=== PATIENT | male | born 1970 | race Caucasian/White ===

== ENCOUNTER 2018-05-05 17:30 | Emergency (ER) | payer SELFPAY ==
[~2018-05-05] VITALS: Ht 193 cm; Wt 90.7 kg
--- OUTSIDE RECORDS SUMMARY | 2018-05-05 17:33 | XMS REPORT ---
Author Author Kai Hills Organization [employer] Address Unknown Phone Unavailable Care Team Providers Care Special Agent Name Role Phone Kai Hills CP Unavailable Allergies No Known Allergies Problems Problem Type Condition Code Onset Dates Condition Status Problem Tinea pedis of both feet B35.3 Active Problem Peripheral vascular disease I73.9 Active Medications No Known Medications Results No Known Results Summary Purpose [employer] Submission
--- OUTSIDE RECORDS SUMMARY | 2018-05-05 17:33 | XMS REPORT ---
Author Author Kai Hills Organization [employer] Address Unknown Phone Unavailable Care Team Providers Care Microfilm Operator Name Role Phone Kai Hills CP Unavailable Allergies No Known Allergies Problems Problem Type Condition Code Onset Dates Condition Status Problem Tinea pedis of both feet B35.3 Active Problem Peripheral vascular disease I73.9 Active Medications No Known Medications Results No Known Results Summary Purpose [employer] Submission
--- OUTSIDE RECORDS SUMMARY | 2018-05-05 17:33 | XMS REPORT | Continuity of Care Document ---
Author Author [facility] Address Unknown Phone Unavailable Problems Problem Status Onset Date Classification Date Reported Comments Source Tinea pedis of both feet Active Problem 04/02/2018 [facility] Peripheral vascular disease Active Problem 04/02/2018 [facility] Medications Medication Details Route Status Patient Instructions Ordering Provider Order Date Source Allergies, Adverse Reactions, Alerts Substance Category Reaction Severity Reaction type Status Date Reported Comments Source Immunizations Immunization Date Given Site Status Last Updated Comments Source Results Order Name Results Value Reference Range Date Interpretation Comments Source Vital Signs Vital Sign Value Date Comments Source Encounters Location Location Details Encounter Type Encounter Number Reason For Visit Attending Provider ADM Date DC Date Status Source Procedures Procedure Code Date Perfomer Comments Source
--- OUTSIDE RECORDS SUMMARY | 2018-05-05 17:33 | XMS REPORT ---
Author Author Kai Hills Organization [employer] Address Unknown Phone Unavailable Care Team Providers Care Supervisor Metal Placing Name Role Phone Kai Hills CP Unavailable Allergies No Known Allergies Problems Problem Type Condition Code Onset Dates Condition Status Problem Tinea pedis of both feet B35.3 Active Problem Peripheral vascular disease I73.9 Active Medications No Known Medications Results No Known Results Summary Purpose [employer] Submission
[2018-05-05 21:28] LABS: BASOPHILS # (AUTO) 0.1 (0.0-0.1); BASOPHILS % 0.6 % (0.0-1.0); EOSINOPHILS # (AUTO) 0.5 (0.0-0.4); EOSINOPHILS % 3.7 % (0.0-6.0); HEMATOCRIT 41.1 % (38.2-49.6); HEMOGLOBIN 14.6 g/dL (14.0-18.0); LYMPHOCYTES # (AUTO) 1.4 (1.0-3.2); LYMPHOCYTES % 11.3 % (18.0-39.1); MEAN CORPUSCULAR HEMOGLOBIN 35.6 pg (28-32); MEAN CORPUSCULAR HGB CONC 35.5 g/dL (31-35); MEAN CORPUSCULAR VOLUME 100.2 fL (81-99); MONOCYTES # (AUTO) 1.1 (0.2-0.8); MONOCYTES % 8.7 % (4.4-11.3); NEUTROPHILS # (AUTO) 9.5 (2.1-6.9); NEUTROPHILS % 74.7 % (38.7-80.0); PLATELET COUNT 393 x10e3/uL (140-360); RED CELL DISTRIBUTION WIDTH 13.5 % (11.7-14.4)
[2018-05-05 21:40] LABS: ALANINE AMINOTRANSFERASE 16 IU/L (0-55); ALBUMIN 1.5 g/dL (3.5-5.0); ALBUMIN/GLOBULIN RATIO 0.4 (0.8-2.0); ALKALINE PHOSPHATASE 115 IU/L (40-150); ANION GAP 11.4 mmol/L (8-16); BLOOD UREA NITROGEN 8 mg/dL (7-26); BUN/CREATININE RATIO 13 (6-25); CALCIUM 8.7 mg/dL (8.4-10.2); CARBON DIOXIDE 25 mmol/L (22-29); CHLORIDE 100 mmol/L (98-107); CREATININE, SERUM 0.63 mg/dL (0.72-1.25); EST GLOMERULAR FILTRATION RATE > 60 ML/MIN (60-); GLUCOSE 94 mg/dL (74-118); POTASSIUM 4.4 mmol/L (3.5-5.1); SODIUM 132 mmol/L (136-145)
[2018-05-05 23:02] LABS: BILIRUBIN,URINE NEGATIVE (NEGATIVE); CLARITY,URINE CLOUDY (CLEAR); COLOR,URINE AMBER (YELLOW); KETONES,URINE NEGATIVE (NEGATIVE); LEUKOCYTE ESTERASE ,URINE NEGATIVE (NEGATIVE); NITRITE,URINE NEGATIVE (NEGATIVE); PROTEIN,URINE DIPSTICK 3+ (NEGATIVE); URINE UROBILINOGEN 0.2 mg/dL (0.2 - 1)
[2018-05-05 23:10] LABS: BACTERIA,URINE MANY /HPF; RBC,URINE >50 /HPF (0-5)
[2018-05-05 23:11] LABS: EPITHELIAL CELLS,URINE FEW /LPF
[2018-05-06] MEDS ORDERED: SODIUM CHLORIDE 0.9% 500ML 500 ML IV ONE
--- NOTE | 2018-05-06 00:41 | Diagnostic Imaging Report ---
EXAMINATION: CHEST 2 VIEWS INDICATION: SMOKER W/ COUGH, WT LOSS, LEFT ARM COLD COMPARISON: None FINDINGS: PA and lateral views TUBES and LINES: None. LUNGS: Lungs are well inflated. Chronic appearing interstitial changes likely relating to underlying emphysema. Biapical pleural parenchymal scarring, left greater than right. There is no evidence of pneumonia or pulmonary edema. PLEURA: No pleural effusion or pneumothorax. HEART AND MEDIASTINUM: The cardiomediastinal silhouette is unremarkable. BONES AND SOFT TISSUES: No acute osseous lesion. Multiple old right-sided rib and right scapular fractures. Soft tissues are unremarkable. UPPER ABDOMEN: No free air under the diaphragm. IMPRESSION: No acute thoracic abnormality. Signed by: DR. Surinder Meraz MD on 05/06/2018 12:38 AM
[2018-05-06] MEDS ORDERED: HEPARIN SOD (PORCINE) 5,000 UNIT/ML VIAL IV ONE (01:00)
--- NOTE | 2018-05-06 01:01 | Diagnostic Imaging Report ---
EXAM: CT Chest WITH contrast (PE Protocol) INDICATION: Leg, arm swelling. Rash on torso, arms, and legs for one week. Shortness of breath with exertion. ^PE PROTOCOL COMPARISON: None TECHNIQUE: Chest was scanned utilizing a multidetector helical scanner from the lung apex through the level of the diaphragm after administration of IV contrast. Thin section reconstructions were obtained with special concentration on the pulmonary arteries. Coronal and sagittal reformations were obtained. Pulmonary embolism protocol was performed. IV CONTRAST: 100 mL of Isovue-370 COMPLICATIONS: None RADIATION DOSE: Total DLP: 619.6 mGy*cm Estimated effective dose: (DLP x 0.014 x size factor) mSv CTDIvol has been reviewed. It is below the limits set by the Radiation Protocol Committee (RPC). FINDINGS: LINES/ TUBES: None. LUNGS AND AIRWAYS: No filling defect is identified within the pulmonary arteries to the segmental level. Centrilobular and paraseptal emphysematous changes predominantly in the upper lobes. Mild biapical pleural-parenchymal scarring. No consolidations. Airways are normal. PLEURA: The pleural spaces are clear. HEART AND MEDIASTINUM: The thyroid gland is normal. No mediastinal, hilar or axillary lymphadenopathy. The heart is normal in size.. There is no pericardial effusion. Three-vessel coronary artery calcifications. Main pulmonary artery measures 2.6 cm in diameter and the ascending aorta measures 3.4 cm. UPPER ABDOMEN: Unremarkable BONES: Old multiple right-sided rib fractures and right scapular fracture. SOFT TISSUES: Gynecomastia. IMPRESSION: No pulmonary emboli or acute thoracic abnormalities. Signed by: DR. Surinder Meraz MD on 05/06/2018 12:58 AM
[2018-05-06 01:46] LABS: INR 0.86; PROTHROMBIN TIME 12.5 seconds (11.9-14.5)
[2018-05-06 01:47] LABS: PARTIAL THROMBOPLASTIN TIME 27.5 seconds (23.8-35.5)
[2018-05-06] MEDS ORDERED: HEPARIN 25,000U/0.45% NS 250ML 250 ML ONE (01:54)
[2018-05-06] MEDS ORDERED: CEFTRIAXONE SOD 1 GM VIAL IV SCH (02:00)
[2018-05-06] MEDS ORDERED: IOPAMIDOL 370 MG/ML 200 ML INFUS..BTL INJ ONE (02:37)
[2018-05-06] MEDS ORDERED: SODIUM CHLORIDE 0.9% 50ML 50 ML ONE ×2 (02:37→02:51)
== END 2018-05-06 03:45 | disposition short-term general hospital (02) ==
LOC: ER 17:30
DX: M79.89 Other specified soft tissue disorders (principal); I74.2 Embolism and thrombosis of arteries of the upper extremities; R60.9 Edema, unspecified; R21 Rash and other nonspecific skin eruption; N30.91 Cystitis, unspecified with hematuria; R53.83 Other fatigue; I10 Essential (primary) hypertension; F17.210 Nicotine dependence, cigarettes, uncomplicated
CPT/HCPCS: 36415; 71046; 71260; 80053; 81001; 83880; 85025; 85610; 85730; 87086; 93005; 93931; 99284; J0696; J1644 ×2; J7040; Q9967

== ENCOUNTER 2018-10-03 17:01 | Emergency (ER) | payer BC ==
[~2018-10-03] VITALS: Ht 193 cm; Wt 92.5 kg
--- OUTSIDE RECORDS SUMMARY | 2018-10-03 17:07 | XMS REPORT | Clinical Summary ---
Author Author [facility] Address Unknown Phone Unavailable Care Team Providers Care Water Tender Name Role Phone Jair Martino Unavailable Allergies Comments Active Allergy Reactions Severity Noted Date Amlodipine 05/06/2018 Medications End Date Status Medication Sig Dispensed Refills Start Date Active losartan (COZAAR) 100 MG Take 100 mg 0 tablet by mouth daily. 05/13/2019 Active losartan (COZAAR) 100 MG Take 1 tablet 90 tablet 3 tablet (100 mg 8 total) by mouth daily. 05/12/2019 Active clobetasol (TEMOVATE) Apply 30 g 0 0.05 % ointment topically 2 8 (two) times daily. 05/12/2019 Active triamcinolone (KENALOG) Apply 30 g 0 0.1 % topical ointment topically 2 8 (two) times daily. 05/16/2019 Active aspirin 81 MG EC tablet Take 1 tablet 90 tablet 3 (81 mg total) 8 by mouth daily. 06/11/2018 sulfamethoxazole-trimetho Take 1 tablet 30 tablet 1 prim (BACTRIM DS) 800-160 (160 mg of 8 mg per tablet trimethoprim total) by mouth daily for 30 days. 05/15/2018 Discontinued apixaban (ELIQUIS) 5 mg Take 2 28 tablet 0 Tab tablet tablets (10 8 mg total) by mouth 2 (two) times daily for 7 days Then take 5mg twice daily.. 05/12/2018 Discontinued apixaban (ELIQUIS) 5 mg Take 1 tablet 60 tablet 3 Tab tablet (5 mg total) 8 by mouth 2 (two) times daily for 30 days. 06/11/2018 pantoprazole (PROTONIX) Take 1 tablet 30 tablet 1 40 MG tablet (40 mg total) 8 by mouth daily for 30 days. 06/11/2018 furosemide (LASIX) 80 MG Take 1 tablet 60 tablet 1 tablet (80 mg total) 8 by mouth 2 (two) times daily for 30 days. 06/12/2018 predniSONE (DELTASONE) 20 Take 3 90 tablet 0 MG tablet tablets (60 8 mg total) by mouth daily for 30 days. 06/11/2018 apixaban (ELIQUIS) 5 mg Take 1 tablet 60 tablet 1 Tab tablet (5 mg total) 8 by mouth 2 (two) times daily for 30 days. 05/20/2018 apixaban (ELIQUIS) 5 mg Take 2 20 tablet 0 Tab tablet tablets (10 8 mg total) by mouth 2 (two) times daily for 5 days Then take 5mg twice daily. 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 Essential hypertension 05/06/2018 Bilateral leg edema 05/06/2018 Encounters Care Team Description Date Type Specialty Anahi Stone RN Follow-up 06/12/2018 Telephone Cardiology Chai Jones MD L HEART CATH ONLY - NO ANGIOS 05/14/2018 Surgery 05/09/2018 Travel 05/08/2018 Travel Clara Pascual MD EMBOLECTOMY 05/07/2018 Surgery Jose Treviño MD 05/07/2018 Anesthesia Event Jose Treviño MD Chung, Jayer, MD [place], Narendra, MD Heinen, Allison P., MD Nephrotic syndrome (Primary Dx); Bilateral leg edema; Brachial artery thrombus (HCC); Essential hypertension; Hypoalbuminemia; Nephrosis; Leukocytosis, unspecified type; Hyponatremia; Aortic valve mass; Papillary fibroelastoma of heart; Preop cardiovascular exam; Alcohol abuse; Tobacco abuse 05/06/2018 [facility] General Internal Medicine - Encounter 05/15/2018 after 10/02/2017 Immunizations Name Dates Previously Given Next Due Influenza Four-QIV Non-PF 05/08/2018 5+ YR Pneumococcal Conjugate 05/08/2018 (Prevnar) 13-Valent Social History Date Tobacco Use Types Packs/Day Years Used Current Every Day Smoker Sex Assigned at Date Recorded Not on file Industry Job Start Date Occupation Not on file Not on file Not on file Travel End Travel History Travel Start No recent travel history available. Last Filed Vital Signs Time Taken Vital Sign Reading 05/15/2018 3:59 AM [employer] SUPER[employer] Blood Pressure 123/72 05/15/2018 3:59 AM [employer]PER[employer] Pulse 76 05/15/2018 3:59 AM [employer]PER[employer] Temperature 36 C (96.8 F) 05/15/2018 3:59 AM [employer] SUPER[employer] Respiratory Rate 18 05/15/2018 3:59 AM [employer]AKERS SUPER[employer]OR Oxygen Saturation 96% 05/07/2018 5:47 PM [employer]AKERS SUPER[employer]OR Inhaled Oxygen 50% Concentration 05/15/2018 6:00 AM [employer]PER[employer] Weight 89.4 kg (197 lb 1.6 oz) 05/06/2018 5:00 AM [employer]AKERS SUPERVISOR Height 187 cm (6' 1.62") 05/15/2018 6:00 AM [employer]AKERS SUPERVISOR Body Mass Index 25.57 Plan of Treatment Not on file Implants Device Identifier Shelf Expiration Date Model / Serial / Lot Implanted Type Area Manufactur er 07/24/2019 [id number] / / [id number] Floseal Vhsd Full Strlprep 5ml Cement/John Left: Arm 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 [id number] - [id number] ler/[employer]hes[employer] SCI Implanted: Qty: 2 on 05/07/2018 by Clara Ortez MD Procedures Comments Procedure Name Priority Date/Time Associated Diagnosis RHYTHM STRIP - SCAN 08/27/2018 11:11 AM CDT REPORT OF PROCEDURE - 08/27/2018 ENDOSCOPY SCAN 9:51 AM CDT VASCULAR DIAGRAM -SCAN 06/02/2018 2:40 PM [employer]AKERS SUPERVISOR RHYTHM STRIP - SCAN 06/02/2018 2:40 PM [employer]AKERS SUPERVISOR CARDIAC CATH REPORT - 06/02/2018 SCAN 2:40 PM [employer]AKERS SUPERVISOR VASCULAR DIAGRAM -SCAN 05/29/2018 5:[address] CHEST WITHOUT IV Routine 05/15/2018 CONTRAST 8:41 AM [employer]AKERS SUPERVISOR CBC W/PLT COUNT & AUTO Routine 05/15/2018 DIFFERENTIAL 4:46 AM [employer]AKERS SUPERVISOR CBC W/PLT COUNT & AUTO Routine 05/15/2018 DIFFERENTIAL 4:46 AM [employer]AKERS SUPER[employer]OR BASIC METABOLIC PANEL (7) Routine 05/15/2018 4:46 AM [employer]AKERS SUPERVISOR MAGNESIUM Routine 05/15/2018 4:46 AM [employer]AKERS SUPERVISOR THROMBOELASTOGRAPH (TEG) Routine 05/15/2018 4:46 AM [employer]AKERS SUPERVISOR ANTITHROMBIN III Routine 05/15/2018 4:46 AM SOAKERS SUPERVISOR POCT-ACT Routine 05/14/2018 4:30 PM [employer]AKERS SUPERVISOR L HEART CATH ONLY - NO 05/14/2018 Chest pain, unspecified ANGIOS 2:50 PM SOAKERS SUPERVISOR type APTT Routine 05/14/2018 1:29 PM [employer]AKERS SUPERVISOR CBC W/PLT COUNT & AUTO Routine 05/14/2018 DIFFERENTIAL 4:21 AM SOAKERS SUPERVISOR APTT Routine 05/14/2018 4:21 AM [employer]AKERS SUPERVISOR BASIC METABOLIC PANEL (7) Routine 05/14/2018 4:21 AM [employer]AKERS SUPERVISOR CBC W/PLT COUNT & AUTO Routine 05/14/2018 DIFFERENTIAL 4:21 AM SOAKERS SUPERVISOR APTT Routine 05/13/2018 7:40 PM [employer]AKERS SUPER[employer]OR BLOOD CULTURE Routine 05/13/2018 5:00 PM [employer]AKERS SUPERVISOR BASIC METABOLIC PANEL (7) Routine 05/13/2018 4:50 PM SOAKERS SUPERVISOR MAGNESIUM Routine 05/13/2018 4:50 PM [employer]AKERS SUPERVISOR BLOOD CULTURE Routine 05/13/2018 4:49 PM SOAKERS SUPERVISOR ECHOCARDIOGRAM REPORT - 05/13/2018 SCAN 2:50 PM SOAKERS SUPERVISOR ECG 12-LEAD Routine 05/13/2018 12:58 PM SOAKERS SUPERVISOR APTT Routine 05/13/2018 12:26 PM [employer]AKERS SUPERVISOR TRANSESOPHAGEAL ECHO Routine 05/13/2018 9:38 AM SOAKERS SUPERVISOR CBC W/PLT COUNT & AUTO Routine 05/13/2018 DIFFERENTIAL 4:38 AM SOAKERS SUPERVISOR APTT Routine 05/13/2018 4:38 AM [employer]AKERS SUPERVISOR BASIC METABOLIC PANEL (7) Routine 05/13/2018 4:38 AM SOAKERS SUPERVISOR CBC W/PLT COUNT & AUTO Routine 05/13/2018 DIFFERENTIAL 4:38 AM SOAKERS SUPERVISOR APTT Routine 05/12/2018 9:23 PM SOAKERS SUPERVISOR BASIC METABOLIC PANEL (7) Routine 05/12/2018 9:23 PM SOAKERS SUPERVISOR MAGNESIUM Routine 05/12/2018 9:23 PM [employer]AKERS SUPERVISOR ECHOCARDIOGRAM REPORT - 05/12/2018 SCAN 6:20 PM SOAKERS SUPERVISOR CONT WAVE PULSED DOPPLER Routine 05/12/2018 5:52 PM [employer]AKERS SUPERVISOR COLOR-FLOW MAPPING Routine 05/12/2018 5:52 PM [employer]AKERS SUPERVISOR ECHO W CONTRAST & DOPPLER Routine 05/12/2018 1:54 PM [employer]AKERS SUPERVISOR CBC W/PLT COUNT & AUTO Routine 05/12/2018 DIFFERENTIAL 5:37 AM SOAKERS SUPERVISOR MAGNESIUM Routine 05/12/2018 5:37 AM SOAKERS SUPERVISOR BASIC METABOLIC PANEL (7) Routine 05/12/2018 5:37 AM SOAKERS SUPERVISOR CBC W/PLT COUNT & AUTO Routine 05/12/2018 DIFFERENTIAL 5:37 AM SOAKERS SUPERVISOR TISSUE EXAM AP Routine 05/11/2018 5:14 PM [employer]AKERS SUPERVISOR BASIC METABOLIC PANEL (7) Routine 05/11/2018 5:14 PM SOAKERS SUPERVISOR MAGNESIUM Routine 05/11/2018 5:14 PM SOAKERS SUPERVISOR HEMOGLOBIN AND HEMATOCRIT Routine 05/11/2018 5:14 PM SOAKERS SUPERVISOR US RENAL BIOPSY Routine 05/11/2018 10:00 AM SOAKERS SUPERVISOR TISSUE EXAM AP Routine 05/11/2018 9:08 AM [employer]AKERS SUPERVISOR CBC W/PLT COUNT & AUTO Routine 05/11/2018 DIFFERENTIAL 6:18 AM [employer]AKERS SUPERVISOR CBC W/PLT COUNT & AUTO Routine 05/11/2018 DIFFERENTIAL 6:18 AM [employer]AKERS SUPERVISOR APTT Routine 05/11/2018 6:04 AM SOAKERS SUPERVISOR PROTHROMBIN TIME/INR Routine 05/11/2018 6:04 AM SOAKERS SUPERVISOR PT/APTT STAT 05/11/2018 6:04 AM [employer]AKERS SUPERVISOR MAGNESIUM Routine 05/11/2018 6:04 AM [employer]AKERS SUPERVISOR BASIC METABOLIC PANEL (7) Routine 05/11/2018 6:04 AM SOAKERS SUPERVISOR APTT Routine 05/10/2018 7:56 PM [employer]AKERS SUPERVISOR BASIC METABOLIC PANEL (7) Routine 05/10/2018 7:56 PM [employer]AKERS SUPERVISOR MAGNESIUM Routine 05/10/2018 7:56 PM SOAKERS SUPERVISOR APTT Routine 05/10/2018 1:03 PM [employer]AKERS SUPERVISOR OCCULT BLOOD, STOOL Routine 05/10/2018 5:44 AM [employer]AKERS SUPERVISOR CBC W/PLT COUNT & AUTO Routine 05/10/2018 DIFFERENTIAL 5:35 AM SOAKERS SUPERVISOR APTT Routine 05/10/2018 5:35 AM SOAKERS SUPERVISOR MAGNESIUM Routine 05/10/2018 5:35 AM SOAKERS SUPERVISOR BASIC METABOLIC PANEL (7) Routine 05/10/2018 5:35 AM SOAKERS SUPERVISOR CBC W/PLT COUNT & AUTO Routine 05/10/2018 DIFFERENTIAL 5:35 AM SOAKERS SUPERVISOR BASIC METABOLIC PANEL (7) Routine 05/09/2018 5:44 PM SOAKERS SUPERVISOR MAGNESIUM Routine 05/09/2018 9:18 AM SOAKERS SUPERVISOR APTT Routine 05/09/2018 9:18 AM SOAKERS SUPERVISOR CBC W/PLT COUNT & AUTO Routine 05/09/2018 DIFFERENTIAL 3:07 AM SOAKERS SUPERVISOR APTT Routine 05/09/2018 3:07 AM [employer]AKERS SUPERVISOR BASIC METABOLIC PANEL (7) Routine 05/09/2018 3:07 AM SOAKERS SUPERVISOR CBC W/PLT COUNT & AUTO Routine 05/09/2018 DIFFERENTIAL 3:07 AM [employer]AKERS SUPERVISOR US RENAL COMPLETE Routine 05/09/2018 2:35 AM SOAKERS SUPERVISOR ECHOCARDIOGRAM REPORT - 05/08/2018 SCAN 7:50 PM SOAKERS SUPERVISOR APTT Routine 05/08/2018 5:45 PM [employer]AKERS SUPERVISOR CREATININE, RANDOM URINE Routine 05/08/2018 12:06 PM [employer]AKERS SUPERVISOR OSMOLALITY, URINE Routine 05/08/2018 12:06 PM [employer]AKERS SUPERVISOR UREA NITROGEN, RANDOM Routine 05/08/2018 URINE 12:06 PM [employer]AKERS SUPERVISOR SODIUM, RANDOM URINE Routine 05/08/2018 12:06 PM [employer]AKERS SUPERVISOR APTT Routine 05/08/2018 12:05 PM [employer]AKERS SUPERVISOR 2D ECHO W/ DOPPLER Routine 05/08/2018 (CW/PW/COLOR) 10:46 AM SOAKERS SUPERVISOR OSMOLALITY, SERUM Routine 05/08/2018 8:18 AM SOAKERS SUPERVISOR CBC W/PLT COUNT & AUTO Routine 05/08/2018 DIFFERENTIAL 2:55 AM SOAKERS SUPERVISOR MAGNESIUM Routine 05/08/2018 2:55 AM SOAKERS SUPERVISOR APTT Routine 05/08/2018 2:55 AM SOAKERS SUPERVISOR PROTHROMBIN TIME/INR Routine 05/08/2018 2:55 AM [employer]AKERS SUPERVISOR BASIC METABOLIC PANEL (7) Routine 05/08/2018 2:55 AM SOAKERS SUPERVISOR CBC W/PLT COUNT & AUTO Routine 05/08/2018 DIFFERENTIAL 2:55 AM SOAKERS SUPERVISOR CBC W/PLT COUNT & AUTO Routine 05/07/2018 DIFFERENTIAL 10:06 PM [employer]AKERS SUPERVISOR LACTIC ACID, VENOUS Routine 05/07/2018 10:06 PM SOAKERS SUPERVISOR APTT Routine 05/07/2018 10:06 PM SOAKERS SUPERVISOR PROTHROMBIN TIME/INR Routine 05/07/2018 10:06 PM [employer]AKERS SUPERVISOR CBC W/PLT COUNT & AUTO Routine 05/07/2018 DIFFERENTIAL 10:06 PM [employer]AKERS SUPERVISOR CALCIUM, IONIZED Routine 05/07/2018 10:06 PM SOAKERS SUPERVISOR PHOSPHORUS Routine 05/07/2018 10:06 PM SOAKERS SUPERVISOR MAGNESIUM Routine 05/07/2018 10:06 PM [employer]AKERS SUPERVISOR BASIC METABOLIC PANEL (7) Routine 05/07/2018 10:06 PM SOAKERS SUPERVISOR APTT Routine 05/07/2018 9:52 PM SOAKERS SUPERVISOR APTT Routine 05/07/2018 7:02 PM SOAKERS SUPERVISOR TRANSFUSION SERVICE 05/07/2018 REPORT - SCAN 6:00 PM [employer]AKERS SUPERVISOR EMBOLECTOMY 05/07/2018 Thrombus 4:05 PM [employer]AKERS SUPERVISOR TISSUE EXAM AP Routine 05/07/2018 4:02 PM [employer]AKERS SUPERVISOR POCT-ACT Routine 05/07/2018 3:53 PM [employer]AKERS SUPERVISOR RHEUMATOID FACTOR AB, Routine 05/07/2018 REFLEX TO TITER 9:15 AM SOAKERS SUPERVISOR APTT Routine 05/07/2018 9:15 AM SOAKERS SUPERVISOR CBC W/PLT COUNT & AUTO Routine 05/07/2018 DIFFERENTIAL 3:02 AM SOAKERS SUPERVISOR LIPID PANEL Routine 05/07/2018 3:02 AM SOAKERS SUPERVISOR BASIC METABOLIC PANEL (7) Routine 05/07/2018 3:02 AM SOAKERS SUPERVISOR CBC W/PLT COUNT & AUTO Routine 05/07/2018 DIFFERENTIAL 3:02 AM SOAKERS SUPERVISOR APTT Routine 05/07/2018 3:02 AM SOAKERS SUPERVISOR URINE PROTEIN AP Routine 05/06/2018 ELECTROPHORESIS, RANDOM 8:32 PM SOAKERS SUPERVISOR PROTEIN, RANDOM URINE Routine 05/06/2018 8:32 PM SOAKERS SUPERVISOR URINALYSIS W/ MICROSCOPIC Routine 05/06/2018 8:32 PM SOAKERS SUPERVISOR UREA NITROGEN, RANDOM Routine 05/06/2018 URINE 8:32 PM SOAKERS SUPERVISOR CREATININE, RANDOM URINE Routine 05/06/2018 8:32 PM SOAKERS SUPERVISOR VITAMIN B12 Routine 05/06/2018 8:15 PM SOAKERS SUPERVISOR FOLATE, SERUM Routine 05/06/2018 8:15 PM SOAKERS SUPERVISOR BETA-2 GLYCOPROTEIN Routine 05/06/2018 ANTIBODIES 8:15 PM [employer]AKERS SUPERVISOR CARDIOLIPIN ANTIBODIES, Routine 05/06/2018 IGG AND IGM 8:15 PM [employer]AKERS SUPERVISOR COMPLEMENT COMPONENT C4 Routine 05/06/2018 8:15 PM [employer]AKERS SUPERVISOR COMPLEMENT COMPONENT C3 Routine 05/06/2018 8:15 PM [employer]AKERS SUPERVISOR DOUBLE-STRANDED DNA Routine 05/06/2018 (DSDNA) ANTIBODY 8:15 PM [employer]AKERS SUPERVISOR ANTI-NUCLEAR ANTIBODY Routine 05/06/2018 (YO) 8:15 PM SOAKERS SUPERVISOR HEPATITIS PANEL, ACUTE Routine 05/06/2018 8:15 PM SOAKERS SUPERVISOR KAPPA / LAMBDA LIGHT Routine 05/06/2018 CHAINS, SERUM 8:14 PM [employer]AKERS SUPERVISOR PROTEIN ELECTROPHORESIS, AP Routine 05/06/2018 SERUM 8:14 PM [employer]AKERS SUPERVISOR CRYOGLOBULIN AP Routine 05/06/2018 8:12 PM [employer]AKERS SUPERVISOR LUPUS ANTICOAGULANT AP Routine 05/06/2018 SCREEN WITH REFLEX TO 6:38 PM [employer]AKERS SUPERVISOR CONFIRMATORY APTT Routine 05/06/2018 6:38 PM [employer]AKERS SUPERVISOR APTT Routine 05/06/2018 10:47 AM [employer]AKERS SUPERVISOR T4, FREE Routine 05/06/2018 10:42 AM SOAKERS SUPERVISOR RPR Routine 05/06/2018 10:42 AM SOAKERS SUPERVISOR TSH/FREE T4 IF INDICATED Routine 05/06/2018 10:42 AM SOAKERS SUPERVISOR SODIUM, RANDOM URINE NIECY 05/06/2018 10:42 AM SOAKERS SUPERVISOR POTASSIUM, RANDOM URINE NIECY 05/06/2018 10:42 AM SOAKERS SUPERVISOR CHLORIDE, RANDOM URINE NIECY 05/06/2018 10:42 AM SOAKERS SUPERVISOR OSMOLALITY, SERUM NIECY 05/06/2018 10:42 AM SOAKERS SUPERVISOR PROTEIN, RANDOM URINE Routine 05/06/2018 10:42 AM SOAKERS SUPERVISOR OSMOLALITY, URINE NIECY 05/06/2018 10:42 AM [employer]AKERS SUPERVISOR HEPATITIS B SURFACE STAT 05/06/2018 ANTIGEN 10:42 AM [employer]AKERS SUPERVISOR HEPATITIS B SURFACE STAT 05/06/2018 ANTIBODY 10:42 AM [employer]AKERS SUPERVISOR HERPES VIRUS ANTIBODY, STAT 05/06/2018 IGM 10:42 AM [employer]AKERS SUPERVISOR HIV-1 ANTIGEN WITH STAT 05/06/2018 HIV-1/2 ANTIBODY 10:42 AM [employer]AKERS SUPERVISOR POCT-GLUCOSE METER Routine 05/06/2018 10:33 AM SOAKERS SUPERVISOR XR CHEST 1 VIEW Routine 05/06/2018 PORTABLE/BEDSIDE 9:30 AM [employer]AKERS SUPERVISOR VENOUS DOPPLER LEGS Routine 05/06/2018 BILATERAL 6:01 AM [employer]AKERS SUPERVISOR HEMOGLOBIN A1C Routine 05/06/2018 5:29 AM [employer]AKERS SUPERVISOR CBC W/PLT COUNT & AUTO Routine 05/06/2018 DIFFERENTIAL 5:11 AM [employer]AKERS SUPERVISOR TYPE AND SCREEN, STAT 05/06/2018 AUTOMATED 5:11 AM [employer]AKERS SUPERVISOR HEPATIC FUNCTION PANEL Routine 05/06/2018 5:11 AM SOAKERS SUPERVISOR LACTATE DEHYDROGENASE Routine 05/06/2018 (LDH) 5:11 AM SOAKERS SUPERVISOR LACTIC ACID, VENOUS Routine 05/06/2018 5:11 AM SOAKERS SUPERVISOR APTT Routine 05/06/2018 5:11 AM SOAKERS SUPERVISOR PHOSPHORUS Routine 05/06/2018 5:11 AM SOAKERS SUPERVISOR BASIC METABOLIC PANEL (7) Routine 05/06/2018 5:11 AM SOAKERS SUPERVISOR PT/APTT Routine 05/06/2018 5:11 AM SOAKERS SUPERVISOR MAGNESIUM Routine 05/06/2018 5:11 AM SOAKERS SUPERVISOR CBC W/PLT COUNT & AUTO Routine 05/06/2018 DIFFERENTIAL 5:11 AM SOAKERS SUPERVISOR after 10/02/2017 Results * RHYTHM STRIP - SCAN (08/27/2018 11:11 AM CDT) Only the most recent of 2 results within the time period is included. Narrative Performed At * EKG-SCANNED (08/27/2018 9:51 AM CDT) Narrative Performed At * VASCULAR DIAGRAM -SCAN (06/02/2018 2:40 PM SOAKERS SUPERVISOR) Only the most recent of 2 results within the time period is included. Narrative Performed At * CARDIAC CATH REPORT - SCAN (06/02/2018 2:40 PM SOAKERS SUPERVISOR) Narrative Performed At * CT chest without IV contrast (05/15/2018 8:41 AM SOAKERS SUPERVISOR) Specimen Narrative Performed At FINAL REPORT [employer] TECHNIQUE: CT scan of the chest WITHOUT intravenous contrast. Dose modulation, iterative reconstruction, and/or weight-based adjustment of the mA/kV was utilized to reduce the radiation dose to as low as reasonably achievable. INDICATION: Aortic valve disease, possible mass. COMPARISON: None. FINDINGS: ABSENCE OF INTRAVENOUS CONTRAST DECREASES SENSITIVITY FOR DETECTION OF FOCAL LESIONS AND VASCULAR PATHOLOGY. LINES/TUBES: None. LUNGS AND AIRWAYS: Moderate apical predominant centrilobular emphysema. Groundglass opacities are scattered throughout the dependent right middle lobe, central lower lobes, and peripheral left lateral lower lobe. The largest component measures up to 6 cm. A more focal groundglass opacity in the medial left lower measures 1.8 cm. Bibasilar subsegmental atelectasis. PLEURA: The pleural spaces are clear. HEART AND MEDIASTINUM: The visualized thyroid gland is normal. No significant mediastinal, hilar, or axillary lymphadenopathy. The heart and pericardium are within normal limits. Calcification of the aortic valve. The aortic valve mass was likely better visualized on the echocardiography. Moderate coronary arterial calcifications. SOFT TISSUES AND BONES: Bilateral gynecomastia. Old, healed right scapular body fracture. Old, healed fractures of right ribs 2, 3, 4, 5, 6 and 7. UPPER ABDOMEN: Unremarkable. IMPRESSION: 1.This noncontrast examination is not tailored to evaluate the aortic valve. The aortic valve mass was likely better visualized on the prior echocardiogram. 2.The groundglass opacities scattered throughout both lungs measuring up to 6 cm and are most concerning for infection. A follow-up CT is recommended in 3-6 months to exclude neoplasia. 3.Moderate apical predominant centrilobular emphysema. Signed: Anthony Gilmore MD Report Verified Date/Time:05/15/2018 16:43:31 Reading Location: [address] Body Reading Room Procedure Note Interface, External Ris In - 05/15/2018 4:45 PM SOAKERS SUPERVISOR FINAL REPORT TECHNIQUE: CT scan of the chest WITHOUT intravenous contrast. Dose modulation, iterative reconstruction, and/or weight-based adjustment of the mA/kV was utilized to reduce the radiation dose to as low as reasonably achievable. INDICATION: Aortic valve disease, possible mass. COMPARISON: None. FINDINGS: ABSENCE OF INTRAVENOUS CONTRAST DECREASES SENSITIVITY FOR DETECTION OF FOCAL LESIONS AND VASCULAR PATHOLOGY. LINES/TUBES: None. LUNGS AND AIRWAYS: Moderate apical predominant centrilobular emphysema. Groundglass opacities are scattered throughout the dependent right middle lobe, central lower lobes, and peripheral left lateral lower lobe. The largest component measures up to 6 cm. A more focal groundglass opacity in the medial left lower measures 1.8 cm. Bibasilar subsegmental atelectasis. PLEURA: The pleural spaces are clear. HEART AND MEDIASTINUM: The visualized thyroid gland is normal. No significant mediastinal, hilar, or axillary lymphadenopathy. The heart and pericardium are within normal limits. Calcification of the aortic valve. The aortic valve mass was likely better visualized on the echocardiography. Moderate coronary arterial calcifications. SOFT TISSUES AND BONES: Bilateral gynecomastia. Old, healed right scapular body fracture. Old, healed fractures of right ribs 2, 3, 4, 5, 6 and 7. UPPER ABDOMEN: Unremarkable. IMPRESSION: 1.This noncontrast examination is not tailored to evaluate the aortic valve. The aortic valve mass was likely better visualized on the prior echocardiogram. 2.The groundglass opacities scattered throughout both lungs measuring up to 6 cm and are most concerning for infection. A follow-up CT is recommended in 3-6 months to exclude neoplasia. 3.Moderate apical predominant centrilobular emphysema. Signed: Anthony Gilmore MD Report Verified Date/Time: 05/15/2018 16:43:31 Reading Location: [facility] [id number] CT Body Reading Room Performing Organization Address City/State/Zipcode Phone Number [facility] * CBC with platelet count + automated diff (05/15/2018 4:46 AM SOAKERS SUPERVISOR) Only the most recent of 11 results within the time period is included. WBC 15.6 (H) 3.5 - 10.5 K/L [facility] RBC 3.61 (L) 4.63 - 6.08 M/L [facility] Hemoglobin 12.5 (L) 13.7 - 17.5 GM/DL [facility] Hematocrit 36.2 (L) 40.1 - 51.0 % [facility] MCV 100.3 (H) 79.0 - 92.2 fL [facility] MCH 34.6 (H) 25.7 - 32.2 pg [facility] MCHC 34.5 32.3 - 36.5 GM/DL [facility] RDW 12.9 11.6 - 14.4 % [facility] Platelets 461 (H) 150 - 450 K/CU MM [facility] MPV 9.7 9.4 - 12.4 fL [facility] nRBC 0 0 - 0 /100 WBC [facility] % Neutros 93 % [facility] % Lymphs 3 % [facility] % Monos 3 % [facility] % Eos 0 % [facility] % Baso 0 % [facility] # Neutros 14.47 (H) 1.78 - 5.38 K/L [facility] # Lymphs 0.50 (L) 1.32 - 3.57 K/L [facility] # Monos 0.43 0.30 - 0.82 K/L [facility] # Eos 0.00 (L) 0.04 - 0.54 K/L [facility] # Baso 0.01 0.01 - 0.08 K/L [facility] Immature 1 0 - 1 % [facility] Granulocytes-Relative [facility] Specimen Blood Performing Organization Address City/State/Zipcode Phone Number [facility] [address] [place] [address] [facility] * Thromboelastograph (TEG) (05/15/2018 4:46 AM SOAKERS SUPERVISOR) TEG Activated Clotting 2.6 (L) 4.0 - 7.0 minutes [facility] TEG Fibrinogen Activity 79.7 (H) 61.0 - 73.0 degrees [facility] TEG Platelet Aggregation 65.3 (H) 55.0 - 65.0 MM [facility] TEG Fibrinolysis 1.9 0.0 - 5.0 % [facility] TEG-H Activated Clotting 2.8 (L) 4.0 - 7.0 minutes [facility] Time [facility] TEG-H Fibrinogen Activity 76.9 (H) 61.0 - 73.0 degrees [facility] TEG-H Platelet 62.8 55.0 - 65.0 MM [facility] Aggregation [facility] TEG-H Fibrinolysis 1.6 0.0 - 5.0 % [facility] Specimen Blood Performing Organization Address City/[facility] Phone Number [place] [phone] * Antithrombin III (05/15/2018 4:46 AM SOAKERS SUPERVISOR) Antithrombin III 110.0 80.0 - 120.0 % [facility] Specimen Blood Performing Organization Address City/[facility] Phone Number [address] * Magnesium (05/15/2018 4:46 AM SOAKERS SUPERVISOR) Only the most recent of 12 results within the time period is included. Magnesium 1.9 1.6 - 2.6 mg/dL [facility] Specimen Blood Performing Organization Address City/[facility] Phone Number [address] [phone] * Basic Metabolic Panel (05/15/2018 4:46 AM SOAKERS SUPERVISOR) Only the most recent of 16 results within the time period is included. Sodium 135 (L) 136 - 145 meq/L [facility] Potassium 3.0 (L) 3.5 - 5.1 meq/L [facility] Chloride 99 98 - 107 meq/L [facility] CO2 28 22 - 29 meq/L [facility] BUN 30 (H) 7 - 21 mg/dL [facility] Creatinine 0.84 0.57 - 1.25 mg/dL [facility] Glucose 121 (H) 70 - 105 mg/dL [facility] Calcium 8.3 (L) 8.4 - 10.2 mg/dL [facility] EGFR 98Comment: ESTIMATED GFR IS mL/min/1.73 sq m [facility] NOT ACCURATE CREATININE [facility] CLEARANCE IN PREDICTING GLOMERULAR FILTRATION RATE. ESTIMATED GFR IS NOT APPLICABLE FOR DIALYSIS PATIENTS. Specimen Blood Performing Organization Address City/[facility]/Zipcode Phone Number [place] [phone] * POC ACTIVATED CLOTTING TIME (05/14/2018 4:30 PM [employer]AK[employer] SUPERVISOR) Only the most recent of 2 results within the time period is included. Activated Clotting Time 120Comment: TESTED AT [facility] sec [address] Specimen Blood Performing Organization Address City/[facility] Phone Number [address] * aPTT (05/14/2018 1:29 PM SOAKERS SUPERVISOR) Only the most recent of 23 results within the time period is included. PTT 67.9 (H) 22.5 - 36.0 seconds [facility] Specimen Blood Performing Organization Address City/[facility]/Zipcode Phone Number [address] [place] [address] * Blood culture (05/13/2018 5:00 PM SOAKERS SUPERVISOR) Only the most recent of 2 results within the time period is included. Result No growth in 5 days [facility] Specimen Blood Performing Organization Address City/[facility]/Zipcode Phone Number [place] [address] [place] [address] [facility] * ECHOCARDIOGRAM REPORT - SCAN (05/13/2018 2:50 PM SOAKERS SUPERVISOR) Narrative Performed At * ECG 12 lead (05/13/2018 12:58 PM SOAKERS SUPERVISOR) Specimen Narrative Performed At Ventricular Rate 96 BPM GE MUSE Atrial Rate 96 BPM P-R Interval 156 ms QRS Duration 110 ms Q-T Interval 352 ms QTC Calculation(Bazett) 444 ms P [place] 82 degrees R [place] 55 degrees T [place] 67 degrees Normal sinus rhythm Normal ECG No previous ECGs available Confirmed by Evita VARGHESE BASANT ([id number]) on 05/13/2018 6:22:57 PM Procedure Note Interface, External Ris In - 05/13/2018 6:23 PM SOAKERS SUPERVISOR Ventricular Rate 96 BPM Atrial Rate 96 BPM P-R Interval 156 ms QRS Duration 110 ms Q-T Interval 352 ms QTC Calculation(Bazett) 444 ms P [place] 82 degrees R [place] 55 degrees T [place] 67 degrees Normal sinus rhythm Normal ECG No previous ECGs available Confirmed by Evita VARGHESE BASANT ([id number]) on 05/13/2018 6:22:57 PM Performing Organization Address City/State/Zipcode Phone Number [facility] * Transesophageal echo (05/13/2018 9:38 AM SOAKERS SUPERVISOR) Ejection Fraction [facility] ECHO HEARTLAB [place] Specimen Narrative Performed At Transesophageal Echocardiography Report (ARNULFO) [facility] ECHO HEARTLAB Demographics [place] Patient NameNANCIE MAHARAJ Date of Study 05/13/2018 Visit [id number] Room Number [id number] Number Date of 1970Referring Physician Luz Stephenson MD Age 47 year(s)Machinist Bench Juancarlos Aceves MD Physician Procedure Type of Study ARNULFO procedure:TRANSESOPHAGEAL ECHO (Routine) Indications:Mass, cardiac. Clinical History HTN,EMBOLECTOMY 05-07-18 Height: 74 inches Weight: 99.34 kg (219 lbs) BSA: 2.26 m^2 BMI: 28.12 kg/m^2 HR: 82 bpm BP: 140/85 mmHg O2 Saturation: 99 % ARNULFO Performed By: the attending and the dry kiln feeder Procedure Informed Consent ARNULFO procedure notes Moderate sedation by performing MD using 5 mg IV versed and 100 mcg IV fentanyl. . Type of Anesthesia: Moderate sedation Procedure Medications - Fentanyl I.V. 100 mcg. - Versed I.V. 5 mg. - Results reported to: Summary Normal left ventricular chamber size. Normal wall thickness. Normal overall left ventricular systolic function. No apparent segmental wall motion abnormalities. Ejection fraction 60%. The right ventricular chamber size and systolic function are within normal limits. No evidence of left atrial or left atrial appendage thrombus. Normal left atrial appendage velocities (84 cm/s). Mild atherosclerosis of the descending aorta. Normal AoV structure. There is a 1.0 cm x 0.3 cm mobile echodensity attached to the non coronary cusp. Differential includes vegetation versus fibroelastoma. There is a trace of aortic regurgitation present. No other significant valvular abnormalities. Previous Study On comparison with prior TTE from 05/12/18 the mobile echodensity on the non coronary cusp is better visualized. Signature Findings Technical Quality: Technically fair exam. Rhythm/BPRegular sinus rhythm during the exam. Left Ventricle Normal left ventricular chamber size. Normal wall thickness. Normal overall left ventricular systolic function. No apparent segmental wall motion abnormalities. Ejection fraction 60%. Left AtriumNo evidence of left atrial or left atrial appendage thrombus. Normal left atrial appendage velocities (84 cm/s). LA size is normal . Right VentricleThe right ventricular chamber size and systolic function are within normal limits. Right Atrium RA size is normal. Atrial SeptumThe interatrial septum is adequately visualized. Normal interatrial septum by available views. No evidence of PFO by color Doppler. Aortic Valve Normal AoV structure. There is a 1.0 cm x 0.3 cm mobile echodensity attached to the non coronary cusp. Differential includes vegetation versus fibroelastoma. There is a trace of aortic regurgitation present. No aortic stenosis present. Mitral Valve Normal MV structure. No evidence of mitral regurgitation. Tricuspid ValveTV structure is normal. No evidence of tricuspid regurgitation. Pulmonic Valve Normal PV structure and function by limited 2D views and color. AortaMild atherosclerosis of the descending aorta. PericardiumNo significant pericardial effusion is visualized. IVC/SVC/PA/PV/PleuralThe inferior vena cava is not well visualized. Pulmonary vein flow is normal . Chambers/Structures Left Ventricle LVOT Diameter: 2.33 cm Aorta Ascending Aorta: 3.61 cm Doppler/Quantitative Measurements Aortic Valve Peak Velocity: 2.11 m/sMean Velocity: 1.28 m/s Peak Gradient: 17.84 mmHgMean Gradient: 8.14 mmHg AV Area (continuity): 2.09 cm^2 AV VTI: 38.85 cm AV DVI: 0.49 LVOT Peak Velocity: 1.12 m/sPeak Gradient: 5 mmHg Mean Velocity: 0.71 m/sMean Gradient: 2.6 mmHg LVOT Diameter: 2.33 cm LVOT VTI: 19.07 cm LVOT Area: 4.26 cm^2 LVOT SV:81.27 ml LVOT CO: 6.66 l/minLVOT CI: 2.95 l/min/m^2 Procedure Note Interface, External Ris In - 05/21/2018 9:49 AM SOAKERS SUPERVISOR Transesophageal Echocardiography Report (ARNULFO) Demographics Patient Name NANCIE MAHARAJ Date of Study 05/13/2018 Gender Male Visit Number [id number] Race Room Number [id number] Number Date of 1970 Referring Physician Luz Stephenson MD Age 47 year(s) Machinist Bench Juancarlos Aceves MD Physician Procedure Type of Study ARNULFO procedure:TRANSESOPHAGEAL ECHO (Routine) Indications:Mass, cardiac. Clinical History HTN,EMBOLECTOMY 05-07-18 Height: 74 inches Weight: 99.34 kg (219 lbs) BSA: 2.26 m^2 BMI: 28.12 kg/m^2 HR: 82 bpm BP: 140/85 mmHg O2 Saturation: 99 % ARNULFO Performed By: the attending and the dry kiln feeder Procedure Informed Consent ARNULFO procedure notes Moderate sedation by performing MD using 5 mg IV versed and 100 mcg IV fentanyl. . Type of Anesthesia: Moderate sedation Procedure Medications - Fentanyl I.V. 100 mcg. - Versed I.V. 5 mg. - Results reported to: Summary Normal left ventricular chamber size. Normal wall thickness. Normal overall left ventricular systolic function. No apparent segmental wall motion abnormalities. Ejection fraction 60%. The right ventricular chamber size and systolic function are within normal limits. No evidence of left atrial or left atrial appendage thrombus. Normal left atrial appendage velocities (84 cm/s). Mild atherosclerosis of the descending aorta. Normal AoV structure. There is a 1.0 cm x 0.3 cm mobile echodensity attached to the non coronary cusp. Differential includes vegetation versus fibroelastoma. There is a trace of aortic regurgitation present. No other significant valvular abnormalities. Previous Study On comparison with prior TTE from 05/12/18 the mobile echodensity on the non coronary cusp is better visualized. Signature Findings Technical Quality: Technically fair exam. Rhythm/BP Regular sinus rhythm during the exam. Left Ventricle Normal left ventricular chamber size. Normal wall thickness. Normal overall left ventricular systolic function. No apparent segmental wall motion abnormalities. Ejection fraction 60%. Left Atrium No evidence of left atrial or left atrial appendage thrombus. Normal left atrial appendage velocities (84 cm/s). LA size is normal . Right Ventricle The right ventricular chamber size and systolic function are within normal limits. Right Atrium RA size is normal. Atrial Septum The interatrial septum is adequately visualized. Normal interatrial septum by available views. No evidence of PFO by color Doppler. Aortic Valve Normal AoV structure. There is a 1.0 cm x 0.3 cm mobile echodensity attached to the non coronary cusp. Differential includes vegetation versus fibroelastoma. There is a trace of aortic regurgitation present. No aortic stenosis present. Mitral Valve Normal MV structure. No evidence of mitral regurgitation. Tricuspid Valve TV structure is normal. No evidence of tricuspid regurgitation. Pulmonic Valve Normal PV structure and function by limited 2D views and color. Aorta Mild atherosclerosis of the descending aorta. Pericardium No significant pericardial effusion is visualized. IVC/SVC/PA/PV/Pleural The inferior vena cava is not well visualized. Pulmonary vein flow is normal . Chambers/Structures Left Ventricle LVOT Diameter: 2.33 cm Aorta Ascending Aorta: 3.61 cm Doppler/Quantitative Measurements Aortic Valve Peak Velocity: 2.11 m/s Mean Velocity: 1.28 m/s Peak Gradient: 17.84 mmHg Mean Gradient: 8.14 mmHg AV Area (continuity): 2.09 cm^2 AV VTI: 38.85 cm AV DVI: 0.49 LVOT Peak Velocity: 1.12 m/s Peak Gradient: 5 mmHg Mean Velocity: 0.71 m/s Mean Gradient: 2.6 mmHg LVOT Diameter: 2.33 cm LVOT VTI: 19.07 cm LVOT Area: 4.26 cm^2 LVOT SV:81.27 ml LVOT CO: 6.66 l/min LVOT CI: 2.95 l/min/m^2 Performing Organization Address City/State/Zipcode Phone Number [facility] * ECHOCARDIOGRAM REPORT - SCAN (05/12/2018 6:20 PM SOAKERS SUPERVISOR) Narrative Performed At * ECHO W CONTRAST & DOPPLER (05/12/2018 1:54 PM SOAKERS SUPERVISOR) Ejection Fraction [facility] Specimen Narrative Performed At Transthoracic Echocardiography Report (TTE) [facility] [employer] Demographics [place] Patient NameGUELKER,Date of Study05/12/2018 NANCIE Male Visit [id number] Room [id number] Number Date of 1970ReferringAllascencion Stephenson MD Physician Age 47 year(s)SonographerMarie Pittman, SHELBI, RDCS,RVT,RDMS Credentialing Assistant Marlon Carrillo Interpreting Amrit Veliz MD Physician Procedure Type of Study TTE procedure:2DECHO W/CONTRAST & DOPPLER (Routine) Indications:Suspected cardiac source of emboli. Clinical History Smoker, HTN, Embolectomy (05/07/18) HGB 12.4 HCT 36.6 % Contrast Medium: Bubble Study. Height: 74 inches Weight: 99.34 kg (219 lbs) BSA: 2.26 m^2 BMI: 28.12 kg/m^2 HR: 94 bpm BP: 114/66 mmHg Summary 1. Normal LV size and function 2. Diastology: Normal 3. Normal RV size and function 4. Echodense mass is seen in the NCC of the aortic valve. Recommend ARNULFO for further assessment 5. Trace TR noted 6. No pericardial effusion is seen CRITICAL VALUE: Cardiac mass Findings reported to Dr. Stephenson at 5:42 PM. Previous Study Compared to the previous study there was no 05/08/2018, mass on aortic valve is now seen. Signature Findings Technical Quality: Good visualization Left Ventricle Normal left ventricular chamber size. Normal wall thickness. Normal overall left ventricular systolic function. No apparent segmental wall motion abnormalities. Estimated LVEF by qualitative assessment is normal (55-60%) . Normal diastolic function. Left AtriumLA size is normal . Right VentricleNormal right ventricle structure and function. Right Atrium Normal right atrium. Atrial SeptumIV saline contrast injection was negative for a PFO (patent foramen ovale) at rest and post Valsalva . Aortic Valve 0.5X0.5 cm mass is seen in the NCC of aortic valve, recommend ARNULFO for further evaluation. Mitral Valve Normal MV structure. Tricuspid ValveA trace of tricuspid regurgitation. Unable to estimate peak systolic PA pressure; inadequate TR velocity signal. AortaAortic root size (SInus of Valsalva diameter) is normal . PericardiumNo evidence of pericardial effusion. IVC/SVC/PA/PV/PleuralThe estimated RA pressure by IVC dynamics 0-5mmHg . Chambers/Structures Left Atrium LA Dimension: 3.67 cmLA Area: 18.97 cm^2 LA Volume: 54.76 ml LA Vol. Index: 24 ml/m^2 Left Ventricle LVIDd: 5.32 cm LV Septum Diastolic: 1.04 cm LV PW Diastolic: 0.84 cm LVEDV Centeno's:142.6 ml LVESV Centeno's:61.97 ml LVEF Centeno's: 56.6 %LVEDVI: 63 ml/m^2 LVESVI: 27 ml/m^2 Aorta Ao Root S of Rose.: 3.44 cm Doppler/Quantitative Measurements Mitral Valve MV Peak E-Wave: 0.86 m/sMV Peak A-Wave: 0.76 m/s E/A Ratio: 1.12 Peak Gradient: 2.94 mmHg Deceleration Time: 192.5 msec MV Nestor. Peak: Tissue Doppler E' Lateral Velocity: 0.17 m/s A' Lateral Velocity: 0.09 m/s E/E': 5.15 Procedure Note Interface, External Ris In - 05/12/2018 5:43 PM SOAKERS SUPERVISOR Transthoracic Echocardiography Report (TTE) Demographics Patient Name NICKO, Date of Study 05/12/2018 NANCIE Gender Male Visit Number [id number] Race Room Number [id number] Number Date of 1970 Referring Luz Stephenson MD Physician Age 47 year(s) Machinist Bench SHELBI Dunn, RDCS,RVT,RDMS Credentialing Assistant Marlon Carrillo Interpreting Amrit Veliz MD Physician Procedure Type of Study TTE procedure:2DECHO W/CONTRAST & DOPPLER (Routine) Indications:Suspected cardiac source of emboli. Clinical History Smoker, HTN, Embolectomy (05/07/18) HGB 12.4 HCT 36.6 % Contrast Medium: Bubble Study. Height: 74 inches Weight: 99.34 kg (219 lbs) BSA: 2.26 m^2 BMI: 28.12 kg/m^2 HR: 94 bpm BP: 114/66 mmHg Summary 1. Normal LV size and function 2. Diastology: Normal 3. Normal RV size and function 4. Echodense mass is seen in the NCC of the aortic valve. Recommend ARNULFO for further assessment 5. Trace TR noted 6. No pericardial effusion is seen CRITICAL VALUE: Cardiac mass Findings reported to Dr. Stephenson at 5:42 PM. Previous Study Compared to the previous study there was no 05/08/2018, mass on aortic valve is now seen. Signature Findings Technical Quality: Good visualization Left Ventricle Normal left ventricular chamber size. Normal wall thickness. Normal overall left ventricular systolic function. No apparent segmental wall motion abnormalities. Estimated LVEF by qualitative assessment is normal (55-60%) . Normal diastolic function. Left Atrium LA size is normal . Right Ventricle Normal right ventricle structure and function. Right Atrium Normal right atrium. Atrial Septum IV saline contrast injection was negative for a PFO (patent foramen ovale) at rest and post Valsalva . Aortic Valve 0.5X0.5 cm mass is seen in the NCC of aortic valve, recommend ARNULFO for further evaluation. Mitral Valve Normal MV structure. Tricuspid Valve A trace of tricuspid regurgitation. Unable to estimate peak systolic PA pressure; inadequate TR velocity signal. Aorta Aortic root size (SInus of Valsalva diameter) is normal . Pericardium No evidence of pericardial effusion. IVC/SVC/PA/PV/Pleural The estimated RA pressure by IVC dynamics 0-5mmHg . Chambers/Structures Left Atrium LA Dimension: 3.67 cm LA Area: 18.97 cm^2 LA Volume: 54.76 ml LA Vol. Index: 24 ml/m^2 Left Ventricle LVIDd: 5.32 cm LV Septum Diastolic: 1.04 cm LV PW Diastolic: 0.84 cm LVEDV Centeno's:142.6 ml LVESV Centeno's:61.97 ml LVEF Centeno's: 56.6 % LVEDVI: 63 ml/m^2 LVESVI: 27 ml/m^2 Aorta Ao Root S of Rose.: 3.44 cm Doppler/Quantitative Measurements Mitral Valve MV Peak E-Wave: 0.86 m/s MV Peak A-Wave: 0.76 m/s E/A Ratio: 1.12 Peak Gradient: 2.94 mmHg Deceleration Time: 192.5 msec MV Nestor. Peak: Tissue Doppler E' Lateral Velocity: 0.17 m/s A' Lateral Velocity: 0.09 m/s E/E': 5.15 Performing Organization Address City/[facility] Phone Number [facility] ECHO [facility]ART[facility] CP[facility] * Hemoglobin and hematocrit (05/11/2018 5:14 PM SOAKERS SUPERVISOR) Hemoglobin 12.9 (L) 13.7 - 17.5 GM/DL [facility] Hematocrit 38.1 (L) 40.1 - 51.0 % [facility] Specimen Blood Performing Organization Address City/[facility]/Zipcode Phone Number [facility] [address] [place] [address] [facility] * Tissue Exam (05/11/2018 5:14 PM SOAKERS SUPERVISOR) Only the most recent of 3 results within the time period is included. 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 Resection margin is inked blue. The specimen is bisected and submitted entirely A1. CG/pl MICROSCOPIC DESCRIPTION Sections show skin with marked [facility] spongiosis and superficial [facility] perivascular infiltrates, including lymphocytes, histiocytes and numerous eosinophils. Specimen Tissue Performing Organization Address City/[facility]/Zipcode Phone Number [facility] [address] [place] [address] [facility] * US renal biopsy (05/11/2018 10:00 AM SOAKERS SUPERVISOR) Specimen Narrative Performed At FINAL REPORT [employer] Ultrasound guidance was provided to the referring salesperson men's furnishings by the carpet technician for a kidney biopsy. 12 images were obtained. Signed: Francisco Javier Joaquin MD Report Verified Date/Time:05/15/2018 14:22:54 Reading Location: [address] Ortho Consult Reading Room Procedure Note Interface, External Ris In - 05/15/2018 2:25 PM SOAKERS SUPERVISOR FINAL REPORT Ultrasound guidance was provided to the referring salesperson men's furnishings by the carpet technician for a kidney biopsy. 12 images were obtained. Signed: Francisco Javier Joaquin MD Report Verified Date/Time: 05/15/2018 14:22:54 Reading Location: [facility] C013X Ortho Consult Reading Room Performing Organization Address City/State/Zipcode Phone Number [employer] * PT/aPTT (05/11/2018 6:04 AM SOAKERS SUPERVISOR) Only the most recent of 2 results within the time period is included. Protime 12.7 11.7 - 14.7 seconds [facility] INR 1.0 <=5.9 [facility] PTT 28.4 22.5 - 36.0 seconds [facility] Specimen Blood Narrative Performed At RECOMMENDED COUMADIN/WARFARIN INR THERAPY RANGES [facility] STANDARD DOSE: 2.0 - 3.0 Includes: PROPHYLAXIS for venous thrombosis, [facility] systemic embolization; TREATMENT for venous thrombosis and/or pulmonary embolus. HIGH RISK: Target INR is 2.5-3.5 for patients with mechanical heart valves. Performing Organization Address [facility] Phone Number [address] [address] [facility] * Prothrombin time/INR (05/11/2018 6:04 AM SOAKERS SUPERVISOR) Only the most recent of 3 results within the time period is included. Protime 12.7 11.7 - 14.7 seconds [facility] INR 1.0 <=5.9 [facility] Specimen Blood Narrative Performed At RECOMMENDED COUMADIN/WARFARIN INR THERAPY RANGES [facility] STANDARD DOSE: 2.0 - 3.0 Includes: PROPHYLAXIS for venous thrombosis, [facility] systemic embolization; TREATMENT for venous thrombosis and/or pulmonary embolus. HIGH RISK: Target INR is 2.5-3.5 for patients with mechanical heart valves. Performing Organization Address City/[facility]/Zipcode Phone Number [facility] [address] [place] [address] [facility] * Occult blood, stool (05/10/2018 5:44 AM SOAKERS SUPERVISOR) Occult blood Negative Negative [facility] Specimen Stool Performing Organization Address [facility]/Zipcode Phone Number [place] [phone] [place] [address] [facility] * US renal complete (05/09/2018 2:35 AM SOAKERS SUPERVISOR) Specimen Narrative Performed At FINAL REPORT [facility] Ultrasound of the Kidneys Clinical History:BEBA on CKD Discussion: Sonographic evaluation of the kidneys was performed. There is no prior study for comparison. Right kidney:12.9 x 5.6 x 6.2 cm, with cortical thickness of 1.5 cm.Normal cortical echogenicity.No mass.No shadowing calculus. No hydronephrosis. Left kidney: 13.4 x 6.9 x 6 cm, with cortical thickness of 1.5 cm. Normal cortical echogenicity.No mass.No shadowing calculus.No hydronephrosis. Limited doppler evaluation of bilateral main renal arteries and veins demonstrate patency. Bladder:Distended and thin-walled with a prevoid volume of 490 cc. Postvoid residual was 51 cc. Impression: Small urinary bladder postvoid residual. Otherwise unremarkable exam. Signed: Loren David MD Report Verified Date/Time:05/09/2018 05:30:16 Reading Location: [facility] C013Y CT Body Reading Room Procedure Note Interface, External Ris In - 05/09/2018 5:32 AM SOAKERS SUPERVISOR FINAL REPORT Ultrasound of the Kidneys Clinical History: BEBA on CKD Discussion: Sonographic evaluation of the kidneys was performed. There is no prior study for comparison. Right kidney: 12.9 x 5.6 x 6.2 cm, with cortical thickness of 1.5 cm. Normal cortical echogenicity. No mass. No shadowing calculus. No hydronephrosis. Left kidney: 13.4 x 6.9 x 6 cm, with cortical thickness of 1.5 cm. Normal cortical echogenicity. No mass. No shadowing calculus. No hydronephrosis. Limited doppler evaluation of bilateral main renal arteries and veins demonstrate patency. Bladder: Distended and thin-walled with a prevoid volume of 490 cc. Postvoid residual was 51 cc. Impression: Small urinary bladder postvoid residual. Otherwise unremarkable exam. Signed: Loren David MD Report Verified Date/Time: 05/09/2018 05:30:16 Reading Location: [facility] B1 C013Y CT Body Reading Room Performing Organization Address City/State/Zipcode Phone Number [facility] * ECHOCARDIOGRAM REPORT - SCAN (05/08/2018 7:50 PM SOAKERS SUPERVISOR) Narrative Performed At * Urea Nitrogen, random urine (05/08/2018 12:06 PM SOAKERS SUPERVISOR) Only the most recent of 2 results within the time period is included. Urea Nitrogen, Ur 132 mg/dL [facility] Specimen Urine Narrative Performed At Reference Range: No Normals [facility] Performing Organization Address [facility] Phone Number [address] * Sodium, random urine (05/08/2018 12:06 PM SOAKERS SUPERVISOR) Only the most recent of 2 results within the time period is included. Sodium Urine 88 meq/L [facility] Specimen Urine Narrative Performed At Reference Range: No Normals [facility] Performing Organization Address [facility] Phone Number [address] * Osmolality, urine (05/08/2018 12:06 PM SOAKERS SUPERVISOR) Only the most recent of 2 results within the time period is included. Osmolality, Ur 296 40-1,400 mOsm/kg [facility] Specimen Urine Performing Organization Address City/[facility] Phone Number [address] * Creatinine, random urine (05/08/2018 12:06 PM SOAKERS SUPERVISOR) Only the most recent of 2 results within the time period is included. Creatinine, Ur 42.2 mg/dL [facility] Specimen Urine Narrative Performed At Reference Range: No Normals [facility] Performing Organization Address City/[facility] Phone Number [address] [address] [facility] * 2D Echo W/Doppler(CW/PW/Color) (05/08/2018 10:46 AM SOAKERS SUPERVISOR) Ejection Fraction [facility] [facility] [place] Specimen Narrative Performed At Transthoracic Echocardiography Report (TTE) [facility] [place] Patient Name Edil MAHARAJ of Study 05/08/2018 [id number] GenderMale Visit Number [id number] RaceWil [id number] Number [id number] Number Date of Birth1970 Referring Physician Jose Treviño Age47 year(s) Machinist Bench Fernando Núñez [facility] AnalystMailyn InterpretingMD Maria Farley Physician Procedure Type of Study TTE procedure:2DECHO W DOPPLER(CW/PW/COLOR) (Routine) Indications:Suspected hypertensive heart disease. Clinical History HGB 12.9 HCT 37.9 % HTN, ETOH ABUSE, SMOKER Height: 74 inches Weight: 99.34 kg (219 lbs) BSA: 2.26 m^2 BMI: 28.12 kg/m^2 HR: 82 bpm BP: 120/58 mmHg Summary 1. Normal LV size and function. LVEF is 55-60% 2. Diastology: Grade 1 diastolic dysfunction 3. Normal RV size and function 4. No significant valvular heart disease 5. Unable to estimate PASP. 6. No pericardial effusion noted Previous Study No prior studies available for comparison. Signature Findings Left Ventricle The LV endocardium is well visualized. LVEF by Centeno's method of disk assessment is normal (55-60%). Normal left ventricular chamber size. Borderline concentric LV hypertrophy. Normal overall left ventricular systolic function. No apparent segmental wall motion abnormalities. Grade 1 diastolic dysfunction (impaired relaxation and low-normal LA pressure). Left AtriumLA is not well visualized, unable to estimate LA size. LA size is normal . Right VentricleThe right ventricular chamber size and systolic function are within normal limits. Right Atrium RA size is normal. Aortic Valve Mild AoV cusp thickening. No evidence of aortic regurgitation. Mitral Valve Mild MV leaflet thickening. Trace mitral regurgitation. Tricuspid ValveTrace tricuspid regurgitation. Estimated peak systolic PA pressure cannot be determined due to inadequate TR velocity signal . Pulmonic Valve Normal PV structure and function. AortaAortic root size (SInus of Valsalva diameter) is normal . PericardiumNo pericardial effusion is visualized. IVC/SVC/PA/PV/PleuralThe estimated RA pressure by IVC dynamics 0-5mmHg . Chambers/Structures Left Atrium LA Volume: 51.42 ml LA Vol. Index: 23 ml/m^2 Left Ventricle LVIDd: 4.34 cm LV Septum Diastolic: 1.02 cm LV PW Diastolic: 1.23 cm LVEDV Centeno's:81.14 ml LVESV Centeno's:30.65 ml LVEF Centeno's: 62.2 %LVEDVI: 36 ml/m^2 LVESVI: 14 ml/m^2 LVOT Diameter: 2.04 cm Right Ventricle RV Diast Dim.: 3.54 cm TAPSE: 2.03 cm Aorta Ao Root S of Rose.: 3.11 cm Doppler/Quantitative Measurements Mitral Valve MV Peak E-Wave: 0.85 m/sMV Peak A-Wave: 0.99 m/s E/A Ratio: 0.86 Peak Gradient: 2.89 mmHg Deceleration Time: 135.3 msec MV Nestor. Peak: Tissue Doppler E' Septal Velocity: 0.11 m/sE/E': 5.89 E' Lateral Velocity: 0.14 m/s Aortic Valve Peak Velocity: 1.93 m/sMean Velocity: 1.28 m/s Peak Gradient: 14.9 mmHg Mean Gradient: 7.68 mmHg AV Area (continuity): 2.08 cm^2 AV VTI: 35.06 cm AV DVI: 0.64 LVOT Peak Velocity: 1.33 m/s Peak Gradient: 7.1 mmHg Mean Velocity: 0.86 m/s Mean Gradient: 3.45 mmHg LVOT Diameter: 2.04 cmLVOT VTI: 22.37 cm LVOT Area: 3.27 cm^2LVOT SV:73.08 ml LVOT CO: 5.99 l/min LVOT CI: 2.65 l/min/m^2 Procedure Note Interface, External Ris In - 05/08/2018 7:16 PM SOAKERS SUPERVISOR Transthoracic Echocardiography Report (TTE) Demographics Patient Name NANCIE MAHARAJ Date of Study 05/08/2018 Gender Male Visit Number [id number] Race Room Number [id number] Number Date of 1970 Referring Physician Jose Treviño Age 47 year(s) Machinist Bench Fernando Núñez CS Credentialing Assistant Ambar Interpreting MD [facility] Procedure Type of Study TTE procedure:2DECHO W DOPPLER(CW/PW/COLOR) (Routine) Indications:Suspected hypertensive heart disease. Clinical History HGB 12.9 HCT 37.9 % HTN, ETOH ABUSE, SMOKER Height: 74 inches Weight: 99.34 kg (219 lbs) BSA: 2.26 m^2 BMI: 28.12 kg/m^2 HR: 82 bpm BP: 120/58 mmHg Summary 1. Normal LV size and function. LVEF is 55-60% 2. Diastology: Grade 1 diastolic dysfunction 3. Normal RV size and function 4. No significant valvular heart disease 5. Unable to estimate PASP. 6. No pericardial effusion noted Previous Study No prior studies available for comparison. Signature Findings Left Ventricle The LV endocardium is well visualized. LVEF by Centeno's method of disk assessment is normal (55-60%). Normal left ventricular chamber size. Borderline concentric LV hypertrophy. Normal overall left ventricular systolic function. No apparent segmental wall motion abnormalities. Grade 1 diastolic dysfunction (impaired relaxation and low-normal LA pressure). Left Atrium LA is not well visualized, unable to estimate LA size. LA size is normal . Right Ventricle The right ventricular chamber size and systolic function are within normal limits. Right Atrium RA size is normal. Aortic Valve Mild AoV cusp thickening. No evidence of aortic regurgitation. Mitral Valve Mild MV leaflet thickening. Trace mitral regurgitation. Tricuspid Valve Trace tricuspid regurgitation. Estimated peak systolic PA pressure cannot be determined due to inadequate TR velocity signal . Pulmonic Valve Normal PV structure and function. Aorta Aortic root size (SInus of Valsalva diameter) is normal . Pericardium No pericardial effusion is visualized. IVC/SVC/PA/PV/Pleural The estimated RA pressure by IVC dynamics 0-5mmHg . Chambers/Structures Left Atrium LA Volume: 51.42 ml LA Vol. Index: 23 ml/m^2 Left Ventricle LVIDd: 4.34 cm LV Septum Diastolic: 1.02 cm LV PW Diastolic: 1.23 cm LVEDV Centeno's:81.14 ml LVESV Centeno's:30.65 ml LVEF Centeno's: 62.2 % LVEDVI: 36 ml/m^2 LVESVI: 14 ml/m^2 LVOT Diameter: 2.04 cm Right Ventricle RV Diast Dim.: 3.54 cm TAPSE: 2.03 cm Aorta Ao Root S of Rose.: 3.11 cm Doppler/Quantitative Measurements Mitral Valve MV Peak E-Wave: 0.85 m/s MV Peak A-Wave: 0.99 m/s E/A Ratio: 0.86 Peak Gradient: 2.89 mmHg Deceleration Time: 135.3 msec MV Nestor. Peak: Tissue Doppler E' Septal Velocity: 0.11 m/s E/E': 5.89 E' Lateral Velocity: 0.14 m/s Aortic Valve Peak Velocity: 1.93 m/s Mean Velocity: 1.28 m/s Peak Gradient: 14.9 mmHg Mean Gradient: 7.68 mmHg AV Area (continuity): 2.08 cm^2 AV VTI: 35.06 cm AV DVI: 0.64 LVOT Peak Velocity: 1.33 m/s Peak Gradient: 7.1 mmHg Mean Velocity: 0.86 m/s Mean Gradient: 3.45 mmHg LVOT Diameter: 2.04 cm LVOT VTI: 22.37 cm LVOT Area: 3.27 cm^2 LVOT SV:73.08 ml LVOT CO: 5.99 l/min LVOT CI: 2.65 l/min/m^2 Performing Organization Address City/[facility] Phone Number [facility]ART[facility] MKCKESSON CPACS * Osmolality, serum (05/08/2018 8:18 AM SOAKERS SUPERVISOR) Only the most recent of 2 results within the time period is included. Osmolality Serum 273 (L) 275 - 295 mOsm/kg [facility] Specimen Blood Performing Organization Address [facility] [place] [address] [phone] [place] [address] * Calcium, Ionized (05/07/2018 10:06 PM SOAKERS SUPERVISOR) Calcium, Ion 1.09 (L) 1.12 - 1.27 mmol/L [facility] pH, Blood 7.43 [facility] Specimen Blood Performing Organization Address [facility] [place] [address] [facility] * Lactic acid, venous, whole blood (05/07/2018 10:06 PM SOAKERS SUPERVISOR) Only the most recent of 2 results within the time period is included. Lactate, Venous 0.8Comment: Specimen slightly 0.5 - 2.2 mmol/L [facility] hemolyzed [facility] Specimen Blood Performing Organization Address [facility] Phone Number [address] [address] [facility] * Phosphorus (05/07/2018 10:06 PM SOAKERS SUPERVISOR) Only the most recent of 2 results within the time period is included. Phosphorus 4.5 2.3 - 4.7 mg/dL [facility] Specimen Blood Performing Organization Address City/[facility] Phone Number [address] [address] [phone] [place] [address] * TRANSFUSION SERVICE REPORT - SCAN (05/07/2018 6:00 PM SOAKERS SUPERVISOR) Narrative Performed At * Rheumatoid factor Ab, reflex to titer (05/07/2018 9:15 AM SOAKERS SUPERVISOR) Rheumatoid Factor Negative [facility] Specimen Blood Performing Organization Address [facility] Phone Number [address] [address] [facility] * Lipid panel (05/07/2018 3:02 AM SOAKERS SUPERVISOR) Triglycerides 97 mg/dL [facility] Cholesterol 261 mg/dL [facility] HDL 60 mg/dL [facility] LDL Calculated 182 mg/dL [facility] Specimen Blood Narrative Performed At Triglyceride Reference Range: [facility] Low Risk <150 [facility] [id number] High Risk 200-499 Very High Risk>=500 Cholesterol Reference Range: Low Risk <200 [id number] High Risk>240 HDL Cholesterol Reference Range: Low Risk >=60 High Risk <40 LDL Cholesterol Reference Range: Optimal<100 Near [id number] [id number] Dino447-373 Very High >=190 Performing Organization Address [facility] Phone Number [address] [address] [facility] * Protein, random urine (05/06/2018 8:32 PM SOAKERS SUPERVISOR) Only the most recent of 2 results within the time period is included. Protein, Urine 1,612 (H) 0 - 14 mg/dL [facility] Specimen Urine Performing Organization Address [facility] Phone Number [place] [phone] [place] [address] [facility] * Urine Protein Electrophoresis, random (05/06/2018 8:32 PM SOAKERS SUPERVISOR) Protein, Urine 1,612 (H) 0 - 14 mg/dL [facility] Albumin %, Urine 63.3 % [facility] Globulin %, Urine 36.7 % [facility] UPEP,ID Urine protein study consistent [facility] with glomerular dysfunction. [facility] No monoclonal bands detected. Pathologist: Lesvia Matson MD (electronic [facility] signature) [facility] Specimen Urine Performing Organization Address City/State/Zipcode Phone Number [facility] [address] [place] [address] [facility] * Urinalysis w/Microscopic (05/06/2018 8:32 PM SOAKERS SUPERVISOR) Color, UA Yellow [facility] Clarity, UA Hazy [facility] Specific [place], UA 1.034 1.001 - 1.035 [facility] pH, UA 6.0 5.0 - 8.0 [facility] Protein, UA 600 mg/dL (A) Negative [facility] Glucose, UA Negative Negative [facility] Ketones, UA Negative Negative [facility] Bilirubin, UA Negative Negative [facility] Blood, UA Large (A) Negative [facility] Nitrite, UA Negative Negative [facility] Leukocytes, UA Negative Negative [facility] Urobilinogen, UA 0.2 0.2 - 1.0 mg/dL [facility] RBC, UA 35 /HPF [facility] WBC, UA 10 /HPF [facility] Mucus Few [facility] Hyaline Casts, UA 29 /LPF [facility] Granular Casts, UA 4 /LPF [facility] Yeast Few [facility] Specimen Source Urine, Voided [facility] Specimen Urine Performing Organization Address City/State/Zipcode Phone Number [address] [address] [facility] * Double-Stranded DNA (dsDNA) Antibody (05/06/2018 8:15 PM SOAKERS SUPERVISOR) ds DNA Ab Negative [facility] Specimen Blood Performing Organization Address City/[facility]/Zipcode Phone Number [place] [phone] [place] [address] * Hepatitis panel, acute (05/06/2018 8:15 PM SOAKERS SUPERVISOR) Hep A IgM HEPATITIS A TEST NEGATIVE Nonreactive [facility] Hep B C IgM NON-REACTIVE Nonreactive [facility] Hepatitis C Ab NON-REACTIVE Nonreactive [facility] hepatitis B Surface Ag NON-REACTIVE Nonreactive [facility] Specimen Blood Performing Organization Address City/[facility] Phone Number [place] [phone] * Beta-2 glycoprotein antibodies (05/06/2018 8:15 PM SOAKERS SUPERVISOR) B2 Glcoprotein Ab Profile Refer to individual [facility] B2-Glycoprotein IgG, IgM and INCORPORATED IgA results. Specimen Blood Narrative Performed At Performing Organization Address City/State/Zipcode Phone Number [facility], [address] [place], [place] [facility] [address] * Cardiolipin Antibodies, IgG and IgM (05/06/2018 8:15 PM SOAKERS SUPERVISOR) Anticardiolipin IgG <1.6 <20.0 GPL [facility] Anticardiolipin IgM 0.2 <20.0 MPL [facility] Specimen Blood Narrative Performed At Anticardiolipin IgG Result Interpretation: [facility] <20.0 GPL Normal [facility] >/=20.0 GPL Positive Anticardiolipin IgM Result Interpretation: <20.0 MPL Normal >/=20.0 MPL Positive Performing Organization Address [facility] Phone Number [address] * Complement Component C3 (05/06/2018 8:15 PM SOAKERS SUPERVISOR) C3 Complement 130 82 - 193 mg/dL [facility] Specimen Blood Performing Organization Address [facility] Phone Number [address] * Complement Component C4 (05/06/2018 8:15 PM SOAKERS SUPERVISOR) C4 Complement 26 15 - 57 mg/dL [facility] Specimen Blood Performing Organization Address [facility] Phone Number [address] * Anti-Nuclear Antibody (YO) (05/06/2018 8:15 PM SOAKERS SUPERVISOR) YO Negative Negative [facility] Specimen Blood Narrative Performed At Test performed by IFA method. [facility] Test performed by IFA method. [facility] Performing Organization Address [facility] Phone Number [address] * Folate, Serum (05/06/2018 8:15 PM SOAKERS SUPERVISOR) Folate 11.4 >=7.0 ng/mL [facility] Specimen Blood Performing Organization Address [facility] Phone Number [address] * Vitamin B12 (05/06/2018 8:15 PM SOAKERS SUPERVISOR) Vitamin B12 272 213 - 816 pg/mL [facility] Specimen Blood Performing Organization Address [facility]/Zipcode Phone Number [facility] [address] [place], [place] [phone] [facility] * Singac / lambda light chains, serum (05/06/2018 8:14 PM SOAKERS SUPERVISOR) Singac Lt Chain,Free 23.8 (H) 3.3 - 19.4 mg/L [facility] Lambda Lt Chain,Free 20.4 5.7 - 26.3 mg/L [facility] Singac/Lambda,Free 1.17 0.26 - 1.65 [facility] Comment: [facility]POR[facility] Free kappa/lambda ratio in serum of normal individuals is 0.26-1.65. Excess production of free kappa or lambda chains can alter this ratio. Monoclonal free light chains are found in serum of patients with multiple myeloma, Waldenstrom's macroglobulinemia, mu-heavy chain disease, primary amyloidosis, light chain deposition disease, monoclonal gammopathy of undetermined significance, and lymphoproliferative disorders. Measurement of free light chain concentration in serum is useful for diagnosis, prognosis, monitoring disease activity and following response to therapy of these disorders. Specimen Blood Narrative Performed At Performing Lab [facility] [address] [address] [place] [address] Raúl Mancuso MD, PhD, RASHID Performing Organization Address City/[facility]/Zipcode Phone Number [facility], [address] [facility] [address] * Protein electrophoresis, serum (05/06/2018 8:14 PM SOAKERS SUPERVISOR) Albumin Fraction 1.4 (L) 3.5 - 5.5 g/dL [facility] Alpha 1 Fraction 0.3 0.2 - 0.4 g/dL [facility] Alpha 2 Fraction 0.8 0.5 - 0.9 g/dL [facility] Beta Fraction 0.4 (L) 0.6 - 1.1 g/dL [facility] Gamma Globulin Fraction 0.8 0.7 - 1.7 g/dL [facility] Interpretation Alpha-1 and alpha-2 increased. [facility] Albumin, beta, and gamma [facility] decreased. This suggests a nephrotic pattern. Pathologist: Lesvia Matson MD (electronic [facility] Protein, Total 3.7 (L) 6.0 - 8.3 gm/dL [facility] Specimen Blood Performing Organization Address City/[facility] Phone Number [address] [address] [phone] [place] [address] * Cryoglobulin (05/06/2018 8:12 PM SOAKERS SUPERVISOR) Cryoglobulin Negative [facility] Specimen Blood Performing Organization Address [facility] Phone Number [address] * Lupus Anticoagulant Screen with Reflex To Confirmatory (05/06/2018 6:38 PM SOAKERS SUPERVISOR) DRVV Screen Ratio 0.75 <1.20 [facility] Interpretations Normal DRVV Results [facility] Protime 12.6 11.7 - 14.7 seconds [facility] INR 0.9 <=5.9 [facility] PTT 29.6 22.5 - 36.0 seconds [facility] PTT-LA 35.5 32.0 - 41.8 [facility] Pathologist: Jovi Aguilar MD (electronic [facility] Specimen Blood Performing Organization Address [facility] Phone Number [address] [address] [phone] [place] [address] * TSH/Free T4 If Indicated (05/06/2018 10:42 AM SOAKERS SUPERVISOR) TSH 0.20 (L) 0.35 - 4.94 uIU/mL [facility] Specimen Blood Performing Organization Address City/[facility] Phone Number [address] [address] [phone] [place] [address] * HIV-1 Antigen with HIV-1/2 Antibody (05/06/2018 10:42 AM SOAKERS SUPERVISOR) HIV-1 Antigen with HIV NON-REACTIVE Nonreactive [facility] 1&2 Antibody [facility] Specimen Blood Performing Organization Address City/[facility] Phone Number [address] * Herpes virus antibody, IgM (05/06/2018 10:42 AM SOAKERS SUPERVISOR) Herpes Virus IGM Negative [facility] Specimen Blood Narrative Performed At Performing Organization Address [facility] Phone Number [address] * Potassium, random urine (05/06/2018 10:42 AM SOAKERS SUPERVISOR) Potassium Urine 38.2 meq/L [facility] Specimen Urine Narrative Performed At Reference Range: No Normals [facility] Performing Organization Address [facility] Phone Number [address] * Chloride, random urine (05/06/2018 10:42 AM SOAKERS SUPERVISOR) ChlorideUr 56 meq/L [facility] Specimen Urine Narrative Performed At Reference Range: No Normals [facility] Performing Organization Address City/[facility] Phone Number [address] * RPR (05/06/2018 10:42 AM SOAKERS SUPERVISOR) RPR Nonreactive Nonreactive [facility] Specimen Blood Performing Organization Address [facility] Phone Number [address] * Hepatitis B surface antibody (05/06/2018 10:42 AM SOAKERS SUPERVISOR) Hep B S Ab <8.0 <8.0 mIU/mL [facility] Specimen Blood Performing Organization Address City/[facility]/Zipcode Phone Number [address] * Hepatitis B surface antigen (05/06/2018 10:42 AM SOAKERS SUPERVISOR) hepatitis B Surface Ag NON-REACTIVE Nonreactive [facility] Specimen Blood Performing Organization Address City/[facility]/Zipcode Phone Number [address] * T4, free (05/06/2018 10:42 AM SOAKERS SUPERVISOR) Free T4 1.49 (H) 0.70 - 1.48 ng/dL [facility] Specimen Blood Performing Organization Address [facility] Phone Number [address] * POC-Glucose meter (05/06/2018 10:33 AM SOAKERS SUPERVISOR) POC-Glucose Meter 88Comment: TESTED AT [facility] 70 - 110 mg/dL [address] Specimen Blood Performing Organization Address City/[facility] Phone Number [address] * XR chest 1 view portable / bedside (05/06/2018 9:30 AM SOAKERS SUPERVISOR) Specimen Narrative Performed At FINAL REPORT GE RIS INDICATION: admission COMPARISON: None. TECHNIQUE: Chest radiograph, single view, portable technique. FINDINGS / IMPRESSION: No consolidation, pulmonary edema, pneumothorax, or pleural effusion is demonstrated. Cardiac and mediastinal contours are unremarkable for portable technique. Old healed right posterolateral rib fractures are noted. Signed: Jorden Loera MD Report Verified Date/Time:05/06/2018 10:14:04 Reading Location: [facility] Radiology Reading Room Procedure Note Interface, External Ris In - 05/06/2018 10:16 AM SOAKERS SUPERVISOR FINAL REPORT INDICATION: admission COMPARISON: None. TECHNIQUE: Chest radiograph, single view, portable technique. FINDINGS / IMPRESSION: No consolidation, pulmonary edema, pneumothorax, or pleural effusion is demonstrated. Cardiac and mediastinal contours are unremarkable for portable technique. Old healed right posterolateral rib fractures are noted. Signed: Jorden Loera MD Report Verified Date/Time: 05/06/2018 10:14:04 Reading Location: [facility] Radiology Reading Room Performing Organization Address City/State/Zipcode Phone Number RIS * Venous doppler legs bilateral (05/06/2018 6:01 AM SOAKERS SUPERVISOR) [facility] ECHO HEARTLAB [facility] CPACS Specimen Impressions Performed At Right Impression [facility] ECHO [facility]ART[facility] 1. There is no deep venous obstruction in the common femoral, profunda [facility] femoral, femoral, popliteal, posterior tibial or peroneal veins. 2. There is no superficial venous obstruction in the great saphenous vein. Left Impression 1. There is no deep venous obstruction in the common femoral, profunda femoral, femoral, popliteal, posterior tibial or peroneal veins. 2. There is no superficial venous obstruction in the great saphenous vein. Conclusions Summary Venous duplex imaging and compression of the bilateral lower extremities were performed. The veins were adequately visualized. The bilateral venous systems were patent and compressible with no evidence of thrombus. The venous Doppler waveforms were phasic with respiration. Signature Velocities are measured in cm/s ; Diameters are measured in cm Narrative Performed At PV LAB - Lower Extremities DVT Study [facility] ECHO HEARTLAB Demographics MK[facility]ON CPACS Patient NameNANCIE MAHARAJ Date of Study05/06/2018 Visit [id number] Male of Birth1970 [id number] Phys[facility] Machinist Bench Jose Mascorro MD SchaeferPhysician Procedure Type of Study: Veins: Lower Extremities DVT Study, VENOUS DOPPLER LEG, BILATERAL. Indications for Study:Cellulitis and Edema. Patient Status:Routine. Study Location:Portable. Technical Quality:Adequate visualization. Risk Factors History of Disease + +----+ + !Diagnosis!Date!Comments ! + +----+ + !History/Risk !!Bilateral LE Edema, Bilateral LE Cellulitis, Lt Arm! !Factors: !!Brachial Clot (per [facility])! + +----+ + Procedure Note Interface, External Ris In - 05/06/2018 11:44 AM [employer]AK[facility] SUPERVIS[facility] - Lower Extremities DVT Study Demographics Patient Name NANCIE MAHARAJ Date of Study 05/06/2018 Age 47 Visit Number [id number] Gender Male Accession Number [id number] Date of 1970 [address] [facility] Room Number 2C24 Physician Machinist Bench MD Dax Benavideser Physician Procedure Type of Study: Veins: Lower Extremities DVT Study, VENOUS DOPPLER LEG, BILATERAL. Indications for Study:Cellulitis and Edema. Patient Status:Routine. Study Location:Portable. Technical Quality:Adequate visualization. Risk Factors History of Disease + +----+ + !Diagnosis !Date!Comments ! + +----+ + !History/Risk ! !Bilateral LE Edema, Bilateral LE Cellulitis, Lt Arm! !Factors: ! !Brachial Clot (per [facility]) ! + +----+ + Impressions Right Impression 1. There is no deep venous obstruction in the common femoral, profunda femoral, femoral, popliteal, posterior tibial or peroneal veins. 2. There is no superficial venous obstruction in the great saphenous vein. Left Impression 1. There is no deep venous obstruction in the common femoral, profunda femoral, femoral, popliteal, posterior tibial or peroneal veins. 2. There is no superficial venous obstruction in the great saphenous vein. Conclusions Summary Venous duplex imaging and compression of the bilateral lower extremities were performed. The veins were adequately visualized. The bilateral venous systems were patent and compressible with no evidence of thrombus. The venous Doppler waveforms were phasic with respiration. Signature Velocities are measured in cm/s ; Diameters are measured in cm Performing Organization Address City/[facility] Phone Number [facility] * Hemoglobin A1c (05/06/2018 5:29 AM SOAKERS SUPERVISOR) Hemoglobin A1C 5.1 4.3 - 6.1 % [facility] Specimen Blood Performing Organization Address City/[facility] Phone Number [address] * Type and screen, automated (05/06/2018 5:11 AM SOAKERS SUPERVISOR) ABO/RH AUTOMATED (BEJOSSUE) B POSITIVE [facility] Ab Scrn NEGATIVE [facility] Specimen Blood Performing Organization Address [facility] Phone Number [address] * Lactate dehydrogenase (LDH) (05/06/2018 5:11 AM SOAKERS SUPERVISOR) LDH 219 125 - 220 U/L [facility] Specimen Blood Performing Organization Address [facility] Phone Number [address] * Hepatic function panel (05/06/2018 5:11 AM SOAKERS SUPERVISOR) Protein, Total 4.9 (L) 6.0 - 8.3 gm/dL [facility] Albumin 2.0 (L) 3.5 - 5.0 g/dL [facility] Total Bilirubin 0.2 0.2 - 1.2 mg/dL [facility] Bilirubin, Direct 0.1 0.1 - 0.5 mg/dL [facility] Alkaline Phosphatase 100 40 - 150 U/L [facility] AST 18 5 - 34 U/L [facility] ALT 11 6 - 55 U/L [facility] Specimen Blood Performing Organization Address City/State/Zipcode Phone Number [facility] [address] [place] [address] [facility] after 10/02/2017 Insurance Payer Benefit Subscriber ID Type Phone Address Plan / Group [employer]UE [employer] BCBS PPO xxxxxxxxxxxx PPO [phone] [address] [place] [address] CHOICE Advance Directives For more information, please contact: [place] [address] [place] [address] Date Inactivated Comments Code Status Date Activated Full Code 05/07/2018 9:58 PM This code status was determined by: Patient
--- OUTSIDE RECORDS SUMMARY | 2018-10-03 17:08 | XMS REPORT ---
Author Author [facility] Address Unknown Phone Unavailable Care Team Providers Care Denture Finisher Name Role Phone SUDHAKAR DAN Unavailable Unavailable Jeison MCGRATH Unavailable Unavailable Payers Payer Name Policy Type Policy Number Effective Date Expiration Date Problems This patient has no known problems. Allergies, Adverse Reactions, Alerts Allergy Name Allergy Type Status Severity Reaction(s) Onset Date Inactive Date Treating Clinician Comments clindamycin DA Active U 2018-09-08 00:00:00 amlodipine DA Active MO 2018-09-07 00:00:00 No Known Allergies DA Active U 2018-08-26 00:00:00 BESYLATE DA Active U 2018-08-26 00:00:00 Medications This patient has no known medications. Results Test Description Test Time Test Comments Text Results Atomic Results Result Comments CBC W/AUTO DIFF 2018-09-15 08:45:00 WHITE BLOOD CELL (test code=WBC) 15.63 x10 3/uL 4.5-11.0 RED BLOOD CELL (test code=RBC) 3.72 x10 6/uL 4.00-5.60 HEMOGLOBIN (test code=HGB) 12.3 g/dL 12.5-16.9 HEMATOCRIT (test code=HCT) 37.4 % 37.5-50.7 MEAN CELL VOLUME (test code=MCV) 100.5 fL 81.0-99.0 MEAN CELL HGB (test code=MCH) 33.1 pg 27.0-33.0 MEAN CELL HGB CONCETRATION (test code=MCHC) 32.9 g/dL 33.0-37.0 RED CELL DISTRIBUTION WIDTH CV (test code=RDW) 12.9 % 11.5-14.5 RED CELL DISTRIBUTION WIDTH SD (test code=RDW-SD) 48.1 fL 37.0-54.0 PLATELET COUNT (test code=PLT) 421 x10 3/uL 150-400 MEAN PLATELET VOLUME (test code=MPV) 9.7 fL 7.0-9.0 NEUTROPHIL % (test code=NT%) 74.0 % 56.0-77.0 IMMATURE GRANULOCYTE % (test code=IG%) 0.6 % 0.0-2.0 LYMPHOCYTE % (test code=LY%) 7.6 % 14.0-32.0 MONOCYTE % (test code=MO%) 8.8 % 4.8-9.0 EOSINOPHIL % (test code=EO%) 8.6 % 0.3-3.7 BASOPHIL % (test code=BA%) 0.4 % 0.0-2.0 NUCLEATED RBC % (test code=NRBC%) 0.0 % 0-0 NEUTROPHIL # (test code=NT#) 11.55 x10 3/uL 2.0-7.6 IMMATURE GRANULOCYTE # (test code=IG#) 0.09 x10 3/uL 0.00-0.03 LYMPHOCYTE # (test code=LY#) 1.19 x10 3/uL 1.0-3.8 MONOCYTE # (test code=MO#) 1.38 x10 3/uL 0.1-0.8 EOSINOPHIL # (test code=EO#) 1.35 x10 3/uL 0.0-0.2 BASOPHIL # (test code=BA#) 0.07 x10 3/uL 0.0-0.2 NUCLEATED RBC # (test code=NRBC#) 0.00 x10 3/uL 0.0-0.1 MANUAL DIFF REQUIRED (test code=MDIFF) NO BASIC METABOLIC [id number] 08:35:00* Test Item Value Reference Range Comments SODIUM (test code=NA) 135 mEq/L 134-147 POTASSIUM (test code=K) 5.1 mEq/L 3.4-5.0 CHLORIDE (test code=CL) 101 mEq/L 100-108 CARBON DIOXIDE (test code=CO2) 22 mEq/L 21-33 ANION GAP (test code=GAP) 17 0-20 GLUCOSE (test code=GLU) 78 mg/dL 70-110 BLOOD UREA NITROGEN (test code=BUN) 55 mg/dL 7-18 GLOMERULAR FILTRATION RATE (test code=GFR) 7.1 95-105 Units of measure=ml/min/1.73 m2 CREATININE (test code=CREAT) 8.2 mg/dL 0.6-1.3 CALCIUM (test code=CA) 8.4 mg/dL 8.0-10.5 COMMENTS: Daily while in [id number] 08:35:00* Test Item Value Reference Range Comments PHOSPHOROUS (test code=PHOS) 7.7 mg/dL 2.5-4.9 COMMENTS: Daily while in ICUCBC W/AUTO [id number] 08:42:00* Test Item Value Reference Range Comments WHITE BLOOD CELL (test code=WBC) 15.78 x10 3/uL 4.5-11.0 RED BLOOD CELL (test code=RBC) 3.18 x10 6/uL 4.00-5.60 HEMOGLOBIN (test code=HGB) 10.6 g/dL 12.5-16.9 HEMATOCRIT (test code=HCT) 30.6 % 37.5-50.7 MEAN CELL VOLUME (test code=MCV) 96.2 fL 81.0-99.0 MEAN CELL HGB (test code=MCH) 33.3 pg 27.0-33.0 MEAN CELL HGB CONCETRATION (test code=MCHC) 34.6 g/dL 33.0-37.0 RED CELL DISTRIBUTION WIDTH CV (test code=RDW) 12.9 % 11.5-14.5 RED CELL DISTRIBUTION WIDTH SD (test code=RDW-SD) 46.0 fL 37.0-54.0 PLATELET COUNT (test code=PLT) 381 x10 3/uL 150-400 MEAN PLATELET VOLUME (test code=MPV) 9.7 fL 7.0-9.0 NEUTROPHIL % (test code=NT%) 72.3 % 56.0-77.0 IMMATURE GRANULOCYTE % (test code=IG%) 0.6 % 0.0-2.0 LYMPHOCYTE % (test code=LY%) 8.3 % 14.0-32.0 MONOCYTE % (test code=MO%) 9.5 % 4.8-9.0 EOSINOPHIL % (test code=EO%) 8.8 % 0.3-3.7 BASOPHIL % (test code=BA%) 0.5 % 0.0-2.0 NUCLEATED RBC % (test code=NRBC%) 0.0 % 0-0 NEUTROPHIL # (test code=NT#) 11.40 x10 3/uL 2.0-7.6 IMMATURE GRANULOCYTE # (test code=IG#) 0.10 x10 3/uL 0.00-0.03 LYMPHOCYTE # (test code=LY#) 1.31 x10 3/uL 1.0-3.8 MONOCYTE # (test code=MO#) 1.50 x10 3/uL 0.1-0.8 EOSINOPHIL # (test code=EO#) 1.39 x10 3/uL 0.0-0.2 BASOPHIL # (test code=BA#) 0.08 x10 3/uL 0.0-0.2 NUCLEATED RBC # (test code=NRBC#) 0.00 x10 3/uL 0.0-0.1 MANUAL DIFF REQUIRED (test code=MDIFF) NO COMMENTS: Daily while on HeparinBASIC METABOLIC [id number] 08:14:00* Test Item Value Reference Range Comments SODIUM (test code=NA) 136 mEq/L 134-147 POTASSIUM (test code=K) 5.2 mEq/L 3.4-5.0 CHLORIDE (test code=CL) 102 mEq/L 100-108 CARBON DIOXIDE (test code=CO2) 24 mEq/L 21-33 ANION GAP (test code=GAP) 15 0-20 GLUCOSE (test code=GLU) 75 mg/dL 70-110 BLOOD UREA NITROGEN (test code=BUN) 49 mg/dL 7-18 GLOMERULAR FILTRATION RATE (test code=GFR) 8.3 95-105 Units of measure=ml/min/1.73 m2 CREATININE (test code=CREAT) 7.1 mg/dL 0.6-1.3 CALCIUM (test code=CA) 7.7 mg/dL 8.0-10.5 COMMENTS: Daily while in ICUBASIC METABOLIC [id number] 06:48:00* Test Item Value Reference Range Comments SODIUM (test code=NA) 137 mEq/L 134-147 POTASSIUM (test code=K) 4.8 mEq/L 3.4-5.0 CHLORIDE (test code=CL) 102 mEq/L 100-108 CARBON DIOXIDE (test code=CO2) 27 mEq/L 21-33 ANION GAP (test code=GAP) 13 0-20 GLUCOSE (test code=GLU) 79 mg/dL 70-110 BLOOD UREA NITROGEN (test code=BUN) 41 mg/dL 7-18 GLOMERULAR FILTRATION RATE (test code=GFR) 10.1 95-105 Units of measure=ml/min/1.73 m2 CREATININE (test code=CREAT) 6.0 mg/dL 0.6-1.3 CALCIUM (test code=CA) 7.5 mg/dL 8.0-10.5 COMMENTS: Daily while in ICUCBC W/AUTO [id number] 06:18:00* Test Item Value Reference Range Comments WHITE BLOOD CELL (test code=WBC) 15.17 x10 3/uL 4.5-11.0 RED BLOOD CELL (test code=RBC) 3.07 x10 6/uL 4.00-5.60 HEMOGLOBIN (test code=HGB) 10.3 g/dL 12.5-16.9 HEMATOCRIT (test code=HCT) 30.8 % 37.5-50.7 MEAN CELL VOLUME (test code=MCV) 100.3 fL 81.0-99.0 MEAN CELL HGB (test code=MCH) 33.6 pg 27.0-33.0 MEAN CELL HGB CONCETRATION (test code=MCHC) 33.4 g/dL 33.0-37.0 RED CELL DISTRIBUTION WIDTH CV (test code=RDW) 13.2 % 11.5-14.5 RED CELL DISTRIBUTION WIDTH SD (test code=RDW-SD) 48.8 fL 37.0-54.0 PLATELET COUNT (test code=PLT) 378 x10 3/uL 150-400 MEAN PLATELET VOLUME (test code=MPV) 9.8 fL 7.0-9.0 NEUTROPHIL % (test code=NT%) 72.4 % 56.0-77.0 IMMATURE GRANULOCYTE % (test code=IG%) 0.6 % 0.0-2.0 LYMPHOCYTE % (test code=LY%) 9.8 % 14.0-32.0 MONOCYTE % (test code=MO%) 8.8 % 4.8-9.0 EOSINOPHIL % (test code=EO%) 7.8 % 0.3-3.7 BASOPHIL % (test code=BA%) 0.6 % 0.0-2.0 NUCLEATED RBC % (test code=NRBC%) 0.0 % 0-0 NEUTROPHIL # (test code=NT#) 10.98 x10 3/uL 2.0-7.6 IMMATURE GRANULOCYTE # (test code=IG#) 0.09 x10 3/uL 0.00-0.03 LYMPHOCYTE # (test code=LY#) 1.49 x10 3/uL 1.0-3.8 MONOCYTE # (test code=MO#) 1.34 x10 3/uL 0.1-0.8 EOSINOPHIL # (test code=EO#) 1.18 x10 3/uL 0.0-0.2 BASOPHIL # (test code=BA#) 0.09 x10 3/uL 0.0-0.2 NUCLEATED RBC # (test code=NRBC#) 0.00 x10 3/uL 0.0-0.1 MANUAL DIFF REQUIRED (test code=MDIFF) NO COMMENTS: Daily while on HeparinBASIC METABOLIC [id number] 06:50:00* Test Item Value Reference Range Comments SODIUM (test code=NA) 134 mEq/L 134-147 POTASSIUM (test code=K) 5.2 mEq/L 3.4-5.0 CHLORIDE (test code=CL) 98 mEq/L 100-108 CARBON DIOXIDE (test code=CO2) 24 mEq/L 21-33 ANION GAP (test code=GAP) 17 0-20 GLUCOSE (test code=GLU) 80 mg/dL 70-110 BLOOD UREA NITROGEN (test code=BUN) 64 mg/dL 7-18 GLOMERULAR FILTRATION RATE (test code=GFR) 8.2 95-105 Units of measure=ml/min/1.73 m2 CREATININE (test code=CREAT) 7.2 mg/dL 0.6-1.3 CALCIUM (test code=CA) 8.2 mg/dL 8.0-10.5 COMMENTS: Daily while in [id number] 06:50:00* Test Item Value Reference Range Comments PHOSPHOROUS (test code=PHOS) 9.1 mg/dL 2.5-4.9 COMMENTS: Daily while in [id number] 06:50:00* Test Item Value Reference Range Comments MAGNESIUM (test code=MAG) 2.10 mg/dL 1.8-2.4 COMMENTS: Daily while in ICUCBC W/AUTO [id number] 05:38:00* Test Item Value Reference Range Comments WHITE BLOOD CELL (test code=WBC) 13.78 x10 3/uL 4.5-11.0 RED BLOOD CELL (test code=RBC) 3.38 x10 6/uL 4.00-5.60 HEMOGLOBIN (test code=HGB) 11.3 g/dL 12.5-16.9 HEMATOCRIT (test code=HCT) 33.7 % 37.5-50.7 MEAN CELL VOLUME (test code=MCV) 99.7 fL 81.0-99.0 MEAN CELL HGB (test code=MCH) 33.4 pg 27.0-33.0 MEAN CELL HGB CONCETRATION (test code=MCHC) 33.5 g/dL 33.0-37.0 RED CELL DISTRIBUTION WIDTH CV (test code=RDW) 13.3 % 11.5-14.5 RED CELL DISTRIBUTION WIDTH SD (test code=RDW-SD) 49.2 fL 37.0-54.0 PLATELET COUNT (test code=PLT) 436 x10 3/uL 150-400 MEAN PLATELET VOLUME (test code=MPV) 9.3 fL 7.0-9.0 NEUTROPHIL % (test code=NT%) 72.5 % 56.0-77.0 IMMATURE GRANULOCYTE % (test code=IG%) 0.6 % 0.0-2.0 LYMPHOCYTE % (test code=LY%) 10.1 % 14.0-32.0 MONOCYTE % (test code=MO%) 9.8 % 4.8-9.0 EOSINOPHIL % (test code=EO%) 6.3 % 0.3-3.7 BASOPHIL % (test code=BA%) 0.7 % 0.0-2.0 NUCLEATED RBC % (test code=NRBC%) 0.0 % 0-0 NEUTROPHIL # (test code=NT#) 10.00 x10 3/uL 2.0-7.6 IMMATURE GRANULOCYTE # (test code=IG#) 0.08 x10 3/uL 0.00-0.03 LYMPHOCYTE # (test code=LY#) 1.39 x10 3/uL 1.0-3.8 MONOCYTE # (test code=MO#) 1.35 x10 3/uL 0.1-0.8 EOSINOPHIL # (test code=EO#) 0.87 x10 3/uL 0.0-0.2 BASOPHIL # (test code=BA#) 0.09 x10 3/uL 0.0-0.2 NUCLEATED RBC # (test code=NRBC#) 0.00 x10 3/uL 0.0-0.1 MANUAL DIFF REQUIRED (test code=MDIFF) NO COMMENTS: Daily while on HeparinURINALYSIS [id number] 01:20:00* Test Item Value Reference Range Comments UA COLOR (test code=COLU) TERRANCE YEL/STRAW UA APPEARANCE (test code=APPU) CLOUDY CLEAR UA GLUCOSE DIPSTICK (test code=DGLUU) NEGATIVE NEGATIVE UA BILIRUBIN DIPSTICK (test code=BILU) NEGATIVE NEGATIVE UA KETONE DIPSTICK (test code=KETU) NEGATIVE NEGATIVE UA SPECIFIC GRAVITY (test code=SGU) 1.017 1.005-1.030 UA BLOOD DIPSTICK (test code=YANA) 3+ NEGATIVE UA PH DIPSTICK (test code=TATYANA) 6.0 5.0-7.0 UA PROTEIN DIPSTICK (test code=PROU) 3+ NEGATIVE UA UROBILINIOGEN DIPSTICK (test code=URO) 0.2 mg/dL 0.2-1.0 UA NITRITE DIPSTICK (test code=ERIN) NEGATIVE NEGATIVE UA LEUKOCYTE ESTERASE DIPSTICK (test code=LEUU) NEGATIVE NEGATIVE UA WBC (test code=WBCU) 21-50 WBC/HPF 0-3 UA RBC (test code=RBCU) >50 RBC/HPF 0-3 UA BACTERIA (test code=BACU) 2+ /HPF NONE SEEN UA SQUAMOUS CELLS (test code=SQU) 0-5 /HPF NONE SEEN UA HYALINE CAST (test code=HYALU) 6-10 /LPF NONE SEEN UA MUCUS (test code=MUCU) TRACE /LPF NONE SEEN UA CULT [id number] 01:20:00* Test Item Value Reference Range Comments UA CULTURE NEEDED? (test code=UACULT) YES,WBC>10 & EPI<=25 Criteria Culture Chk Criteria met, Urine Culture in-process. UR CREATININE CLEARANCE [id number] 23:39:00* Test Item Value Reference Range Comments CREATININE CLEARANCE RESULT (test code=CREATCLR) 6 MLS/MIN 70-130 CREATININE (test code=CREAT) 7.5 mg/dL 0.6-1.3 UR CREATININE RANDOM (test code=CREATU) 221.0 mg/dL The Reference Range and Method Performance specificationshave not been established for this fluid. The test resultshould be correlated into the clinical context forinterpretation. UR CREATININE 24HR (test code=[id number]) 0.7 GM/24HR 1.0-1.6 UR VOLUME (test code=VOL) 300 mL UR COLLECTION TIME (test code=COLTM) 1440 MIN UR CREATININE CLEARANCE [id number] 23:37:00* Test Item Value Reference Range Comments CREATININE CLEARANCE RESULT (test code=CREATCLR) MLS/MIN 70-130 CREATININE (test code=CREAT) mg/dL 0.6-1.3 UR CREATININE RANDOM (test code=CREATU) 221.0 mg/dL The Reference Range and Method Performance specificationshave not been established for this fluid. The test resultshould be correlated into the clinical context forinterpretation. UR CREATININE 24HR (test code=KPPE65V) GM/24HR 1.0-1.6 UR VOLUME (test code=VOL) mL UR COLLECTION TIME (test code=COLTM) MIN ANTINUCLEAR ANTIBODIES [id number] 14:10:00* Test Item Value Reference Range Comments YO SCREEN (test code=ANASCR) Negative () Negative <1:80 Borderline 1:80 Positive >1:80Performed At: [facility] [address] [id number] Kyle L MD Ph:[phone] ABS ANTI-NEUT CYTO P [id number] 14:10:00* Test Item Value Reference Range Comments AB ANTI-NEUTROPHIL CYTOPLASMIC (test code=NEUTCAB) <1:20 titer Neg:<1:20 PERINUCLEAR (test code=NEUPERI) <1:20 titer Neg:<1:20 The presence of positive fluorescence exhibiting P-ANCA orC-ANCA patterns alone is not specific for the diagnosis ofWegener's Granulomatosis (WG) or microscopic polyangiitis.Decisions about treatment should not be based solely onANCA IFA results. The International ANCA Group Consensusrecommends follow up testing of positive sera with both KY-3 and MPO-ANCA enzyme immunoassays. As many as 5% serumsamples are positive only by EIA. Ref. AM J Clin [id number];111:507-513. MYELOPEROXIDASE ABS (test code=MPOAB) <9.0 U/mL 0.0-9.0 PROTEINASE 3 ABS (KY-3) (test code=KY-3) <3.5 U/mL 0.0-3.5 ATYPICAL ANCA (test code=ANCACOM) <1:20 titer Neg:<1:20 The atypical pANCA pattern has been observed in asignificant percentage of patients with ulcerative colitis,primary sclerosing cholangitis and autoimmune hepatitis.Performed At: [address] [id number] Sanjai MD Ph:[phone] AB DNA DOUBLE [id number] 14:10:00* Test Item Value Reference Range Comments AB DNA DOUBLE STRAND (test code=DNADSAB) <1 IU/mL 0-9 Negative <5 Equivocal 5 - 9 Positive >9Performed At: [address] [id number] Rizvi MD Ph:[phone] COMPLEMENT [id number] 14:10:00* Test Item Value Reference Range Comments COMPLEMENT C3 (test code=COMC3) 143 mg/dL 82-167 Performed At: [facility] [id number] Rizvi MD Ph:[phone] COMPLEMENT [id number] 14:10:00* Test Item Value Reference Range Comments COMPLEMENT C4 (test code=COMC4) 32 mg/dL 14-44 PROCALCITONIN (PCT)2018-09-11 13:40:00* Test Item Value Reference Range Comments PROCALCITONIN (PCT) (test code=PROCAL) 0.36 ng/mL 0.00-0.05 PROCALCITONIN (PCT) NORMAL RANGE (ADULT): <0.05 NG/ML. * a concentration <0.5 ng/mL represents a low risk of severe sepsis and/or septic shock.* a concentration >2 ng/mL represents a high risk of severe sepsis and/or septic shock.Nevertheless, concentrations <0.5 ng/mL do not exclude aninfection, on account of localized infections (withoutsystemic signs) which can be associated with such lowconcentrations, or a systemic infection in its initialstages (< 6 hours). Furthermore, increased procalcitonincan occur without infection. PCT concentrations between 0.5and 2.0 ng/mL should be interpreted taking into account thepatient's history. It is recommended to retest PCT within6-24 hours if any concentrations <2 ng/mL are obtained. COMMENTS: REDRAW FROM Ro LECHUGA IRON BINDING [id number] 11:06:00* Test Item Value Reference Range Comments SERUM IRON (test code=IRON) 72 mcg/dL 35-150 TOTAL IRON BINDING CAPACITY (test code=TIBC) 220 mcg/dL 260-445 UIBC (test code=UIBC) 148 mcg/dL IRON SATURATION (test code=FESAT) 32.7 % 14-34 [id number] 11:06:00* Test Item Value Reference Range Comments FERRITIN (test code=MARCUS) 657.6 ng/mL 23.9-336.2 VITAMIN D [id number] 11:06:00* Test Item Value Reference Range Comments VITAMIN D 25-HYDROXY (test code=VITD25) 13.7 ng/mL 30-100 PROCALCITONIN (PCT)2018-09-11 09:13:00* Test Item Value Reference Range Comments PROCALCITONIN (PCT) (test code=PROCAL) 0.31 ng/mL 0.00-0.05 PROCALCITONIN (PCT) NORMAL RANGE (ADULT): <0.05 NG/ML. * a concentration <0.5 ng/mL represents a low risk of severe sepsis and/or septic shock.* a concentration >2 ng/mL represents a high risk of severe sepsis and/or septic shock.Nevertheless, concentrations <0.5 ng/mL do not exclude aninfection, on account of localized infections (withoutsystemic signs) which can be associated with such lowconcentrations, or a systemic infection in its initialstages (< 6 hours). Furthermore, increased procalcitonincan occur without infection. PCT concentrations between 0.5and 2.0 ng/mL should be interpreted taking into account thepatient's history. It is recommended to retest PCT within6-24 hours if any concentrations <2 ng/mL are obtained. COMPREHENSIVE METABOLIC [id number] 08:55:00* Test Item Value Reference Range Comments SODIUM (test code=NA) 134 mEq/L 134-147 POTASSIUM (test code=K) 4.6 mEq/L 3.4-5.0 CHLORIDE (test code=CL) 98 mEq/L 100-108 CARBON DIOXIDE (test code=CO2) 25 mEq/L 21-33 ANION GAP (test code=GAP) 16 0-20 GLUCOSE (test code=GLU) 76 mg/dL 70-110 BLOOD UREA NITROGEN (test code=BUN) 47 mg/dL 7-18 GLOMERULAR FILTRATION RATE (test code=GFR) 9.2 95-105 Units of measure=ml/min/1.73 m2 CREATININE (test code=CREAT) 6.5 mg/dL 0.6-1.3 TOTAL PROTEIN (test code=PROT) 6.9 g/dL 6.4-8.2 ALBUMIN (test code=ALB) 2.40 g/dL 3.4-5.0 CALCIUM (test code=CA) 8.0 mg/dL 8.0-10.5 BILIRUBIN TOTAL (test code=BILT) 0.30 mg/dL 0.0-1.0 SGOT/AST (test code=AST) 15 IUnit/L 15-37 SGPT/ALT (test code=ALT) 9 IUnit/L 15-65 ALKALINE PHOSPHATASE TOTAL (test code=ALKP) 88 IUnit/L 20-125 COMMENTS: REDRAW FROM R [id number] 08:55:00* Test Item Value Reference Range Comments MAGNESIUM (test code=MAG) 2.00 mg/dL 1.8-2.4 COMMENTS: REDRAW FROM R ARMTHROMBOPLASTIN TIME [id number] 08:22:00* Test Item Value Reference Range Comments THROMBOPLASTIN TIME PARTIAL (test code=PTT) 69.5 Seconds 25.0-39.5 Therapeutic Range: 50.4 - 88.3 Seconds Effective 09/08/2018 [id number] 06:59:00* Test Item Value Reference Range Comments GLUBED (test code=GLUBED) 89 MG/DL 70-110 Performed by certified chain hoist operator at [facility] COMPREHENSIVE METABOLIC [id number] 06:48:00* Test Item Value Reference Range Comments SODIUM (test code=NA) 127 mEq/L 134-147 POTASSIUM (test code=K) 4.1 mEq/L 3.4-5.0 CHLORIDE (test code=CL) 87 mEq/L 100-108 CARBON DIOXIDE (test code=CO2) 22 mEq/L 21-33 ANION GAP (test code=GAP) 22 0-20 GLUCOSE (test code=GLU) 478 mg/dL 70-110 BLOOD UREA NITROGEN (test code=BUN) 43 mg/dL 7-18 GLOMERULAR FILTRATION RATE (test code=GFR) 10.1 95-105 Units of measure=ml/min/1.73 m2 CREATININE (test code=CREAT) 6.0 mg/dL 0.6-1.3 TOTAL PROTEIN (test code=PROT) 5.7 g/dL 6.4-8.2 ALBUMIN (test code=ALB) 1.90 g/dL 3.4-5.0 CALCIUM (test code=CA) 6.9 mg/dL 8.0-10.5 BILIRUBIN TOTAL (test code=BILT) 0.20 mg/dL 0.0-1.0 SGOT/AST (test code=AST) 12 IUnit/L 15-37 SGPT/ALT (test code=ALT) 7 IUnit/L 15-65 ALKALINE PHOSPHATASE TOTAL (test code=ALKP) 72 IUnit/L 20-125 RENAL FUNCTION [id number] 06:48:00* Test Item Value Reference Range Comments PHOSPHOROUS (test code=PHOS) 12.5 mg/dL 2.5-4.9 [id number] 06:48:00* Test Item Value Reference Range Comments MAGNESIUM (test code=MAG) 1.60 mg/dL 1.8-2.4 COMPREHENSIVE METABOLIC [id number] 06:24:00* Test Item Value Reference Range Comments SODIUM (test code=NA) 127 mEq/L 134-147 POTASSIUM (test code=K) 4.1 mEq/L 3.4-5.0 CHLORIDE (test code=CL) 87 mEq/L 100-108 CARBON DIOXIDE (test code=CO2) 22 mEq/L 21-33 ANION GAP (test code=GAP) 22 0-20 GLUCOSE (test code=GLU) 478 mg/dL 70-110 BLOOD UREA NITROGEN (test code=BUN) 43 mg/dL 7-18 GLOMERULAR FILTRATION RATE (test code=GFR) 10.1 95-105 Units of measure=ml/min/1.73 m2 CREATININE (test code=CREAT) 6.0 mg/dL 0.6-1.3 TOTAL PROTEIN (test code=PROT) 5.7 g/dL 6.4-8.2 ALBUMIN (test code=ALB) 1.90 g/dL 3.4-5.0 CALCIUM (test code=CA) 6.9 mg/dL 8.0-10.5 BILIRUBIN TOTAL (test code=BILT) 0.20 mg/dL 0.0-1.0 SGOT/AST (test code=AST) 12 IUnit/L 15-37 SGPT/ALT (test code=ALT) 7 IUnit/L 15-65 ALKALINE PHOSPHATASE TOTAL (test code=ALKP) 72 IUnit/L 20-125 RENAL FUNCTION [id number] 06:24:00* Test Item Value Reference Range Comments PHOSPHOROUS (test code=PHOS) mg/dL 2.5-4.9 [id number] 06:24:00* Test Item Value Reference Range Comments MAGNESIUM (test code=MAG) 1.60 mg/dL 1.8-2.4 CBC W/AUTO [id number] 06:06:00* Test Item Value Reference Range Comments WHITE BLOOD CELL (test code=WBC) 13.22 x10 3/uL 4.5-11.0 RED BLOOD CELL (test code=RBC) 2.96 x10 6/uL 4.00-5.60 HEMOGLOBIN (test code=HGB) 9.6 g/dL 12.5-16.9 HEMATOCRIT (test code=HCT) 28.8 % 37.5-50.7 MEAN CELL VOLUME (test code=MCV) 97.3 fL 81.0-99.0 MEAN CELL HGB (test code=MCH) 32.4 pg 27.0-33.0 MEAN CELL HGB CONCETRATION (test code=MCHC) 33.3 g/dL 33.0-37.0 RED CELL DISTRIBUTION WIDTH CV (test code=RDW) 13.3 % 11.5-14.5 RED CELL DISTRIBUTION WIDTH SD (test code=RDW-SD) 47.8 fL 37.0-54.0 PLATELET COUNT (test code=PLT) 431 x10 3/uL 150-400 MEAN PLATELET VOLUME (test code=MPV) 9.7 fL 7.0-9.0 NEUTROPHIL % (test code=NT%) 68.1 % 56.0-77.0 IMMATURE GRANULOCYTE % (test code=IG%) 0.6 % 0.0-2.0 LYMPHOCYTE % (test code=LY%) 17.9 % 14.0-32.0 MONOCYTE % (test code=MO%) 10.1 % 4.8-9.0 EOSINOPHIL % (test code=EO%) 2.6 % 0.3-3.7 BASOPHIL % (test code=BA%) 0.7 % 0.0-2.0 NUCLEATED RBC % (test code=NRBC%) 0.0 % 0-0 NEUTROPHIL # (test code=NT#) 9.01 x10 3/uL 2.0-7.6 IMMATURE GRANULOCYTE # (test code=IG#) 0.08 x10 3/uL 0.00-0.03 LYMPHOCYTE # (test code=LY#) 2.36 x10 3/uL 1.0-3.8 MONOCYTE # (test code=MO#) 1.34 x10 3/uL 0.1-0.8 EOSINOPHIL # (test code=EO#) 0.34 x10 3/uL 0.0-0.2 BASOPHIL # (test code=BA#) 0.09 x10 3/uL 0.0-0.2 NUCLEATED RBC # (test code=NRBC#) 0.00 x10 3/uL 0.0-0.1 MANUAL DIFF REQUIRED (test code=MDIFF) NO COMMENTS: Daily while on HeparinTOTAL IRON BINDING [id number] 22:29:00* Test Item Value Reference Range Comments SERUM IRON (test code=IRON) 72 mcg/dL 35-150 TOTAL IRON BINDING CAPACITY (test code=TIBC) 220 mcg/dL 260-445 UIBC (test code=UIBC) 148 mcg/dL IRON SATURATION (test code=FESAT) 32.7 % 14-34 [id number] 22:29:00* Test Item Value Reference Range Comments FERRITIN (test code=MARCUS) 657.6 ng/mL 23.9-336.2 VITAMIN D [id number] 22:29:00* Test Item Value Reference Range Comments VITAMIN D 25-HYDROXY (test code=VITD25) ng/mL 30-100 THROMBOPLASTIN TIME [id number] 21:59:00* Test Item Value Reference Range Comments THROMBOPLASTIN TIME PARTIAL (test code=PTT) 43.4 Seconds 25.0-39.5 Therapeutic Range: 50.4 - 88.3 Seconds Effective 09/08/2018 UR PROTEIN/CREATININE [id number] 13:46:00* Test Item Value Reference Range Comments UR PROTEIN RANDOM (test code=PROTU) 1629 mg/dL Note: Change in UNITS of MEASUREMENT. The Reference Range and Method Performance specificationshave not been established for this fluid. The test resultshould be correlated into the clinical context forinterpretation. UR CREATININE RANDOM (test code=CREATU) 167.0 mg/dL The Reference Range and Method Performance specificationshave not been established for this fluid. The test resultshould be correlated into the clinical context forinterpretation. PROTEIN/CREATININE RATIO (test code=P/CRATIO) 9.75 THROMBOPLASTIN TIME [id number] 13:36:00* Test Item Value Reference Range Comments THROMBOPLASTIN TIME PARTIAL (test code=PTT) 158.1 Seconds 25.0-39.5 Therapeutic Range: 50.4 - 88.3 Seconds Effective 09/08/2018 THROMBOPLASTIN TIME [id number] 06:20:00* Test Item Value Reference Range Comments THROMBOPLASTIN TIME PARTIAL (test code=PTT) 39.5 Seconds 25.0-39.5 Therapeutic Range: 50.4 - 88.3 Seconds Effective 09/08/2018 RENAL FUNCTION [id number] 05:49:00* Test Item Value Reference Range Comments SODIUM (test code=NA) 133 mEq/L 134-147 POTASSIUM (test code=K) 4.3 mEq/L 3.4-5.0 CHLORIDE (test code=CL) 98 mEq/L 100-108 CARBON DIOXIDE (test code=CO2) 22 mEq/L 21-33 ANION GAP (test code=GAP) 17 0-20 GLUCOSE (test code=GLU) 104 mg/dL 70-110 BLOOD UREA NITROGEN (test code=BUN) 76 mg/dL 7-18 GLOMERULAR FILTRATION RATE (test code=GFR) 7.8 95-105 Units of measure=ml/min/1.73 m2 CREATININE (test code=CREAT) 7.5 mg/dL 0.6-1.3 ALBUMIN (test code=ALB) 2.00 g/dL 3.4-5.0 CALCIUM (test code=CA) 7.6 mg/dL 8.0-10.5 PHOSPHOROUS (test code=PHOS) 9.7 mg/dL 2.5-4.9 CBC W/AUTO [id number] 05:37:00* Test Item Value Reference Range Comments WHITE BLOOD CELL (test code=WBC) 15.36 x10 3/uL 4.5-11.0 RED BLOOD CELL (test code=RBC) 2.96 x10 6/uL 4.00-5.60 HEMOGLOBIN (test code=HGB) 9.9 g/dL 12.5-16.9 HEMATOCRIT (test code=HCT) 28.5 % 37.5-50.7 MEAN CELL VOLUME (test code=MCV) 96.3 fL 81.0-99.0 MEAN CELL HGB (test code=MCH) 33.4 pg 27.0-33.0 MEAN CELL HGB CONCETRATION (test code=MCHC) 34.7 g/dL 33.0-37.0 RED CELL DISTRIBUTION WIDTH CV (test code=RDW) 13.3 % 11.5-14.5 RED CELL DISTRIBUTION WIDTH SD (test code=RDW-SD) 47.4 fL 37.0-54.0 PLATELET COUNT (test code=PLT) 433 x10 3/uL 150-400 MEAN PLATELET VOLUME (test code=MPV) 9.9 fL 7.0-9.0 NEUTROPHIL % (test code=NT%) 79.7 % 56.0-77.0 IMMATURE GRANULOCYTE % (test code=IG%) 0.6 % 0.0-2.0 LYMPHOCYTE % (test code=LY%) 10.5 % 14.0-32.0 MONOCYTE % (test code=MO%) 8.3 % 4.8-9.0 EOSINOPHIL % (test code=EO%) 0.7 % 0.3-3.7 BASOPHIL % (test code=BA%) 0.2 % 0.0-2.0 NUCLEATED RBC % (test code=NRBC%) 0.0 % 0-0 NEUTROPHIL # (test code=NT#) 12.25 x10 3/uL 2.0-7.6 IMMATURE GRANULOCYTE # (test code=IG#) 0.09 x10 3/uL 0.00-0.03 LYMPHOCYTE # (test code=LY#) 1.62 x10 3/uL 1.0-3.8 MONOCYTE # (test code=MO#) 1.27 x10 3/uL 0.1-0.8 EOSINOPHIL # (test code=EO#) 0.10 x10 3/uL 0.0-0.2 BASOPHIL # (test code=BA#) 0.03 x10 3/uL 0.0-0.2 NUCLEATED RBC # (test code=NRBC#) 0.00 x10 3/uL 0.0-0.1 MANUAL DIFF REQUIRED (test code=MDIFF) NO COMMENTS: Daily while on Heparin- US RETRO [id number] 23:22:00 Name: NANCIE MAHARAJ [facility] : 1970 Age/S: 48 / M [address] [place] [address] Unit #: [id number] Loc: [place] [address] Phys: Pascual Simeon MD Acct: [id number] Di s Date: Status: ADM IN PHONE #: Exam Date: 09/09/2018 9214 FAX #: [phone] Reason: ckd EXAMS: CPT CODE: [id number] US RETRO LTD 10158 STUDY: - US RETRO LTD 4:10 PM Ordering Physician: Denise Simeon MD Patient Name: NANCIE MAHARAJ MR: [id number] : 1970; Age: 48 years y/o Male Clinical Indication: Chronic kidney disease. Comparison: None TECHNIQUE: Multiple longitudinal and transverse real time sonographic images of the kidneys and urinary bladder are obtained. FINDINGS: KIDNEYS: The kidneys are normal in size and shape with mildly increased echotexture eit her representing artifact or medical renal disease. No evidence of nephrol ithiasis, hydronephrosis, mass lesion, or perinephric fluid collection. Right kidney: 14.1 cm. Left kidney: 13.5 cm. B LADDER: Under distended thick-walled urinary bladder. Both ureteral jets are identified. ABDOMINAL AORTA: The visualized portions are normal. IVC: The visualized portions are normal. PRO XIMAL COMMON ILIAC ARTERIES: Nonvisualized secondary to artifact from body habitus and overlying bowel gas. Other: None. IMPRESSION: Normal size kidneys with mildly increased ech otexture suggesting artifact or medical renal disease. PAG E 1 Signed Report (CONTINUED) Name: NANCIE MAHARAJ [facility] : 1970 Age/S: 48 / M [address] [place] [address] Blvd Unit #: [id number] Loc: [place] [address] Phys: Denise Simeon MD Acct: [id number] Dis Date: Status: ADM IN PHONE #: Exam Date: 09/09/2018 1625 FAX #: [phone] Reason: ckd EXAMS: CPT CODE: [id number] [facility] [address] <Continued> SL: TPAINTER-H at 2322 Reported and signed by: Дмитрий Olmos M.D. CC: Denise Simeon MD; Pierce Marshall MD Technologist: Rima Miranda RDMS (AB) (OB) Trnscb Date/Time: 09/09/2018 (2321) [email or web address] Orig Print D/T: S: 09/09/2018 (2324) Probe: PAGE 2 Signed Report THROMBOPLASTIN TIME [id number] 21:25:00* Test Item Value Reference Range Comments THROMBOPLASTIN TIME PARTIAL (test code=PTT) 83.5 Seconds 25.0-39.5 Therapeutic Range: 50.4 - 88.3 Seconds Effective 09/08/2018 - DUP VEIN [id number] 18:13:00 Name: NANCIE MAHARAJ : 1970 Age/S: 48 / M [address] [place] [address] Unit #: [id number] Loc: [place] [address] Phys: Denise Simeon MD Acct: [id number] Dis Date: Status: ADM IN PHONE #: [phone] Exam Date: 09/09/2018 1659 FAX #: [phone] Reason: LUE DVT EXAMS: CPT CODE: [id number] DUP VEIN AMAIRANI [address] Patient Name: NANCIE MAHARAJ : 1970; Age: 48 years y/o Male MR: [id number] Study: - DUP VEIN AMAIRANI 09/09/2018 4:10 PM Ordering Physician: Denise Simeon MD Clinical Indication: ; Left wrist edema. Comparison: None FINDINGS: Compression duplex ultrasound of the both upper extremities was performed from the subclavicular region through the antecubital fossa. The visualized bilateral upper extremity deep veins are normal without echogenic thrombus. A portion of the right subclavian vein is never well visualized secondary to overlying bandage. Partial incompletely compressible echogenic thrombus is in the right cephalic vein consistent with superficial venous arthrosis. IMPRESSION: No evidence of DVT in either upper extremity. A portion of the right subclavian vein is never visualized secondary to an overlying bandage. Partial incompletely compressible superficial venous thrombosis in the right cephalic vein. Critical findings were communicated to Denise Simeon MD on 09/09/2018 5:58 PM. SL: TPAINTER-H at 1813 Reported and signed by: Дмитрий Olmos M.D. PAGE 1 Signed Report (CONTINUED) Name: NANCIE MAHARAJ : 1970 Age/S: 48 / M [address] [place] [address] Unit #: [id number] Loc: [place] [address] Phys: Denise Simeon MD Acct: [id number] Dis Date: Status: ADM IN PHONE #: [phone] Exam Date: 09/09/2018 1659 FAX #: [phone] Reason: LUE DVT EXAMS: CPT CODE: [id number] DUP VEIN [place]IR[place] [address] <Continued> CC: Denise Simeon MD; Pierce Marshall MD Technologist: Rima Miranda RDMS (AB) (OB) Trnscb Date/Time: 09/09/2018 (1812) [email or web address] Orig Print D/T: S: 09/09/2018 (1816) Probe: PAGE 2 Signed Report ANTINUCLEAR ANTIBODIES [id number] 12:11:00* Test Item Value Reference Range Comments YO SCREEN (test code=ANASCR) Negative () Negative <1:80 Borderline 1:80 Positive >1:80Performed At: [address] [id number] Rizvi MD Ph:[phone] ABS ANTI-NEUT CYTO P [id number] 12:11:00* Test Item Value Reference Range Comments AB ANTI-NEUTROPHIL CYTOPLASMIC (test code=NEUTCAB) PERINUCLEAR (test code=NEUPERI) MYELOPEROXIDASE ABS (test code=MPOAB) PROTEINASE 3 ABS (KY-3) (test code=KY-3) ATYPICAL ANCA (test code=ANCACOM) AB DNA DOUBLE [id number] 12:11:00* Test Item Value Reference Range Comments AB DNA DOUBLE STRAND (test code=DNADSAB) <1 IU/mL 0-9 Negative <5 Equivocal 5 - 9 Positive >9Performed At: [facility] [id number] Rizvi MD Ph:[phone] COMPLEMENT [id number] 12:11:00* Test Item Value Reference Range Comments COMPLEMENT C3 (test code=COMC3) 143 mg/dL 82-167 Performed At: [facility] [id number] Rizvi MD Ph:[phone] COMPLEMENT [id number] 12:11:00* Test Item Value Reference Range Comments COMPLEMENT C4 (test code=COMC4) 32 mg/dL 14-44 THROMBOPLASTIN TIME [id number] 11:58:00* Test Item Value Reference Range Comments THROMBOPLASTIN TIME PARTIAL (test code=PTT) 101.2 Seconds 25.0-39.5 Therapeutic Range: 50.4 - 88.3 Seconds Effective 09/08/2018 - XR FLUOROSCOPY 0-60 [id number] 10:31:00 FAX: Denise Simeon [phone] [place]: St: ADM FAX: Pierce Daniel MD [phone] FAX: Mk Wade MD [phone] Name: VICKEYPATRICIANANCIE [facility] : 1970 Age/S: 48/M [address] [place] [address] Unit #: [id number] Loc: [address] [address] Phys: Mk Smith MD Acct: [id number] Dis Date: Status: ADM IN ONE #: [phone] Exam Date: 09/08/2018 0807 FAX #: [phone] Reason: ACUTE RENAL INJURY EXAMS: CPT CODE: [id number] XR FLUOROSCOPY 0-60 MIN 96714 Intraprocedural fluoroscopy was provided by the Department of Radiology. Any images obta ined were interpreted by the surgeon intraoperatively. SL: [id number] at 1031 Reported and signed by: Tai Silva M.D. CC: Denise Simeon MD; Pierce Marshall MD; Mk Smith MD Technologist: ERNESTINE Francis) Trnscrd Date/Time/By: (1031) : By: [email or web address] Orig Print D/T: S: 09/09/2018 (1034) PAGE 1 Signed Report ANTINUCLEAR ANTIBODIES [id number] 09:14:00* Test Item Value Reference Range Comments YO SCREEN (test code=ANASCR) ABS ANTI-NEUT CYTO P [id number] 09:14:00* Test Item Value Reference Range Comments AB ANTI-NEUTROPHIL CYTOPLASMIC (test code=NEUTCAB) PERINUCLEAR (test code=NEUPERI) MYELOPEROXIDASE ABS (test code=MPOAB) PROTEINASE 3 ABS (KY-3) (test code=KY-3) ATYPICAL ANCA (test code=ANCACOM) AB DNA DOUBLE [id number] 09:14:00* Test Item Value Reference Range Comments AB DNA DOUBLE STRAND (test code=DNADSAB) <1 IU/mL 0-9 Negative <5 Equivocal 5 - 9 Positive >9Performed At: [facility] [address] [id number] Rizvi MD Ph:[phone] COMPLEMENT [id number] 09:14:00* Test Item Value Reference Range Comments COMPLEMENT C3 (test code=COMC3) 143 mg/dL 82-167 Performed At: [facility] [address] [id number] Rizvi MD Ph:[phone] COMPLEMENT [id number] 09:14:00* Test Item Value Reference Range Comments COMPLEMENT C4 (test code=COMC4) 32 mg/dL 14-44 ANTINUCLEAR ANTIBODIES [id number] 08:16:00* Test Item Value Reference Range Comments YO SCREEN (test code=ANASCR) ABS ANTI-NEUT CYTO P [id number] 08:16:00* Test Item Value Reference Range Comments AB ANTI-NEUTROPHIL CYTOPLASMIC (test code=NEUTCAB) PERINUCLEAR (test code=NEUPERI) MYELOPEROXIDASE ABS (test code=MPOAB) PROTEINASE 3 ABS (KY-3) (test code=KY-3) ATYPICAL ANCA (test code=ANCACOM) AB DNA DOUBLE [id number] 08:16:00* Test Item Value Reference Range Comments AB DNA DOUBLE STRAND (test code=DNADSAB) COMPLEMENT [id number] 08:16:00* Test Item Value Reference Range Comments COMPLEMENT C3 (test code=COMC3) COMPLEMENT [id number] 08:16:00* Test Item Value Reference Range Comments COMPLEMENT C4 (test code=COMC4) 32 mg/dL 14-44 ANTINUCLEAR ANTIBODIES [id number] 08:16:00* Test Item Value Reference Range Comments YO SCREEN (test code=ANASCR) ABS ANTI-NEUT CYTO P [id number] 08:16:00* Test Item Value Reference Range Comments AB ANTI-NEUTROPHIL CYTOPLASMIC (test code=NEUTCAB) PERINUCLEAR (test code=NEUPERI) MYELOPEROXIDASE ABS (test code=MPOAB) PROTEINASE 3 ABS (KY-3) (test code=KY-3) ATYPICAL ANCA (test code=ANCACOM) AB DNA DOUBLE [id number] 08:16:00* Test Item Value Reference Range Comments AB DNA DOUBLE STRAND (test code=DNADSAB) COMPLEMENT [id number] 08:16:00* Test Item Value Reference Range Comments COMPLEMENT C3 (test code=COMC3) 143 mg/dL 82-167 Performed At: [facility] [address] [id number] Kyle L MD Ph:[phone] COMPLEMENT [id number] 08:16:00* Test Item Value Reference Range Comments COMPLEMENT C4 (test code=COMC4) 32 mg/dL 14-44 RENAL FUNCTION [id number] 05:23:00* Test Item Value Reference Range Comments SODIUM (test code=NA) 132 mEq/L 134-147 POTASSIUM (test code=K) 5.1 mEq/L 3.4-5.0 CHLORIDE (test code=CL) 99 mEq/L 100-108 CARBON DIOXIDE (test code=CO2) 16 mEq/L 21-33 ANION GAP (test code=GAP) 22 0-20 GLUCOSE (test code=GLU) 167 mg/dL 70-110 BLOOD UREA NITROGEN (test code=BUN) 102 mg/dL 7-18 GLOMERULAR FILTRATION RATE (test code=GFR) 6.0 95-105 Units of measure=ml/min/1.73 m2 CREATININE (test code=CREAT) 9.4 mg/dL 0.6-1.3 ALBUMIN (test code=ALB) 2.20 g/dL 3.4-5.0 CALCIUM (test code=CA) 7.8 mg/dL 8.0-10.5 PHOSPHOROUS (test code=PHOS) 10.3 mg/dL 2.5-4.9 THROMBOPLASTIN TIME [id number] 05:04:00* Test Item Value Reference Range Comments THROMBOPLASTIN TIME PARTIAL (test code=PTT) 58.2 Seconds 25.0-39.5 Therapeutic Range: 50.4 - 88.3 Seconds Effective 09/08/2018 CBC W/AUTO [id number] 05:01:00* Test Item Value Reference Range Comments WHITE BLOOD CELL (test code=WBC) 13.38 x10 3/uL 4.5-11.0 RED BLOOD CELL (test code=RBC) 3.38 x10 6/uL 4.00-5.60 HEMOGLOBIN (test code=HGB) 11.2 g/dL 12.5-16.9 HEMATOCRIT (test code=HCT) 32.8 % 37.5-50.7 MEAN CELL VOLUME (test code=MCV) 97.0 fL 81.0-99.0 MEAN CELL HGB (test code=MCH) 33.1 pg 27.0-33.0 MEAN CELL HGB CONCETRATION (test code=MCHC) 34.1 g/dL 33.0-37.0 RED CELL DISTRIBUTION WIDTH CV (test code=RDW) 13.2 % 11.5-14.5 RED CELL DISTRIBUTION WIDTH SD (test code=RDW-SD) 47.8 fL 37.0-54.0 PLATELET COUNT (test code=PLT) 500 x10 3/uL 150-400 MEAN PLATELET VOLUME (test code=MPV) 9.4 fL 7.0-9.0 NEUTROPHIL % (test code=NT%) 87.3 % 56.0-77.0 IMMATURE GRANULOCYTE % (test code=IG%) 0.7 % 0.0-2.0 LYMPHOCYTE % (test code=LY%) 6.7 % 14.0-32.0 MONOCYTE % (test code=MO%) 5.2 % 4.8-9.0 EOSINOPHIL % (test code=EO%) 0.0 % 0.3-3.7 BASOPHIL % (test code=BA%) 0.1 % 0.0-2.0 NUCLEATED RBC % (test code=NRBC%) 0.0 % 0-0 NEUTROPHIL # (test code=NT#) 11.67 x10 3/uL 2.0-7.6 IMMATURE GRANULOCYTE # (test code=IG#) 0.10 x10 3/uL 0.00-0.03 LYMPHOCYTE # (test code=LY#) 0.90 x10 3/uL 1.0-3.8 MONOCYTE # (test code=MO#) 0.70 x10 3/uL 0.1-0.8 EOSINOPHIL # (test code=EO#) 0.00 x10 3/uL 0.0-0.2 BASOPHIL # (test code=BA#) 0.01 x10 3/uL 0.0-0.2 NUCLEATED RBC # (test code=NRBC#) 0.00 x10 3/uL 0.0-0.1 MANUAL DIFF REQUIRED (test code=MDIFF) NO COMMENTS: Daily while on HeparinTHROMBOPLASTIN TIME [id number] 22:08:00* Test Item Value Reference Range Comments THROMBOPLASTIN TIME PARTIAL (test code=PTT) 80.2 Seconds 25.0-39.5 Therapeutic Range: 50.4 - 88.3 Seconds Effective 09/08/2018 PTH INTACT [id number] 20:01:00* Test Item Value Reference Range Comments PARATHYROID HORMONE INTACT (test code=PARAI) 169.6 pg/mL 14.0-72.0 ACUTE HEPATITIS [id number] 16:23:00* Test Item Value Reference Range Comments AB HEPATITIS A IGM (test code=HAVMAB) NON REACTIVE INDEX NON REACT. AG HEPATITIS B SURFACE (test code=HBSAG) NON REACTIVE INDEX NonReactive AB HEPATITIS B CORE IGM (test code=HBCMAB) NON REACTIVE INDEX NON REACT. AB HEPATITIS C (test code=HCVAB) NON REACTIVE INDEX NON REACT. ACUTE HEPATITIS [id number] 15:52:00* Test Item Value Reference Range Comments AB HEPATITIS A IGM (test code=HAVMAB) INDEX NON REACT. AG HEPATITIS B SURFACE (test code=HBSAG) NON REACTIVE INDEX NonReactive AB HEPATITIS B CORE IGM (test code=HBCMAB) INDEX NON REACT. AB HEPATITIS C (test code=HCVAB) INDEX NON REACT. THROMBOPLASTIN TIME [id number] 12:53:00* Test Item Value Reference Range Comments THROMBOPLASTIN TIME PARTIAL (test code=PTT) 46.5 Seconds 25.0-39.5 Therapeutic Range: 50.4 - 88.3 Seconds Effective 09/08/2018 - XR CHEST 1 [id number] 08:46:00 FAX: Denise Simeon [phone] [place]: St: ADM FAX: Pierce Daniel MD [phone] FAX: Mk Wade MD [phone] Name: NANCIE MAHARAJ [facility] : 1970 Age/S: 48/M [address] [place] [address] Unit #: [id number] Loc: [place] [address] Phys: Mk Smith MD Acct: [id number] Dis Date: Status: ADM IN PH ONE #: [phone] Exam Date: 09/08/2018 0842 FAX #: [phone] Reason: TUNNELED HD CATHETER PLACEMENT EXAMS: CPT CODE: [id number] XR CHEST 1 V 70684 EXAM: XR CHEST 1 VIEW DATE: 09/08/2018 8:11 AM : 1970; Age: 48 years y/o Male INDICATION: TUNNELED HD CATHETER PLACEMENT [facility] September 07, 2018 TECHNIQUE: AP chest. FINDINGS / IMPRESSION: Lines, tubes and hardware: Right IJ [place] e is partially seen with tip overlying the mid to lower SVC. Heart, mediastinum and lungs: The heart size is normal for technique. The mediastinal contours are normal. Pulmonary vascular congestion is again seen with worsening mild interstitial edema. Interval improvement in left basilar atelectasis. SL: [id number] at 0846 Reported and signed by: Bishop Guthrie D.O. CC: Denise Simeon MD; Pierce Marshall MD; Mk Smith MD Technologist: Kristen Foster RT(R) Trnscrd Date/Time/By: 09/08/2018 (0846) : By: [email or web address] Orig Print D/T: S: 09/08/2018 (0850) PAGE 1 Signed Report RENAL FUNCTION PANEL 2018-09-08 05:48:00* Test Item Value Reference Range Comments SODIUM (test code=NA) 141 mEq/L 134-147 POTASSIUM (test code=K) 5.0 mEq/L 3.4-5.0 CHLORIDE (test code=CL) 103 mEq/L 100-108 CARBON DIOXIDE (test code=CO2) 16 mEq/L 21-33 ANION GAP (test code=GAP) 27 0-20 GLUCOSE (test code=GLU) 87 mg/dL 70-110 BLOOD UREA NITROGEN (test code=BUN) 100 mg/dL 7-18 GLOMERULAR FILTRATION RATE (test code=GFR) 6.3 95-105 Units of measure=ml/min/1.73 m2 CREATININE (test code=CREAT) 9.1 mg/dL 0.6-1.3 ALBUMIN (test code=ALB) 2.00 g/dL 3.4-5.0 CALCIUM (test code=CA) 7.7 mg/dL 8.0-10.5 PHOSPHOROUS (test code=PHOS) 11.8 mg/dL 2.5-4.9 CBC W/AUTO [id number] 05:22:00* Test Item Value Reference Range Comments WHITE BLOOD CELL (test code=WBC) 11.68 x10 3/uL 4.5-11.0 RED BLOOD CELL (test code=RBC) 3.55 x10 6/uL 4.00-5.60 HEMOGLOBIN (test code=HGB) 11.8 g/dL 12.5-16.9 HEMATOCRIT (test code=HCT) 32.9 % 37.5-50.7 MEAN CELL VOLUME (test code=MCV) 92.7 fL 81.0-99.0 MEAN CELL HGB (test code=MCH) 33.2 pg 27.0-33.0 MEAN CELL HGB CONCETRATION (test code=MCHC) 35.9 g/dL 33.0-37.0 RED CELL DISTRIBUTION WIDTH CV (test code=RDW) 13.1 % 11.5-14.5 RED CELL DISTRIBUTION WIDTH SD (test code=RDW-SD) 44.8 fL 37.0-54.0 PLATELET COUNT (test code=PLT) 521 x10 3/uL 150-400 MEAN PLATELET VOLUME (test code=MPV) 9.2 fL 7.0-9.0 NEUTROPHIL % (test code=NT%) 74.0 % 56.0-77.0 IMMATURE GRANULOCYTE % (test code=IG%) 0.9 % 0.0-2.0 LYMPHOCYTE % (test code=LY%) 11.9 % 14.0-32.0 MONOCYTE % (test code=MO%) 8.1 % 4.8-9.0 EOSINOPHIL % (test code=EO%) 4.2 % 0.3-3.7 BASOPHIL % (test code=BA%) 0.9 % 0.0-2.0 NUCLEATED RBC % (test code=NRBC%) 0.0 % 0-0 NEUTROPHIL # (test code=NT#) 8.65 x10 3/uL 2.0-7.6 IMMATURE GRANULOCYTE # (test code=IG#) 0.10 x10 3/uL 0.00-0.03 LYMPHOCYTE # (test code=LY#) 1.39 x10 3/uL 1.0-3.8 MONOCYTE # (test code=MO#) 0.95 x10 3/uL 0.1-0.8 EOSINOPHIL # (test code=EO#) 0.49 x10 3/uL 0.0-0.2 BASOPHIL # (test code=BA#) 0.10 x10 3/uL 0.0-0.2 NUCLEATED RBC # (test code=NRBC#) 0.00 x10 3/uL 0.0-0.1 MANUAL DIFF REQUIRED (test code=MDIFF) NO COMMENTS: Daily while on HeparinTHROMBOPLASTIN TIME [id number] 05:18:00* Test Item Value Reference Range Comments THROMBOPLASTIN TIME PARTIAL (test code=PTT) 33.2 Seconds 25.0-39.5 Therapeutic Range: 61.8-83.8 Sec Effective 06/23/2013 [id number] 23:30:00* Test Item Value Reference Range Comments TROPONIN-I (test code=TROPI) 0.068 ng/mL 0.000-0.045 Negative: <=0.045 Positive: >=0.046 Correlation with serial results, other cardiac markers andclinical findings is necessary to determine the clinicalsignificance of this result. Results using different methodologies should not be comparedto one another as quantitative results may vary by method. COMMENTS: 3 troponins total (including troponin done in ED)[id number] 17:53:00* Test Item Value Reference Range Comments TROPONIN-I (test code=TROPI) 0.097 ng/mL 0.000-0.045 Negative: <=0.045 Positive: >=0.046 Correlation with serial results, other cardiac markers andclinical findings is necessary to determine the clinicalsignificance of this result. Results using different methodologies should not be comparedto one another as quantitative results may vary by method. COMMENTS: 3 troponins total (including troponin done in ED)PROTHROMBIN TIME 2018-09-07 17:42:00* Test Item Value Reference Range Comments PROTHROMBIN TIME PATIENT (test code=PTP) 13.5 SECONDS 9.3-12.9 INTERNATIONAL NORMAL RATIO (test code=INR) 1.2 0.8-1.2 TARGET INR BY INDICATION Indication INR1. Prophylaxis of venous thrombosis 2.0 - 3.0 (orthopedic surgery), Prophylaxis of venous thrombosis (other than high-risk surgery), Treatment of Deep Vein Thrombosis/Pulmonary Embolism, Prevention of systemic embolism - Tissue heart valves, Acute Myocardial Infarction (to prevent systemic embolism), Valvular heart disease, Atrial Fibrillation, Bileaflet mechanical valve in aortic position.2. Mechanical prosthetic valves (high risk), 2.5 - 3.5 Presence of Lupus Anticoagulant or Antiphospholipid Antibodies, Prevention of systemic embolism - Acute Myocardial Infarction (to prevent recurrent infarct). COMMENTS: IF NOT ALREADY DONE WITHIN THE LAST 24 HOURSTHROMBOPLASTIN TIME [id number] 17:42:00* Test Item Value Reference Range Comments THROMBOPLASTIN TIME PARTIAL (test code=PTT) 32.1 Seconds 25.0-39.5 Therapeutic Range: 61.8-83.8 Sec Effective 06/23/2013 COMMENTS: IF NOT ALREADY DONE WITHIN THE LAST 24 HOURSCBC W/AUTO [id number] 17:22:00* Test Item Value Reference Range Comments WHITE BLOOD CELL (test code=WBC) 11.89 x10 3/uL 4.5-11.0 RED BLOOD CELL (test code=RBC) 3.84 x10 6/uL 4.00-5.60 HEMOGLOBIN (test code=HGB) 12.7 g/dL 12.5-16.9 HEMATOCRIT (test code=HCT) 35.4 % 37.5-50.7 MEAN CELL VOLUME (test code=MCV) 92.2 fL 81.0-99.0 MEAN CELL HGB (test code=MCH) 33.1 pg 27.0-33.0 MEAN CELL HGB CONCETRATION (test code=MCHC) 35.9 g/dL 33.0-37.0 RED CELL DISTRIBUTION WIDTH CV (test code=RDW) 13.1 % 11.5-14.5 RED CELL DISTRIBUTION WIDTH SD (test code=RDW-SD) 43.9 fL 37.0-54.0 PLATELET COUNT (test code=PLT) 545 x10 3/uL 150-400 MEAN PLATELET VOLUME (test code=MPV) 8.9 fL 7.0-9.0 NEUTROPHIL % (test code=NT%) 75.2 % 56.0-77.0 IMMATURE GRANULOCYTE % (test code=IG%) 0.8 % 0.0-2.0 LYMPHOCYTE % (test code=LY%) 9.7 % 14.0-32.0 MONOCYTE % (test code=MO%) 10.0 % 4.8-9.0 EOSINOPHIL % (test code=EO%) 3.5 % 0.3-3.7 BASOPHIL % (test code=BA%) 0.8 % 0.0-2.0 NUCLEATED RBC % (test code=NRBC%) 0.0 % 0-0 NEUTROPHIL # (test code=NT#) 8.94 x10 3/uL 2.0-7.6 IMMATURE GRANULOCYTE # (test code=IG#) 0.10 x10 3/uL 0.00-0.03 LYMPHOCYTE # (test code=LY#) 1.15 x10 3/uL 1.0-3.8 MONOCYTE # (test code=MO#) 1.19 x10 3/uL 0.1-0.8 EOSINOPHIL # (test code=EO#) 0.42 x10 3/uL 0.0-0.2 BASOPHIL # (test code=BA#) 0.09 x10 3/uL 0.0-0.2 NUCLEATED RBC # (test code=NRBC#) 0.00 x10 3/uL 0.0-0.1 MANUAL DIFF REQUIRED (test code=MDIFF) NO COMMENTS: IF NOT ALREADY DONE WITHIN THE LAST 24 HOURSLIPOPROTEIN [id number] 13:13:00* Test Item Value Reference Range Comments LIPOPROTEIN LDL (test code=LDL) 179 mg/dL 0-100 <100 [id number] NEAR OPTIMAL/ABOVE [id number] HIGH>JV=191 VERY HIGH*Guidelines provided by the National Cholesterol EducationProgram Adult Treatment Panel III B-TYPE NATRIURETIC [id number] 12:58:00* Test Item Value Reference Range Comments B-TYPE NATRIURETIC PEPTIDE (test code=BNP) 2758.8 PG/ML 0-100 BASIC METABOLIC [id number] 12:50:00* Test Item Value Reference Range Comments SODIUM (test code=NA) 133 mEq/L 134-147 POTASSIUM (test code=K) 5.2 mEq/L 3.4-5.0 CHLORIDE (test code=CL) 103 mEq/L 100-108 CARBON DIOXIDE (test code=CO2) 15 mEq/L 21-33 ANION GAP (test code=GAP) 20 0-20 GLUCOSE (test code=GLU) 93 mg/dL 70-110 BLOOD UREA NITROGEN (test code=BUN) 99 mg/dL 7-18 GLOMERULAR FILTRATION RATE (test code=GFR) 6.5 95-105 Units of measure=ml/min/1.73 m2 CREATININE (test code=CREAT) 8.8 mg/dL 0.6-1.3 CALCIUM (test code=CA) 8.0 mg/dL 8.0-10.5 HEPATIC FUNCTION [id number] 12:50:00* Test Item Value Reference Range Comments TOTAL PROTEIN (test code=PROT) 7.1 g/dL 6.4-8.2 ALBUMIN (test code=ALB) 2.40 g/dL 3.4-5.0 BILIRUBIN TOTAL (test code=BILT) 0.30 mg/dL 0.0-1.0 BILIRUBIN DIRECT (test code=BILD) 0.10 MG/DL 0.0-0.30 BILIRUBIN INDIRECT (test code=BILIND) 0.20 MG/DL SGOT/AST (test code=AST) 16 IUnit/L 15-37 SGPT/ALT (test code=ALT) 9 IUnit/L 15-65 ALKALINE PHOSPHATASE TOTAL (test code=ALKP) 112 IUnit/L 20-125 [id number] 12:50:00* Test Item Value Reference Range Comments TROPONIN-I (test code=TROPI) 0.131 ng/mL 0.000-0.045 Negative: <=0.045 Positive: >=0.046 Correlation with serial results, other cardiac markers andclinical findings is necessary to determine the clinicalsignificance of this result. Results using different methodologies should not be comparedto one another as quantitative results may vary by method. PROTHROMBIN [id number] 12:46:00* Test Item Value Reference Range Comments PROTHROMBIN TIME PATIENT (test code=PTP) 14.0 SECONDS 9.3-12.9 INTERNATIONAL NORMAL RATIO (test code=INR) 1.2 0.8-1.2 TARGET INR BY INDICATION Indication INR1. Prophylaxis of venous thrombosis 2.0 - 3.0 (orthopedic surgery), Prophylaxis of venous thrombosis (other than high-risk surgery), Treatment of Deep Vein Thrombosis/Pulmonary Embolism, Prevention of systemic embolism - Tissue heart valves, Acute Myocardial Infarction (to prevent systemic embolism), Valvular heart disease, Atrial Fibrillation, Bileaflet mechanical valve in aortic position.2. Mechanical prosthetic valves (high risk), 2.5 - 3.5 Presence of Lupus Anticoagulant or Antiphospholipid Antibodies, Prevention of systemic embolism - Acute Myocardial Infarction (to prevent recurrent infarct). CBC W/AUTO [id number] 12:29:00* Test Item Value Reference Range Comments WHITE BLOOD CELL (test code=WBC) 13.28 x10 3/uL 4.5-11.0 RED BLOOD CELL (test code=RBC) 4.06 x10 6/uL 4.00-5.60 HEMOGLOBIN (test code=HGB) 13.6 g/dL 12.5-16.9 HEMATOCRIT (test code=HCT) 37.4 % 37.5-50.7 MEAN CELL VOLUME (test code=MCV) 92.1 fL 81.0-99.0 MEAN CELL HGB (test code=MCH) 33.5 pg 27.0-33.0 MEAN CELL HGB CONCETRATION (test code=MCHC) 36.4 g/dL 33.0-37.0 RED CELL DISTRIBUTION WIDTH CV (test code=RDW) 13.1 % 11.5-14.5 RED CELL DISTRIBUTION WIDTH SD (test code=RDW-SD) 44.8 fL 37.0-54.0 PLATELET COUNT (test code=PLT) 594 x10 3/uL 150-400 MEAN PLATELET VOLUME (test code=MPV) 9.2 fL 7.0-9.0 NEUTROPHIL % (test code=NT%) 78.7 % 56.0-77.0 IMMATURE GRANULOCYTE % (test code=IG%) 1.0 % 0.0-2.0 LYMPHOCYTE % (test code=LY%) 8.4 % 14.0-32.0 MONOCYTE % (test code=MO%) 8.8 % 4.8-9.0 EOSINOPHIL % (test code=EO%) 2.5 % 0.3-3.7 BASOPHIL % (test code=BA%) 0.6 % 0.0-2.0 NUCLEATED RBC % (test code=NRBC%) 0.0 % 0-0 NEUTROPHIL # (test code=NT#) 10.46 x10 3/uL 2.0-7.6 IMMATURE GRANULOCYTE # (test code=IG#) 0.13 x10 3/uL 0.00-0.03 LYMPHOCYTE # (test code=LY#) 1.11 x10 3/uL 1.0-3.8 MONOCYTE # (test code=MO#) 1.17 x10 3/uL 0.1-0.8 EOSINOPHIL # (test code=EO#) 0.33 x10 3/uL 0.0-0.2 BASOPHIL # (test code=BA#) 0.08 x10 3/uL 0.0-0.2 NUCLEATED RBC # (test code=NRBC#) 0.00 x10 3/uL 0.0-0.1 MANUAL DIFF REQUIRED (test code=MDIFF) NO - XR CHEST 1 [id number] 12:05:00 FAX: Kimberly Dooley DO [phone] [place]: St: REG FAX: Pierce Daniel MD [phone] Name: [facility] Mobile : 1970 Age/S: 48/M [address] [place] [address] Unit #: [id number] Loc: [place] [address] Phys: Kimberly Avina Acct: [id number] Dis Date: Status: REG ER PHONE #: [phone] Exam Date: 09/07/2018 120 FAX #: [phone] Reason: SOB EXAMS: CPT CODE: [id number] XR CHEST 1 V 96286 Single portable AP chest. INDICATION: Shortness of breath. Diffuse swelling since yesterday. FINDINGS: No prior for comparison. The cardiomediastinal silhouette is within normal limits for size. Pulmonary vascular congestion is seen with possible interstitial edema. The costophrenic angles are mildly obscured. Multiple old right rib fracture deformities are noted. IMPRESSION: 1. Pulmonary vascular congestion with suspected mild interstitial edema. 2. Mildly obscured costophrenic angles possibly minimal pleural effusions. SL: [id number] at 1205 Reported and signed by: London Malagon M.D. CC: Kimberly Avina DO; Pierce Marshall MD Technologist: RT Radha(R) Trnscrd Date/Time/By: 09/07/2018 (2676) : By: [email or web address] Orig Print D/T: S: 09/07/2018 (9762) PAGE 1 Signed Report PROTHROMBIN [id number] 15:02:00* Test Item Value Reference Range Comments PROTHROMBIN TIME PATIENT (test code=PTP) 12.2 SECONDS 9.3-12.9 INTERNATIONAL NORMAL RATIO (test code=INR) 1.1 0.8-1.2 TARGET INR BY INDICATION Indication INR1. Prophylaxis of venous thrombosis 2.0 - 3.0 (orthopedic surgery), Prophylaxis of venous thrombosis (other than high-risk surgery), Treatment of Deep Vein Thrombosis/Pulmonary Embolism, Prevention of systemic embolism - Tissue heart valves, Acute Myocardial Infarction (to prevent systemic embolism), Valvular heart disease, Atrial Fibrillation, Bileaflet mechanical valve in aortic position.2. Mechanical prosthetic valves (high risk), 2.5 - 3.5 Presence of Lupus Anticoagulant or Antiphospholipid Antibodies, Prevention of systemic embolism - Acute Myocardial Infarction (to prevent recurrent infarct). PTTPT PTTBASIC METABOLIC [id number] 15:01:00* Test Item Value Reference Range Comments SODIUM (test code=NA) 133 mEq/L 134-147 POTASSIUM (test code=K) 5.8 mEq/L 3.4-5.0 CHLORIDE (test code=CL) 103 mEq/L 100-108 CARBON DIOXIDE (test code=CO2) 24 mEq/L 21-33 ANION GAP (test code=GAP) 12 0-20 GLUCOSE (test code=GLU) 84 mg/dL 70-110 BLOOD UREA NITROGEN (test code=BUN) 52 mg/dL 7-18 GLOMERULAR FILTRATION RATE (test code=GFR) 17.2 95-105 Units of measure=ml/min/1.73 m2 CREATININE (test code=CREAT) 3.8 mg/dL 0.6-1.3 CALCIUM (test code=CA) 9.3 mg/dL 8.0-10.5 CBC W/AUTO [id number] 14:43:00* Test Item Value Reference Range Comments WHITE BLOOD CELL (test code=WBC) 10.88 x10 3/uL 4.5-11.0 RED BLOOD CELL (test code=RBC) 4.14 x10 6/uL 4.00-5.60 HEMOGLOBIN (test code=HGB) 14.1 g/dL 12.5-16.9 HEMATOCRIT (test code=HCT) 39.8 % 37.5-50.7 MEAN CELL VOLUME (test code=MCV) 96.1 fL 81.0-99.0 MEAN CELL HGB (test code=MCH) 34.1 pg 27.0-33.0 MEAN CELL HGB CONCETRATION (test code=MCHC) 35.4 g/dL 33.0-37.0 RED CELL DISTRIBUTION WIDTH CV (test code=RDW) 12.9 % 11.5-14.5 RED CELL DISTRIBUTION WIDTH SD (test code=RDW-SD) 45.8 fL 37.0-54.0 PLATELET COUNT (test code=PLT) 573 x10 3/uL 150-400 MEAN PLATELET VOLUME (test code=MPV) 8.7 fL 7.0-9.0 NEUTROPHIL % (test code=NT%) 68.8 % 56.0-77.0 IMMATURE GRANULOCYTE % (test code=IG%) 1.0 % 0.0-2.0 LYMPHOCYTE % (test code=LY%) 12.1 % 14.0-32.0 MONOCYTE % (test code=MO%) 10.9 % 4.8-9.0 EOSINOPHIL % (test code=EO%) 6.6 % 0.3-3.7 BASOPHIL % (test code=BA%) 0.6 % 0.0-2.0 NUCLEATED RBC % (test code=NRBC%) 0.0 % 0-0 NEUTROPHIL # (test code=NT#) 7.47 x10 3/uL 2.0-7.6 IMMATURE GRANULOCYTE # (test code=IG#) 0.11 x10 3/uL 0.00-0.03 LYMPHOCYTE # (test code=LY#) 1.32 x10 3/uL 1.0-3.8 MONOCYTE # (test code=MO#) 1.19 x10 3/uL 0.1-0.8 EOSINOPHIL # (test code=EO#) 0.72 x10 3/uL 0.0-0.2 BASOPHIL # (test code=BA#) 0.07 x10 3/uL 0.0-0.2 NUCLEATED RBC # (test code=NRBC#) 0.00 x10 3/uL 0.0-0.1 MANUAL DIFF REQUIRED (test code=MDIFF) NO BLOOD [id number] 23:01:00* Test Item Value Reference Range Comments CULTURE (BEAKER) (test hvtn=7441) No growth in 5 days BLOOD [id number] 23:01:00* Test Item Value Reference Range Comments CULTURE (BEAKER) (test utuk=1626) No growth in [address], CHEST, WITHOUT [id number] 16:43:00FINAL REPORT TECHNIQUE: CT scan of the chest [...] visualized thyroid gland is normal. No significant mediast inal, hilar, or axillary lymphadenopathy. The heart and pericardium are within n ormal limits. Calcification of the aortic valve. The aortic valve mass was likel y better visualized on the echocardiography. Moderate coronary arterial calcific ations. SOFT TISSUES AND BONES: Bilateral gynecomastia. Old, healed right scapul ar body fracture. Old, healed fractures of right ribs 2, 3, 4, 5, 6 and 7. UPPER ABDOMEN: Unremarkable. IMPRESSION: 1.This noncontrast examination is not tailo red to evaluate the aortic valve. The aortic valve mass was likely better visual ized on the prior echocardiogram. 2.The groundglass opacities scattered througho ut both lungs measuring up to 6 cm and are most concerning for infection. A foll ow-up CT is recommended in 3-6 months to exclude neoplasia. 3.Moderate apical pr edominant centrilobular emphysema. Signed: Anthony Gilmore Verified Date/Trevor e: 05/15/2018 16:43:31 Reading Location: [facility] B1 C013Y CT Body Reading Room UE EXAM 2018-05-15 15:38:00Surgical Pathology Report Case: [id number] Authorizing Provider: Dwight Ferrari MD Collected: 05/11/2018 0908 Ordering Location: [address] Received: 05/11/2018 1002 Service Pathologist: Nilam Tolentino MD Specimen: Renal, Right KIDNEY, RIGHT, NEEDLE BIOPSIES- FOCAL PROLIFERATIVE GLOMERULONEPHRITIS WITH CELLULAR CRESCENTS, AND IgA IMMUNE DEPOSITION- MILD INTERSTITIAL FIBROSIS AND TUBULAR ATROPHY- MILD ARTERIOLAR HYALINOSIS Signing Pathologist Direct Phone Line: [phone] signed by Nilam Tolentino MD on 05/15/2018 at 3:38 PMPreliminary result electronically signed by Nilam Tolentino MD on 05/12/2018 at 12:17 PMPreliminary result electronically signed by Nilam Tolentino MD on 05/12/2018 at 12:03 PMThe features seen in the renal biopsy could represent IgA nephropathy or HSP nephritis. Clinical correlation is recommended. 38011, 29171 x3, 55374, 49524 x7, [id number] year old male with newly diagnosed nephrotic syndrome, hematuria, skin rash and brachial thrombosis.Samish right kidneyThe specimen is received in three parts all labeled with the patient's information labeled "right [place] renal biopsy". Received in formalin are two phan-red core biopsies ranging in length from 1 to 2 cm. The longer core is bisected. Tissue is entirely submitted A1. Received fresh is a 1.5 cm phan-red core submitted for frozen for immunofluorescence staining and received in glutaraldehyde is a 0.4 cm phan-red core submitted for electron microscopy. CG/pl LIGHT MICROSCOPY: Sections show three core of cortical tissue. Glomeruli: Approximately 54 glomeruli are examined of which one glomerulus is globally sclerotic/obs olescent. The remaining non-obsolescent glomeruli are mildly enlarged and have m ild mesangial proliferation with focal endocapillary proliferation. About 4-5 gl omeruli shows cellular crescents. Focal foamy macrophages are seen in the Ron 's space. Focal segmental scarring with capsular adhesion is present. No thrombi are seen. No double contours are seen on العلي silver stain.Tubules and interst itium: There is mild interstitial fibrosis with focal tubular atrophy and mild c hronic interstitial inflammatory cell infiltration by lymphocytes involving abou t 10% of renal cortex. The non-atrophic proximal tubules focally show loss of br ush borders. Few tubular profiles show red blood cell casts.Vessels: Branches o f interlobular arteries are unremarkable. There is hyaline arteriolosclerosis. S pecial stains: Tiana trichrome, PAS and العلي silver stains were necessary for evaluation of this biopsy and showed expected staining patterns of internal con trol tissue matrix structures.Direct Immunofluorescence:Histology: H&E-stained sections show single core of renal cortex with 16 non-obsolescent glomeruli. Immunofluorescence findings: Albumin: diffuse, glomerular and tubular basement membrane, weak. IgA: Glomeruli with diffuse and global granular mesangial staining 3+, tubular casts are positive IgG: No significant glomerular staining IgM: Glomeruli with diffuse and global granular mesangial staining 2+ C3: Gl omeruli with diffuse and global granular mesangial staining 3+ focal arteriolar 3+ C1q: No significant glomerular staining Fibrinogen: diffuse, glomerular sta ining weak to 1+, with focal staining in glomerular crescents [place]: Glomeruli with diffuse and global granular mesangial staining 1+, tubular casts are posit malika Lambda: Glomeruli with diffuse and global granular mesangial staining 2+, tu bular casts are positiveAll polyclonal antibodies used for immunofluorescence st aining have been previously tested and shown to have appropriate reactivities wi th positive control specimens. Diagnostic Electron Microscopy: Thick section his tology: Toluidine blue-stained sections reveal two non-obsolescent glomeruli, solo th of which are examined ultrastructurally. Ultrastructure: Examination of the glomerular ultrastructure reveals that the glomerular basement membrane shows se gmental double contours due to mesangial interpositioning and laying down of new basement membranes. The mesangial matrix is expanded with presence of mesangia l/paramesangial electron dense immune complex type deposits. Podocyte foot proce sses are segmentally effaced with microvillous change.The interpretation of this case included the use of immunohistochemistry or special stains. Immunohistoche shakir technical testing was performed at [facility] where it was developed and its performance characteristics were determined. It has not been cleared or approved by the U.S. Food and Drug Admin istration. The FDA has determined that such clearance or approval is not necessa ry. The test is used for clinical purposes. It should not be regarded as investi gational or for research. This laboratory is certified under the Clinical Labora tory Improvement Amendments of 1988 (CLIA-88) as qualified to perform high compl exity clinical laboratory testing.U/S, BIOPSY, RENAL (KIDNEY)2018-05-15 14:22:00 Reason for exam:->To be performed by manager report. Please schedule for Friday 05/11 at 8:00am.FINAL REPORT Ultrasound guidance was provided to the referring manager report by the auto glass technician for a kidney biopsy. 12 images were obtained. Signed: Francisco Javier [place] Verified Date/Time: 05/15/2018 14:22:54 Reading Location: [facility] C013X Ortho Consult Reading Room THROMBIN [id number] 10:53:00* Test Item Value Reference Range Comments ANTITHROMBIN III ACTIVITY (BEAKER) (test eqzs=061) 110.0 % 80.0-120.0 THROMBOELASTOGRAPH (TEG)2018-05-15 07:13:00* Test Item Value Reference Range Comments TEG ACTIVATED CLOTTING TIME (BEAKER) (test ndoj=3643) 2.6 minutes 4.0-7.0 TEG FIBRINOGEN ACTIVITY (BEAKER) (test ujoj=7451) 79.7 degrees 61.0-73.0 TEG PLT. AGGREGATION (BEAKER) (test hdcf=6764) 65.3 MM 55.0-65.0 TEG FIBRINOLYSIS (BEAKER) (test gkuy=3247) 1.9 % 0.0-5.0 TGH ACTIVATED CLOTTING TIME (BEAKER) (test wmrt=1764) 2.8 minutes 4.0-7.0 TGH FIBRINOGEN ACTIVITY (BEAKER) (test spnh=0259) 76.9 degrees 61.0-73.0 TGH PLT. AGGREGATION (BEAKER) (test ouea=8449) 62.8 MM 55.0-65.0 TGH FIBRINOLYSIS (BEAKER) (test ipwc=8121) 1.6 % 0.0-5.0 [id number] 06:13:00* Test Item Value Reference Range Comments MAGNESIUM (BEAKER) (test fnku=389) 1.9 mg/dL 1.6-2.6 BASIC METABOLIC [id number] 06:13:00* Test Item Value Reference Range Comments SODIUM (BEAKER) (test ppez=268) 135 meq/L 136-145 POTASSIUM (BEAKER) (test vzcj=248) 3.0 meq/L 3.5-5.1 CHLORIDE (BEAKER) (test jsfk=155) 99 meq/L 98-107 CO2 (BEAKER) (test fzif=101) 28 meq/L 22-29 BLOOD UREA NITROGEN (BEAKER) (test exxt=460) 30 mg/dL 7-21 CREATININE (BEAKER) (test qujg=168) 0.84 mg/dL 0.57-1.25 GLUCOSE RANDOM (BEAKER) (test abpc=695) 121 mg/dL 70-105 CALCIUM (BEAKER) (test kzyo=563) 8.3 mg/dL 8.4-10.2 EGFR (BEAKER) (test gnig=2903) 98 mL/min/1.73 sq m ESTIMATED GFR IS NOT ACCURATE CREATININE CLEARANCE IN PREDICTING GLOMERULAR FILTRATION RATE. ESTIMATED GFR IS NOT APPLICABLE FOR DIALYSIS PATIENTS. CBC W/PLT COUNT & AUTO [id number] 05:46:00* Test Item Value Reference Range Comments WHITE BLOOD CELL COUNT (BEAKER) (test xkjy=063) 15.6 K/ L 3.5-10.5 RED BLOOD CELL COUNT (BEAKER) (test gvqm=945) 3.61 M/ L 4.63-6.08 HEMOGLOBIN (BEAKER) (test eers=179) 12.5 GM/DL 13.7-17.5 HEMATOCRIT (BEAKER) (test xilj=159) 36.2 % 40.1-51.0 MEAN CORPUSCULAR VOLUME (BEAKER) (test sldp=745) 100.3 fL 79.0-92.2 MEAN CORPUSCULAR HEMOGLOBIN (BEAKER) (test vmwb=232) 34.6 pg 25.7-32.2 MEAN CORPUSCULAR HEMOGLOBIN CONC (BEAKER) (test qmyv=240) 34.5 GM/DL 32.3-36.5 RED CELL DISTRIBUTION WIDTH (BEAKER) (test giuj=693) 12.9 % 11.6-14.4 PLATELET COUNT (BEAKER) (test mqwh=076) 461 K/CU MM 150-450 MEAN PLATELET VOLUME (BEAKER) (test qlfw=185) 9.7 fL 9.4-12.4 NUCLEATED RED BLOOD CELLS (BEAKER) (test dvji=355) 0 /100 WBC 0-0 NEUTROPHILS RELATIVE PERCENT (BEAKER) (test anek=702) 93 % LYMPHOCYTES RELATIVE PERCENT (BEAKER) (test rmtq=782) 3 % MONOCYTES RELATIVE PERCENT (BEAKER) (test zqin=938) 3 % EOSINOPHILS RELATIVE PERCENT (BEAKER) (test pwfc=465) 0 % BASOPHILS RELATIVE PERCENT (BEAKER) (test ofyv=707) 0 % NEUTROPHILS ABSOLUTE COUNT (BEAKER) (test hyvu=501) 14.47 K/ L 1.78-5.38 LYMPHOCYTES ABSOLUTE COUNT (BEAKER) (test yxjc=752) 0.50 K/ L 1.32-3.57 MONOCYTES ABSOLUTE COUNT (BEAKER) (test twrj=087) 0.43 K/ L 0.30-0.82 EOSINOPHILS ABSOLUTE COUNT (BEAKER) (test dhwj=910) 0.00 K/ L 0.04-0.54 BASOPHILS ABSOLUTE COUNT (BEAKER) (test adqx=173) 0.01 K/ L 0.01-0.08 IMMATURE GRANULOCYTES-RELATIVE PERCENT (BEAKER) (test klwg=2640) 1 % 0-1 [id number] 16:38:00* Test Item Value Reference Range Comments ACTIVATED CLOTTING TIME (BEAKER) (test sheu=020) 120 sec TESTED AT [facility] [address] [facility] [address] [id number] 13:56:00* Test Item Value Reference Range Comments PARTIAL THROMBOPLASTIN TIME (BEAKER) (test iioy=830) 67.9 seconds 22.5-36.0 BASIC METABOLIC [id number] 05:00:00* Test Item Value Reference Range Comments SODIUM (BEAKER) (test vtmd=956) 134 meq/L 136-145 POTASSIUM (BEAKER) (test lcki=914) 3.9 meq/L 3.5-5.1 CHLORIDE (BEAKER) (test vaqb=965) 98 meq/L 98-107 CO2 (BEAKER) (test nwlh=033) 27 meq/L 22-29 BLOOD UREA NITROGEN (BEAKER) (test wyse=193) 28 mg/dL 7-21 CREATININE (BEAKER) (test ujho=041) 0.93 mg/dL 0.57-1.25 GLUCOSE RANDOM (BEAKER) (test fkco=256) 134 mg/dL 70-105 CALCIUM (BEAKER) (test qkmw=741) 8.8 mg/dL 8.4-10.2 EGFR (BEAKER) (test elxk=4603) 87 mL/min/1.73 sq m ESTIMATED GFR IS NOT ACCURATE CREATININE CLEARANCE IN PREDICTING GLOMERULAR FILTRATION RATE. ESTIMATED GFR IS NOT APPLICABLE FOR DIALYSIS PATIENTS. [id number] 04:55:00* Test Item Value Reference Range Comments PARTIAL THROMBOPLASTIN TIME (BEAKER) (test iivp=678) 34.5 seconds 22.5-36.0 CBC W/PLT COUNT & AUTO [id number] 04:53:00* Test Item Value Reference Range Comments WHITE BLOOD CELL COUNT (BEAKER) (test apvo=030) 14.7 K/ L 3.5-10.5 RED BLOOD CELL COUNT (BEAKER) (test sgaq=813) 4.01 M/ L 4.63-6.08 HEMOGLOBIN (BEAKER) (test fija=634) 13.7 GM/DL 13.7-17.5 HEMATOCRIT (BEAKER) (test xgdf=457) 40.8 % 40.1-51.0 MEAN CORPUSCULAR VOLUME (BEAKER) (test kjry=292) 101.7 fL 79.0-92.2 MEAN CORPUSCULAR HEMOGLOBIN (BEAKER) (test gyxz=002) 34.2 pg 25.7-32.2 MEAN CORPUSCULAR HEMOGLOBIN CONC (BEAKER) (test gvyc=918) 33.6 GM/DL 32.3-36.5 RED CELL DISTRIBUTION WIDTH (BEAKER) (test aagw=394) 12.8 % 11.6-14.4 PLATELET COUNT (BEAKER) (test hwwo=236) 515 K/CU MM 150-450 MEAN PLATELET VOLUME (BEAKER) (test ilgr=964) 9.7 fL 9.4-12.4 NUCLEATED RED BLOOD CELLS (BEAKER) (test ajao=161) 0 /100 WBC 0-0 NEUTROPHILS RELATIVE PERCENT (BEAKER) (test lcwi=109) 92 % LYMPHOCYTES RELATIVE PERCENT (BEAKER) (test jixy=665) 5 % MONOCYTES RELATIVE PERCENT (BEAKER) (test uvxa=062) 2 % EOSINOPHILS RELATIVE PERCENT (BEAKER) (test tlvw=564) 0 % BASOPHILS RELATIVE PERCENT (BEAKER) (test yieq=861) 0 % NEUTROPHILS ABSOLUTE COUNT (BEAKER) (test poou=394) 13.50 K/ L 1.78-5.38 LYMPHOCYTES ABSOLUTE COUNT (BEAKER) (test yada=255) 0.77 K/ L 1.32-3.57 MONOCYTES ABSOLUTE COUNT (BEAKER) (test umnr=474) 0.33 K/ L 0.30-0.82 EOSINOPHILS ABSOLUTE COUNT (BEAKER) (test kcpv=753) 0.00 K/ L 0.04-0.54 BASOPHILS ABSOLUTE COUNT (BEAKER) (test linz=094) 0.02 K/ L 0.01-0.08 IMMATURE GRANULOCYTES-RELATIVE PERCENT (BEAKER) (test zeev=1580) 1 % 0-1 [id number] 20:20:00* Test Item Value Reference Range Comments PARTIAL THROMBOPLASTIN TIME (BEAKER) (test kzjz=788) 28.2 seconds 22.5-36.0 [id number] 17:42:00* Test Item Value Reference Range Comments MAGNESIUM (BEAKER) (test zpht=557) 1.6 mg/dL 1.6-2.6 BASIC METABOLIC [id number] 17:42:00* Test Item Value Reference Range Comments SODIUM (BEAKER) (test rrjm=723) 130 meq/L 136-145 POTASSIUM (BEAKER) (test wzky=129) 4.1 meq/L 3.5-5.1 CHLORIDE (BEAKER) (test tqfh=359) 93 meq/L 98-107 CO2 (BEAKER) (test vjbg=172) 28 meq/L 22-29 BLOOD UREA NITROGEN (BEAKER) (test zwny=023) 24 mg/dL 7-21 CREATININE (BEAKER) (test jddn=739) 0.88 mg/dL 0.57-1.25 GLUCOSE RANDOM (BEAKER) (test gxdo=880) 171 mg/dL 70-105 CALCIUM (BEAKER) (test eldy=449) 8.4 mg/dL 8.4-10.2 EGFR (BEAKER) (test dsba=5106) 93 mL/min/1.73 sq m ESTIMATED GFR IS NOT ACCURATE CREATININE CLEARANCE IN PREDICTING GLOMERULAR FILTRATION RATE. ESTIMATED GFR IS NOT APPLICABLE FOR DIALYSIS PATIENTS. [id number] 13:00:00* Test Item Value Reference Range Comments PARTIAL THROMBOPLASTIN TIME (BEAKER) (test jufq=240) 29.2 seconds 22.5-36.0 TISSUE [id number] 12:56:00Surgical Pathology Report Case: [id number] Authorizing Provider: Luz Stephenson MD Collected: 05/11/2018 1714 Ordering Location: [address] Received: 05/11/2018 1714 Service Pathologist: Liat Alegria MD Specimen: Skin SKIN, RIGHT UPPER ARM, PUNCH BIOPSY: - SPONGIOTIC DERMATITIS WITH EOSINOPHILS, COMPATIBLE WITH ECZEMA Signing Pathologist Direct Phone Line: [phone] signed by Lita Alegria MD on 05/13/2018 at 12:56 [id number] dermatitis versus pityriasis rubra pilaris Punch biopsy right upper armThe specimen is received in a formalin-filled container and labeled with the patient's information and labeled "punch biopsy right upper arm" and consists of a 0.4 cm nonpigmented skin punch biopsy with a depth of 0.3 cm. Resection margin is inked blue. The specimen is bisected and submitted entirely A1. CG/pl Sections show skin with marked spongiosis and superficial perivascular infiltrates, including lymphocytes, histiocytes and numerous eosinophils.BASIC METABOLIC [id number] 05:57:00* Test Item Value Reference Range Comments SODIUM (BEAKER) (test xyyo=767) 132 meq/L 136-145 POTASSIUM (BEAKER) (test eaol=672) 4.4 meq/L 3.5-5.1 Specimen slightly hemolyzed CHLORIDE (BEAKER) (test ueis=833) 97 meq/L 98-107 CO2 (BEAKER) (test krev=304) 29 meq/L 22-29 BLOOD UREA NITROGEN (BEAKER) (test tsga=959) 17 mg/dL 7-21 CREATININE (BEAKER) (test weua=597) 0.77 mg/dL 0.57-1.25 Specimen slightly hemolyzed GLUCOSE RANDOM (BEAKER) (test bjdh=601) 148 mg/dL 70-105 CALCIUM (BEAKER) (test sqeu=288) 8.9 mg/dL 8.4-10.2 EGFR (BEAKER) (test ttlo=7672) 109 mL/min/1.73 sq m ESTIMATED GFR IS NOT ACCURATE CREATININE CLEARANCE IN PREDICTING GLOMERULAR FILTRATION RATE. ESTIMATED GFR IS NOT APPLICABLE FOR DIALYSIS PATIENTS. CBC W/PLT COUNT & AUTO [id number] 05:47:00* Test Item Value Reference Range Comments WHITE BLOOD CELL COUNT (BEAKER) (test vazt=122) 4.4 K/ L 3.5-10.5 RED BLOOD CELL COUNT (BEAKER) (test bamv=611) 3.86 M/ L 4.63-6.08 HEMOGLOBIN (BEAKER) (test edvk=658) 13.4 GM/DL 13.7-17.5 HEMATOCRIT (BEAKER) (test qbqt=098) 39.1 % 40.1-51.0 MEAN CORPUSCULAR VOLUME (BEAKER) (test ywal=537) 101.3 fL 79.0-92.2 MEAN CORPUSCULAR HEMOGLOBIN (BEAKER) (test ubjc=186) 34.7 pg 25.7-32.2 MEAN CORPUSCULAR HEMOGLOBIN CONC (BEAKER) (test yzua=023) 34.3 GM/DL 32.3-36.5 RED CELL DISTRIBUTION WIDTH (BEAKER) (test arqo=487) 12.9 % 11.6-14.4 PLATELET COUNT (BEAKER) (test bfiz=103) 425 K/CU MM 150-450 MEAN PLATELET VOLUME (BEAKER) (test tdhz=176) 9.9 fL 9.4-12.4 NUCLEATED RED BLOOD CELLS (BEAKER) (test txuu=582) 0 /100 WBC 0-0 NEUTROPHILS RELATIVE PERCENT (BEAKER) (test uwpg=548) 83 % LYMPHOCYTES RELATIVE PERCENT (BEAKER) (test yspd=171) 14 % MONOCYTES RELATIVE PERCENT (BEAKER) (test xcjq=366) 2 % EOSINOPHILS RELATIVE PERCENT (BEAKER) (test pxcj=816) 0 % BASOPHILS RELATIVE PERCENT (BEAKER) (test dltr=124) 0 % NEUTROPHILS ABSOLUTE COUNT (BEAKER) (test csmm=964) 3.61 K/ L 1.78-5.38 LYMPHOCYTES ABSOLUTE COUNT (BEAKER) (test oyxo=920) 0.60 K/ L 1.32-3.57 MONOCYTES ABSOLUTE COUNT (BEAKER) (test skby=383) 0.07 K/ L 0.30-0.82 EOSINOPHILS ABSOLUTE COUNT (BEAKER) (test plwo=354) 0.00 K/ L 0.04-0.54 BASOPHILS ABSOLUTE COUNT (BEAKER) (test tofa=982) 0.01 K/ L 0.01-0.08 IMMATURE GRANULOCYTES-RELATIVE PERCENT (BEAKER) (test nbvc=6343) 2 % 0-1 [id number] 05:42:00* Test Item Value Reference Range Comments PARTIAL THROMBOPLASTIN TIME (BEAKER) (test tipn=851) 28.5 seconds 22.5-36.0 [id number] 21:51:00* Test Item Value Reference Range Comments MAGNESIUM (BEAKER) (test dlec=713) 1.6 mg/dL 1.6-2.6 BASIC METABOLIC [id number] 21:51:00* Test Item Value Reference Range Comments SODIUM (BEAKER) (test avmq=925) 132 meq/L 136-145 POTASSIUM (BEAKER) (test cbdf=904) 3.9 meq/L 3.5-5.1 CHLORIDE (BEAKER) (test cdnw=970) 96 meq/L 98-107 CO2 (BEAKER) (test dcek=838) 28 meq/L 22-29 BLOOD UREA NITROGEN (BEAKER) (test mxab=791) 15 mg/dL 7-21 CREATININE (BEAKER) (test btnk=800) 0.77 mg/dL 0.57-1.25 GLUCOSE RANDOM (BEAKER) (test tgji=090) 179 mg/dL 70-105 CALCIUM (BEAKER) (test msad=160) 8.7 mg/dL 8.4-10.2 EGFR (BEAKER) (test esva=9716) 109 mL/min/1.73 sq m ESTIMATED GFR IS NOT ACCURATE CREATININE CLEARANCE IN PREDICTING GLOMERULAR FILTRATION RATE. ESTIMATED GFR IS NOT APPLICABLE FOR DIALYSIS PATIENTS. [id number] 21:49:00* Test Item Value Reference Range Comments PARTIAL THROMBOPLASTIN TIME (BEAKER) (test piqy=699) 28.1 seconds 22.5-36.0 Prior to initiating heparinLUPUS ANTICOAGULANT SCREEN WITH REFLEX TO [id number] 14:08:00* Test Item Value Reference Range Comments DRVV SCREEN RATIO (BEAKER) (test faoz=1000) 0.75 <1.20 DRVV INTERPRETATION (BEAKER) (test tanr=1576) Normal DRVV Results PROTIME (BEAKER) (test cabx=395) 12.6 seconds 11.7-14.7 INR (BEAKER) (test avgg=932) 0.9 <=5.9 PARTIAL THROMBOPLASTIN TIME (BEAKER) (test dzdz=920) 29.6 seconds 22.5-36.0 PTT-LA (BEAKER) (test ihbg=[id number]) 35.5 32.0-41.8 AGYG-IHEYEPBAXBY-730 (BEAKER) (test pghq=4220) Jovi Aguilar MD (electronic signature) [id number] 07:16:00* Test Item Value Reference Range Comments MAGNESIUM (BEAKER) (test qvfv=267) 1.8 mg/dL 1.6-2.6 BASIC METABOLIC [id number] 07:16:00* Test Item Value Reference Range Comments SODIUM (BEAKER) (test zyah=462) 134 meq/L 136-145 POTASSIUM (BEAKER) (test kmni=064) 4.0 meq/L 3.5-5.1 CHLORIDE (BEAKER) (test kein=544) 98 meq/L 98-107 CO2 (BEAKER) (test wgjt=163) 30 meq/L 22-29 BLOOD UREA NITROGEN (BEAKER) (test mqby=652) 11 mg/dL 7-21 CREATININE (BEAKER) (test tkgf=822) 0.60 mg/dL 0.57-1.25 GLUCOSE RANDOM (BEAKER) (test wfvl=367) 80 mg/dL 70-105 CALCIUM (BEAKER) (test phku=365) 8.7 mg/dL 8.4-10.2 EGFR (BEAKER) (test umob=3279) 145 mL/min/1.73 sq m ESTIMATED GFR IS NOT ACCURATE CREATININE CLEARANCE IN PREDICTING GLOMERULAR FILTRATION RATE. ESTIMATED GFR IS NOT APPLICABLE FOR DIALYSIS PATIENTS. CBC W/PLT COUNT & AUTO [id number] 06:59:00* Test Item Value Reference Range Comments WHITE BLOOD CELL COUNT (BEAKER) (test dajg=812) 7.7 K/ L 3.5-10.5 RED BLOOD CELL COUNT (BEAKER) (test ckxu=110) 3.57 M/ L 4.63-6.08 HEMOGLOBIN (BEAKER) (test cwzy=761) 12.4 GM/DL 13.7-17.5 HEMATOCRIT (BEAKER) (test gfpj=501) 36.6 % 40.1-51.0 MEAN CORPUSCULAR VOLUME (BEAKER) (test dekm=226) 102.5 fL 79.0-92.2 MEAN CORPUSCULAR HEMOGLOBIN (BEAKER) (test fmdy=551) 34.7 pg 25.7-32.2 MEAN CORPUSCULAR HEMOGLOBIN CONC (BEAKER) (test urwf=737) 33.9 GM/DL 32.3-36.5 RED CELL DISTRIBUTION WIDTH (BEAKER) (test fpgo=500) 13.2 % 11.6-14.4 PLATELET COUNT (BEAKER) (test mynf=581) 431 K/CU MM 150-450 MEAN PLATELET VOLUME (BEAKER) (test mlou=274) 9.6 fL 9.4-12.4 NUCLEATED RED BLOOD CELLS (BEAKER) (test tscj=391) 0 /100 WBC 0-0 NEUTROPHILS RELATIVE PERCENT (BEAKER) (test tkbp=409) 61 % LYMPHOCYTES RELATIVE PERCENT (BEAKER) (test qtrk=865) 20 % MONOCYTES RELATIVE PERCENT (BEAKER) (test kchl=369) 9 % EOSINOPHILS RELATIVE PERCENT (BEAKER) (test zpko=687) 8 % BASOPHILS RELATIVE PERCENT (BEAKER) (test aymi=656) 1 % NEUTROPHILS ABSOLUTE COUNT (BEAKER) (test kbms=072) 4.73 K/ L 1.78-5.38 LYMPHOCYTES ABSOLUTE COUNT (BEAKER) (test yorh=558) 1.51 K/ L 1.32-3.57 MONOCYTES ABSOLUTE COUNT (BEAKER) (test lzgo=545) 0.68 K/ L 0.30-0.82 EOSINOPHILS ABSOLUTE COUNT (BEAKER) (test vaaf=497) 0.63 K/ L 0.04-0.54 BASOPHILS ABSOLUTE COUNT (BEAKER) (test kzge=372) 0.06 K/ L 0.01-0.08 IMMATURE GRANULOCYTES-RELATIVE PERCENT (BEAKER) (test xcgu=5224) 1 % 0-1 TISSUE [id number] 18:39:00Surgical Pathology Report Case: [id number] Authorizing Provider: Clara Pascual MD Collected: 05/07/2018 1602 Ordering Location: [facility] Received: 05/08/2018 0833 PERIOPERATIVE SERVICES Pathologist: Travis Leggett MD Specimen: Thrombus/Embolus, left brachial thrombus THROMBUS, LEFT BRACHIAL, THROMBECTOMY- FRAGMENTS OF THROMBUS Signing Pathologist Direct Phone Line: [phone] signed by Travis Leggett MD on 05/11/2018 at 6:39 [id number] brachial thrombusThe specimen is received in a formalin-filled container and labeled with the patient's information labeled "left brachial thrombus" and consists of tubular shaped thrombus measuring 2 cm in length x 0.4 cm in diameter. The specimen is sectioned, submitted entirely A1. CG/pl [id number] 17:41:00* Test Item Value Reference Range Comments MAGNESIUM (BEAKER) (test achp=661) 1.6 mg/dL 1.6-2.6 BASIC METABOLIC [id number] 17:41:00* Test Item Value Reference Range Comments SODIUM (BEAKER) (test gmwy=225) 135 meq/L 136-145 POTASSIUM (BEAKER) (test ttej=876) 4.2 meq/L 3.5-5.1 CHLORIDE (BEAKER) (test hoiw=254) 98 meq/L 98-107 CO2 (BEAKER) (test ytbi=076) 31 meq/L 22-29 BLOOD UREA NITROGEN (BEAKER) (test mveg=715) 13 mg/dL 7-21 CREATININE (BEAKER) (test foop=008) 0.63 mg/dL 0.57-1.25 GLUCOSE RANDOM (BEAKER) (test byxt=782) 95 mg/dL 70-105 CALCIUM (BEAKER) (test yjwk=884) 8.8 mg/dL 8.4-10.2 EGFR (BEAKER) (test mctd=6241) 137 mL/min/1.73 sq m ESTIMATED GFR IS NOT ACCURATE CREATININE CLEARANCE IN PREDICTING GLOMERULAR FILTRATION RATE. ESTIMATED GFR IS NOT APPLICABLE FOR DIALYSIS PATIENTS. HEMOGLOBIN AND [id number] 17:22:00* Test Item Value Reference Range Comments HEMOGLOBIN (BEAKER) (test yqkm=695) 12.9 GM/DL 13.7-17.5 HEMATOCRIT (BEAKER) (test ezsc=737) 38.1 % 40.1-51.0 HERPES VIRUS ANTIBODY, [id number] 09:15:00* Test Item Value Reference Range Comments HERPES VIRUS IGM (BEAKER) (test pafu=3635) Negative CARDIOLIPIN ANTIBODIES, IGG AND [id number] 09:11:00* Test Item Value Reference Range Comments ANTICARDIOLIPIN IGG ANTIBODY (BEAKER) (test exgr=229) < GPL <20.0 ANTICARDIOLIPIN IGM ANTIBODY (BEAKER) (test qjsj=792) 0.2 MPL <20.0 Anticardiolipin IgG Result Interpretation: <20.0 GPL Normal>/=20.0 GPL PositiveAnticardiolipin IgM Result Interpretation: <20.0 MPL Normal>/=20.0 MPL PositiveBETA-2 GLYCOPROTEIN [id number] 07:37:00* Test Item Value Reference Range Comments B2 GLYCOPROTEIN AUTOVERIFICATION COMPONENT (test mzyh=0045) Refer to individual B2-Glycoprotein IgG, IgM and IgA results. [id number] 07:03:00* Test Item Value Reference Range Comments MAGNESIUM (BEAKER) (test bebb=643) 2.1 mg/dL 1.6-2.6 Specimen slightly hemolyzed BASIC METABOLIC [id number] 07:03:00* Test Item Value Reference Range Comments SODIUM (BEAKER) (test xoln=352) 136 meq/L 136-145 POTASSIUM (BEAKER) (test phyn=696) 4.1 meq/L 3.5-5.1 Specimen slightly hemolyzed CHLORIDE (BEAKER) (test wixr=723) 103 meq/L 98-107 CO2 (BEAKER) (test tvdp=080) 27 meq/L 22-29 BLOOD UREA NITROGEN (BEAKER) (test vike=023) 14 mg/dL 7-21 CREATININE (BEAKER) (test avlx=531) 0.60 mg/dL 0.57-1.25 Specimen slightly hemolyzed GLUCOSE RANDOM (BEAKER) (test ezfy=565) 82 mg/dL 70-105 CALCIUM (BEAKER) (test wrss=192) 8.6 mg/dL 8.4-10.2 EGFR (BEAKER) (test lbhg=8389) 145 mL/min/1.73 sq m ESTIMATED GFR IS NOT ACCURATE CREATININE CLEARANCE IN PREDICTING GLOMERULAR FILTRATION RATE. ESTIMATED GFR IS NOT APPLICABLE FOR DIALYSIS PATIENTS. PROTHROMBIN TIME/[id number] 06:58:00* Test Item Value Reference Range Comments PROTIME (BEAKER) (test zosl=036) 12.7 seconds 11.7-14.7 INR (BEAKER) (test gpol=492) 1.0 <=5.9 RECOMMENDED COUMADIN/WARFARIN INR THERAPY RANGESSTANDARD DOSE: 2.0 - 3.0 Inclu mary ann: PROPHYLAXIS for venous thrombosis, systemic embolization; TREATMENT for martin ous thrombosis and/or pulmonary embolus.HIGH RISK: Target INR is 2.5-3.5 for pat ients with mechanical heart valves.PT/[id number] 06:58:00* Test Item Value Reference Range Comments PROTIME (BEAKER) (test uyzu=913) 12.7 seconds 11.7-14.7 INR (BEAKER) (test eeye=933) 1.0 <=5.9 PARTIAL THROMBOPLASTIN TIME (BEAKER) (test tdgw=610) 28.4 seconds 22.5-36.0 RECOMMENDED COUMADIN/WARFARIN INR THERAPY RANGESSTANDARD DOSE: 2.0 - 3.0 Inclu mary ann: PROPHYLAXIS for venous thrombosis, systemic embolization; TREATMENT for martin ous thrombosis and/or pulmonary embolus.HIGH RISK: Target INR is 2.5-3.5 for pat ients with mechanical heart valves.[id number] 06:58:00* Test Item Value Reference Range Comments PARTIAL THROMBOPLASTIN TIME (BEAKER) (test kqat=899) 28.4 seconds 22.5-36.0 CBC W/PLT COUNT & AUTO [id number] 06:49:00* Test Item Value Reference Range Comments WHITE BLOOD CELL COUNT (BEAKER) (test ilcc=436) 9.9 K/ L 3.5-10.5 RED BLOOD CELL COUNT (BEAKER) (test giyo=860) 3.82 M/ L 4.63-6.08 HEMOGLOBIN (BEAKER) (test rwwk=815) 13.3 GM/DL 13.7-17.5 HEMATOCRIT (BEAKER) (test frip=200) 39.3 % 40.1-51.0 MEAN CORPUSCULAR VOLUME (BEAKER) (test zjwn=044) 102.9 fL 79.0-92.2 MEAN CORPUSCULAR HEMOGLOBIN (BEAKER) (test tibt=671) 34.8 pg 25.7-32.2 MEAN CORPUSCULAR HEMOGLOBIN CONC (BEAKER) (test vzck=892) 33.8 GM/DL 32.3-36.5 RED CELL DISTRIBUTION WIDTH (BEAKER) (test upfv=060) 13.3 % 11.6-14.4 PLATELET COUNT (BEAKER) (test pqnp=248) 402 K/CU MM 150-450 MEAN PLATELET VOLUME (BEAKER) (test gbqq=380) 9.4 fL 9.4-12.4 NUCLEATED RED BLOOD CELLS (BEAKER) (test qmsz=522) 0 /100 WBC 0-0 NEUTROPHILS RELATIVE PERCENT (BEAKER) (test ijqt=735) 68 % LYMPHOCYTES RELATIVE PERCENT (BEAKER) (test drnc=766) 14 % MONOCYTES RELATIVE PERCENT (BEAKER) (test kpbs=473) 9 % EOSINOPHILS RELATIVE PERCENT (BEAKER) (test otxh=735) 8 % BASOPHILS RELATIVE PERCENT (BEAKER) (test obfh=709) 1 % NEUTROPHILS ABSOLUTE COUNT (BEAKER) (test chib=385) 6.70 K/ L 1.78-5.38 LYMPHOCYTES ABSOLUTE COUNT (BEAKER) (test qkdp=166) 1.41 K/ L 1.32-3.57 MONOCYTES ABSOLUTE COUNT (BEAKER) (test nepx=079) 0.84 K/ L 0.30-0.82 EOSINOPHILS ABSOLUTE COUNT (BEAKER) (test rkvc=604) 0.75 K/ L 0.04-0.54 BASOPHILS ABSOLUTE COUNT (BEAKER) (test pwnt=813) 0.07 K/ L 0.01-0.08 IMMATURE GRANULOCYTES-RELATIVE PERCENT (BEAKER) (test mowv=0256) 1 % 0-1 [id number] 20:25:00* Test Item Value Reference Range Comments PARTIAL THROMBOPLASTIN TIME (BEAKER) (test elcb=429) 98.5 seconds 22.5-36.0 [id number] 20:22:00* Test Item Value Reference Range Comments MAGNESIUM (BEAKER) (test vlxr=446) 2.3 mg/dL 1.6-2.6 Specimen slightly hemolyzed BASIC METABOLIC [id number] 20:22:00* Test Item Value Reference Range Comments SODIUM (BEAKER) (test wzek=759) 134 meq/L 136-145 POTASSIUM (BEAKER) (test qilu=362) 4.4 meq/L 3.5-5.1 Specimen slightly hemolyzed CHLORIDE (BEAKER) (test kuco=796) 103 meq/L 98-107 CO2 (BEAKER) (test ipgq=004) 23 meq/L 22-29 BLOOD UREA NITROGEN (BEAKER) (test tvko=777) 17 mg/dL 7-21 CREATININE (BEAKER) (test vwpd=430) 0.66 mg/dL 0.57-1.25 Specimen slightly hemolyzed GLUCOSE RANDOM (BEAKER) (test mjmw=284) 90 mg/dL 70-105 CALCIUM (BEAKER) (test vwue=836) 8.7 mg/dL 8.4-10.2 EGFR (BEAKER) (test vdsm=5061) 130 mL/min/1.73 sq m ESTIMATED GFR IS NOT ACCURATE CREATININE CLEARANCE IN PREDICTING GLOMERULAR FILTRATION RATE. ESTIMATED GFR IS NOT APPLICABLE FOR DIALYSIS PATIENTS. [id number] 14:33:00* Test Item Value Reference Range Comments CRYOGLOBULIN (BEAKER) (test lcmw=751) Negative [id number] 13:31:00* Test Item Value Reference Range Comments PARTIAL THROMBOPLASTIN TIME (BEAKER) (test xcxt=607) 74.3 seconds 22.5-36.0 OCCULT BLOOD, [id number] 11:59:00* Test Item Value Reference Range Comments FECAL OCCULT BLOOD (BEAKER) (test zgbl=323) Negative Negative [id number] 07:07:00* Test Item Value Reference Range Comments MAGNESIUM (BEAKER) (test jbkd=587) 1.8 mg/dL 1.6-2.6 BASIC METABOLIC [id number] 07:07:00* Test Item Value Reference Range Comments SODIUM (BEAKER) (test qzwc=924) 134 meq/L 136-145 POTASSIUM (BEAKER) (test iesa=159) 4.1 meq/L 3.5-5.1 CHLORIDE (BEAKER) (test ybwz=719) 102 meq/L 98-107 CO2 (BEAKER) (test dvqs=548) 26 meq/L 22-29 BLOOD UREA NITROGEN (BEAKER) (test kwkv=944) 16 mg/dL 7-21 CREATININE (BEAKER) (test kgew=196) 0.63 mg/dL 0.57-1.25 GLUCOSE RANDOM (BEAKER) (test nvho=555) 88 mg/dL 70-105 CALCIUM (BEAKER) (test cxue=790) 8.3 mg/dL 8.4-10.2 EGFR (BEAKER) (test evxz=4824) 137 mL/min/1.73 sq m ESTIMATED GFR IS NOT ACCURATE CREATININE CLEARANCE IN PREDICTING GLOMERULAR FILTRATION RATE. ESTIMATED GFR IS NOT APPLICABLE FOR DIALYSIS PATIENTS. [id number] 06:34:00* Test Item Value Reference Range Comments PARTIAL THROMBOPLASTIN TIME (BEAKER) (test msef=782) 45.8 seconds 22.5-36.0 CBC W/PLT COUNT & AUTO [id number] 06:12:00* Test Item Value Reference Range Comments WHITE BLOOD CELL COUNT (BEAKER) (test pxxx=334) 10.0 K/ L 3.5-10.5 RED BLOOD CELL COUNT (BEAKER) (test ghcg=332) 3.58 M/ L 4.63-6.08 HEMOGLOBIN (BEAKER) (test fnuo=864) 12.7 GM/DL 13.7-17.5 HEMATOCRIT (BEAKER) (test oova=274) 36.6 % 40.1-51.0 MEAN CORPUSCULAR VOLUME (BEAKER) (test hhgo=817) 102.2 fL 79.0-92.2 MEAN CORPUSCULAR HEMOGLOBIN (BEAKER) (test jhum=745) 35.5 pg 25.7-32.2 MEAN CORPUSCULAR HEMOGLOBIN CONC (BEAKER) (test hafs=495) 34.7 GM/DL 32.3-36.5 RED CELL DISTRIBUTION WIDTH (BEAKER) (test bknw=654) 13.3 % 11.6-14.4 PLATELET COUNT (BEAKER) (test uzip=455) 380 K/CU MM 150-450 MEAN PLATELET VOLUME (BEAKER) (test zqcz=980) 9.7 fL 9.4-12.4 NUCLEATED RED BLOOD CELLS (BEAKER) (test cljj=119) 0 /100 WBC 0-0 NEUTROPHILS RELATIVE PERCENT (BEAKER) (test rjpc=184) 60 % LYMPHOCYTES RELATIVE PERCENT (BEAKER) (test qzgd=906) 22 % MONOCYTES RELATIVE PERCENT (BEAKER) (test sfrl=194) 10 % EOSINOPHILS RELATIVE PERCENT (BEAKER) (test cqcq=985) 8 % BASOPHILS RELATIVE PERCENT (BEAKER) (test boba=224) 1 % NEUTROPHILS ABSOLUTE COUNT (BEAKER) (test bcya=266) 5.93 K/ L 1.78-5.38 LYMPHOCYTES ABSOLUTE COUNT (BEAKER) (test uwaa=812) 2.14 K/ L 1.32-3.57 MONOCYTES ABSOLUTE COUNT (BEAKER) (test mvwr=460) 0.95 K/ L 0.30-0.82 EOSINOPHILS ABSOLUTE COUNT (BEAKER) (test idvo=518) 0.78 K/ L 0.04-0.54 BASOPHILS ABSOLUTE COUNT (BEAKER) (test mwsf=776) 0.08 K/ L 0.01-0.08 IMMATURE GRANULOCYTES-RELATIVE PERCENT (BEAKER) (test kcoe=4481) 1 % 0-1 BASIC METABOLIC [id number] 18:05:00* Test Item Value Reference Range Comments SODIUM (BEAKER) (test rfed=489) 137 meq/L 136-145 POTASSIUM (BEAKER) (test hqyf=890) 3.9 meq/L 3.5-5.1 CHLORIDE (BEAKER) (test nwrk=901) 102 meq/L 98-107 CO2 (BEAKER) (test rxyi=335) 29 meq/L 22-29 BLOOD UREA NITROGEN (BEAKER) (test ozko=369) 19 mg/dL 7-21 CREATININE (BEAKER) (test moti=823) 0.69 mg/dL 0.57-1.25 GLUCOSE RANDOM (BEAKER) (test udiy=041) 88 mg/dL 70-105 CALCIUM (BEAKER) (test cskh=078) 8.5 mg/dL 8.4-10.2 EGFR (BEAKER) (test exzo=7285) 123 mL/min/1.73 sq m ESTIMATED GFR IS NOT ACCURATE CREATININE CLEARANCE IN PREDICTING GLOMERULAR FILTRATION RATE. ESTIMATED GFR IS NOT APPLICABLE FOR DIALYSIS PATIENTS. [id number] 09:55:00* Test Item Value Reference Range Comments MAGNESIUM (BEAKER) (test hfkk=050) 1.5 mg/dL 1.6-2.6 [id number] 09:45:00* Test Item Value Reference Range Comments PARTIAL THROMBOPLASTIN TIME (BEAKER) (test fehf=451) 85.8 seconds 22.5-36.0 U/S, RENAL, [id number] 05:30:00Reason for exam:->BEBA on CKDFINAL REPORT Ultrasound of the Kidneys Clinical History: BEBA on CKD Discussion: Sonographic evaluation of the kidneys was performed. There is no prior study for comparison. Right kidney: 12.9 x 5.6 x 6.2 cm, with cortical thickness of 1.5 cm. Normal cortical echogenicity. No mass. No shadowing calculus. No hydronephrosis. Left kidney: 13.4 x 6.9 x 6 cm, with cortical th ickness of 1.5 cm. Normal cortical echogenicity. No mass. No shadowing calcul us. No hydronephrosis. Limited doppler evaluation of bilateral main renal arter ies and veins demonstrate patency. Bladder: Distended and thin-walled with a p revoid volume of 490 cc. Postvoid residual was 51 cc. Impression: Small urinary bladder postvoid residual. Otherwise unremarkable exam. Signed: Loren David MD Report Verified Date/Time: 05/09/2018 05:30:16 Reading Location: [facility] Body Reading Room Electronically signed by: LOREN DAVID MD on 05:30 AM BASIC METABOLIC [id number] 04:11:00* Test Item Value Reference Range Comments SODIUM (BEAKER) (test usjs=761) 136 meq/L 136-145 POTASSIUM (BEAKER) (test yiou=574) 3.7 meq/L 3.5-5.1 CHLORIDE (BEAKER) (test hten=521) 104 meq/L 98-107 CO2 (BEAKER) (test fmgg=488) 26 meq/L 22-29 BLOOD UREA NITROGEN (BEAKER) (test xjza=757) 18 mg/dL 7-21 CREATININE (BEAKER) (test jlxp=576) 0.80 mg/dL 0.57-1.25 GLUCOSE RANDOM (BEAKER) (test kmpg=082) 97 mg/dL 70-105 CALCIUM (BEAKER) (test hvqm=233) 8.4 mg/dL 8.4-10.2 EGFR (BEAKER) (test iawj=4797) 104 mL/min/1.73 sq m ESTIMATED GFR IS NOT ACCURATE CREATININE CLEARANCE IN PREDICTING GLOMERULAR FILTRATION RATE. ESTIMATED GFR IS NOT APPLICABLE FOR DIALYSIS PATIENTS. [id number] 03:44:00* Test Item Value Reference Range Comments PARTIAL THROMBOPLASTIN TIME (BEAKER) (test nflz=199) 74.0 seconds 22.5-36.0 CBC W/PLT COUNT & AUTO [id number] 03:20:00* Test Item Value Reference Range Comments WHITE BLOOD CELL COUNT (BEAKER) (test cbbr=292) 10.4 K/ L 3.5-10.5 RED BLOOD CELL COUNT (BEAKER) (test fbvh=033) 3.65 M/ L 4.63-6.08 HEMOGLOBIN (BEAKER) (test guen=319) 12.6 GM/DL 13.7-17.5 HEMATOCRIT (BEAKER) (test ntrh=257) 37.0 % 40.1-51.0 MEAN CORPUSCULAR VOLUME (BEAKER) (test rqdv=761) 101.4 fL 79.0-92.2 MEAN CORPUSCULAR HEMOGLOBIN (BEAKER) (test wixu=687) 34.5 pg 25.7-32.2 MEAN CORPUSCULAR HEMOGLOBIN CONC (BEAKER) (test gblv=724) 34.1 GM/DL 32.3-36.5 RED CELL DISTRIBUTION WIDTH (BEAKER) (test zhfn=852) 13.3 % 11.6-14.4 PLATELET COUNT (BEAKER) (test agps=908) 332 K/CU MM 150-450 MEAN PLATELET VOLUME (BEAKER) (test gbfd=226) 9.3 fL 9.4-12.4 NUCLEATED RED BLOOD CELLS (BEAKER) (test chgi=937) 0 /100 WBC 0-0 NEUTROPHILS RELATIVE PERCENT (BEAKER) (test qufl=981) 67 % LYMPHOCYTES RELATIVE PERCENT (BEAKER) (test sumk=249) 19 % MONOCYTES RELATIVE PERCENT (BEAKER) (test sufd=582) 9 % EOSINOPHILS RELATIVE PERCENT (BEAKER) (test qfpm=046) 3 % BASOPHILS RELATIVE PERCENT (BEAKER) (test bawm=265) 1 % NEUTROPHILS ABSOLUTE COUNT (BEAKER) (test xiwb=591) 6.98 K/ L 1.78-5.38 LYMPHOCYTES ABSOLUTE COUNT (BEAKER) (test ioia=067) 1.99 K/ L 1.32-3.57 MONOCYTES ABSOLUTE COUNT (BEAKER) (test adsk=777) 0.97 K/ L 0.30-0.82 EOSINOPHILS ABSOLUTE COUNT (BEAKER) (test mnjn=557) 0.28 K/ L 0.04-0.54 BASOPHILS ABSOLUTE COUNT (BEAKER) (test bkpu=842) 0.07 K/ L 0.01-0.08 IMMATURE GRANULOCYTES-RELATIVE PERCENT (BEAKER) (test qudf=6269) 1 % 0-1 [id number] 18:22:00* Test Item Value Reference Range Comments PARTIAL THROMBOPLASTIN TIME (BEAKER) (test smlh=530) 48.5 seconds 22.5-36.0 URINE PROTEIN ELECTROPHORESIS, [id number] 16:34:00* Test Item Value Reference Range Comments PROTEIN, URINE (BEAKER) (test nwfl=4996) 1612 mg/dL 0-14 ALBUMIN URINE ELP (BEAKER) (test qzyd=5723) 63.3 % GAMMA GLOBULIN URINE (BEAKER) (test lbof=9582) 36.7 % UPEP, ID-438 (BEAKER) (test geve=2170) Urine protein study consistent with glomerular dysfunction. No monoclonal bands detected. [id number] (BEAKER) (test srgj=4026) Lesvia Matson MD (electronic signature) PROTEIN ELECTROPHORESIS, [id number] 16:29:00* Test Item Value Reference Range Comments ALBUMIN FRACTION (BEAKER) (test mbwu=855) 1.4 g/dL 3.5-5.5 ALPHA 1 FRACTION (BEAKER) (test myrp=870) 0.3 g/dL 0.2-0.4 ALPHA 2 FRACTION (BEAKER) (test pvpl=825) 0.8 g/dL 0.5-0.9 BETA FRACTION (BEAKER) (test sdnt=420) 0.4 g/dL 0.6-1.1 GAMMA GLOBULIN FRACTION (BEAKER) (test frdc=288) 0.8 g/dL 0.7-1.7 INTERPRETATION-119 (BEAKER) (test lkel=6228) Alpha-1 and alpha-2 increased. Albumin, beta, and gamma decreased. This suggests a nephrotic pattern. [id number] (BEAKER) (test esta=3683) Lesvia Matson MD (electronic signature) PROTEIN TOTAL SERUM, SPEP (BEAKER) (test mtvz=0770) 3.7 gm/dL 6.0-8.3 RHEUMATOID FACTOR AB, REFLEX TO [id number] 15:22:00* Test Item Value Reference Range Comments RHEUMATOID FACTOR (BEAKER) (test cpzv=593) Negative CREATININE, RANDOM [id number] 13:13:00* Test Item Value Reference Range Comments CREATININE URINE (BEAKER) (test vbie=314) 42.2 mg/dL Reference Range: No NormalsSODIUM, RANDOM [id number] 13:13:00* Test Item Value Reference Range Comments SODIUM URINE (BEAKER) (test odrk=776) 88 meq/L Reference Range: No NormalsUREA NITROGEN, RANDOM [id number] 13:13:00* Test Item Value Reference Range Comments UREA NITROGEN URINE (BEAKER) (test weck=584) 132 mg/dL Reference Range: No NormalsOSMOLALITY, [id number] 13:09:00* Test Item Value Reference Range Comments OSMOLALITY URINE (BEAKER) (test kbrr=298) 296 mOsm/kg 40-1,400 [id number] 12:33:00* Test Item Value Reference Range Comments PARTIAL THROMBOPLASTIN TIME (BEAKER) (test npfm=067) 45.9 seconds 22.5-36.0 OSMOLALITY, [id number] 09:43:00* Test Item Value Reference Range Comments OSMOLALITY, SERUM (BEAKER) (test dzbz=739) 273 mOsm/kg 275-295 [id number] 04:02:00* Test Item Value Reference Range Comments MAGNESIUM (BEAKER) (test ptrd=761) 1.7 mg/dL 1.6-2.6 BASIC METABOLIC [id number] 04:02:00* Test Item Value Reference Range Comments SODIUM (BEAKER) (test xhyj=083) 129 meq/L 136-145 POTASSIUM (BEAKER) (test qhxt=456) 4.2 meq/L 3.5-5.1 CHLORIDE (BEAKER) (test yslo=230) 99 meq/L 98-107 CO2 (BEAKER) (test qqns=596) 23 meq/L 22-29 BLOOD UREA NITROGEN (BEAKER) (test sibo=667) 9 mg/dL 7-21 CREATININE (BEAKER) (test oxzm=961) 0.62 mg/dL 0.57-1.25 GLUCOSE RANDOM (BEAKER) (test vrle=733) 134 mg/dL 70-105 CALCIUM (BEAKER) (test nnwk=807) 8.4 mg/dL 8.4-10.2 EGFR (BEAKER) (test vubm=4846) 140 mL/min/1.73 sq m ESTIMATED GFR IS NOT ACCURATE CREATININE CLEARANCE IN PREDICTING GLOMERULAR FILTRATION RATE. ESTIMATED GFR IS NOT APPLICABLE FOR DIALYSIS PATIENTS. [id number] 03:46:00* Test Item Value Reference Range Comments PARTIAL THROMBOPLASTIN TIME (BEAKER) (test urnr=840) 46.7 seconds 22.5-36.0 PROTHROMBIN [id number] 03:45:00* Test Item Value Reference Range Comments PROTIME (BEAKER) (test vzku=915) 12.8 seconds 11.7-14.7 INR (BEAKER) (test tnlf=262) 1.0 <=5.9 RECOMMENDED COUMADIN/WARFARIN INR THERAPY RANGESSTANDARD DOSE: 2.0 - 3.0 Inclu mary ann: PROPHYLAXIS for venous thrombosis, systemic embolization; TREATMENT for martin ous thrombosis and/or pulmonary embolus.HIGH RISK: Target INR is 2.5-3.5 for pat ients with mechanical heart valves.CBC W/PLT COUNT & AUTO [id number] 03:40:00* Test Item Value Reference Range Comments WHITE BLOOD CELL COUNT (BEAKER) (test zrrn=916) 15.0 K/ L 3.5-10.5 RED BLOOD CELL COUNT (BEAKER) (test ojow=309) 3.78 M/ L 4.63-6.08 HEMOGLOBIN (BEAKER) (test xdpk=138) 12.9 GM/DL 13.7-17.5 HEMATOCRIT (BEAKER) (test smpm=356) 37.9 % 40.1-51.0 MEAN CORPUSCULAR VOLUME (BEAKER) (test qpjm=753) 100.3 fL 79.0-92.2 MEAN CORPUSCULAR HEMOGLOBIN (BEAKER) (test lwdk=500) 34.1 pg 25.7-32.2 MEAN CORPUSCULAR HEMOGLOBIN CONC (BEAKER) (test lvyi=982) 34.0 GM/DL 32.3-36.5 RED CELL DISTRIBUTION WIDTH (BEAKER) (test wilv=127) 13.1 % 11.6-14.4 PLATELET COUNT (BEAKER) (test vxxl=467) 390 K/CU MM 150-450 MEAN PLATELET VOLUME (BEAKER) (test pycq=562) 9.3 fL 9.4-12.4 NUCLEATED RED BLOOD CELLS (BEAKER) (test kiwq=689) 0 /100 WBC 0-0 NEUTROPHILS RELATIVE PERCENT (BEAKER) (test qybv=540) 90 % LYMPHOCYTES RELATIVE PERCENT (BEAKER) (test zzkg=907) 6 % MONOCYTES RELATIVE PERCENT (BEAKER) (test fktb=341) 3 % EOSINOPHILS RELATIVE PERCENT (BEAKER) (test kunj=169) 0 % BASOPHILS RELATIVE PERCENT (BEAKER) (test lsnh=361) 0 % NEUTROPHILS ABSOLUTE COUNT (BEAKER) (test kfcw=805) 13.50 K/ L 1.78-5.38 LYMPHOCYTES ABSOLUTE COUNT (BEAKER) (test uiqd=012) 0.83 K/ L 1.32-3.57 MONOCYTES ABSOLUTE COUNT (BEAKER) (test pfkq=049) 0.49 K/ L 0.30-0.82 EOSINOPHILS ABSOLUTE COUNT (BEAKER) (test ydhu=764) 0.00 K/ L 0.04-0.54 BASOPHILS ABSOLUTE COUNT (BEAKER) (test pmed=046) 0.03 K/ L 0.01-0.08 IMMATURE GRANULOCYTES-RELATIVE PERCENT (BEAKER) (test psyk=1729) 1 % 0-1 DOUBLE-STRANDED DNA (DSDNA) [id number] 23:42:00* Test Item Value Reference Range Comments ANTI-DNA DS (BEAKER) (test gvvw=9704) Negative [id number] 22:37:00* Test Item Value Reference Range Comments PHOSPHORUS (BEAKER) (test ldeo=305) 4.5 mg/dL 2.3-4.7 [id number] 22:37:00* Test Item Value Reference Range Comments MAGNESIUM (BEAKER) (test jvni=456) 1.5 mg/dL 1.6-2.6 BASIC METABOLIC [id number] 22:37:00* Test Item Value Reference Range Comments SODIUM (BEAKER) (test kmtp=104) 131 meq/L 136-145 POTASSIUM (BEAKER) (test ujpj=845) 4.3 meq/L 3.5-5.1 CHLORIDE (BEAKER) (test svgk=184) 101 meq/L 98-107 CO2 (BEAKER) (test hzph=585) 22 meq/L 22-29 BLOOD UREA NITROGEN (BEAKER) (test aebc=925) 8 mg/dL 7-21 CREATININE (BEAKER) (test bbdj=493) 0.60 mg/dL 0.57-1.25 GLUCOSE RANDOM (BEAKER) (test hvyx=968) 134 mg/dL 70-105 CALCIUM (BEAKER) (test ntmg=378) 8.4 mg/dL 8.4-10.2 EGFR (BEAKER) (test zzaj=3302) 145 mL/min/1.73 sq m ESTIMATED GFR IS NOT ACCURATE CREATININE CLEARANCE IN PREDICTING GLOMERULAR FILTRATION RATE. ESTIMATED GFR IS NOT APPLICABLE FOR DIALYSIS PATIENTS. LACTIC ACID, VENOUS, WHOLE [id number] 22:33:00* Test Item Value Reference Range Comments LACTATE BLOOD VENOUS (2) (BEAKER) (test tchy=8539) 0.8 mmol/L 0.5-2.2 Specimen slightly hemolyzed [id number] 22:31:00* Test Item Value Reference Range Comments PARTIAL THROMBOPLASTIN TIME (BEAKER) (test jqgv=015) 47.8 seconds 22.5-36.0 PROTHROMBIN [id number] 22:30:00* Test Item Value Reference Range Comments PROTIME (BEAKER) (test nonn=141) 12.9 seconds 11.7-14.7 INR (BEAKER) (test qdbd=368) 1.0 <=5.9 RECOMMENDED COUMADIN/WARFARIN INR THERAPY RANGESSTANDARD DOSE: 2.0 - 3.0 Inclu mary ann: PROPHYLAXIS for venous thrombosis, systemic embolization; TREATMENT for martin ous thrombosis and/or pulmonary embolus.HIGH RISK: Target INR is 2.5-3.5 for pat ients with mechanical heart valves.CBC W/PLT COUNT & AUTO [id number] 22:22:00* Test Item Value Reference Range Comments WHITE BLOOD CELL COUNT (BEAKER) (test hxfq=100) 15.7 K/ L 3.5-10.5 RED BLOOD CELL COUNT (BEAKER) (test ohme=252) 3.76 M/ L 4.63-6.08 HEMOGLOBIN (BEAKER) (test kxfz=037) 13.3 GM/DL 13.7-17.5 HEMATOCRIT (BEAKER) (test medi=248) 38.0 % 40.1-51.0 MEAN CORPUSCULAR VOLUME (BEAKER) (test dliz=268) 101.1 fL 79.0-92.2 MEAN CORPUSCULAR HEMOGLOBIN (BEAKER) (test zznf=794) 35.4 pg 25.7-32.2 MEAN CORPUSCULAR HEMOGLOBIN CONC (BEAKER) (test bejp=708) 35.0 GM/DL 32.3-36.5 RED CELL DISTRIBUTION WIDTH (BEAKER) (test icrj=502) 13.3 % 11.6-14.4 PLATELET COUNT (BEAKER) (test dygu=921) 358 K/CU MM 150-450 MEAN PLATELET VOLUME (BEAKER) (test rbbt=832) 8.8 fL 9.4-12.4 NUCLEATED RED BLOOD CELLS (BEAKER) (test kyyx=426) 0 /100 WBC 0-0 NEUTROPHILS RELATIVE PERCENT (BEAKER) (test rbls=393) 93 % LYMPHOCYTES RELATIVE PERCENT (BEAKER) (test giur=444) 4 % MONOCYTES RELATIVE PERCENT (BEAKER) (test bfkd=489) 2 % EOSINOPHILS RELATIVE PERCENT (BEAKER) (test zpwm=627) 0 % BASOPHILS RELATIVE PERCENT (BEAKER) (test zwrn=489) 0 % NEUTROPHILS ABSOLUTE COUNT (BEAKER) (test ijpk=820) 14.49 K/ L 1.78-5.38 LYMPHOCYTES ABSOLUTE COUNT (BEAKER) (test mxiy=874) 0.68 K/ L 1.32-3.57 MONOCYTES ABSOLUTE COUNT (BEAKER) (test dfrn=086) 0.34 K/ L 0.30-0.82 EOSINOPHILS ABSOLUTE COUNT (BEAKER) (test agpj=196) 0.01 K/ L 0.04-0.54 BASOPHILS ABSOLUTE COUNT (BEAKER) (test rdlj=562) 0.02 K/ L 0.01-0.08 IMMATURE GRANULOCYTES-RELATIVE PERCENT (BEAKER) (test wqpz=0201) 1 % 0-1 [id number] 22:20:00* Test Item Value Reference Range Comments PARTIAL THROMBOPLASTIN TIME (BEAKER) (test krsw=063) 48.5 seconds 22.5-36.0 CALCIUM, [id number] 22:14:00* Test Item Value Reference Range Comments CALCIUM IONIZED (BEAKER) (test dnzu=038) 1.09 mmol/L 1.12-1.27 PH, BLOOD (BEAKER) (test vjyy=9137) 7.43 [id number] 20:20:00* Test Item Value Reference Range Comments PARTIAL THROMBOPLASTIN TIME (BEAKER) (test onft=752) > seconds 22.5-36.0 [id number] 16:22:00* Test Item Value Reference Range Comments ACTIVATED CLOTTING TIME (BEAKER) (test mati=558) 279 sec TESTED AT [facility] [address] [facility] [address] ANTI-NUCLEAR ANTIBODY (YO)2018-05-07 12:58:00* Test Item Value Reference Range Comments ANTI-NUCLEAR ANTIBODY (YO) (BEAKER) (test lmqu=496) Negative Negative Test performed by IFA method.Test performed by IFA method.[id number] 10:20:00* Test Item Value Reference Range Comments PARTIAL THROMBOPLASTIN TIME (BEAKER) (test nthj=020) 33.2 seconds 22.5-36.0 LIPID [id number] 03:29:00* Test Item Value Reference Range Comments TRIGLYCERIDES (BEAKER) (test pxxu=810) 97 mg/dL CHOLESTEROL (BEAKER) (test nbxy=037) 261 mg/dL HDL CHOLESTEROL (BEAKER) (test jzcq=196) 60 mg/dL LDL CHOLESTEROL CALCULATED (BEAKER) (test zvhn=765) 182 mg/dL Triglyceride Reference Range: Low Risk <150 Borderline 150-199 High Risk 200-499 Very High Risk >=500Cholesterol Reference Range: Low Risk <200 Borderline 200-239 High Risk >240HDL Cholesterol Reference Range: Low Risk >=60 High Risk <40LDL Cholesterol Reference Range: Optimal <100 Near Optimal 100-129 Borderline 130-159 High 160-189 Very High >=190 BASIC METABOLIC [id number] 03:29:00* Test Item Value Reference Range Comments SODIUM (BEAKER) (test okom=744) 133 meq/L 136-145 POTASSIUM (BEAKER) (test rmvx=697) 4.0 meq/L 3.5-5.1 CHLORIDE (BEAKER) (test iytc=906) 100 meq/L 98-107 CO2 (BEAKER) (test xfuj=945) 28 meq/L 22-29 BLOOD UREA NITROGEN (BEAKER) (test bloq=183) 8 mg/dL 7-21 CREATININE (BEAKER) (test pjws=318) 0.64 mg/dL 0.57-1.25 GLUCOSE RANDOM (BEAKER) (test wspl=524) 71 mg/dL 70-105 CALCIUM (BEAKER) (test hayk=254) 8.2 mg/dL 8.4-10.2 EGFR (BEAKER) (test rbvf=9680) 135 mL/min/1.73 sq m ESTIMATED GFR IS NOT ACCURATE CREATININE CLEARANCE IN PREDICTING GLOMERULAR FILTRATION RATE. ESTIMATED GFR IS NOT APPLICABLE FOR DIALYSIS PATIENTS. [id number] 03:25:00* Test Item Value Reference Range Comments PARTIAL THROMBOPLASTIN TIME (BEAKER) (test mnbh=377) 35.8 seconds 22.5-36.0 CBC W/PLT COUNT & AUTO [id number] 03:12:00* Test Item Value Reference Range Comments WHITE BLOOD CELL COUNT (BEAKER) (test pebj=113) 11.7 K/ L 3.5-10.5 RED BLOOD CELL COUNT (BEAKER) (test ftjx=233) 3.78 M/ L 4.63-6.08 HEMOGLOBIN (BEAKER) (test myxz=096) 13.2 GM/DL 13.7-17.5 HEMATOCRIT (BEAKER) (test gayu=303) 39.3 % 40.1-51.0 MEAN CORPUSCULAR VOLUME (BEAKER) (test aqri=957) 104.0 fL 79.0-92.2 MEAN CORPUSCULAR HEMOGLOBIN (BEAKER) (test zwzt=655) 34.9 pg 25.7-32.2 MEAN CORPUSCULAR HEMOGLOBIN CONC (BEAKER) (test umrj=375) 33.6 GM/DL 32.3-36.5 RED CELL DISTRIBUTION WIDTH (BEAKER) (test umir=427) 13.5 % 11.6-14.4 PLATELET COUNT (BEAKER) (test ohhy=752) 349 K/CU MM 150-450 MEAN PLATELET VOLUME (BEAKER) (test vfva=939) 8.9 fL 9.4-12.4 NUCLEATED RED BLOOD CELLS (BEAKER) (test niaa=449) 0 /100 WBC 0-0 NEUTROPHILS RELATIVE PERCENT (BEAKER) (test fbav=398) 64 % LYMPHOCYTES RELATIVE PERCENT (BEAKER) (test ljap=482) 19 % MONOCYTES RELATIVE PERCENT (BEAKER) (test tbln=661) 9 % EOSINOPHILS RELATIVE PERCENT (BEAKER) (test hcmw=725) 7 % BASOPHILS RELATIVE PERCENT (BEAKER) (test kltr=140) 1 % NEUTROPHILS ABSOLUTE COUNT (BEAKER) (test xous=039) 7.49 K/ L 1.78-5.38 LYMPHOCYTES ABSOLUTE COUNT (BEAKER) (test tcvd=593) 2.17 K/ L 1.32-3.57 MONOCYTES ABSOLUTE COUNT (BEAKER) (test bgnz=779) 1.00 K/ L 0.30-0.82 EOSINOPHILS ABSOLUTE COUNT (BEAKER) (test rshs=665) 0.78 K/ L 0.04-0.54 BASOPHILS ABSOLUTE COUNT (BEAKER) (test wmzk=082) 0.09 K/ L 0.01-0.08 IMMATURE GRANULOCYTES-RELATIVE PERCENT (BEAKER) (test esoj=0162) 1 % 0-1 PROTEIN, RANDOM [id number] 21:55:00* Test Item Value Reference Range Comments PROTEIN, URINE (BEAKER) (test ksom=8635) 1612 mg/dL 0-14 CREATININE, RANDOM [id number] 21:38:00* Test Item Value Reference Range Comments CREATININE URINE (BEAKER) (test tnmr=750) 193.6 mg/dL Reference Range: No NormalsUREA NITROGEN, RANDOM [id number] 21:38:00* Test Item Value Reference Range Comments UREA NITROGEN URINE (BEAKER) (test bfqt=749) 565 mg/dL Reference Range: No NormalsVITAMIN [id number] 21:33:00* Test Item Value Reference Range Comments VITAMIN B12 (BEAKER) (test odku=475) 272 pg/mL 213-816 FOLATE, [id number] 21:33:00* Test Item Value Reference Range Comments FOLATE (BEAKER) (test ykwl=616) 11.4 ng/mL >=7.0 URINALYSIS W/ [id number] 21:28:00* Test Item Value Reference Range Comments COLOR (BEAKER) (test vcku=155) Yellow CLARITY (BEAKER) (test eoku=932) Hazy SPECIFIC GRAVITY UA (BEAKER) (test dutn=773) 1.034 1.001-1.035 PH UA (BEAKER) (test jsuz=613) 6.0 5.0-8.0 PROTEIN UA (BEAKER) (test aawl=001) 600 mg/dL Negative GLUCOSE UA (BEAKER) (test osnw=513) Negative Negative KETONES UA (BEAKER) (test uahn=131) Negative Negative BILIRUBIN UA (BEAKER) (test lnew=985) Negative Negative BLOOD UA (BEAKER) (test shzj=347) Large Negative NITRITE UA (BEAKER) (test yilk=886) Negative Negative LEUKOCYTE ESTERASE UA (BEAKER) (test phmk=635) Negative Negative UROBILINOGEN UA (BEAKER) (test zyiw=483) 0.2 mg/dL 0.2-1.0 RBC UA (BEAKER) (test mktm=654) 35 /HPF WBC UA (BEAKER) (test rlkm=090) 10 /HPF MUCUS (BEAKER) (test thsv=4944) Few HYALINE CASTS (BEAKER) (test ovcx=062) 29 /LPF GRANULAR CASTS (BEAKER) (test siyz=441) 4 /LPF YEAST (BEAKER) (test yjsn=4482) Few SOURCE(BEAKER) (test ygtw=8602) Urine, Voided HEPATITIS PANEL, [id number] 21:16:00* Test Item Value Reference Range Comments HEPATITIS A IGM ANTIBODY (BEAKER) (test lqun=930) Nonreactive Nonreactive HEPATITIS B CORE IGM ANTIBODY (BEAKER) (test fykm=163) Nonreactive Nonreactive HEPATITIS C ANTIBODY (BEAKER) (test sald=931) Nonreactive Nonreactive HEPATITIS B SURFACE ANTIGEN (2) (BEAKER) (test pnfa=1399) Nonreactive Nonreactive COMPLEMENT COMPONENT [id number] 20:53:00* Test Item Value Reference Range Comments C4 COMPLEMENT (BEAKER) (test ztsq=679) 26 mg/dL 15-57 COMPLEMENT COMPONENT [id number] 20:53:00* Test Item Value Reference Range Comments C3 COMPLEMENT (BEAKER) (test korh=212) 130 mg/dL 82-193 [id number] 19:29:00* Test Item Value Reference Range Comments PARTIAL THROMBOPLASTIN TIME (BEAKER) (test uohi=627) 28.8 seconds 22.5-36.0 [id number] 15:46:00* Test Item Value Reference Range Comments RPR SCREEN (BEAKER) (test skyd=936) Nonreactive Nonreactive OSMOLALITY, [id number] 13:28:00* Test Item Value Reference Range Comments OSMOLALITY URINE (BEAKER) (test mytj=277) 357 mOsm/kg 40-1,400 PROTEIN, RANDOM [id number] 12:43:00* Test Item Value Reference Range Comments PROTEIN, URINE (BEAKER) (test uydh=1290) 787 mg/dL 0-14 T4, [id number] 12:40:00* Test Item Value Reference Range Comments FREE T4 (BEAKER) (test yafb=763) 1.49 ng/dL 0.70-1.48 CHLORIDE, RANDOM [id number] 12:14:00* Test Item Value Reference Range Comments CHLORIDE URINE (BEAKER) (test bedp=460) 56 meq/L Reference Range: No NormalsPOTASSIUM, RANDOM [id number] 12:14:00* Test Item Value Reference Range Comments POTASSIUM URINE (BEAKER) (test rpac=208) 38.2 meq/L Reference Range: No NormalsSODIUM, RANDOM [id number] 12:14:00* Test Item Value Reference Range Comments SODIUM URINE (BEAKER) (test bnuv=611) 54 meq/L Reference Range: No NormalsHEPATITIS B SURFACE [id number] 12:08:00* Test Item Value Reference Range Comments HEPATITIS B SURFACE ANTIBODY (BEAKER) (test udfy=127) < mIU/mL <8.0 TSH/FREE T4 IF [id number] 12:08:00* Test Item Value Reference Range Comments THYROID STIMULATING HORMONE (BEAKER) (test eqkh=494) 0.20 uIU/mL 0.35-4.94 HEPATITIS B SURFACE [id number] 11:56:00* Test Item Value Reference Range Comments HEPATITIS B SURFACE ANTIGEN (2) (BEAKER) (test pdte=8048) Nonreactive Nonreactive HIV-1 ANTIGEN WITH HIV-1/2 [id number] 11:56:00* Test Item Value Reference Range Comments HIV-1 ANTIGEN WITH HIV 1\\T\\2 ANTIBODY (2) (BEAKER) (test donr=6984) Nonreactive Nonreactive OSMOLALITY, [id number] 11:46:00* Test Item Value Reference Range Comments OSMOLALITY, SERUM (BEAKER) (test npdf=367) 282 mOsm/kg 275-295 [id number] 11:27:00* Test Item Value Reference Range Comments PARTIAL THROMBOPLASTIN TIME (BEAKER) (test flil=561) 28.5 seconds 22.5-36.0 POCT-GLUCOSE [id number] 10:41:00* Test Item Value Reference Range Comments POC-GLUCOSE METER (BEAKER) (test otsk=9231) 88 mg/dL 70-110 TESTED AT [facility] [address] [facility] [address] RAD, CHEST, 1 VIEW, NON [id number] 10:14:00Reason for exam:->admissionFINAL REPORT INDICATION: admission COMPARISON:None. TECHNIQUE: Chest radiograph, single view, portable technique. FINDINGS / IMPRESSION: No consolidation, pulmonary edema, pneumothorax, or pleural effusion is demonstr ated. Cardiac and mediastinal contours are unremarkable for portable technique. Old healed right posterolateral rib fractures are noted. Signed: Hao Loera Verified Date/Time: 05/06/2018 10:14:04 Reading Location: [facility] Radiology Reading Room GLOBIN [id number] 09:01:00* Test Item Value Reference Range Comments HEMOGLOBIN A1C (BEAKER) (test rccw=460) 5.1 % 4.3-6.1 [id number] 05:52:00* Test Item Value Reference Range Comments PHOSPHORUS (BEAKER) (test hjwc=381) 3.5 mg/dL 2.3-4.7 [id number] 05:52:00* Test Item Value Reference Range Comments MAGNESIUM (BEAKER) (test hmcc=119) 1.6 mg/dL 1.6-2.6 BASIC METABOLIC [id number] 05:52:00* Test Item Value Reference Range Comments SODIUM (BEAKER) (test rzmv=177) 133 meq/L 136-145 POTASSIUM (BEAKER) (test claf=187) 4.1 meq/L 3.5-5.1 CHLORIDE (BEAKER) (test rhxs=722) 101 meq/L 98-107 CO2 (BEAKER) (test ttfe=609) 27 meq/L 22-29 BLOOD UREA NITROGEN (BEAKER) (test dudh=387) 7 mg/dL 7-21 CREATININE (BEAKER) (test gqor=130) 0.55 mg/dL 0.57-1.25 GLUCOSE RANDOM (BEAKER) (test vldj=860) 87 mg/dL 70-105 CALCIUM (BEAKER) (test wjtx=186) 8.2 mg/dL 8.4-10.2 EGFR (BEAKER) (test fwwx=3007) 160 mL/min/1.73 sq m ESTIMATED GFR IS NOT ACCURATE CREATININE CLEARANCE IN PREDICTING GLOMERULAR FILTRATION RATE. ESTIMATED GFR IS NOT APPLICABLE FOR DIALYSIS PATIENTS. HEPATIC FUNCTION [id number] 05:52:00* Test Item Value Reference Range Comments TOTAL PROTEIN (BEAKER) (test pjug=666) 4.9 gm/dL 6.0-8.3 ALBUMIN (BEAKER) (test wuiq=2896) 2.0 g/dL 3.5-5.0 BILIRUBIN TOTAL (BEAKER) (test qyew=855) 0.2 mg/dL 0.2-1.2 BILIRUBIN DIRECT (BEAKER) (test dnqv=334) 0.1 mg/dL 0.1-0.5 ALKALINE PHOSPHATASE (BEAKER) (test abek=068) 100 U/L 40-150 AST (SGOT) (BEAKER) (test jeey=647) 18 U/L 5-34 ALT (SGPT) (BEAKER) (test lsdm=996) 11 U/L 6-55 LACTATE DEHYDROGENASE (LDH)2018-05-06 05:52:00* Test Item Value Reference Range Comments LACTATE DEHYDROGENASE (BEAKER) (test nwbx=355) 219 U/L 125-220 PT/[id number] 05:44:00* Test Item Value Reference Range Comments PROTIME (BEAKER) (test bxkv=005) 13.1 seconds 11.7-14.7 INR (BEAKER) (test gtgw=424) 1.0 <=5.9 PARTIAL THROMBOPLASTIN TIME (BEAKER) (test tvzk=772) 39.8 seconds 22.5-36.0 RECOMMENDED COUMADIN/WARFARIN INR THERAPY RANGESSTANDARD DOSE: 2.0 - 3.0 Inclu mary ann: PROPHYLAXIS for venous thrombosis, systemic embolization; TREATMENT for martin ous thrombosis and/or pulmonary embolus.HIGH RISK: Target INR is 2.5-3.5 for pat ients with mechanical heart valves.Prior to initiating heparinPrior to initiatin g [id number] 05:44:00* Test Item Value Reference Range Comments PARTIAL THROMBOPLASTIN TIME (BEAKER) (test zwfb=696) 39.8 seconds 22.5-36.0 LACTIC ACID, VENOUS, WHOLE [id number] 05:40:00* Test Item Value Reference Range Comments LACTATE BLOOD VENOUS (2) (BEAKER) (test tecn=8378) 0.7 mmol/L 0.5-2.2 CBC W/PLT COUNT & AUTO [id number] 05:26:00* Test Item Value Reference Range Comments WHITE BLOOD CELL COUNT (BEAKER) (test kxlw=729) 9.7 K/ L 3.5-10.5 RED BLOOD CELL COUNT (BEAKER) (test amqq=601) 3.82 M/ L 4.63-6.08 HEMOGLOBIN (BEAKER) (test xydb=458) 13.2 GM/DL 13.7-17.5 HEMATOCRIT (BEAKER) (test xmtr=926) 38.7 % 40.1-51.0 MEAN CORPUSCULAR VOLUME (BEAKER) (test kmxw=088) 101.3 fL 79.0-92.2 MEAN CORPUSCULAR HEMOGLOBIN (BEAKER) (test iyke=507) 34.6 pg 25.7-32.2 MEAN CORPUSCULAR HEMOGLOBIN CONC (BEAKER) (test hzre=682) 34.1 GM/DL 32.3-36.5 RED CELL DISTRIBUTION WIDTH (BEAKER) (test jjyr=693) 13.4 % 11.6-14.4 PLATELET COUNT (BEAKER) (test mgtz=902) 338 K/CU MM 150-450 MEAN PLATELET VOLUME (BEAKER) (test tpri=640) 9.1 fL 9.4-12.4 NUCLEATED RED BLOOD CELLS (BEAKER) (test pstt=200) 0 /100 WBC 0-0 NEUTROPHILS RELATIVE PERCENT (BEAKER) (test xjyn=972) 66 % LYMPHOCYTES RELATIVE PERCENT (BEAKER) (test zeph=546) 16 % MONOCYTES RELATIVE PERCENT (BEAKER) (test smej=204) 10 % EOSINOPHILS RELATIVE PERCENT (BEAKER) (test lghm=414) 6 % BASOPHILS RELATIVE PERCENT (BEAKER) (test ghfp=586) 1 % NEUTROPHILS ABSOLUTE COUNT (BEAKER) (test nups=644) 6.43 K/ L 1.78-5.38 LYMPHOCYTES ABSOLUTE COUNT (BEAKER) (test qnso=126) 1.57 K/ L 1.32-3.57 MONOCYTES ABSOLUTE COUNT (BEAKER) (test wlhj=435) 0.99 K/ L 0.30-0.82 EOSINOPHILS ABSOLUTE COUNT (BEAKER) (test uvcf=000) 0.54 K/ L 0.04-0.54 BASOPHILS ABSOLUTE COUNT (BEAKER) (test pixm=444) 0.08 K/ L 0.01-0.08 IMMATURE GRANULOCYTES-RELATIVE PERCENT (BEAKER) (test ikhw=1730) 1 % 0-1 CT CHEST [id number] 00:44:00 [place] [address] Patient Name: NANCIE MAHARAJ MR #: [id number] : 1970 Age/Sex: 47/M Req #: [id number] Adm Physician: Ordered by: MEET MCGRATH MD Report #: [id number] Location: ER Room/Bed: Procedure: 1211-[address]/CT CHEST W Exam Date: Exam Time: REPORT STATUS: Signed EXAM: CT Chest WITH contrast (PE Protocol) INDICATION: Leg, arm swelling. Rash on torso, arms, and legs for one week. Shortness of breath with exertion. PE PROTOCOL CO MPARISON: None TECHNIQUE: Chest was scanned utilizing a multidetector [facility] scanner from the lung apex through the level of the diaphragm after admin istration of IV contrast. Thin section reconstructions were obtained with spec ial concentration on the pulmonary arteries. Coronal and sagittal reformations were obtained. Pulmonary embolism protocol was performed. IV CONTRAST: 100 mL of Isovue-370 COMPLICATIONS: None RADIATION DOSE: Total DLP: 619.6 mGy*cm Estimated effective dose: (DLP x 0.014 x size factor) mSv CTDIvol has been reviewed. It is below the limits set by the Radiati on Protocol Committee (RPC). FINDINGS: LINES/ TUBES: None. LUNG S AND AIRWAYS: No filling defect is identified within the pulmonary arteries t o the segmental level. Centrilobular and paraseptal emphysematous changes pred ominantly in the upper lobes. Mild biapical pleural-parenchymal scarring. No c onsolidations. Airways are normal. PLEURA: The pleural spaces are clear. HEART AND MEDIASTINUM: The thyroid gland is normal. No mediastinal, hilar or axillary lymphadenopathy. The heart is normal in size.. There is no perica rdial effusion. Three-vessel coronary artery calcifications. Main pulmonary artery measures 2.6 cm in diameter and the ascending aorta measures 3.4 cm. UPPER ABDOMEN: Unremarkable BONES: Old multiple right-sided rib fractures and right scapular fracture. SOFT TISSUES: Gynecomastia. IMPRESSION: No pulmonary emboli or acute thoracic abnormalities. Signed by: DR. Marcelino Vora MD on 05/06/2018 12:58 AM Dictated By: SURINDER VORA MD Elec tronically Signed By: SURINDER VORA MD on 05/06/1857 Transcribed By: WALI on 05/06/1857 COPY TO: MEET MCGRATH MD CHEST 2 VIEWS 2018-05-06 00:34:00 [place] [address] Patient Name: NANCIE MAHARAJ MR #: [id number] : 1970 Age/Sex: 47/M Req #: [id number] Adm Physician: Ordered by: MEET MCGRATH MD Report #: [id number] Location: ER Room/Bed: Procedure: 1211-0 081 DX/CHEST 2 VIEWS Exam Date: Exam Time: REPORT STATUS: Signed EXAMINATION: [facility] ST 2 VIEWS INDICATION: SMOKER W/ COUGH, WT LOSS, LEFT ARM COLD COM PARISON: None FINDINGS: PA and lateral views TUBES and LINES: None. LUNGS: Lungs are well inflated. Chronic appearing interstitial marrero ges likely relating to underlying emphysema. Biapical pleural parenchymal scar ring, left greater than right. There is no evidence of pneumonia or pulmonary edema. PLEURA: No pleural effusion or pneumothorax. HEART AND MEDIAST INUM: The cardiomediastinal silhouette is unremarkable. BONES AND SOFT TISSUES: No acute osseous lesion. Multiple old right-sided rib and right sca pular fractures. Soft tissues are unremarkable. UPPER ABDOMEN: No free air under the diaphragm. IMPRESSION: No acute thoracic abnormality. Signed by: DR. Surinder Vora MD on 05/06/2018 12:38 AM Dictated By: SURINDER VORA MD Transcribed By: WALI on 05/06/1837 COPY TO: MEET MCGRATH MD
[2018-10-03] MEDS ORDERED: ALBUTEROL/IPRATROPIUM 3 ML NEB NEB ONE (17:30)
[2018-10-03] MEDS ORDERED: COREG12.5 MG (17:39)
[2018-10-03] MEDS ORDERED: CLONIDINE HCL0.1 MG PO (17:39)
[2018-10-03] MEDS ORDERED: HYDROXYZINE HCL10 MG (17:40)
[2018-10-03] MEDS ORDERED: RENVELA0.8 GM (17:41)
--- NOTE | 2018-10-03 17:49 | Diagnostic Imaging Report ---
EXAMINATION: CXR 2 VIEW - HOPD INDICATION: cough COMPARISON: None FINDINGS: TUBES and LINES: Right IJ line at mid SVC. LUNGS: Lungs are well inflated. Chronic lung changes. Bilateral peribronchial cuffing. There is no evidence of pneumonia or pulmonary edema. PLEURA: No pleural effusion or pneumothorax. HEART AND MEDIASTINUM: The cardiomediastinal silhouette is unremarkable. BONES AND SOFT TISSUES: No acute osseous lesion. Soft tissues are unremarkable. UPPER ABDOMEN: No free air under the diaphragm. IMPRESSION: Bilateral peribronchial cuffing, which could represent viral etiology or reactive airway disease. Chronic lung changes related to emphysema. Signed by: Dr. Mamadou Egan M.D. on 10/03/2018 5:46 PM
[2018-10-03] MEDS ORDERED: DEXAMETHASONE SOD PHOS 10 MG/1 ML VIAL IM ONE (18:00)
[2018-10-03 18:21] VITALS: BP 182/79
== END 2018-10-03 18:24 | disposition home or self-care (01) ==
LOC: FSED 17:01
DX: R05 Cough (principal); J20.9 Acute bronchitis, unspecified; N19 Unspecified kidney failure; I10 Essential (primary) hypertension; Z99.2 Dependence on renal dialysis; F17.210 Nicotine dependence, cigarettes, uncomplicated
CPT/HCPCS: 71046; 99283; J1100

== ENCOUNTER 2018-11-02 04:46 | Inpatient (IN) | payer BC ==
[~2018-11-02] VITALS: Ht 193 cm; Wt 77.2 kg
[~2018-11-02 04:46] MED LIST: CLONIDINE HCL0.1 MG PO; COREG12.5 MG PO; HYDROXYZINE HCL10 MG; RENVELA0.8 GM
--- OUTSIDE RECORDS SUMMARY | 2018-11-02 04:48 | XMS REPORT | Clinical Summary ---
Author Author JEB [facility] Address Unknown Phone Unavailable Care Team Providers Care Rock Cutter Name Role Phone Jair Martino Unavailable Allergies [...] Surgery Jose Treviño MD 05/07/2018 Anesthesia Event Joes Treviño MD Chung, Jayer, MD Civunigunta, Narendra, MD Heinen, Allison P., MD Nephrotic syndrome (Primary Dx); Bilateral leg edema; Brachial artery thrombus (HCC); Essential hypertension; Hypoalbuminemia; Nephrosis; Leukocytosis, unspecified type; Hyponatremia; Aortic valve mass; Papillary fibroelastoma of heart; Preop cardiovascular exam; Alcohol abuse; Tobacco abuse 05/06/2018 [facility] General Internal Medicine - Encounter 05/15/2018 after 11/01/2017 Immunizations Name Dates Previously Given Next Due [...] Taken Vital Sign Reading 05/15/2018 3:59 AM BELLY ROLLER Blood Pressure 123/72 05/15/2018 3:59 AM BELLY ROLLER Pulse 76 05/15/2018 3:59 AM BELLY ROLLER Temperature 36 C (96.8 F) 05/15/2018 3:59 AM BELLY ROLLER Respiratory Rate 18 05/15/2018 3:59 AM BELLY ROLLER Oxygen Saturation 96% 05/07/2018 5:47 PM BELLY ROLLER Inhaled Oxygen 50% Concentration 05/15/2018 6:00 AM BELLY ROLLER Weight 89.4 kg (197 lb 1.6 oz) 05/06/2018 5:00 AM BELLY ROLLER Height 187 cm (6' 1.62") 05/15/2018 6:00 AM BELLY ROLLER Body Mass Index 25.57 Plan of Treatment Not on file Implants Device Identifier Shelf Expiration Date Model / Serial / Lot Implanted Type Area Manufactur er 07/24/2019 [id number] / / [id number] Floseal Vhsd Full Strlprep 5ml Cement/John Left: Arm 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 [id number] - [id number] ler/Adhesi SCI Implanted: Qty: 2 on 05/07/2018 by Clara Ortez MD Procedures Comments Procedure Name Priority Date/Time Associated Diagnosis RHYTHM STRIP - SCAN 08/27/2018 11:11 AM CDT REPORT OF PROCEDURE - 08/27/2018 ENDOSCOPY SCAN 9:51 AM CDT VASCULAR DIAGRAM -SCAN 06/02/2018 2:40 PM BELLY ROLLER RHYTHM STRIP - SCAN 06/02/2018 2:40 PM [facility]ER CARDIAC CATH REPORT - 06/02/2018 SCAN 2:40 PM BE[facility]ER VASCULAR DIAGRAM -SCAN 05/29/2018 5:[address] CHEST WITHOUT IV Routine 05/15/2018 CONTRAST 8:41 AM BELLY [facility]LLER CBC W/PLT COUNT & AUTO Routine 05/15/2018 DIFFERENTIAL 4:46 AM BELLY ROLLER CBC W/PLT COUNT & AUTO Routine 05/15/2018 DIFFERENTIAL 4:46 AM BELLY ROLLER BASIC METABOLIC PANEL (7) Routine 05/15/2018 4:46 AM BE[facility]ER MAGNESIUM Routine 05/15/2018 4:46 AM BE[facility]LLER THROMBOELASTOGRAPH (TEG) Routine 05/15/2018 4:46 AM BE[facility]LLER ANTITHROMBIN III Routine 05/15/2018 4:46 AM BELLY ROLLER POCT-ACT Routine 05/14/2018 4:30 PM BELLY ROLLER L HEART CATH ONLY - NO 05/14/2018 Chest pain, unspecified ANGIOS 2:50 PM BELLY ROLLER type APTT Routine 05/14/2018 1:29 PM BE[facility]ER CBC W/PLT COUNT & AUTO Routine 05/14/2018 DIFFERENTIAL 4:21 AM BELLY ROLLER APTT Routine 05/14/2018 4:21 AM BELLY ROLLER BASIC METABOLIC PANEL (7) Routine 05/14/2018 4:21 AM BE[facility]LLER CBC W/PLT COUNT & AUTO Routine 05/14/2018 DIFFERENTIAL 4:21 AM BELLY ROLLER APTT Routine 05/13/2018 7:40 PM BE[facility] RO[facility]ER BLOOD CULTURE Routine 05/13/2018 5:00 PM BE[facility]LLER BASIC METABOLIC PANEL (7) Routine 05/13/2018 4:50 PM BE[facility]ER MAGNESIUM Routine 05/13/2018 4:50 PM BE[facility]ER BLOOD CULTURE Routine 05/13/2018 4:49 PM BE[facility]ER ECHOCARDIOGRAM REPORT - 05/13/2018 SCAN 2:50 PM BE[facility]ER ECG 12-LEAD Routine 05/13/2018 12:58 PM BELLY [facility]LLER APTT Routine 05/13/2018 12:26 PM BE[facility] RO[facility]ER TRANSESOPHAGEAL ECHO Routine 05/13/2018 9:38 AM BELLY ROLLER CBC W/PLT COUNT & AUTO Routine 05/13/2018 DIFFERENTIAL 4:38 AM BELLY ROLLER APTT Routine 05/13/2018 4:38 AM BELLY ROLLER BASIC METABOLIC PANEL (7) Routine 05/13/2018 4:38 AM BE[facility]LLER CBC W/PLT COUNT & AUTO Routine 05/13/2018 DIFFERENTIAL 4:38 AM BELLY ROLLER APTT Routine 05/12/2018 9:23 PM BELLY ROLLER BASIC METABOLIC PANEL (7) Routine 05/12/2018 9:23 PM BELLY ROLLER MAGNESIUM Routine 05/12/2018 9:23 PM BELLY ROLLER ECHOCARDIOGRAM REPORT - 05/12/2018 SCAN 6:20 PM BE[facility]LLER CONT WAVE PULSED DOPPLER Routine 05/12/2018 5:52 PM BE[facility]ER COLOR-FLOW MAPPING Routine 05/12/2018 5:52 PM BE[facility]ER ECHO W CONTRAST & DOPPLER Routine 05/12/2018 1:54 PM BE[facility]ER CBC W/PLT COUNT & AUTO Routine 05/12/2018 DIFFERENTIAL 5:37 AM BE[facility]LLER MAGNESIUM Routine 05/12/2018 5:37 AM BE[facility]LLER BASIC METABOLIC PANEL (7) Routine 05/12/2018 5:37 AM BE[facility]ER CBC W/PLT COUNT & AUTO Routine 05/12/2018 DIFFERENTIAL 5:37 AM BELLY ROLLER TISSUE EXAM AP Routine 05/11/2018 5:14 PM BELLY [facility]LLER BASIC METABOLIC PANEL (7) Routine 05/11/2018 5:14 PM BE[facility]ER MAGNESIUM Routine 05/11/2018 5:14 PM BE[facility]ER HEMOGLOBIN AND HEMATOCRIT Routine 05/11/2018 5:14 PM BELLY [facility]LLER US RENAL BIOPSY Routine 05/11/2018 10:00 AM BELLY [facility]LLER TISSUE EXAM AP Routine 05/11/2018 9:08 AM BELLY ROLLER CBC W/PLT COUNT & AUTO Routine 05/11/2018 DIFFERENTIAL 6:18 AM BE[facility]LLER CBC W/PLT COUNT & AUTO Routine 05/11/2018 DIFFERENTIAL 6:18 AM BELLY [facility]LLER APTT Routine 05/11/2018 6:04 AM BE[facility] ROLLER PROTHROMBIN TIME/INR Routine 05/11/2018 6:04 AM BELLY ROLLER PT/APTT STAT 05/11/2018 6:04 AM BE[facility]LLER MAGNESIUM Routine 05/11/2018 6:04 AM BELLY ROLLER BASIC METABOLIC PANEL (7) Routine 05/11/2018 6:04 AM BELLY [facility]LLER APTT Routine 05/10/2018 7:56 PM BELLY [facility]LLER BASIC METABOLIC PANEL (7) Routine 05/10/2018 7:56 PM BE[facility]ER MAGNESIUM Routine 05/10/2018 7:56 PM BELLY [facility]LLER APTT Routine 05/10/2018 1:03 PM [facility]ER OCCULT BLOOD, STOOL Routine 05/10/2018 5:44 AM BELLY [facility]LLER CBC W/PLT COUNT & AUTO Routine 05/10/2018 DIFFERENTIAL 5:35 AM BELLY ROLLER APTT Routine 05/10/2018 5:35 AM BE[facility]LLER MAGNESIUM Routine 05/10/2018 5:35 AM BELLY [facility]LLER BASIC METABOLIC PANEL (7) Routine 05/10/2018 5:35 AM BE[facility]LLER CBC W/PLT COUNT & AUTO Routine 05/10/2018 DIFFERENTIAL 5:35 AM BELLY ROLLER BASIC METABOLIC PANEL (7) Routine 05/09/2018 5:44 PM BE[facility]ER MAGNESIUM Routine 05/09/2018 9:18 AM BE[facility]LLER APTT Routine 05/09/2018 9:18 AM BE[facility]LLER CBC W/PLT COUNT & AUTO Routine 05/09/2018 DIFFERENTIAL 3:07 AM BELLY ROLLER APTT Routine 05/09/2018 3:07 AM BELLY ROLLER BASIC METABOLIC PANEL (7) Routine 05/09/2018 3:07 AM BE[facility]LLER CBC W/PLT COUNT & AUTO Routine 05/09/2018 DIFFERENTIAL 3:07 AM BE[facility]ER US RENAL COMPLETE Routine 05/09/2018 2:35 AM BELLY ROLLER ECHOCARDIOGRAM REPORT - 05/08/2018 SCAN 7:50 PM BELLY ROLLER APTT Routine 05/08/2018 5:45 PM BELLY ROLLER CREATININE, RANDOM URINE Routine 05/08/2018 12:06 PM BELLY RO[facility]ER OSMOLALITY, URINE Routine 05/08/2018 12:06 PM BELLY ROLLER UREA NITROGEN, RANDOM Routine 05/08/2018 URINE 12:06 PM BE[facility]ER SODIUM, RANDOM URINE Routine 05/08/2018 12:06 PM BELLY ROLLER APTT Routine 05/08/2018 12:05 PM BELLY ROLLER 2D ECHO W/ DOPPLER Routine 05/08/2018 (CW/PW/COLOR) 10:46 AM BELLY ROLLER OSMOLALITY, SERUM Routine 05/08/2018 8:18 AM BELLY ROLLER CBC W/PLT COUNT & AUTO Routine 05/08/2018 DIFFERENTIAL 2:55 AM BELLY ROLLER MAGNESIUM Routine 05/08/2018 2:55 AM BE[facility]LLER APTT Routine 05/08/2018 2:55 AM BELLY ROLLER PROTHROMBIN TIME/INR Routine 05/08/2018 2:55 AM BE[facility] ROLLER BASIC METABOLIC PANEL (7) Routine 05/08/2018 2:55 AM BE[facility] ROLLER CBC W/PLT COUNT & AUTO Routine 05/08/2018 DIFFERENTIAL 2:55 AM BE[facility] ROLLER CBC W/PLT COUNT & AUTO Routine 05/07/2018 DIFFERENTIAL 10:06 PM BE[facility]ER LACTIC ACID, VENOUS Routine 05/07/2018 10:06 PM BELLY ROLLER APTT Routine 05/07/2018 10:06 PM BE[facility] ROLLER PROTHROMBIN TIME/INR Routine 05/07/2018 10:06 PM BE[facility] ROLLER CBC W/PLT COUNT & AUTO Routine 05/07/2018 DIFFERENTIAL 10:06 PM BE[facility]ER CALCIUM, IONIZED Routine 05/07/2018 10:06 PM BE[facility]ER PHOSPHORUS Routine 05/07/2018 10:06 PM BE[facility] ROLLER MAGNESIUM Routine 05/07/2018 10:06 PM BE[facility] ROLLER BASIC METABOLIC PANEL (7) Routine 05/07/2018 10:06 PM BELLY ROLLER APTT Routine 05/07/2018 9:52 PM BE[facility] ROLLER APTT Routine 05/07/2018 7:02 PM BE[facility] RO[facility]ER TRANSFUSION SERVICE 05/07/2018 REPORT - SCAN 6:00 PM BE[facility]ER EMBOLECTOMY 05/07/2018 Thrombus 4:05 PM [facility]ER TISSUE EXAM AP Routine 05/07/2018 4:02 PM BE[facility]ER POCT-ACT Routine 05/07/2018 3:53 PM BE[facility] RO[facility]ER RHEUMATOID FACTOR AB, Routine 05/07/2018 REFLEX TO TITER 9:15 AM BELLY ROLLER APTT Routine 05/07/2018 9:15 AM BELLY ROLLER CBC W/PLT COUNT & AUTO Routine 05/07/2018 DIFFERENTIAL 3:02 AM BELLY RO[facility]ER LIPID PANEL Routine 05/07/2018 3:02 AM BELLY ROLLER BASIC METABOLIC PANEL (7) Routine 05/07/2018 3:02 AM BE[facility] ROLLER CBC W/PLT COUNT & AUTO Routine 05/07/2018 DIFFERENTIAL 3:02 AM BELLY ROLLER APTT Routine 05/07/2018 3:02 AM BELLY ROLLER URINE PROTEIN AP Routine 05/06/2018 ELECTROPHORESIS, RANDOM 8:32 PM BELLY ROLLER PROTEIN, RANDOM URINE Routine 05/06/2018 8:32 PM BE[facility] RO[facility]ER URINALYSIS W/ MICROSCOPIC Routine 05/06/2018 8:32 PM BE[facility] RO[facility]ER UREA NITROGEN, RANDOM Routine 05/06/2018 URINE 8:32 PM BELLY ROLLER CREATININE, RANDOM URINE Routine 05/06/2018 8:32 PM BE[facility] RO[facility]ER VITAMIN B12 Routine 05/06/2018 8:15 PM BELLY RO[facility]ER FOLATE, SERUM Routine 05/06/2018 8:15 PM BE[facility] ROLLER BETA-2 GLYCOPROTEIN Routine 05/06/2018 ANTIBODIES 8:15 PM BE[facility]ER CARDIOLIPIN ANTIBODIES, Routine 05/06/2018 IGG AND IGM 8:15 PM BE[facility]ER COMPLEMENT COMPONENT C4 Routine 05/06/2018 8:15 PM BE[facility]ER COMPLEMENT COMPONENT C3 Routine 05/06/2018 8:15 PM BE[facility] RO[facility]ER DOUBLE-STRANDED DNA Routine 05/06/2018 (DSDNA) ANTIBODY 8:15 PM BE[facility]ER ANTI-NUCLEAR ANTIBODY Routine 05/06/2018 (YO) 8:15 PM BELLY ROLLER HEPATITIS PANEL, ACUTE Routine 05/06/2018 8:15 PM BELLY ROLLER KAPPA / LAMBDA LIGHT Routine 05/06/2018 CHAINS, SERUM 8:14 PM BELLY ROLLER PROTEIN ELECTROPHORESIS, AP Routine 05/06/2018 SERUM 8:14 PM BE[facility] ROLLER CRYOGLOBULIN AP Routine 05/06/2018 8:12 PM BE[facility]ER LUPUS ANTICOAGULANT AP Routine 05/06/2018 SCREEN WITH REFLEX TO 6:38 PM BE[facility]ER CONFIRMATORY APTT Routine 05/06/2018 6:38 PM BELLY ROLLER APTT Routine 05/06/2018 10:47 AM BELLY ROLLER T4, FREE Routine 05/06/2018 10:42 AM BE[facility] RO[facility]ER RPR Routine 05/06/2018 10:42 AM BELLY ROLLER TSH/FREE T4 IF INDICATED Routine 05/06/2018 10:42 AM BELLY ROLLER SODIUM, RANDOM URINE NIECY 05/06/2018 10:42 AM BE[facility] ROLLER POTASSIUM, RANDOM URINE NIECY 05/06/2018 10:42 AM BE[facility] ROLLER CHLORIDE, RANDOM URINE NIECY 05/06/2018 10:42 AM BELLY ROLLER OSMOLALITY, SERUM NIECY 05/06/2018 10:42 AM BE[facility] ROLLER PROTEIN, RANDOM URINE Routine 05/06/2018 10:42 AM BE[facility]ER OSMOLALITY, URINE NIECY 05/06/2018 10:42 AM BE[facility]LLER HEPATITIS B SURFACE STAT 05/06/2018 ANTIGEN 10:42 AM BE[facility]LLER HEPATITIS B SURFACE STAT 05/06/2018 ANTIBODY 10:42 AM BE[facility]ER HERPES VIRUS ANTIBODY, STAT 05/06/2018 IGM 10:42 AM BE[facility]ER HIV-1 ANTIGEN WITH STAT 05/06/2018 HIV-1/2 ANTIBODY 10:42 AM BE[facility]ER POCT-GLUCOSE METER Routine 05/06/2018 10:33 AM BE[facility]ER XR CHEST 1 VIEW Routine 05/06/2018 PORTABLE/BEDSIDE 9:30 AM BE[facility]ER VENOUS DOPPLER LEGS Routine 05/06/2018 BILATERAL 6:01 AM BE[facility]ER HEMOGLOBIN A1C Routine 05/06/2018 5:29 AM BE[facility]ER CBC W/PLT COUNT & AUTO Routine 05/06/2018 DIFFERENTIAL 5:11 AM BELLY ROLLER TYPE AND SCREEN, STAT 05/06/2018 AUTOMATED 5:11 AM BE[facility]LLER HEPATIC FUNCTION PANEL Routine 05/06/2018 5:11 AM BE[facility]ER LACTATE DEHYDROGENASE Routine 05/06/2018 (LDH) 5:11 AM BELLY [facility]ER LACTIC ACID, VENOUS Routine 05/06/2018 5:11 AM BELLY ROLLER APTT Routine 05/06/2018 5:11 AM BELLY [facility]ER PHOSPHORUS Routine 05/06/2018 5:11 AM BE[facility]LLER BASIC METABOLIC PANEL (7) Routine 05/06/2018 5:11 AM BELLY ROLLER PT/APTT Routine 05/06/2018 5:11 AM BE[facility]LLER MAGNESIUM Routine 05/06/2018 5:11 AM BE[facility]LLER CBC W/PLT COUNT & AUTO Routine 05/06/2018 DIFFERENTIAL 5:11 AM BELLY ROLLER after 11/01/2017 Results * RHYTHM STRIP - SCAN (08/27/2018 11:11 AM CDT) Only the most recent of 2 results within the time period is included. Narrative Performed At * EKG-SCANNED (08/27/2018 9:51 AM CDT) Narrative Performed At * VASCULAR DIAGRAM -SCAN (06/02/2018 2:40 PM BELLY ROLLER) Only the most recent of 2 results within the time period is included. Narrative Performed At * CARDIAC CATH REPORT - SCAN (06/02/2018 2:40 PM BELLY ROLLER) Narrative Performed At * CT chest without IV contrast (05/15/2018 8:41 AM BELLY ROLLER) Specimen Narrative Performed At FINAL REPORT [employer] TECHNIQUE: CT scan of the chest WITHOUT [...] MD Report Verified Date/Time:05/15/2018 16:43:31 Reading Location: [address] Body Reading Room Procedure Note Interface, External Ris In - 05/15/2018 4:45 PM BELLY ROLLER FINAL REPORT TECHNIQUE: CT scan of the [...] Report Verified Date/Time: 05/15/2018 16:43:31 Reading Location: [facility] [id number] CT Body Reading Room Performing Organization Address City/State/Zipcode Phone Number GE [facility]IS * CBC with platelet count + automated diff (05/15/2018 4:46 AM BELLY ROLLER) Only the most recent of 11 results within the time period is included. WBC 15.6 (H) 3.5 - 10.5 K/L [facility] RBC 3.61 (L) 4.63 - 6.08 M/L [facility] Hemoglobin 12.5 (L) 13.7 - 17.5 GM/DL [facility] Hematocrit 36.2 (L) 40.1 - 51.0 % [facility] MCV 100.3 (H) 79.0 - 92.2 fL [facility] MCH 34.6 (H) 25.7 - 32.2 pg [facility] MCHC 34.5 32.3 - 36.5 GM/DL [facility] RDW 12.9 11.6 - 14.4 % [facility] Platelets 461 (H) 150 - 450 K/CU MM [facility] MPV 9.7 9.4 - 12.4 fL [facility] nRBC 0 0 - 0 /100 WBC [facility] % Neutros 93 % [facility] % Lymphs 3 % [facility] % Monos 3 % [facility] % Eos 0 % [facility] % Baso 0 % [facility] # Neutros 14.47 (H) 1.78 - 5.38 K/L [facility] # Lymphs 0.50 (L) 1.32 - 3.57 K/L [facility] # Monos 0.43 0.30 - 0.82 K/L [facility] # Eos 0.00 (L) 0.04 - 0.54 K/L [facility] # Baso 0.01 0.01 - 0.08 K/L [facility] Immature 1 0 - 1 % [facility] Granulocytes-Relative [facility] Specimen Blood Performing Organization Address City/State/Zipcode Phone Number [facility] [address] [place] [address] [facility] * Thromboelastograph (TEG) (05/15/2018 4:46 AM BELLY ROLLER) TEG Activated Clotting 2.6 (L) 4.0 - 7.0 minutes [facility] TEG Fibrinogen Activity 79.7 (H) 61.0 - 73.0 degrees [facility] TEG Platelet Aggregation 65.3 (H) 55.0 - 65.0 MM [facility] TEG Fibrinolysis 1.9 0.0 - 5.0 % [facility] TEG-H Activated Clotting 2.8 (L) 4.0 - 7.0 minutes [facility] Time [facility] TEG-H Fibrinogen Activity 76.9 (H) 61.0 - 73.0 degrees [facility] TEG-H Platelet 62.8 55.0 - 65.0 MM [facility] Aggregation [facility] TEG-H Fibrinolysis 1.6 0.0 - 5.0 % [facility] Specimen Blood Performing Organization Address City/[facility] Phone Number [place] [phone] * Antithrombin III (05/15/2018 4:46 AM BELLY ROLLER) Antithrombin III 110.0 80.0 - 120.0 % [facility] Specimen Blood Performing Organization Address City/[facility] Phone Number [address] * Magnesium (05/15/2018 4:46 AM BELLY ROLLER) Only the most recent of 12 results within the time period is included. Magnesium 1.9 1.6 - 2.6 mg/dL [facility] Specimen Blood Performing Organization Address City/[facility] Cent[facility] Phone Number [address] [address] [phone] * Basic Metabolic Panel (05/15/2018 4:46 AM BELLY ROLLER) Only the most recent of 16 results within the time period is included. Sodium 135 (L) 136 - 145 meq/L [facility] Potassium 3.0 (L) 3.5 - 5.1 meq/L [facility] Chloride 99 98 - 107 meq/L [facility] CO2 28 22 - 29 meq/L [facility] BUN 30 (H) 7 - 21 mg/dL [facility] Creatinine 0.84 0.57 - 1.25 mg/dL [facility] Glucose 121 (H) 70 - 105 mg/dL [facility] Calcium 8.3 (L) 8.4 - 10.2 mg/dL [facility] EGFR 98Comment: ESTIMATED GFR IS mL/min/1.73 sq m [facility] NOT ACCURATE CREATININE [facility] CLEARANCE IN PREDICTING GLOMERULAR FILTRATION RATE. ESTIMATED GFR IS NOT APPLICABLE FOR DIALYSIS PATIENTS. Specimen Blood Performing Organization Address City/[facility]/Zipcode Phone Number [place] [phone] * POC ACTIVATED CLOTTING TIME (05/14/2018 4:30 PM BELLY ROLLER) Only the most recent of 2 results within the time period is included. Activated Clotting Time 120Comment: TESTED AT [facility] sec [address] Specimen Blood Performing Organization Address City/[facility] Cent[facility]ode Phone Number [address] * aPTT (05/14/2018 1:29 PM BELLY ROLLER) Only the most recent of 23 results within the time period is included. PTT 67.9 (H) 22.5 - 36.0 seconds [facility] Specimen Blood Performing Organization Address City/[facility]/Zipcode Phone Number [phone] [place] [address] * Blood culture (05/13/2018 5:00 PM BELLY ROLLER) Only the most recent of 2 results within the time period is included. Result No growth in 5 days [facility] Specimen Blood Performing Organization Address City/[facility]/Zipcode Phone Number [place] [address] [place] [address] [facility] * ECHOCARDIOGRAM REPORT - SCAN (05/13/2018 2:50 PM BELLY ROLLER) Narrative Performed At * ECG 12 lead (05/13/2018 12:58 PM BELLY ROLLER) Specimen Narrative Performed At Ventricular Rate 96 BPM GE MUSE Atrial Rate 96 BPM P-R Interval 156 ms QRS Duration 110 ms Q-T Interval 352 ms QTC Calculation(Bazett) 444 ms P Irving 82 degrees R Irving 55 degrees T Irving 67 degrees Normal sinus rhythm Normal ECG No previous ECGs available Confirmed by Evita VARGHESE BASANT ([id number]) on 05/13/2018 6:22:57 PM Procedure Note Interface, External Ris In - 05/13/2018 6:23 PM BELLY ROLLER Ventricular Rate 96 BPM Atrial Rate 96 BPM P-R Interval 156 ms QRS Duration 110 ms Q-T Interval 352 ms QTC Calculation(Bazett) 444 ms P Irving 82 degrees R Irving 55 degrees T Irving 67 degrees Normal sinus rhythm Normal ECG No previous ECGs available Confirmed by Evita VARGHESE BASANT ([id number]) on 05/13/2018 6:22:57 PM Performing Organization Address City/State/Zipcode Phone Number [facility] * Transesophageal echo (05/13/2018 9:38 AM BELLY ROLLER) Ejection Fraction [facility] ECHO HEART[facility] Specimen Narrative Performed At Transesophageal Echocardiography Report (ARNULFO) [facility] ECHO [facility]ART[facility] Demographics [facility] Patient NameNANCIE MAHARAJ Date of Study 05/13/2018 Visit [id number] Room Number 2156 Number Date of 1970Referring Physician Luz Stephenson MD Age 47 year(s)Golf Range Attendant Juancarlos Aceves MD Physician Procedure Type of Study ARNULFO procedure:TRANSESOPHAGEAL ECHO (Routine) Indications:Mass, cardiac. Clinical History HTN,EMBOLECTOMY 05-07-18 Height: 74 inches Weight: 99.34 kg (219 lbs) BSA: 2.26 m^2 BMI: 28.12 kg/m^2 HR: 82 bpm BP: 140/85 mmHg O2 Saturation: 99 % ARNULFO Performed By: the attending and the nurse extern Procedure Informed Consent ARNULFO procedure notes Moderate [...] External Ris In - 05/21/2018 9:49 AM BELLY ROLLER Transesophageal Echocardiography Report (ARNULFO) Demographics Patient Name NANCIE MAHARAJ Date of Study 05/13/2018 Gender Male Visit Number [id number] Race Room Number 2156 Number Date of 1970 Referring Physician Luz Stephenson MD Age 47 year(s) [employer] Range Attendant Juancarlos Aceves MD Physician Procedure Type of Study ARNULFO procedure:TRANSESOPHAGEAL ECHO (Routine) Indications:Mass, cardiac. Clinical History HTN,EMBOLECTOMY 05-07-18 Height: 74 inches Weight: 99.34 kg (219 lbs) BSA: 2.26 m^2 BMI: 28.12 kg/m^2 HR: 82 bpm BP: 140/85 mmHg O2 Saturation: 99 % ARNULFO Performed By: the attending and the nurse extern Procedure Informed Consent ARNULFO procedure notes Moderate [...] l/min/m^2 Performing Organization Address City/State/Zipcode Phone Number [facility] * ECHOCARDIOGRAM REPORT - SCAN (05/12/2018 6:20 PM BELLY ROLLER) Narrative Performed At * ECHO W CONTRAST & DOPPLER (05/12/2018 1:54 PM BELLY ROLLER) Ejection Fraction [facility] ipnexus [facility] Specimen Narrative Performed At Transthoracic Echocardiography Report (TTE) [facility] ipnexus [facility] Demographics [facility] Patient NameGUELKER,Date of Study05/12/2018 NANCIE Male Visit [id number] Room [id number] Number Date of 1970ReferringAllascencion Stephenson MD Physician Age 47 year(s)SonographerMarie Pittman, SHELBI, RDCS,RVT,RDMS Customer Consultant Marlon Carrillo Interpreting Amrit Veliz MD Physician [...] External Ris In - 05/12/2018 5:43 PM BELLY ROLLER Transthoracic Echocardiography Report (TTE) Demographics Patient Name NICKO, Date of Study 05/12/2018 NANCIE Gender Male Visit Number [id number] Race Room Number 2156 Number Date of 1970 Referring Luz Stephenson MD Physician Age 47 year(s) Golf Range Attendant SHELBI Dunn, RDCS,RVT,RDMS Customer Consultant Marlon Carrillo Interpreting Amrit Veliz MD Physician [...] 0.09 m/s E/E': 5.15 Performing Organization Address City/[facility]ode Phone Number [facility]ART[facility] * Hemoglobin and hematocrit (05/11/2018 5:14 PM BELLY ROLLER) Hemoglobin 12.9 (L) 13.7 - 17.5 GM/DL [facility] Hematocrit 38.1 (L) 40.1 - 51.0 % [facility] Specimen Blood Performing Organization Address City/[facility]/Zipcode Phone Number [facility] [address] [place] [address] [facility] * Tissue Exam (05/11/2018 5:14 PM BELLY ROLLER) Only the most recent of 3 results within the time period is included. 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 Resection margin is inked blue. The specimen is bisected and submitted entirely A1. CG/pl MICROSCOPIC DESCRIPTION Sections show skin with marked [facility] spongiosis and superficial [facility] perivascular infiltrates, including lymphocytes, histiocytes and numerous eosinophils. Specimen Tissue Performing Organization Address City/[facility]/Zipcode Phone Number [facility] [address] [place] [address] [facility] * US renal biopsy (05/11/2018 10:00 AM BELLY ROLLER) Specimen Narrative Performed At FINAL REPORT [employer] Ultrasound guidance was provided to the referring textile machine operator by the ict support technicians for a kidney biopsy. 12 images were obtained. Signed: Francisco Javier Joaquin MD Report Verified Date/Time:05/15/2018 14:22:54 Reading Location: [address] Ortho Consult Reading Room Procedure Note Interface, External Ris In - 05/15/2018 2:25 PM BELLY ROLLER FINAL REPORT Ultrasound guidance was provided to the referring textile machine operator by the ict support technicians for a kidney biopsy. 12 images were obtained. Signed: Francisco Javier Joaquin MD Report Verified Date/Time: 05/15/2018 14:22:54 Reading Location: [facility] C013X Ortho Consult Reading Room Performing Organization Address City/State/Zipcode Phone Number [employer] * PT/aPTT (05/11/2018 6:04 AM BELLY ROLLER) Only the most recent of 2 results within the time period is included. Protime 12.7 11.7 - 14.7 seconds [facility] INR 1.0 <=5.9 [facility] PTT 28.4 22.5 - 36.0 seconds [facility] Specimen Blood Narrative Performed At RECOMMENDED COUMADIN/WARFARIN INR THERAPY RANGES [facility] STANDARD DOSE: 2.0 - 3.0 Includes: PROPHYLAXIS for venous thrombosis, [facility] systemic embolization; TREATMENT for venous thrombosis and/or pulmonary embolus. HIGH RISK: Target INR is 2.5-3.5 for patients with mechanical heart valves. Performing Organization Address [facility] Phone Number [address] [address] [facility] * Prothrombin time/INR (05/11/2018 6:04 AM BELLY ROLLER) Only the most recent of 3 results within the time period is included. Protime 12.7 11.7 - 14.7 seconds [facility] INR 1.0 <=5.9 [facility] Specimen Blood Narrative Performed At RECOMMENDED COUMADIN/WARFARIN INR THERAPY RANGES [facility] STANDARD DOSE: 2.0 - 3.0 Includes: PROPHYLAXIS for venous thrombosis, [facility] systemic embolization; TREATMENT for venous thrombosis and/or pulmonary embolus. HIGH RISK: Target INR is 2.5-3.5 for patients with mechanical heart valves. Performing Organization Address City/[facility]/Zipcode Phone Number [facility] [address] [place] [address] [facility] * Occult blood, stool (05/10/2018 5:44 AM BELLY ROLLER) Occult blood Negative Negative [facility] Specimen Stool Performing Organization Address [facility]/Zipcode Phone Number [place] [phone] [place] [address] [facility] * US renal complete (05/09/2018 2:35 AM BELLY ROLLER) Specimen Narrative Performed At FINAL REPORT [facility] Ultrasound of the Kidneys Clinical History:BEBA on [...] MD Report Verified Date/Time:05/09/2018 05:30:16 Reading Location: [facility] C013Y CT Body Reading Room Procedure Note Interface, External Ris In - 05/09/2018 5:32 AM BELLY ROLLER FINAL REPORT Ultrasound of the Kidneys Clinical [...] Report Verified Date/Time: 05/09/2018 05:30:16 Reading Location: [facility] B1 C013Y CT Body Reading Room Performing Organization Address City/State/Zipcode Phone Number GE RIS * ECHOCARDIOGRAM REPORT - SCAN (05/08/2018 7:50 PM BELLY ROLLER) Narrative Performed At * Urea Nitrogen, random urine (05/08/2018 12:06 PM BELLY ROLLER) Only the most recent of 2 results within the time period is included. Urea Nitrogen, Ur 132 mg/dL [facility] Specimen Urine Narrative Performed At Reference Range: No Normals [facility] Performing Organization Address [facility] Phone Number [address] * Sodium, random urine (05/08/2018 12:06 PM BELLY ROLLER) Only the most recent of 2 results within the time period is included. Sodium Urine 88 meq/L [facility] Specimen Urine Narrative Performed At Reference Range: No Normals [facility] Performing Organization Address [facility] Phone Number [address] * Osmolality, urine (05/08/2018 12:06 PM BELLY ROLLER) Only the most recent of 2 results within the time period is included. Osmolality, Ur 296 40-1,400 mOsm/kg [facility] Specimen Urine Performing Organization Address City/[facility] Phone Number [address] * Creatinine, random urine (05/08/2018 12:06 PM BELLY ROLLER) Only the most recent of 2 results within the time period is included. Creatinine, Ur 42.2 mg/dL [facility] Specimen Urine Narrative Performed At Reference Range: No Normals [facility] Performing Organization Address City/[facility] Phone Number [address] [address] [facility] * 2D Echo W/Doppler(CW/PW/Color) (05/08/2018 10:46 AM BELLY ROLLER) Ejection Fraction [facility] ECHO HEARTLAB [facility] Specimen Narrative Performed At Transthoracic Echocardiography Report (TTE) [facility]ART[facility] Demographics [facility] Patient Name Edil MAHARAJ of Study 05/08/2018 [id number] GenderMale Visit Number [id number] RaceWil [id number] Number 2156 Number Date of Birth1970 Referring Physician Jose Treviño Age47 year(s) Golf Range Attendant Fernando Núñez [facility] AnalystMailyn InterpretingMD Maria Farley Physician Procedure [...] External Ris In - 05/08/2018 7:16 PM BELLY ROLLER Transthoracic Echocardiography Report (TTE) Demographics Patient Name NANCIE MAHARAJ Date of Study 05/08/2018 Gender Male Visit Number [id number] Race Room Number 2156 Number Date of 1970 Referring Physician Jose Treviño Age 47 year(s) Golf Range Attendant Fernando Núñez CS Customer Consultant Ambar Interpreting MD Rashard [facility] Physician Procedure Type of Study TTE procedure:2DECHO [...] LVOT CI: 2.65 l/min/m^2 Performing Organization Address City/[facility] Phone Number [facility] ECHO HEARTLAB [facility] * Osmolality, serum (05/08/2018 8:18 AM BELLY ROLLER) Only the most recent of 2 results within the time period is included. Osmolality Serum 273 (L) 275 - 295 mOsm/kg [facility] Specimen Blood Performing Organization Address [facility] [place] [address] [phone] [place] [address] * Calcium, Ionized (05/07/2018 10:06 PM BELLY ROLLER) Calcium, Ion 1.09 (L) 1.12 - 1.27 mmol/L [facility] pH, Blood 7.43 [facility] Specimen Blood Performing Organization Address [facility] [address] [facility] * Lactic acid, venous, whole blood (05/07/2018 10:06 PM BELLY ROLLER) Only the most recent of 2 results within the time period is included. Lactate, Venous 0.8Comment: Specimen slightly 0.5 - 2.2 mmol/L [facility] hemolyzed [facility] Specimen Blood Performing Organization Address [facility] Phone Number [address] [address] [facility] * Phosphorus (05/07/2018 10:06 PM BELLY ROLLER) Only the most recent of 2 results within the time period is included. Phosphorus 4.5 2.3 - 4.7 mg/dL [facility] Specimen Blood Performing Organization Address City/[facility] Cent[facility] Phone Number [address] [address] [phone] [place] [address] * TRANSFUSION SERVICE REPORT - SCAN (05/07/2018 6:00 PM BELLY ROLLER) Narrative Performed At * Rheumatoid factor Ab, reflex to titer (05/07/2018 9:15 AM BELLY ROLLER) Rheumatoid Factor Negative [facility] Specimen Blood Performing Organization Address [facility] Phone Number [address] [address] [facility] * Lipid panel (05/07/2018 3:02 AM BELLY ROLLER) Triglycerides 97 mg/dL [facility] Cholesterol 261 mg/dL [facility] HDL 60 mg/dL [facility] LDL Calculated 182 mg/dL [facility] Specimen Blood Narrative Performed At Triglyceride Reference Range: [facility] Low Risk <150 [facility] [id number] High Risk 200-499 Very High Risk>=500 Cholesterol Reference Range: Low Risk <200 [id number] High Risk>240 HDL Cholesterol Reference Range: Low Risk >=60 High Risk <40 LDL Cholesterol Reference Range: Optimal<100 Near Iavscge111-268 [id number] Bhid336-716 Very High >=190 Performing Organization Address [facility] Cent[facility] Phone Number [address] [address] [facility] * Protein, random urine (05/06/2018 8:32 PM BELLY ROLLER) Only the most recent of 2 results within the time period is included. Protein, Urine 1,612 (H) 0 - 14 mg/dL [facility] Specimen Urine Performing Organization Address [facility] Phone Number [place] [phone] [place] [address] [facility] * Urine Protein Electrophoresis, random (05/06/2018 8:32 PM BELLY ROLLER) Protein, Urine 1,612 (H) 0 - 14 mg/dL [facility] Albumin %, Urine 63.3 % [facility] Globulin %, Urine 36.7 % [facility] UPEP,ID Urine protein study consistent [facility] with glomerular dysfunction. [facility] No monoclonal bands detected. Pathologist: Lesvia Matson MD (electronic [facility] signature) [facility] Specimen Urine Performing Organization Address City/State/Zipcode Phone Number [facility] [address] [place] [address] [facility] * Urinalysis w/Microscopic (05/06/2018 8:32 PM BELLY ROLLER) Color, UA Yellow [facility] Clarity, UA Hazy [facility] Specific [place], UA 1.034 1.001 - 1.035 [facility] pH, UA 6.0 5.0 - 8.0 [facility] Protein, UA 600 mg/dL (A) Negative [facility] Glucose, UA Negative Negative [facility] Ketones, UA Negative Negative [facility] Bilirubin, UA Negative Negative [facility] Blood, UA Large (A) Negative [facility] Nitrite, UA Negative Negative [facility] Leukocytes, UA Negative Negative [facility] Urobilinogen, UA 0.2 0.2 - 1.0 mg/dL [facility] RBC, UA 35 /HPF [facility] WBC, UA 10 /HPF [facility] Mucus Few [facility] Hyaline Casts, UA 29 /LPF [facility] Granular Casts, UA 4 /LPF [facility] Yeast Few [facility] Specimen Source Urine, Voided [facility] Specimen Urine Performing Organization Address City/State/Zipcode Phone Number [address] [address] [facility] * Double-Stranded DNA (dsDNA) Antibody (05/06/2018 8:15 PM BELLY ROLLER) ds DNA Ab Negative [facility] Specimen Blood Performing Organization Address City/[facility]/Zipcode Phone Number [place] [phone] [place] [address] * Hepatitis panel, acute (05/06/2018 8:15 PM BELLY ROLLER) Hep A IgM HEPATITIS A TEST NEGATIVE Nonreactive [facility] Hep B C IgM NON-REACTIVE Nonreactive [facility] Hepatitis C Ab NON-REACTIVE Nonreactive [facility] hepatitis B Surface Ag NON-REACTIVE Nonreactive [facility] Specimen Blood Performing Organization Address City/[facility] Phone Number [place] [phone] * Beta-2 glycoprotein antibodies (05/06/2018 8:15 PM BELLY ROLLER) B2 Glcoprotein Ab Profile Refer to individual [facility] B2-Glycoprotein IgG, IgM and INCORPORATED IgA results. Specimen Blood Narrative Performed At Performing Organization Address City/State/Zipcode Phone Number [facility] [place], [address] [place], [place] [facility] [address] [address] * Cardiolipin Antibodies, IgG and IgM (05/06/2018 8:15 PM BELLY ROLLER) Anticardiolipin IgG <1.6 <20.0 GPL [facility] Anticardiolipin IgM 0.2 <20.0 MPL [facility] Specimen Blood Narrative Performed At Anticardiolipin IgG Result Interpretation: [facility] <20.0 GPL Normal [facility] >/=20.0 GPL Positive Anticardiolipin IgM Result Interpretation: <20.0 MPL Normal >/=20.0 MPL Positive Performing Organization Address [facility] Phone Number [address] * Complement Component C3 (05/06/2018 8:15 PM BELLY ROLLER) C3 Complement 130 82 - 193 mg/dL [facility] Specimen Blood Performing Organization Address [facility] Phone Number [address] * Complement Component C4 (05/06/2018 8:15 PM BELLY ROLLER) C4 Complement 26 15 - 57 mg/dL [facility] Specimen Blood Performing Organization Address [facility] Phone Number [address] * Anti-Nuclear Antibody (YO) (05/06/2018 8:15 PM BELLY ROLLER) YO Negative Negative [facility] Specimen Blood Narrative Performed At Test performed by IFA method. [facility] Test performed by IFA method. [facility] Performing Organization Address [facility] Phone Number [address] * Folate, Serum (05/06/2018 8:15 PM BELLY ROLLER) Folate 11.4 >=7.0 ng/mL [facility] Specimen Blood Performing Organization Address [facility] Phone Number [address] * Vitamin B12 (05/06/2018 8:15 PM BELLY ROLLER) Vitamin B12 272 213 - 816 pg/mL [facility] Specimen Blood Performing Organization Address [facility]/Zipcode Phone Number [facility] [address] [place], [place] [phone] [facility] * Centerview / lambda light chains, serum (05/06/2018 8:14 PM BELLY ROLLER) Centerview Lt Chain,Free 23.8 (H) 3.3 - 19.4 mg/L [facility] Lambda Lt Chain,Free 20.4 5.7 - 26.3 mg/L [facility] Centerview/Lambda,Free 1.17 0.26 - 1.65 [facility] Comment: [...] Lab [facility] [employer] [place] [address] [place] [address] Raúl Mancuso MD, PhD, RASHID Performing Organization Address City/[facility]/Zipcode Phone Number [facility] [place], [address] [facility] [address] * Protein electrophoresis, serum (05/06/2018 8:14 PM BELLY ROLLER) Albumin Fraction 1.4 (L) 3.5 - 5.5 g/dL [facility] Alpha 1 Fraction 0.3 0.2 - 0.4 g/dL [facility] Alpha 2 Fraction 0.8 0.5 - 0.9 g/dL [facility] Beta Fraction 0.4 (L) 0.6 - 1.1 g/dL [facility] Gamma Globulin Fraction 0.8 0.7 - 1.7 g/dL [facility] Interpretation Alpha-1 and alpha-2 increased. [facility] Albumin, beta, and gamma [facility] decreased. This suggests a nephrotic pattern. Pathologist: Lesvia Matson MD (electronic [facility] Protein, Total 3.7 (L) 6.0 - 8.3 gm/dL [facility] Specimen Blood Performing Organization Address City/[facility] Phone Number [address] [address] [phone] [place] [address] * Cryoglobulin (05/06/2018 8:12 PM BELLY ROLLER) Cryoglobulin Negative [facility] Specimen Blood Performing Organization Address [facility] Phone Number [address] * Lupus Anticoagulant Screen with Reflex To Confirmatory (05/06/2018 6:38 PM BELLY ROLLER) DRVV Screen Ratio 0.75 <1.20 [facility] Interpretations Normal DRVV Results [facility] Protime 12.6 11.7 - 14.7 seconds [facility] INR 0.9 <=5.9 [facility] PTT 29.6 22.5 - 36.0 seconds [facility] PTT-LA 35.5 32.0 - 41.8 [facility] Pathologist: Jovi Aguilar MD (electronic [facility] Specimen Blood Performing Organization Address [facility] Cent[facility]ode Phone Number [address] [address] [phone] [place] [address] * TSH/Free T4 If Indicated (05/06/2018 10:42 AM BELLY ROLLER) TSH 0.20 (L) 0.35 - 4.94 uIU/mL [facility] Specimen Blood Performing Organization Address City/[facility] Phone Number [address] [address] [phone] [place] [address] * HIV-1 Antigen with HIV-1/2 Antibody (05/06/2018 10:42 AM BELLY ROLLER) HIV-1 Antigen with HIV NON-REACTIVE Nonreactive [facility] 1&2 Antibody [facility] Specimen Blood Performing Organization Address City/[facility] Phone Number [address] * Herpes virus antibody, IgM (05/06/2018 10:42 AM BELLY ROLLER) Herpes Virus IGM Negative [facility] Specimen Blood Narrative Performed At Performing Organization Address [facility] Phone Number [address] * Potassium, random urine (05/06/2018 10:42 AM BELLY ROLLER) Potassium Urine 38.2 meq/L [facility] Specimen Urine Narrative Performed At Reference Range: No Normals [facility] Performing Organization Address [facility] Phone Number [address] * Chloride, random urine (05/06/2018 10:42 AM BELLY ROLLER) ChlorideUr 56 meq/L [facility] Specimen Urine Narrative Performed At Reference Range: No Normals [facility] Performing Organization Address City/[facility] Phone Number [address] * RPR (05/06/2018 10:42 AM BELLY ROLLER) RPR Nonreactive Nonreactive [facility] Specimen Blood Performing Organization Address [facility] Phone Number [address] * Hepatitis B surface antibody (05/06/2018 10:42 AM BELLY ROLLER) Hep B S Ab <8.0 <8.0 mIU/mL [facility] Specimen Blood Performing Organization Address City/[facility]/Zipcode Phone Number [address] * Hepatitis B surface antigen (05/06/2018 10:42 AM BELLY ROLLER) hepatitis B Surface Ag NON-REACTIVE Nonreactive [facility] Specimen Blood Performing Organization Address City/[facility]/Zipcode Phone Number [address] * T4, free (05/06/2018 10:42 AM BELLY ROLLER) Free T4 1.49 (H) 0.70 - 1.48 ng/dL [facility] Specimen Blood Performing Organization Address [facility] Phone Number [address] * POC-Glucose meter (05/06/2018 10:33 AM BELLY ROLLER) POC-Glucose Meter 88Comment: TESTED AT [facility] 70 - 110 mg/dL [address] Specimen Blood Performing Organization Address City/[facility] Phone Number [address] * XR chest 1 view portable / bedside (05/06/2018 9:30 AM BELLY ROLLER) Specimen Narrative Performed At FINAL REPORT GE RIS INDICATION: admission COMPARISON: None. TECHNIQUE: Chest radiograph, single view, portable technique. FINDINGS / IMPRESSION: No consolidation, pulmonary edema, pneumothorax, or pleural effusion is demonstrated. Cardiac and mediastinal contours are unremarkable for portable technique. Old healed right posterolateral rib fractures are noted. Signed: Jorden Loera MD Report Verified Date/Time:05/06/2018 10:14:04 Reading Location: [facility] Radiology Reading Room Procedure Note Interface, External Ris In - 05/06/2018 10:16 AM BELLY ROLLER FINAL REPORT INDICATION: admission COMPARISON: None. TECHNIQUE: Chest radiograph, single view, portable technique. FINDINGS / IMPRESSION: No consolidation, pulmonary edema, pneumothorax, or pleural effusion is demonstrated. Cardiac and mediastinal contours are unremarkable for portable technique. Old healed right posterolateral rib fractures are noted. Signed: Jorden Loera MD Report Verified Date/Time: 05/06/2018 10:14:04 Reading Location: [facility] Radiology Reading Room Performing Organization Address City/State/Zipcode Phone Number RIS * Venous doppler legs bilateral (05/06/2018 6:01 AM BELLY ROLLER) [facility] ECHO HEARTLAB [facility] CPACS Specimen Impressions Performed At Right Impression [facility]ART[facility] 1. There is no deep venous obstruction in the common femoral, profunda MKCKESSON [facility] femoral, femoral, popliteal, posterior tibial or peroneal [...] PV LAB - Lower Extremities DVT Study [facility]ART[facility] Demographics [facility] CP[facility] Patient NameNANCIE MAHARAJ Date of Study05/06/2018 Visit [id number] Male of Birth1970 [id number] Phys[facility] Golf Range Attendant Jose Mascorro MD SchaeferPhysician Procedure Type of [...] External Ris In - 05/06/2018 11:44 AM BELLY ROLLER PV LAB - Lower Extremities DVT Study Demographics Patient Name NANCIE MAHARAJ Date of Study 05/06/2018 Age 47 Visit Number [id number] Gender Male Accession Number [id number] Date of 1970 Referring [facility] Room Number 2C24 Physician Golf Range Attendant MD Dax Benavideser Physician Procedure Type of Study: Veins: Lower Extremities DVT Study, VENOUS DOPPLER LEG, BILATERAL. Indications for Study:Cellulitis and Edema. Patient Status:Routine. Study Location:Portable. Technical Quality:Adequate visualization. Risk Factors History of Disease + +----+ + !Diagnosis !Date!Comments ! + +----+ + !History/Risk ! !Bilateral LE Edema, Bilateral LE Cellulitis, Lt Arm! !Factors: ! !Brachial Clot (per [facility]) ! + +----+ + Impressions Right [...] are measured in cm Performing Organization Address City/[facility] Phone Number [facility] ECHO HEART[facility] * Hemoglobin A1c (05/06/2018 5:29 AM BELLY ROLLER) Hemoglobin A1C 5.1 4.3 - 6.1 % [facility] Specimen Blood Performing Organization Address City/[facility] Phone Number [address] * Type and screen, automated (05/06/2018 5:11 AM BELLY ROLLER) ABO/RH AUTOMATED (BEJOSSUE) B POSITIVE [facility] Ab Scrn NEGATIVE [facility] Specimen Blood Performing Organization Address [facility] Phone Number [address] * Lactate dehydrogenase (LDH) (05/06/2018 5:11 AM BELLY ROLLER) LDH 219 125 - 220 U/L [facility] Specimen Blood Performing Organization Address [facility] [place] Phone Number [address] * Hepatic function panel (05/06/2018 5:11 AM BELLY ROLLER) Protein, Total 4.9 (L) 6.0 - 8.3 gm/dL [facility] Albumin 2.0 (L) 3.5 - 5.0 g/dL [facility] Total Bilirubin 0.2 0.2 - 1.2 mg/dL [facility] Bilirubin, Direct 0.1 0.1 - 0.5 mg/dL [facility] Alkaline Phosphatase 100 40 - 150 U/L [facility] AST 18 5 - 34 U/L [facility] ALT 11 6 - 55 U/L [facility] Specimen Blood Performing Organization Address City/State/Zipcode Phone Number [facility] [address] [place] [address] [facility] after 11/01/2017 Insurance Payer Benefit Subscriber ID Type Phone Address Plan / Group [employer] BCBS PPO xxxxxxxxxxxx PPO [phone] [address] [place] [address] CHOICE Advance Directives For more information, please contact: [place] [address] [place] [address] Date Inactivated Comments Code Status Date Activated Full Code 05/07/2018 9:58 PM This code status was determined by: Patient
--- NOTE | 2018-11-02 06:50 | Diagnostic Imaging Report ---
EXAMINATION: CXR 2 VIEW - HOPD INDICATION: ^[id number] ^[id number] COMPARISON: None FINDINGS: PA and lateral views TUBES and LINES: Stable right internal jugular dialysis catheter. LUNGS: Right lower lung field opacification. PLEURA: No visible pneumothorax. HEART AND MEDIASTINUM: The cardiomediastinal silhouette is unremarkable. BONES AND SOFT TISSUES: No acute osseous lesion. Soft tissues are unremarkable. UPPER ABDOMEN: No free air under the diaphragm. IMPRESSION: New right lower lung field opacification, representing combination of effusion and atelectasis. Underlying pneumonia or contusion cannot be excluded in the appropriate clinical context. Signed by: Dr. Jamar Sands MD on 11/02/2018 6:47 AM
[2018-11-02] MEDS ORDERED: ONDANSETRON HCL INJ 2MG/ML 2ML 2 MG/ML VIAL IV PRN (07:00)
[2018-11-02] MEDS ORDERED: HYDROCODONE/APAP 7.5MG-325MG 1 EA TAB PO PRN (07:00)
[2018-11-02] MEDS ORDERED: DIPHENHYDRAMINE HCL INJ 50 MG/ML VIAL IV PRN (07:00)
[2018-11-02] MEDS ORDERED: ACETAMINOPHEN 325 MG TAB PO PRN (07:00)
--- OUTSIDE RECORDS SUMMARY | 2018-11-02 07:08 | XMS REPORT | Clinical Summary ---
Author Author [facility] Address Unknown Phone Unavailable Care Team Providers Care Interpretive Program Coordinator Name Role Phone Jair Martino Unavailable Allergies [...] cardiovascular exam; Alcohol abuse; Tobacco abuse 05/06/2018 [facility] General Internal Medicine - Encounter 05/15/2018 after [...] Taken Vital Sign Reading 05/15/2018 3:59 AM REPORT PROGRAMMER Blood Pressure 123/72 05/15/2018 3:59 AM REPORT PROGRAMMER Pulse 76 05/15/2018 3:59 AM REPORT PROGRAMMER Temperature 36 C (96.8 F) 05/15/2018 3:59 AM REPORT PROGRAMMER Respiratory Rate 18 05/15/2018 3:59 AM REPORT PROGRAMMER Oxygen Saturation 96% 05/07/2018 5:47 PM REPORT PROGRAMMER Inhaled Oxygen 50% Concentration 05/15/2018 6:00 AM REPORT PROGRAMMER Weight 89.4 kg (197 lb 1.6 oz) 05/06/2018 5:00 AM REPORT PROGRAMMER Height 187 cm (6' 1.62") 05/15/2018 6:00 AM REPORT PROGRAMMER Body Mass Index 25.57 Plan of Treatment Not on file Implants Device Identifier Shelf Expiration Date Model / Serial / Lot Implanted Type Area Manufactur er 07/24/2019 [id number] / / [id number] Floseal Vhsd Full Strlprep 5ml Cement/John Left: Arm 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 [id number] - [id number] ler/Adhesi SCI Implanted: Qty: 2 on 05/07/2018 by Clara Ortez MD Procedures Comments Procedure Name Priority Date/Time Associated Diagnosis RHYTHM STRIP - SCAN 08/27/2018 11:11 AM CDT REPORT OF PROCEDURE - 08/27/2018 ENDOSCOPY SCAN 9:51 AM CDT VASCULAR DIAGRAM -SCAN 06/02/2018 2:40 PM REPORT PROGRAMMER RHYTHM STRIP - SCAN 06/02/2018 2:40 PM REPORT PROGRAMMER CARDIAC CATH REPORT - 06/02/2018 SCAN 2:40 PM REPORT PROGRAMMER VASCULAR DIAGRAM -SCAN 05/29/2018 5:[address] CHEST WITHOUT IV Routine 05/15/2018 CONTRAST 8:41 AM REPORT PROGRAMMER CBC W/PLT COUNT & AUTO Routine 05/15/2018 DIFFERENTIAL 4:46 AM REPORT PROGRAMMER CBC W/PLT COUNT & AUTO Routine 05/15/2018 DIFFERENTIAL 4:46 AM REPORT PROGRAMMER BASIC METABOLIC PANEL (7) Routine 05/15/2018 4:46 AM REPORT PROGRAMMER MAGNESIUM Routine 05/15/2018 4:46 AM REPORT PROGRAMMER THROMBOELASTOGRAPH (TEG) Routine 05/15/2018 4:46 AM REPORT PROGRAMMER ANTITHROMBIN III Routine 05/15/2018 4:46 AM REPORT PROGRAMMER POCT-ACT Routine 05/14/2018 4:30 PM REPORT PROGRAMMER L HEART CATH ONLY - NO 05/14/2018 Chest pain, unspecified ANGIOS 2:50 PM REPORT PROGRAMMER type APTT Routine 05/14/2018 1:29 PM REPORT PROGRAMMER CBC W/PLT COUNT & AUTO Routine 05/14/2018 DIFFERENTIAL 4:21 AM REPORT PROGRAMMER APTT Routine 05/14/2018 4:21 AM REPORT PROGRAMMER BASIC METABOLIC PANEL (7) Routine 05/14/2018 4:21 AM REPORT PROGRAMMER CBC W/PLT COUNT & AUTO Routine 05/14/2018 DIFFERENTIAL 4:21 AM REPORT PROGRAMMER APTT Routine 05/13/2018 7:40 PM REPORT PROGRAMMER BLOOD CULTURE Routine 05/13/2018 5:00 PM REPORT PROGRAMMER BASIC METABOLIC PANEL (7) Routine 05/13/2018 4:50 PM REPORT PROGRAMMER MAGNESIUM Routine 05/13/2018 4:50 PM REPORT PROGRAMMER BLOOD CULTURE Routine 05/13/2018 4:49 PM REPORT PROGRAMMER ECHOCARDIOGRAM REPORT - 05/13/2018 SCAN 2:50 PM REPORT PROGRAMMER ECG 12-LEAD Routine 05/13/2018 12:58 PM REPORT PROGRAMMER APTT Routine 05/13/2018 12:26 PM REPORT PROGRAMMER TRANSESOPHAGEAL ECHO Routine 05/13/2018 9:38 AM REPORT PROGRAMMER CBC W/PLT COUNT & AUTO Routine 05/13/2018 DIFFERENTIAL 4:38 AM REPORT PROGRAMMER APTT Routine 05/13/2018 4:38 AM REPORT PROGRAMMER BASIC METABOLIC PANEL (7) Routine 05/13/2018 4:38 AM REPORT PROGRAMMER CBC W/PLT COUNT & AUTO Routine 05/13/2018 DIFFERENTIAL 4:38 AM REPORT PROGRAMMER APTT Routine 05/12/2018 9:23 PM REPORT PROGRAMMER BASIC METABOLIC PANEL (7) Routine 05/12/2018 9:23 PM REPORT PROGRAMMER MAGNESIUM Routine 05/12/2018 9:23 PM REPORT PROGRAMMER ECHOCARDIOGRAM REPORT - 05/12/2018 SCAN 6:20 PM REPORT PROGRAMMER CONT WAVE PULSED DOPPLER Routine 05/12/2018 5:52 PM REPORT PROGRAMMER COLOR-FLOW MAPPING Routine 05/12/2018 5:52 PM REPORT PROGRAMMER ECHO W CONTRAST & DOPPLER Routine 05/12/2018 1:54 PM REPORT PROGRAMMER CBC W/PLT COUNT & AUTO Routine 05/12/2018 DIFFERENTIAL 5:37 AM REPORT PROGRAMMER MAGNESIUM Routine 05/12/2018 5:37 AM REPORT PROGRAMMER BASIC METABOLIC PANEL (7) Routine 05/12/2018 5:37 AM REPORT PROGRAMMER CBC W/PLT COUNT & AUTO Routine 05/12/2018 DIFFERENTIAL 5:37 AM REPORT PROGRAMMER TISSUE EXAM AP Routine 05/11/2018 5:14 PM REPORT PROGRAMMER BASIC METABOLIC PANEL (7) Routine 05/11/2018 5:14 PM REPORT PROGRAMMER MAGNESIUM Routine 05/11/2018 5:14 PM REPORT PROGRAMMER HEMOGLOBIN AND HEMATOCRIT Routine 05/11/2018 5:14 PM REPORT PROGRAMMER US RENAL BIOPSY Routine 05/11/2018 10:00 AM REPORT PROGRAMMER TISSUE EXAM AP Routine 05/11/2018 9:08 AM REPORT PROGRAMMER CBC W/PLT COUNT & AUTO Routine 05/11/2018 DIFFERENTIAL 6:18 AM REPORT PROGRAMMER CBC W/PLT COUNT & AUTO Routine 05/11/2018 DIFFERENTIAL 6:18 AM REPORT PROGRAMMER APTT Routine 05/11/2018 6:04 AM REPORT PROGRAMMER PROTHROMBIN TIME/INR Routine 05/11/2018 6:04 AM REPORT PROGRAMMER PT/APTT STAT 05/11/2018 6:04 AM REPORT PROGRAMMER MAGNESIUM Routine 05/11/2018 6:04 AM REPORT PROGRAMMER BASIC METABOLIC PANEL (7) Routine 05/11/2018 6:04 AM REPORT PROGRAMMER APTT Routine 05/10/2018 7:56 PM REPORT PROGRAMMER BASIC METABOLIC PANEL (7) Routine 05/10/2018 7:56 PM REPORT PROGRAMMER MAGNESIUM Routine 05/10/2018 7:56 PM REPORT PROGRAMMER APTT Routine 05/10/2018 1:03 PM REPORT PROGRAMMER OCCULT BLOOD, STOOL Routine 05/10/2018 5:44 AM REPORT PROGRAMMER CBC W/PLT COUNT & AUTO Routine 05/10/2018 DIFFERENTIAL 5:35 AM REPORT PROGRAMMER APTT Routine 05/10/2018 5:35 AM REPORT PROGRAMMER MAGNESIUM Routine 05/10/2018 5:35 AM REPORT PROGRAMMER BASIC METABOLIC PANEL (7) Routine 05/10/2018 5:35 AM REPORT PROGRAMMER CBC W/PLT COUNT & AUTO Routine 05/10/2018 DIFFERENTIAL 5:35 AM REPORT PROGRAMMER BASIC METABOLIC PANEL (7) Routine 05/09/2018 5:44 PM REPORT PROGRAMMER MAGNESIUM Routine 05/09/2018 9:18 AM REPORT PROGRAMMER APTT Routine 05/09/2018 9:18 AM REPORT PROGRAMMER CBC W/PLT COUNT & AUTO Routine 05/09/2018 DIFFERENTIAL 3:07 AM REPORT PROGRAMMER APTT Routine 05/09/2018 3:07 AM REPORT PROGRAMMER BASIC METABOLIC PANEL (7) Routine 05/09/2018 3:07 AM REPORT PROGRAMMER CBC W/PLT COUNT & AUTO Routine 05/09/2018 DIFFERENTIAL 3:07 AM REPORT PROGRAMMER US RENAL COMPLETE Routine 05/09/2018 2:35 AM REPORT PROGRAMMER ECHOCARDIOGRAM REPORT - 05/08/2018 SCAN 7:50 PM REPORT PROGRAMMER APTT Routine 05/08/2018 5:45 PM REPORT PROGRAMMER CREATININE, RANDOM URINE Routine 05/08/2018 12:06 PM REPORT PROGRAMMER OSMOLALITY, URINE Routine 05/08/2018 12:06 PM REPORT PROGRAMMER UREA NITROGEN, RANDOM Routine 05/08/2018 URINE 12:06 PM REPORT PROGRAMMER SODIUM, RANDOM URINE Routine 05/08/2018 12:06 PM REPORT PROGRAMMER APTT Routine 05/08/2018 12:05 PM REPORT PROGRAMMER 2D ECHO W/ DOPPLER Routine 05/08/2018 (CW/PW/COLOR) 10:46 AM REPORT PROGRAMMER OSMOLALITY, SERUM Routine 05/08/2018 8:18 AM REPORT PROGRAMMER CBC W/PLT COUNT & AUTO Routine 05/08/2018 DIFFERENTIAL 2:55 AM REPORT PROGRAMMER MAGNESIUM Routine 05/08/2018 2:55 AM REPORT PROGRAMMER APTT Routine 05/08/2018 2:55 AM REPORT PROGRAMMER PROTHROMBIN TIME/INR Routine 05/08/2018 2:55 AM REPORT PROGRAMMER BASIC METABOLIC PANEL (7) Routine 05/08/2018 2:55 AM REPORT PROGRAMMER CBC W/PLT COUNT & AUTO Routine 05/08/2018 DIFFERENTIAL 2:55 AM REPORT PROGRAMMER CBC W/PLT COUNT & AUTO Routine 05/07/2018 DIFFERENTIAL 10:06 PM REPORT PROGRAMMER LACTIC ACID, VENOUS Routine 05/07/2018 10:06 PM REPORT PROGRAMMER APTT Routine 05/07/2018 10:06 PM REPORT PROGRAMMER PROTHROMBIN TIME/INR Routine 05/07/2018 10:06 PM REPORT PROGRAMMER CBC W/PLT COUNT & AUTO Routine 05/07/2018 DIFFERENTIAL 10:06 PM REPORT PROGRAMMER CALCIUM, IONIZED Routine 05/07/2018 10:06 PM REPORT PROGRAMMER PHOSPHORUS Routine 05/07/2018 10:06 PM REPORT PROGRAMMER MAGNESIUM Routine 05/07/2018 10:06 PM REPORT PROGRAMMER BASIC METABOLIC PANEL (7) Routine 05/07/2018 10:06 PM REPORT PROGRAMMER APTT Routine 05/07/2018 9:52 PM REPORT PROGRAMMER APTT Routine 05/07/2018 7:02 PM REPORT PROGRAMMER TRANSFUSION SERVICE 05/07/2018 REPORT - SCAN 6:00 PM REPORT PROGRAMMER EMBOLECTOMY 05/07/2018 Thrombus 4:05 PM REPORT PROGRAMMER TISSUE EXAM AP Routine 05/07/2018 4:02 PM REPORT PROGRAMMER POCT-ACT Routine 05/07/2018 3:53 PM REPORT PROGRAMMER RHEUMATOID FACTOR AB, Routine 05/07/2018 REFLEX TO TITER 9:15 AM REPORT PROGRAMMER APTT Routine 05/07/2018 9:15 AM REPORT PROGRAMMER CBC W/PLT COUNT & AUTO Routine 05/07/2018 DIFFERENTIAL 3:02 AM REPORT PROGRAMMER LIPID PANEL Routine 05/07/2018 3:02 AM REPORT PROGRAMMER BASIC METABOLIC PANEL (7) Routine 05/07/2018 3:02 AM REPORT PROGRAMMER CBC W/PLT COUNT & AUTO Routine 05/07/2018 DIFFERENTIAL 3:02 AM REPORT PROGRAMMER APTT Routine 05/07/2018 3:02 AM REPORT PROGRAMMER URINE PROTEIN AP Routine 05/06/2018 ELECTROPHORESIS, RANDOM 8:32 PM REPORT PROGRAMMER PROTEIN, RANDOM URINE Routine 05/06/2018 8:32 PM REPORT PROGRAMMER URINALYSIS W/ MICROSCOPIC Routine 05/06/2018 8:32 PM REPORT PROGRAMMER UREA NITROGEN, RANDOM Routine 05/06/2018 URINE 8:32 PM REPORT PROGRAMMER CREATININE, RANDOM URINE Routine 05/06/2018 8:32 PM REPORT PROGRAMMER VITAMIN B12 Routine 05/06/2018 8:15 PM REPORT PROGRAMMER FOLATE, SERUM Routine 05/06/2018 8:15 PM REPORT PROGRAMMER BETA-2 GLYCOPROTEIN Routine 05/06/2018 ANTIBODIES 8:15 PM REPORT PROGRAMMER CARDIOLIPIN ANTIBODIES, Routine 05/06/2018 IGG AND IGM 8:15 PM REPORT PROGRAMMER COMPLEMENT COMPONENT C4 Routine 05/06/2018 8:15 PM REPORT PROGRAMMER COMPLEMENT COMPONENT C3 Routine 05/06/2018 8:15 PM REPORT PROGRAMMER DOUBLE-STRANDED DNA Routine 05/06/2018 (DSDNA) ANTIBODY 8:15 PM REPORT PROGRAMMER ANTI-NUCLEAR ANTIBODY Routine 05/06/2018 (YO) 8:15 PM REPORT PROGRAMMER HEPATITIS PANEL, ACUTE Routine 05/06/2018 8:15 PM REPORT PROGRAMMER KAPPA / LAMBDA LIGHT Routine 05/06/2018 CHAINS, SERUM 8:14 PM REPORT PROGRAMMER PROTEIN ELECTROPHORESIS, AP Routine 05/06/2018 SERUM 8:14 PM REPORT PROGRAMMER CRYOGLOBULIN AP Routine 05/06/2018 8:12 PM REPORT PROGRAMMER LUPUS ANTICOAGULANT AP Routine 05/06/2018 SCREEN WITH REFLEX TO 6:38 PM REPORT PROGRAMMER CONFIRMATORY APTT Routine 05/06/2018 6:38 PM REPORT PROGRAMMER APTT Routine 05/06/2018 10:47 AM REPORT PROGRAMMER T4, FREE Routine 05/06/2018 10:42 AM REPORT PROGRAMMER RPR Routine 05/06/2018 10:42 AM REPORT PROGRAMMER TSH/FREE T4 IF INDICATED Routine 05/06/2018 10:42 AM REPORT PROGRAMMER SODIUM, RANDOM URINE NIECY 05/06/2018 10:42 AM REPORT PROGRAMMER POTASSIUM, RANDOM URINE NIECY 05/06/2018 10:42 AM REPORT PROGRAMMER CHLORIDE, RANDOM URINE NIECY 05/06/2018 10:42 AM REPORT PROGRAMMER OSMOLALITY, SERUM NIECY 05/06/2018 10:42 AM REPORT PROGRAMMER PROTEIN, RANDOM URINE Routine 05/06/2018 10:42 AM REPORT PROGRAMMER OSMOLALITY, URINE NIECY 05/06/2018 10:42 AM REPORT PROGRAMMER HEPATITIS B SURFACE STAT 05/06/2018 ANTIGEN 10:42 AM REPORT PROGRAMMER HEPATITIS B SURFACE STAT 05/06/2018 ANTIBODY 10:42 AM REPORT PROGRAMMER HERPES VIRUS ANTIBODY, STAT 05/06/2018 IGM 10:42 AM REPORT PROGRAMMER HIV-1 ANTIGEN WITH STAT 05/06/2018 HIV-1/2 ANTIBODY 10:42 AM REPORT PROGRAMMER POCT-GLUCOSE METER Routine 05/06/2018 10:33 AM REPORT PROGRAMMER XR CHEST 1 VIEW Routine 05/06/2018 PORTABLE/BEDSIDE 9:30 AM REPORT PROGRAMMER VENOUS DOPPLER LEGS Routine 05/06/2018 BILATERAL 6:01 AM REPORT PROGRAMMER HEMOGLOBIN A1C Routine 05/06/2018 5:29 AM REPORT PROGRAMMER CBC W/PLT COUNT & AUTO Routine 05/06/2018 DIFFERENTIAL 5:11 AM REPORT PROGRAMMER TYPE AND SCREEN, STAT 05/06/2018 AUTOMATED 5:11 AM REPORT PROGRAMMER HEPATIC FUNCTION PANEL Routine 05/06/2018 5:11 AM REPORT PROGRAMMER LACTATE DEHYDROGENASE Routine 05/06/2018 (LDH) 5:11 AM REPORT PROGRAMMER LACTIC ACID, VENOUS Routine 05/06/2018 5:11 AM REPORT PROGRAMMER APTT Routine 05/06/2018 5:11 AM REPORT PROGRAMMER PHOSPHORUS Routine 05/06/2018 5:11 AM REPORT PROGRAMMER BASIC METABOLIC PANEL (7) Routine 05/06/2018 5:11 AM REPORT PROGRAMMER PT/APTT Routine 05/06/2018 5:11 AM REPORT PROGRAMMER MAGNESIUM Routine 05/06/2018 5:11 AM REPORT PROGRAMMER CBC W/PLT COUNT & AUTO Routine 05/06/2018 DIFFERENTIAL 5:11 AM REPORT PROGRAMMER after 11/01/2017 Results * RHYTHM STRIP - SCAN (08/27/2018 11:11 AM CDT) Only the most recent of 2 results within the time period is included. Narrative Performed At * EKG-SCANNED (08/27/2018 9:51 AM CDT) Narrative Performed At * VASCULAR DIAGRAM -SCAN (06/02/2018 2:40 PM REPORT PROGRAMMER) Only the most recent of 2 results within the time period is included. Narrative Performed At * CARDIAC CATH REPORT - SCAN (06/02/2018 2:40 PM REPORT PROGRAMMER) Narrative Performed At * CT chest without IV contrast (05/15/2018 8:41 AM REPORT PROGRAMMER) Specimen Narrative Performed At FINAL REPORT [employer] TECHNIQUE: CT scan of the chest WITHOUT [...] MD Report Verified Date/Time:05/15/2018 16:43:31 Reading Location: [address] Body Reading Room Procedure Note Interface, External Ris In - 05/15/2018 4:45 PM REPORT PROGRAMMER FINAL REPORT TECHNIQUE: CT scan of the [...] Report Verified Date/Time: 05/15/2018 16:43:31 Reading Location: [facility] [id number] CT Body Reading Room Performing Organization Address City/State/Zipcode Phone Number GE RIS * CBC with platelet count + automated diff (05/15/2018 4:46 AM REPORT PROGRAMMER) Only the most recent of 11 results within the time period is included. WBC 15.6 (H) 3.5 - 10.5 K/L [facility] RBC 3.61 (L) 4.63 - 6.08 M/L [facility] Hemoglobin 12.5 (L) 13.7 - 17.5 GM/DL [facility] Hematocrit 36.2 (L) 40.1 - 51.0 % [facility] MCV 100.3 (H) 79.0 - 92.2 fL [facility] MCH 34.6 (H) 25.7 - 32.2 pg [facility] MCHC 34.5 32.3 - 36.5 GM/DL [facility] RDW 12.9 11.6 - 14.4 % [facility] Platelets 461 (H) 150 - 450 K/CU MM [facility] MPV 9.7 9.4 - 12.4 fL [facility] nRBC 0 0 - 0 /100 WBC [facility] % Neutros 93 % [facility] % Lymphs 3 % [facility] % Monos 3 % [facility] % Eos 0 % [facility] % Baso 0 % [facility] # Neutros 14.47 (H) 1.78 - 5.38 K/L [facility] # Lymphs 0.50 (L) 1.32 - 3.57 K/L [facility] # Monos 0.43 0.30 - 0.82 K/L [facility] # Eos 0.00 (L) 0.04 - 0.54 K/L [facility] # Baso 0.01 0.01 - 0.08 K/L [facility] Immature 1 0 - 1 % [facility] Granulocytes-Relative [facility] Specimen Blood Performing Organization Address City/State/Zipcode Phone Number [facility] [address] [place] [address] MEDICAL CENTER * Thromboelastograph (TEG) (05/15/2018 4:46 AM REPORT PROGRAMMER) TEG Activated Clotting 2.6 (L) 4.0 - 7.0 minutes [facility] TEG Fibrinogen Activity 79.7 (H) 61.0 - 73.0 degrees [facility] TEG Platelet Aggregation 65.3 (H) 55.0 - 65.0 MM [facility] TEG Fibrinolysis 1.9 0.0 - 5.0 % [facility] TEG-H Activated Clotting 2.8 (L) 4.0 - 7.0 minutes [facility] Time [facility] TEG-H Fibrinogen Activity 76.9 (H) 61.0 - 73.0 degrees [facility] TEG-H Platelet 62.8 55.0 - 65.0 MM [facility] Aggregation [facility] TEG-H Fibrinolysis 1.6 0.0 - 5.0 % [facility] Specimen Blood Performing Organization Address City/[facility] Phone Number [place] [phone] * Antithrombin III (05/15/2018 4:46 AM REPORT PROGRAMMER) Antithrombin III 110.0 80.0 - 120.0 % [facility] Specimen Blood Performing Organization Address City/[facility] Phone Number [address] * Magnesium (05/15/2018 4:46 AM REPORT PROGRAMMER) Only the most recent of 12 results within the time period is included. Magnesium 1.9 1.6 - 2.6 mg/dL [facility] Specimen Blood Performing Organization Address City/[facility] Phone Number [address] [address] [phone] * Basic Metabolic Panel (05/15/2018 4:46 AM REPORT PROGRAMMER) Only the most recent of 16 results within the time period is included. Sodium 135 (L) 136 - 145 meq/L [facility] Potassium 3.0 (L) 3.5 - 5.1 meq/L [facility] Chloride 99 98 - 107 meq/L [facility] CO2 28 22 - 29 meq/L [facility] BUN 30 (H) 7 - 21 mg/dL [facility] Creatinine 0.84 0.57 - 1.25 mg/dL [facility] Glucose 121 (H) 70 - 105 mg/dL [facility] Calcium 8.3 (L) 8.4 - 10.2 mg/dL [facility] EGFR 98Comment: ESTIMATED GFR IS mL/min/1.73 sq m [facility] NOT ACCURATE CREATININE [facility] CLEARANCE IN PREDICTING GLOMERULAR FILTRATION RATE. ESTIMATED GFR IS NOT APPLICABLE FOR DIALYSIS PATIENTS. Specimen Blood Performing Organization Address City/[facility]/Zipcode Phone Number [place] [phone] * POC ACTIVATED CLOTTING TIME (05/14/2018 4:30 PM REPORT PROGRAMMER) Only the most recent of 2 results within the time period is included. Activated Clotting Time 120Comment: TESTED AT [facility] sec [address] Specimen Blood Performing Organization Address City/[facility] Phone Number [address] * aPTT (05/14/2018 1:29 PM REPORT PROGRAMMER) Only the most recent of 23 results within the time period is included. PTT 67.9 (H) 22.5 - 36.0 seconds [facility] Specimen Blood Performing Organization Address City/[facility]/Zipcode Phone Number [phone] [place] [address] * Blood culture (05/13/2018 5:00 PM REPORT PROGRAMMER) Only the most recent of 2 results within the time period is included. Result No growth in 5 days [facility] Specimen Blood Performing Organization Address City/[facility]/Zipcode Phone Number [place] [address] [place] [address] [facility] * ECHOCARDIOGRAM REPORT - SCAN (05/13/2018 2:50 PM REPORT PROGRAMMER) Narrative Performed At * ECG 12 lead (05/13/2018 12:58 PM REPORT PROGRAMMER) Specimen Narrative Performed At Ventricular Rate 96 BPM GE MUSE Atrial Rate 96 BPM P-R Interval 156 ms QRS Duration 110 ms Q-T Interval 352 ms QTC Calculation(Bazett) 444 ms P Cotter 82 degrees R Cotter 55 degrees T Cotter 67 degrees Normal sinus rhythm Normal ECG No previous ECGs available Confirmed by Evita VARGHESE BASANT ([id number]) on 05/13/2018 6:22:57 PM Procedure Note Interface, External Ris In - 05/13/2018 6:23 PM REPORT PROGRAMMER Ventricular Rate 96 BPM Atrial Rate 96 BPM P-R Interval 156 ms QRS Duration 110 ms Q-T Interval 352 ms QTC Calculation(Bazett) 444 ms P Cotter 82 degrees R Cotter 55 degrees T Cotter 67 degrees Normal sinus rhythm Normal ECG No previous ECGs available Confirmed by Evita VARGHESE BASANT ([id number]) on 05/13/2018 6:22:57 PM Performing Organization Address City/State/Zipcode Phone Number [place] * Transesophageal echo (05/13/2018 9:38 AM REPORT PROGRAMMER) Ejection Fraction [facility] ECHO HEARTLAB [facility] Specimen Narrative Performed At Transesophageal Echocardiography Report (ARNULFO) [facility] ECHO HEARTLAB Demographics [facility] Patient NameNANCIE MAHARAJ Date of Study 05/13/2018 Visit [id number] Room Number 2156 Number Date of 1970Referring Physician Luz Stephenson MD Age 47 year(s)Road Inspector Juancarlos Aceves MD Physician Procedure Type of Study ARNULFO procedure:TRANSESOPHAGEAL ECHO (Routine) Indications:Mass, cardiac. Clinical History HTN,EMBOLECTOMY 05-07-18 Height: 74 inches Weight: 99.34 kg (219 lbs) BSA: 2.26 m^2 BMI: 28.12 kg/m^2 HR: 82 bpm BP: 140/85 mmHg O2 Saturation: 99 % ARNULFO Performed By: the attending and the game design instructor Procedure Informed Consent ARNULFO procedure notes Moderate [...] External Ris In - 05/21/2018 9:49 AM REPORT PROGRAMMER Transesophageal Echocardiography Report (ARNULFO) Demographics Patient Name NANCIE MAHARAJ Date of Study 05/13/2018 Gender Male Visit Number [id number] Race Room Number 2156 Number Date of 1970 Referring Physician Luz Stephenson MD Age 47 year(s) [address] Inspector Juancarlos Aceves MD Physician Procedure Type of Study ARNULFO procedure:TRANSESOPHAGEAL ECHO (Routine) Indications:Mass, cardiac. Clinical History HTN,EMBOLECTOMY 05-07-18 Height: 74 inches Weight: 99.34 kg (219 lbs) BSA: 2.26 m^2 BMI: 28.12 kg/m^2 HR: 82 bpm BP: 140/85 mmHg O2 Saturation: 99 % ARNULFO Performed By: the attending and the game design instructor Procedure Informed Consent ARNULFO procedure notes Moderate [...] l/min/m^2 Performing Organization Address City/State/Zipcode Phone Number [facility] * ECHOCARDIOGRAM REPORT - SCAN (05/12/2018 6:20 PM REPORT PROGRAMMER) Narrative Performed At * ECHO W CONTRAST & DOPPLER (05/12/2018 1:54 PM REPORT PROGRAMMER) Ejection Fraction [facility] [employer] [facility] Specimen Narrative Performed At Transthoracic Echocardiography Report (TTE) [facility] [employer] [facility] Demographics [facility] Patient NameGUELKER,Date of Study05/12/2018 NANCIE Male Visit [id number] Room [id number] Number Date of 1970ReferringAllascencion Stephenson MD Physician Age 47 year(s)SonographerMarei Pittman, SHELBI, RDCS,RVT,RDMS Rail Car Loader Marlon Carrillo Interpreting Amrit Veliz MD Physician [...] External Ris In - 05/12/2018 5:43 PM REPORT PROGRAMMER Transthoracic Echocardiography Report (TTE) Demographics Patient Name NICKO, Date of Study 05/12/2018 NANCIE Gender Male Visit Number [id number] Race Room Number 2156 Number Date of 1970 Referring Luz Stephenson MD Physician Age 47 year(s) Road Inspector SHELBI Dunn, RDCS,RVT,RDMS Rail Car Loader Marlon Carrillo Interpreting Amrit Veliz MD Physician [...] 0.09 m/s E/E': 5.15 Performing Organization Address City/[facility] Phone Number [facility] E[facility] HEART[facility] * Hemoglobin and hematocrit (05/11/2018 5:14 PM REPORT PROGRAMMER) Hemoglobin 12.9 (L) 13.7 - 17.5 GM/DL [facility] Hematocrit 38.1 (L) 40.1 - 51.0 % [facility] Specimen Blood Performing Organization Address City/[facility]/Zipcode Phone Number [facility] [address] [place] [address] [facility] * Tissue Exam (05/11/2018 5:14 PM REPORT PROGRAMMER) Only the most recent of 3 results within the time period is included. 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 Resection margin is inked blue. The specimen is bisected and submitted entirely A1. CG/pl MICROSCOPIC DESCRIPTION Sections show skin with marked [facility] spongiosis and superficial [facility] perivascular infiltrates, including lymphocytes, histiocytes and numerous eosinophils. Specimen Tissue Performing Organization Address City/[facility]/Zipcode Phone Number [facility] [address] [place] [address] [facility] * US renal biopsy (05/11/2018 10:00 AM REPORT PROGRAMMER) Specimen Narrative Performed At FINAL REPORT [employer] Ultrasound guidance was provided to the referring terminal supervisor by the photo technician for a kidney biopsy. 12 images were obtained. Signed: Francisco Javier Joaquin MD Report Verified Date/Time:05/15/2018 14:22:54 Reading Location: [address] Ortho Consult Reading Room Procedure Note Interface, External Ris In - 05/15/2018 2:25 PM REPORT PROGRAMMER FINAL REPORT Ultrasound guidance was provided to the referring terminal supervisor by the photo technician for a kidney biopsy. 12 images were obtained. Signed: Francisco Javier Joaquin MD Report Verified Date/Time: 05/15/2018 14:22:54 Reading Location: [facility] C013X Ortho Consult Reading Room Performing Organization Address City/State/Zipcode Phone Number [employer] * PT/aPTT (05/11/2018 6:04 AM REPORT PROGRAMMER) Only the most recent of 2 results within the time period is included. Protime 12.7 11.7 - 14.7 seconds [facility] INR 1.0 <=5.9 [facility] PTT 28.4 22.5 - 36.0 seconds [facility] Specimen Blood Narrative Performed At RECOMMENDED COUMADIN/WARFARIN INR THERAPY RANGES [facility] STANDARD DOSE: 2.0 - 3.0 Includes: PROPHYLAXIS for venous thrombosis, [facility] systemic embolization; TREATMENT for venous thrombosis and/or pulmonary embolus. HIGH RISK: Target INR is 2.5-3.5 for patients with mechanical heart valves. Performing Organization Address [facility] Phone Number [address] [address] [facility] * Prothrombin time/INR (05/11/2018 6:04 AM REPORT PROGRAMMER) Only the most recent of 3 results within the time period is included. Protime 12.7 11.7 - 14.7 seconds [facility] INR 1.0 <=5.9 [facility] Specimen Blood Narrative Performed At RECOMMENDED COUMADIN/WARFARIN INR THERAPY RANGES [facility] STANDARD DOSE: 2.0 - 3.0 Includes: PROPHYLAXIS for venous thrombosis, [facility] systemic embolization; TREATMENT for venous thrombosis and/or pulmonary embolus. HIGH RISK: Target INR is 2.5-3.5 for patients with mechanical heart valves. Performing Organization Address City/[facility]/Zipcode Phone Number [facility] [address] [place] [address] [facility] * Occult blood, stool (05/10/2018 5:44 AM REPORT PROGRAMMER) Occult blood Negative Negative [facility] Specimen Stool Performing Organization Address [facility]/Zipcode Phone Number [place] [phone] [place] [address] [facility] * US renal complete (05/09/2018 2:35 AM REPORT PROGRAMMER) Specimen Narrative Performed At FINAL REPORT [facility] Ultrasound of the Kidneys Clinical History:BEBA on [...] MD Report Verified Date/Time:05/09/2018 05:30:16 Reading Location: [facility] C013Y CT Body Reading Room Procedure Note Interface, External Ris In - 05/09/2018 5:32 AM REPORT PROGRAMMER FINAL REPORT Ultrasound of the Kidneys Clinical [...] Report Verified Date/Time: 05/09/2018 05:30:16 Reading Location: [facility] B1 C013Y CT Body Reading Room Performing Organization Address City/State/Zipcode Phone Number [facility] * ECHOCARDIOGRAM REPORT - SCAN (05/08/2018 7:50 PM REPORT PROGRAMMER) Narrative Performed At * Urea Nitrogen, random urine (05/08/2018 12:06 PM REPORT PROGRAMMER) Only the most recent of 2 results within the time period is included. Urea Nitrogen, Ur 132 mg/dL [facility] Specimen Urine Narrative Performed At Reference Range: No Normals [facility] Performing Organization Address [facility] Phone Number [address] * Sodium, random urine (05/08/2018 12:06 PM REPORT PROGRAMMER) Only the most recent of 2 results within the time period is included. Sodium Urine 88 meq/L [facility] Specimen Urine Narrative Performed At Reference Range: No Normals [facility] Performing Organization Address [facility] Phone Number [address] * Osmolality, urine (05/08/2018 12:06 PM REPORT PROGRAMMER) Only the most recent of 2 results within the time period is included. Osmolality, Ur 296 40-1,400 mOsm/kg [facility] Specimen Urine Performing Organization Address City/[facility] Phone Number [address] * Creatinine, random urine (05/08/2018 12:06 PM REPORT PROGRAMMER) Only the most recent of 2 results within the time period is included. Creatinine, Ur 42.2 mg/dL [facility] Specimen Urine Narrative Performed At Reference Range: No Normals [facility] Performing Organization Address City/[facility] Phone Number [address] [address] [facility] * 2D Echo W/Doppler(CW/PW/Color) (05/08/2018 10:46 AM REPORT PROGRAMMER) Ejection Fraction [facility] ECHO HEARTLAB [facility] Specimen Narrative Performed At Transthoracic Echocardiography Report (TTE) [facility] ECHO HEARTLAB Demographics [facility] Patient Name Edil MAHARAJ of Study 05/08/2018 [id number] GenderMale Visit Number [id number] RaceWil [id number] Number [id number] Number Date of Birth1970 Referring Physician Jose Treviño Age47 year(s) Road Inspector Fernando Núñez [facility] AnalystMailyn InterpretingMD Maria Farley Physician [...] External Ris In - 05/08/2018 7:16 PM REPORT PROGRAMMER Transthoracic Echocardiography Report (TTE) Demographics Patient Name NANCIE MAHARAJ Date of Study 05/08/2018 Gender Male Visit Number [id number] Race Room Number 2156 Number Date of 1970 Referring Physician Jose Treviño Age 47 year(s) Road Inspector Fernando Núñez [employer] Ambar Interpreting MD Rashard [facility] Physician Procedure Type of Study TTE procedure:2DECHO [...] LVOT CI: 2.65 l/min/m^2 Performing Organization Address City/[facility] Phone Number [facility] ECHO HEARTLAB [facility] * Osmolality, serum (05/08/2018 8:18 AM REPORT PROGRAMMER) Only the most recent of 2 results within the time period is included. Osmolality Serum 273 (L) 275 - 295 mOsm/kg [facility] Specimen Blood Performing Organization Address [facility] [place] [address] [phone] [place] [address] * Calcium, Ionized (05/07/2018 10:06 PM REPORT PROGRAMMER) Calcium, Ion 1.09 (L) 1.12 - 1.27 mmol/L [facility] pH, Blood 7.43 [facility] Specimen Blood Performing Organization Address [facility] [place] [address] [facility] * Lactic acid, venous, whole blood (05/07/2018 10:06 PM REPORT PROGRAMMER) Only the most recent of 2 results within the time period is included. Lactate, Venous 0.8Comment: Specimen slightly 0.5 - 2.2 mmol/L [facility] hemolyzed [facility] Specimen Blood Performing Organization Address [facility] Phone Number [address] [address] [facility] * Phosphorus (05/07/2018 10:06 PM REPORT PROGRAMMER) Only the most recent of 2 results within the time period is included. Phosphorus 4.5 2.3 - 4.7 mg/dL [facility] Specimen Blood Performing Organization Address City/[facility] Phone Number [address] [address] [phone] [place] [address] * TRANSFUSION SERVICE REPORT - SCAN (05/07/2018 6:00 PM REPORT PROGRAMMER) Narrative Performed At * Rheumatoid factor Ab, reflex to titer (05/07/2018 9:15 AM REPORT PROGRAMMER) Rheumatoid Factor Negative [facility] Specimen Blood Performing Organization Address [facility] Phone Number [address] [address] [facility] * Lipid panel (05/07/2018 3:02 AM REPORT PROGRAMMER) Triglycerides 97 mg/dL [facility] Cholesterol 261 mg/dL [facility] HDL 60 mg/dL [facility] LDL Calculated 182 mg/dL [facility] Specimen Blood Narrative Performed At Triglyceride Reference Range: [facility] Low Risk <150 [facility] [id number] High Risk 200-499 Very High Risk>=500 Cholesterol Reference Range: Low Risk <200 [id number] High Risk>240 HDL Cholesterol Reference Range: Low Risk >=60 High Risk <40 LDL Cholesterol Reference Range: Optimal<100 Near [id number] [id number] Oqqv503-989 Very High >=190 Performing Organization Address [facility] Phone Number [address] [address] [facility] * Protein, random urine (05/06/2018 8:32 PM REPORT PROGRAMMER) Only the most recent of 2 results within the time period is included. Protein, Urine 1,612 (H) 0 - 14 mg/dL [facility] Specimen Urine Performing Organization Address [facility] Phone Number [place] [phone] [place] [address] [facility] * Urine Protein Electrophoresis, random (05/06/2018 8:32 PM REPORT PROGRAMMER) Protein, Urine 1,612 (H) 0 - 14 mg/dL [facility] Albumin %, Urine 63.3 % [facility] Globulin %, Urine 36.7 % [facility] UPEP,ID Urine protein study consistent [facility] with glomerular dysfunction. [facility] No monoclonal bands detected. Pathologist: Lesvia Matson MD (electronic [facility] signature) [facility] Specimen Urine Performing Organization Address City/State/Zipcode Phone Number [facility] [address] [place] [address] [facility] * Urinalysis w/Microscopic (05/06/2018 8:32 PM REPORT PROGRAMMER) Color, UA Yellow [facility] Clarity, UA Hazy [facility] Specific [place], UA 1.034 1.001 - 1.035 [facility] pH, UA 6.0 5.0 - 8.0 [facility] Protein, UA 600 mg/dL (A) Negative [facility] Glucose, UA Negative Negative [facility] Ketones, UA Negative Negative [facility] Bilirubin, UA Negative Negative [facility] Blood, UA Large (A) Negative [facility] Nitrite, UA Negative Negative [facility] Leukocytes, UA Negative Negative [facility] Urobilinogen, UA 0.2 0.2 - 1.0 mg/dL [facility] RBC, UA 35 /HPF [facility] WBC, UA 10 /HPF [facility] Mucus Few [facility] Hyaline Casts, UA 29 /LPF [facility] Granular Casts, UA 4 /LPF [facility] Yeast Few [facility] Specimen Source Urine, Voided [facility] Specimen Urine Performing Organization Address City/State/Zipcode Phone Number [address] [address] [facility] * Double-Stranded DNA (dsDNA) Antibody (05/06/2018 8:15 PM REPORT PROGRAMMER) ds DNA Ab Negative [facility] Specimen Blood Performing Organization Address City/[facility]/Zipcode Phone Number [place] [phone] [place] [address] * Hepatitis panel, acute (05/06/2018 8:15 PM REPORT PROGRAMMER) Hep A IgM HEPATITIS A TEST NEGATIVE Nonreactive [facility] Hep B C IgM NON-REACTIVE Nonreactive [facility] Hepatitis C Ab NON-REACTIVE Nonreactive [facility] hepatitis B Surface Ag NON-REACTIVE Nonreactive [facility] Specimen Blood Performing Organization Address City/[facility] Phone Number [place] [phone] * Beta-2 glycoprotein antibodies (05/06/2018 8:15 PM REPORT PROGRAMMER) B2 Glcoprotein Ab Profile Refer to individual [facility] B2-Glycoprotein IgG, IgM and INCORPORATED IgA results. Specimen Blood Narrative Performed At Performing Organization Address City/State/Zipcode Phone Number [facility], [address] [place], [place] [facility] [address] * Cardiolipin Antibodies, IgG and IgM (05/06/2018 8:15 PM REPORT PROGRAMMER) Anticardiolipin IgG <1.6 <20.0 GPL [facility] Anticardiolipin IgM 0.2 <20.0 MPL [facility] Specimen Blood Narrative Performed At Anticardiolipin IgG Result Interpretation: [facility] <20.0 GPL Normal [facility] >/=20.0 GPL Positive Anticardiolipin IgM Result Interpretation: <20.0 MPL Normal >/=20.0 MPL Positive Performing Organization Address [facility] Phone Number [address] * Complement Component C3 (05/06/2018 8:15 PM REPORT PROGRAMMER) C3 Complement 130 82 - 193 mg/dL [facility] Specimen Blood Performing Organization Address [facility] Phone Number [address] * Complement Component C4 (05/06/2018 8:15 PM REPORT PROGRAMMER) C4 Complement 26 15 - 57 mg/dL [facility] Specimen Blood Performing Organization Address [facility] Phone Number [address] * Anti-Nuclear Antibody (YO) (05/06/2018 8:15 PM REPORT PROGRAMMER) YO Negative Negative [facility] Specimen Blood Narrative Performed At Test performed by IFA method. [facility] Test performed by IFA method. [facility] Performing Organization Address [facility] Phone Number [address] * Folate, Serum (05/06/2018 8:15 PM REPORT PROGRAMMER) Folate 11.4 >=7.0 ng/mL [facility] Specimen Blood Performing Organization Address [facility] Phone Number [address] * Vitamin B12 (05/06/2018 8:15 PM REPORT PROGRAMMER) Vitamin B12 272 213 - 816 pg/mL [facility] Specimen Blood Performing Organization Address [facility]/Zipcode Phone Number [facility] [address] [place], [place] [phone] [facility] * Harrington / lambda light chains, serum (05/06/2018 8:14 PM REPORT PROGRAMMER) Harrington Lt Chain,Free 23.8 (H) 3.3 - 19.4 mg/L [facility] Lambda Lt Chain,Free 20.4 5.7 - 26.3 mg/L [facility] Harrington/Lambda,Free 1.17 0.26 - 1.65 [facility] Comment: [...] Lab [facility] [address] [place] [address] Raúl Mancuso MD, PhD, RASHID Performing Organization Address City/[facility]/Zipcode Phone Number [facility], [address] [facility] [address] * Protein electrophoresis, serum (05/06/2018 8:14 PM REPORT PROGRAMMER) Albumin Fraction 1.4 (L) 3.5 - 5.5 g/dL [facility] Alpha 1 Fraction 0.3 0.2 - 0.4 g/dL [facility] Alpha 2 Fraction 0.8 0.5 - 0.9 g/dL [facility] Beta Fraction 0.4 (L) 0.6 - 1.1 g/dL [facility] Gamma Globulin Fraction 0.8 0.7 - 1.7 g/dL [facility] Interpretation Alpha-1 and alpha-2 increased. [facility] Albumin, beta, and gamma [facility] decreased. This suggests a nephrotic pattern. Pathologist: Lesvia Matson MD (electronic [facility] signature[facility] Protein, Total 3.7 (L) 6.0 - 8.3 gm/dL [facility] Specimen Blood Performing Organization Address City/[facility] Phone Number [address] [address] [phone] [place] [address] * Cryoglobulin (05/06/2018 8:12 PM REPORT PROGRAMMER) Cryoglobulin Negative [facility] Specimen Blood Performing Organization Address [facility] Phone Number [address] * Lupus Anticoagulant Screen with Reflex To Confirmatory (05/06/2018 6:38 PM REPORT PROGRAMMER) DRVV Screen Ratio 0.75 <1.20 [facility] Interpretations Normal DRVV Results [facility] Protime 12.6 11.7 - 14.7 seconds [facility] INR 0.9 <=5.9 [facility] PTT 29.6 22.5 - 36.0 seconds [facility] PTT-LA 35.5 32.0 - 41.8 [facility] Pathologist: Jovi Aguilar MD (electronic [facility] signatureMAR[facility] Specimen Blood Performing Organization Address [facility] Phone Number [address] [address] [phone] [place] [address] * TSH/Free T4 If Indicated (05/06/2018 10:42 AM REPORT PROGRAMMER) TSH 0.20 (L) 0.35 - 4.94 uIU/mL [facility] Specimen Blood Performing Organization Address City/[facility] Phone Number [address] [address] [phone] [place] [address] * HIV-1 Antigen with HIV-1/2 Antibody (05/06/2018 10:42 AM REPORT PROGRAMMER) HIV-1 Antigen with HIV NON-REACTIVE Nonreactive [facility] 1&2 Antibody [facility] Specimen Blood Performing Organization Address City/[facility] Phone Number [address] * Herpes virus antibody, IgM (05/06/2018 10:42 AM REPORT PROGRAMMER) Herpes Virus IGM Negative [facility] Specimen Blood Narrative Performed At Performing Organization Address [facility] Phone Number [address] * Potassium, random urine (05/06/2018 10:42 AM REPORT PROGRAMMER) Potassium Urine 38.2 meq/L [facility] Specimen Urine Narrative Performed At Reference Range: No Normals [facility] Performing Organization Address [facility] Phone Number [address] * Chloride, random urine (05/06/2018 10:42 AM REPORT PROGRAMMER) ChlorideUr 56 meq/L [facility] Specimen Urine Narrative Performed At Reference Range: No Normals [facility] Performing Organization Address City/[facility] Phone Number [address] * RPR (05/06/2018 10:42 AM REPORT PROGRAMMER) RPR Nonreactive Nonreactive [facility] Specimen Blood Performing Organization Address [facility] Phone Number [address] * Hepatitis B surface antibody (05/06/2018 10:42 AM REPORT PROGRAMMER) Hep B S Ab <8.0 <8.0 mIU/mL [facility] Specimen Blood Performing Organization Address City/[facility]/Zipcode Phone Number [address] * Hepatitis B surface antigen (05/06/2018 10:42 AM REPORT PROGRAMMER) hepatitis B Surface Ag NON-REACTIVE Nonreactive [facility] Specimen Blood Performing Organization Address City/[facility]/Zipcode Phone Number [address] * T4, free (05/06/2018 10:42 AM REPORT PROGRAMMER) Free T4 1.49 (H) 0.70 - 1.48 ng/dL [facility] Specimen Blood Performing Organization Address [facility] Phone Number [address] * POC-Glucose meter (05/06/2018 10:33 AM REPORT PROGRAMMER) POC-Glucose Meter 88Comment: TESTED AT [facility] 70 - 110 mg/dL [address] Specimen Blood Performing Organization Address City/[facility] Phone Number [address] * XR chest 1 view portable / bedside (05/06/2018 9:30 AM REPORT PROGRAMMER) Specimen Narrative Performed At FINAL REPORT [facility] INDICATION: admission COMPARISON: None. TECHNIQUE: Chest radiograph, single view, portable technique. FINDINGS / IMPRESSION: No consolidation, pulmonary edema, pneumothorax, or pleural effusion is demonstrated. Cardiac and mediastinal contours are unremarkable for portable technique. Old healed right posterolateral rib fractures are noted. Signed: Jorden Loera MD Report Verified Date/Time:05/06/2018 10:14:04 Reading Location: [facility] Radiology Reading Room Procedure Note Interface, External Ris In - 05/06/2018 10:16 AM REPORT PROGRAMMER FINAL REPORT INDICATION: admission COMPARISON: None. TECHNIQUE: Chest radiograph, single view, portable technique. FINDINGS / IMPRESSION: No consolidation, pulmonary edema, pneumothorax, or pleural effusion is demonstrated. Cardiac and mediastinal contours are unremarkable for portable technique. Old healed right posterolateral rib fractures are noted. Signed: Jorden Loera MD Report Verified Date/Time: 05/06/2018 10:14:04 Reading Location: [facility] Radiology Reading Room Performing Organization Address City/State/Zipcode Phone Number RIS * Venous doppler legs bilateral (05/06/2018 6:01 AM REPORT PROGRAMMER) [facility] ECHO HEARTLAB [facility] Specimen Impressions Performed At Right Impression [facility] ECHO HEART[facility] 1. There is no deep venous obstruction in the common femoral, profunda [facility] femoral, femoral, popliteal, posterior tibial or [...] PV LAB - Lower Extremities DVT Study [facility] ECHO HEARTLAB Demographics MKCKESSON CPACS Patient NameNANCIE MAHARAJ Date of Study05/06/2018 Visit [id number] Male of Birth1970 [facility] [id number] Physician [address] Inspector Jose Mascorro MD SchaeferPhysician Procedure Type of [...] External Ris In - 05/06/2018 11:44 AM REPORT PROGRAMMER PV LAB - Lower Extremities DVT Study Demographics Patient Name NANCIE MAHARAJ Date of Study 05/06/2018 Age 47 Visit Number [id number] Gender Male Accession Number [id number] Date of 1970 Referring [facility] Room Number 2C24 Phys[address] Inspector MD Dax Benavideser Physician Procedure Type of Study: Veins: Lower Extremities DVT Study, VENOUS DOPPLER LEG, BILATERAL. Indications for Study:Cellulitis and Edema. Patient Status:Routine. Study Location:Portable. Technical Quality:Adequate visualization. Risk Factors History of Disease + +----+ + !Diagnosis !Date!Comments ! + +----+ + !History/Risk ! !Bilateral LE Edema, Bilateral LE Cellulitis, Lt Arm! !Factors: ! !Brachial Clot (per [facility]) ! + +----+ + Impressions Right [...] are measured in cm Performing Organization Address City/[facility] Phone Number [facility] MKCKESSON CPACS * Hemoglobin A1c (05/06/2018 5:29 AM REPORT PROGRAMMER) Hemoglobin A1C 5.1 4.3 - 6.1 % [facility] Specimen Blood Performing Organization Address City/[facility] Cent[facility]ode Phone Number [address] * Type and screen, automated (05/06/2018 5:11 AM REPORT PROGRAMMER) ABO/RH AUTOMATED (BEJOSSUE) B POSITIVE [facility] Ab Scrn NEGATIVE [facility] Specimen Blood Performing Organization Address [facility] Phone Number [address] * Lactate dehydrogenase (LDH) (05/06/2018 5:11 AM REPORT PROGRAMMER) LDH 219 125 - 220 U/L [facility] Specimen Blood Performing Organization Address [facility] Phone Number [address] * Hepatic function panel (05/06/2018 5:11 AM REPORT PROGRAMMER) Protein, Total 4.9 (L) 6.0 - 8.3 gm/dL [facility] Albumin 2.0 (L) 3.5 - 5.0 g/dL [facility] Total Bilirubin 0.2 0.2 - 1.2 mg/dL [facility] Bilirubin, Direct 0.1 0.1 - 0.5 mg/dL [facility] Alkaline Phosphatase 100 40 - 150 U/L [facility] AST 18 5 - 34 U/L [facility] ALT 11 6 - 55 U/L [facility] Specimen Blood Performing Organization Address City/State/Zipcode Phone Number [facility] [address] [place] [address] [facility] after 11/01/2017 Insurance Payer Benefit Subscriber ID Type Phone Address Plan / Group BLUE CROSS/BLUE SHIELD BCBS PPO xxxxxxxxxxxx PPO [phone] [address] [place] [address] CHOICE Advance Directives For more information, please contact: [place] [address] [place] [address] Date Inactivated Comments Code Status Date Activated Full Code 05/07/2018 9:58 PM This code status was determined by: Patient
--- NOTE | 2018-11-02 08:10 | NUR ---
RECEIVED PT AAOX3. FAMILY AT BEDSIDE. BED IS AT LOWEST POSITION AND LOCKED. CALL LIGHT WITH IN REACH. TELE IS ON. PT DENIES NEEDS AT THIS TIME.
[2018-11-02 08:30] VITALS: BP 136/57
[2018-11-02] MEDS ORDERED: FAMOTIDINE 20 MG/2 ML VIAL IV SCH (09:00)
[2018-11-02 09:03] VITALS: BP 149/68
[2018-11-02] MEDS ORDERED: ALBUTEROL SULF 0.083% NEB SOLN 3 ML NEB NEB PRN (09:30)
[2018-11-02] MEDS ORDERED: HYDROXYZINE HCL 25 MG TAB PO PRN (09:30)
[2018-11-02 09:53] LABS: BASOPHILS % 0.4 % (0.0-1.0); EOSINOPHILS # (AUTO) 0.4 (0.0-0.4); EOSINOPHILS % 4.6 % (0.0-6.0); HEMATOCRIT 25.2 % (38.2-49.6); HEMOGLOBIN 7.9 g/dL (14.0-18.0); LYMPHOCYTES # (AUTO) 1.3 (1.0-3.2); LYMPHOCYTES % 14.6 % (18.0-39.1); MEAN CORPUSCULAR HEMOGLOBIN 29.6 pg (28-32); MEAN CORPUSCULAR HGB CONC 31.3 g/dL (31-35); MEAN CORPUSCULAR VOLUME 94.4 fL (81-99); MONOCYTES # (AUTO) 0.8 (0.2-0.8); MONOCYTES % 8.9 % (4.4-11.3); NEUTROPHILS # (AUTO) 6.4 (2.1-6.9); NEUTROPHILS % 70.6 % (38.7-80.0); PLATELET COUNT 353 x10e3/uL (140-360); RED BLOOD COUNT 2.67 x10e6/uL (4.3-5.7)
[2018-11-02 10:00] VITALS: BP 130/57
[2018-11-02 10:10] LABS: ANION GAP 14.1 mmol/L (8-16); CALCIUM 8.9 mg/dL (8.4-10.2); CREATININE, SERUM 5.8 mg/dL (0.72-1.25); MAGNESIUM 1.6 MG/DL (1.3-2.1); POTASSIUM 3.1 mmol/L (3.5-5.1)
[2018-11-02] MEDS ORDERED: SERTRALINE HCL50 MG PO (10:15)
[2018-11-02] MEDS ORDERED: ZOLOFT50 MG PO (10:15)
[2018-11-02] MEDS ORDERED: METOPROLOL TARTRATE INJ 1 MG/ML VIAL IV PRN (10:15)
[2018-11-02] MEDS ORDERED: ALBUTEROL0.63 MG/3 INH (10:17)
[2018-11-02 10:53] LABS: FREE T4 (FREE THYROXINE) 1.1 ng/dL (0.9-1.8); THYROID STIMULATING HORMONE 1.303 uIU/mL (0.350-4.940)
[2018-11-02] MEDS: SEVELAMER CARBONATE 800 MG TAB PO SCH ×2 (11:05→16:56)
[2018-11-02] MEDS: APIXAB 2.5 MG TABLET PO SCH ×2 (11:06→21:41)
[2018-11-02] MEDS: CARVEDILOL 12.5 MG TAB PO SCH ×2 (11:06→21:41)
[2018-11-02] MEDS: METOCLOPRAMIDE HCL 10 MG/2ML VIAL IV SCH ×3 (11:06→21:40)
[2018-11-02 11:21] VITALS: BP 130/57
[2018-11-02] MEDS: CEFAZOLIN SOD 1 GM/NS 50ML 50 ML IV SCH (13:27)
[2018-11-02 15:16] LABS: CREATINE KINASE MB 0.9 ng/mL (0-5.0)
[2018-11-02 16:11] VITALS: BP 106/46
[2018-11-02] MEDS: FAMOTIDINE 20 MG TAB PO SCH (16:56)
--- NOTE | 2018-11-02 18:23 | NUR ---
CALLED [facility] PER DR. JESUS RODRIGUEZ. CONFIRMED DIALYSIS APPOINTMENT WITH [facility] FOR TOMORROW MORNING NOVEMBER 03 2018
--- NOTE | 2018-11-02 19:00 | NUR ---
BEDSIDE SHIFT REPORT GIVEN TO THE INSIGHTS STRATEGIST RN. PT DENIED FURTHER NEEDS.
--- NOTE | 2018-11-02 19:01 | Consultation ---
DATE OF CONSULTATION: 11/02/2018 CHIEF COMPLAINT: Arrhythmia, sepsis. HISTORY OF PRESENT ILLNESS: This patient who is well known to me from previous admission. The patient was in [facility] with very prolonged hospitalization. He was septic with MSSA with endocarditis and septic emboli. The patient does have history of alcoholism. He was treated IV antibiotic. He went into acute renal failure and then he ended up with dialysis. The patient has been on cefazolin 1 g IV piggyback daily as an outpatient. Apparently, he started to have some arrhythmia, first his heart was beating fast, so he came to the hospital. The patient is being admitted and I am asked to see him. The patient who is currently lying in bed comfortably. No fever, no chills, did discuss with his . The patient is being admitted. He has no new complaints except arrhythmia as mentioned above. There is no fever, no chills. There is no new pain. His at the bedside to provide the information. PHYSICAL EXAMINATION: GENERAL: He is currently alert, oriented, does not seem to be in acute distress. VITAL SIGNS: Stable, currently afebrile. HEENT: He is not icteric. NECK: Supple. CHEST: Clear bilateral. COR: S1, S2. No S3, S4, or murmur. ABDOMEN: Soft. Bowel sounds present. EXTREMITIES: No edema. SKIN: No rash. IMPRESSION: 1. Arrhythmia. Consult Cardiology, echocardiogram. 2. History of endocarditis, continue cefazolin 1 g q.24 hours. 3. End-stage disease, on hemodialysis. 4. History of alcoholism. 5. Debility. 6. Anemia of chronic disease. We will follow with you. Further recommendations depending on the clinical progress. Discussed with the . TIME SPENT: 1 hour. MD VERÓNICA Latif/RY /[id number]
[2018-11-02 20:00] VITALS: BP 104/50
[2018-11-02] MEDS ORDERED: ZOLPIDEM TARTRATE 5 MG TAB PO PRN (21:00)
[2018-11-02] MEDS: CLONIDINE HCL 0.1 MG TAB PO SCH (21:00)
[2018-11-02] MEDS: SERTRALINE HCL 50 MG TAB PO SCH (21:41)
--- NOTE | 2018-11-02 22:27 | Consultation ---
DATE OF CONSULTATION: 11/02/2018 Cardiology Consultation We are familiar with this pleasant gentleman through his admission to [facility] I believe he was discharged from [facility] maybe a week or 10 days ago. The patient at this time admitted to the emergency room at [facility] for palpitations, some atypical chest pain, and shortness of breath. DIAGNOSES: 1. Endocarditis of aortic valve. 2. History of clots in the left upper veins and he had surgery done at [facility] maybe for 3 to 4 months ago. 3. IgA nephropathy, biopsy-proven. 4. Chronic renal failure, on hemodialysis. 5. Possible paroxysmal atrial fibrillation. At this time, the patient has no symptoms. The patient is lying down flat without any problems, and the patient's troponin is borderline high and BNP is 2000s and hemoglobin is anemia, is about 7.8 g percent. WBC count is normal. Platelet counts are normal. Chest x-ray normal. Positive pleural effusion on the left side. EKG is sinus rhythm, normal, clinically no evidence of congestive heart failure. His BNP is increased because of renal failure. At this time, we will continue all his present medications ordered by the primary physician and the patient to continue Eliquis my point of view, antibiotics, and Dr. Peterson, Infectious Disease following the patient very closely. He has a history of DVT and pulmonary emboli while he was in [facility] At this time, I will follow the patient and order an echocardiogram to assess left ventricular function, look at the valve also, and the patient appears to be more stable than he was in [place]. The patient at that time had mild sepsis and also positive metabolic encephalopathy or renal encephalopathy, however, they have improved very much. I discussed with the and the patient at bedside. I will continue to follow the patient from cardiac point of view and clinically no evidence of acute congestive heart failure at this time. MD GERRY Joe/ARIESL /[id number]
[2018-11-03] VITALS (8 sets, daily range): BP systolic 99–130; BP diastolic 43–63
--- NOTE | 2018-11-03 00:48 | Consultation ---
DATE OF CONSULTATION: 11/02/2018 HISTORY OF PRESENT ILLNESS: A 48-year-old gentleman known to our Nephrology Service. Dialysis, the patient dialyzes on Tuesdays, , and Saturdays, history of alcoholism, hypertension, end-stage renal disease, presented with tachyarrhythmia, Dr. Caldera is on the case. Currently resting, comfortable, no apparent distress. Denies any palpitation, chest pain, or shortness of breath. Workup revealed evidence of anemia, hemoglobin 7.9. Chemistry shows potassium 3.1, creatinine 5.8, troponin I 0.43. BNP 2949. Chest x-ray, please see official report, shows new right lower lobe lung field opacification representing combination of effusion and atelectasis. Underlying pneumonia should be ruled out. The patient denies any fever and chills. He is normally feels very cold at home and the has to keep the temperature up in the room. He is lying supine. ALLERGIES: HE IS ALLERGIC TO AMLODIPINE. CURRENT MEDICATIONS: Please see MAR. He is on Zoloft 25 mg at bedtime, Renagel 2400 mg p.o. t.i.d. with meals, metoclopramide p.r.n. dose, hydrocodone p.r.n., famotidine 20 mg p.o. b.i.d., Eliquis 2.5 mg daily, carvedilol 12.5 p.o. b.i.d. He is on cefazolin 1 g IV q.24, albuterol nebulizers. Metoprolol p.r.n., hydroxyzine, Atarax 25 mg p.o. q.6 hours p.r.n. He is also on clonidine 0.1 mg p.o. q.12. SOCIAL HISTORY: Does not smoke or drink. FAMILY HISTORY: Significant for hypertension. PHYSICAL EXAMINATION: GENERAL: Awake, alert, lying supine, in no apparent distress with a blood pressure 106/56, pulse rate 77, afebrile, and respiratory rate 14. HEAD AND NECK: Cornea clear. Mucosa moist. Neck veins flat. LUNGS: Occasional rales, right lower zone more than left. HEART: S1, S2 audible. ABDOMEN: Otherwise soft, nontender. EXTREMITIES: Lower extremity, no edema. IMPRESSION: Tachyarrhythmia. Elevated troponin. Thyroid function test noted. Evidence of congestive heart failure, albeit compensated. Possible pneumonia. Underlying anemia, multifactorial. PLAN: Arranging for dialysis, fluid restriction, replace potassium, renal diet. We will type and crossmatch 1 unit packed RBC and transfuse on dialysis tomorrow. Discussed with . Discussed with bedside RN. Infectious Disease on the case. Cardiology on the case. MD SHAWANDA Jones/RY /[id number]
[2018-11-03 03:48] LABS: BASOPHILS % 0.4 % (0.0-1.0); EOSINOPHILS # (AUTO) 0.5 (0.0-0.4); EOSINOPHILS % 4.2 % (0.0-6.0); HEMATOCRIT 23.4 % (38.2-49.6); HEMOGLOBIN 7.7 g/dL (14.0-18.0); LYMPHOCYTES % 9.3 % (18.0-39.1); MEAN CORPUSCULAR HEMOGLOBIN 30.4 pg (28-32); MEAN CORPUSCULAR HGB CONC 32.9 g/dL (31-35); MEAN CORPUSCULAR VOLUME 92.5 fL (81-99); MONOCYTES # (AUTO) 0.9 (0.2-0.8); MONOCYTES % 7.9 % (4.4-11.3); NEUTROPHILS # (AUTO) 8.6 (2.1-6.9); NEUTROPHILS % 77.7 % (38.7-80.0); PLATELET COUNT 398 x10e3/uL (140-360); RED BLOOD COUNT 2.53 x10e6/uL (4.3-5.7); RED CELL DISTRIBUTION WIDTH 15.1 % (11.7-14.4)
[2018-11-03 04:13] LABS: CREATINE KINASE MB 0.6 ng/mL (0-5.0)
[2018-11-03 04:32] LABS: ANION GAP 14.2 mmol/L (8-16); CALCIUM 8.5 mg/dL (8.4-10.2); CREATININE, SERUM 7.04 mg/dL (0.72-1.25); MAGNESIUM 1.7 MG/DL (1.3-2.1); POTASSIUM 3.2 mmol/L (3.5-5.1)
--- NOTE | 2018-11-03 07:36 | NUR ---
Rcvd patient in report this am. Patient is awake in bed at this time. no s/s of distress noted
[2018-11-03] MEDS: FAMOTIDINE 20 MG TAB PO SCH ×2 (07:55→18:16)
[2018-11-03] MEDS: SEVELAMER CARBONATE 800 MG TAB PO SCH ×3 (07:55→17:00)
[2018-11-03] MEDS: METOCLOPRAMIDE HCL 10 MG/2ML VIAL IV SCH ×2 (07:55→11:41)
[2018-11-03] MEDS: CARVEDILOL 12.5 MG TAB PO SCH ×2 (07:55→21:11)
[2018-11-03] MEDS: APIXAB 2.5 MG TABLET PO SCH ×2 (07:55→21:11)
[2018-11-03] MEDS ORDERED: PEPCID20 MG PO (08:51)
[2018-11-03] MEDS ORDERED: QUESTRAN PACKET4 GM PO (08:51)
[2018-11-03] MEDS ORDERED: RENAGEL800 MG PO (08:51)
[2018-11-03] MEDS ORDERED: HYDROXYZINE HCL25 MG PO (08:51)
[2018-11-03] MEDS: CLONIDINE HCL 0.1 MG TAB PO SCH ×2 (08:57→21:11)
[2018-11-03] MEDS ORDERED: SODIUM CHLORIDE 0.9% 250ML 250 ML IV ONE (09:00)
--- NOTE | 2018-11-03 11:26 | NUR ---
Patient is AAOx3. patient lung gutierrez clear to auscultation. Bowel sounds present x4. No edema noted. Patient ambulates on his own. patient has a left subclavian IV in place with a clean dry dressing. Right dialysis catheter in place. Patient to receive dialysis today
--- NOTE | 2018-11-03 12:19 | NUR ---
Call placed to dialysis to inquire about dialysis nurse arriving to perform dialysis
[2018-11-03] MEDS ORDERED: SODIUM CHLORIDE 0.9% 1000ML 2,000 ML ONE (12:55)
[2018-11-03] MEDS ORDERED: ONDANSETRON HCL 4 MG ORAL DISINTEGRATING TAB PO PRN (13:00)
--- NOTE | 2018-11-03 13:34 | NUR ---
WOUND CARE CONSULTATION - INITIAL EVALUATION Patient admitted from home to ER for Chest pain and Tachycardia with Arrhythmia Patient on IV ABX- Cefazolin for MSSA Septic Endocarditis and Septic Emboli. HX: ETOH, Smoker, HD, ESRD, Anemia, Anxiety, Bronchitis, Left Arm DVT, HTN. LABS: WBC11 HGB7.7 HCT23.4 NEUT%77.7 GLU82 WC Consulted for BLE Dry Scaly Skin, Itchy. PATIENT VISIT: Patient AAOX4, Calm Cooperative. Patient presents with BLE itching. - States he has been going to java web developer and has not been able to get it sorted out. States he has a "large bag of prescribed creams" at home he has been trying. - Education provided related to diet compliance and adherence to medication regimen to reduce symptoms. - Atarax on board to assist with itching. Matt Score 20 No Pressure Ulcers Identified during Visit Visco Mattress in place. IMPRESSION: BLE& FEET - Uremic Puritis RECOMMENDATION: BLE & Feet - Uremic Puritis: - Wash BLE with Nizoral Shampoo and Pat Dry q12h - Apply liberally Lac-Hydrin Lotion q12h and leave open to air. Thank you for consulting with Wound Care. Addendum: 11/03/18 at 1348 by Valeriy Smith RN Amended: Links added.
[2018-11-03] MEDS: AMMONIUM LACTATE 12% LOTION 225GM BTL TOP SCH ×2 (14:30→21:22)
[2018-11-03] MEDS ORDERED: HEPARIN SOD (PORCINE) 1000 UNIT/ML SDV ONE (15:28)
--- NOTE | 2018-11-03 15:35 | NUR ---
Patient received 2 units of blood via dialysis. Patient has tolerated well.
[2018-11-03] MEDS ORDERED: HEPARIN SOD (PORCINE) 1000 UNIT/ML SDV IV PRN (15:45)
[2018-11-03] MEDS ORDERED: SODIUM CHLORIDE 0.9% 1000ML 2,000 ML IV PRN (15:45)
--- NOTE | 2018-11-03 17:47 | NUR ---
Patient completed dialysis and 2.5 liters removed. Spouse at bedside and concerned that he is confused. Will continue to monitor and inform retail shift leader as well
[2018-11-03] MEDS: CEFAZOLIN SOD 1 GM/NS 50ML 50 ML IV SCH (18:00)
[2018-11-03] MEDS: GUAIFENESIN 600 MG TAB PO SCH (18:16)
[2018-11-03] MEDS: METOCLOPRAMIDE HCL 10 MG TAB PO SCH ×2 (18:16→21:11)
[2018-11-03] MEDS: SERTRALINE HCL 50 MG TAB PO SCH (21:11)
[2018-11-03] MEDS: KETOCONAZOLE 2% SHAMPOO 4OZ BTL TOP SCH (21:22)
[2018-11-04] VITALS (7 sets, daily range): BP systolic 90–117; BP diastolic 43–54
--- NOTE | 2018-11-04 03:03 | Consultation ---
DATE OF CONSULTATION: 11/03/2018 REASON FOR CONSULTATION: Aortic valve endocarditis, flsngybi-jr-qqklhn aortic insufficiency by echocardiogram; requested by Dr. Dre Peterson. ELECTRON GUN INSPECTOR: Dipesh Garcia MD. ELECTRIC MOTOR CONTROLS ASSEMBLER: Lady Caldera MD HISTORY OF PRESENT ILLNESS: I saw and evaluated this patient on November 03, 2018. He is a 48-year-old male, with end-stage renal failure, who has documented endocarditis and was admitted with confusion. He dialysis 3 times a week and has been tolerating dialysis well. He has been treated with intravenous antibiotics as an outpatient. He apparently was discharged from [facility] about 2 weeks ago on outpatient intravenous antibiotic therapy at dialysis. He was apparently brought to the hospital for confusion, but was found to be fairly asymptomatic. He was admitted. An echocardiogram has show rakjlboy-qe-wvvkuy aortic insufficiency, but no evidence of vegetation. The LVEF was 40% to 45%. Left ventricular end diastolic diameter was 5.4 cm with left ventricular end systolic diameter 3.9 cm. Echocardiogram was performed 11/02/2018, at [facility]. The mitral valve appeared normal with mild mitral regurgitation and moderate annular calcification. There was trace tricuspid regurgitation. The pulmonary valve was normal. Right ventricle was normal in size and function. Surgical evaluation has been recommended. There was a history of thrombosis in upper veins and apparently had some type of surgery done at [facility] for this about 3 or 4 months ago. There was a history of possible paroxysmal atrial fibrillation and he has been on long-term dialysis. He has been followed by Dr. Peterson of infectious disease. This evening, he is quite confused and is not oriented to place or time. ALLERGIES: AMLODIPINE. MEDICATIONS AT HOME: Zoloft, Renagel, metoclopramide, Eliquis, carvedilol, metoprolol, atarax and outpatient intravenous antibiotics. SOCIAL HISTORY: Negative for smoking, alcohol, IV drugs. FAMILY HISTORY: Positive for hypertension. PAST MEDICAL HISTORY: Positive for atrial fibrillation, chronic renal failure, IgA nephropathy, paroxysmal atrial fibrillation. REVIEW OF SYMPTOMS: GENERAL: Positive for fatigue, amylase. NEUROLOGIC: Negative for focal weakness. EXTREMITIES: No dysarthria. HEENT: Negative for decreased vision or decreased hearing. CARDIAC: Denies chest pain or palpitations. PULMONARY: Denies shortness of breath or wheezing. GI: No constipation or diarrhea. : Negative for hematuria or dysuria. ENDOCRINE: Negative for polyuria or polydipsia. VASCULAR: Negative for claudication. SKIN: Negative for rashes or itching. HEMATOLOGIC: Negative for clotting or bleeding. INFECTIOUS: Negative for fevers or sweating. PSYCHIATRIC: Negative for depression or anxiety. PHYSICAL EXAMINATION: GENERAL: Chronically ill appearing man, who is poorly responsive to questioning. He is alert and awake. VITAL SIGNS: Blood pressure 140/70, pulse 80 and regular, respirations 16 and unlabored. NECK: Supple and nontender. No JVD. CARDIAC: Shows a regular rate and rhythm. There is a 2/6 systolic murmur. There are no other murmurs that I could hear. LUNGS: Clear to auscultation and percussion bilaterally. ABDOMEN: Globoid, benign. Good bowel sounds. No hepatosplenomegaly. BACK: No CVA tenderness. No muscular spasm. EXTREMITIES: No cyanosis, clubbing, or edema. There is a petechial rash on both forearms. MUSCULOSKELETAL: Full range of motion at all joints. No joint swelling. VASCULAR: Carotids 2+/2+ bilaterally. No carotic bruits. Radial and femorals 2+/2+ bilaterally. SKIN: Petechial rash on both forearms. NEUROLOGIC: Cranial nerves 2 through 12 intact. Sensation intact to light touch and pinprick bilaterally. Strength 5/5 in all extremities. LYMPHATICS: Negative for cervical, clavicular, or femoral adenopathy. LABORATORY DATA AND IMAGING: Echocardiogram report as above. White count 11.0, hemoglobin 7.7, hematocrit 23.4, and platelet count 398,000. Sodium 130, potassium 3.2, BUN 13, creatinine 7.04. IMPRESSION: Likely endocarditis with liebqykr-kf-ioloru aortic insufficiency. The patient is not febrile and white count is slightly elevated. Surgical valve replacement being evaluated. Thank you very much for asking me to this nice man. MD OSMANI AnayaL/ARIESL /[id number]
[2018-11-04 04:18] LABS: BASOPHILS # (AUTO) 0.1 (0.0-0.1); BASOPHILS % 0.6 % (0.0-1.0); EOSINOPHILS # (AUTO) 0.6 (0.0-0.4); EOSINOPHILS % 5.9 % (0.0-6.0); HEMOGLOBIN 9.3 g/dL (14.0-18.0); LYMPHOCYTES # (AUTO) 1.4 (1.0-3.2); LYMPHOCYTES % 13.7 % (18.0-39.1); MEAN CORPUSCULAR HEMOGLOBIN 30.1 pg (28-32); MEAN CORPUSCULAR HGB CONC 33.2 g/dL (31-35); MEAN CORPUSCULAR VOLUME 90.6 fL (81-99); MONOCYTES # (AUTO) 0.9 (0.2-0.8); MONOCYTES % 9.2 % (4.4-11.3); NEUTROPHILS # (AUTO) 6.9 (2.1-6.9); NEUTROPHILS % 70.1 % (38.7-80.0); PLATELET COUNT 313 x10e3/uL (140-360); RED BLOOD COUNT 3.09 x10e6/uL (4.3-5.7); RED CELL DISTRIBUTION WIDTH 16.2 % (11.7-14.4)
[2018-11-04 04:42] LABS: ANION GAP 13.3 mmol/L (8-16); CALCIUM 8.4 mg/dL (8.4-10.2); CREATININE, SERUM 4.7 mg/dL (0.72-1.25); MAGNESIUM 1.7 MG/DL (1.3-2.1); POTASSIUM 3.3 mmol/L (3.5-5.1)
[2018-11-04] MEDS: CLONIDINE HCL 0.1 MG TAB PO SCH ×2 (09:00→21:48)
[2018-11-04] MEDS: AMMONIUM LACTATE 12% LOTION 225GM BTL TOP SCH ×2 (09:00→21:48)
[2018-11-04] MEDS: KETOCONAZOLE 2% SHAMPOO 4OZ BTL TOP SCH ×2 (09:00→21:48)
[2018-11-04] MEDS: CARVEDILOL 12.5 MG TAB PO SCH ×2 (09:00→21:48)
[2018-11-04] MEDS: GUAIFENESIN 600 MG TAB PO SCH ×2 (09:58→16:53)
[2018-11-04] MEDS: APIXAB 2.5 MG TABLET PO SCH ×2 (09:58→21:48)
[2018-11-04] MEDS: METOCLOPRAMIDE HCL 10 MG TAB PO SCH ×4 (09:58→21:48)
[2018-11-04] MEDS: FAMOTIDINE 20 MG TAB PO SCH ×2 (09:58→16:53)
[2018-11-04] MEDS: SEVELAMER CARBONATE 800 MG TAB PO SCH ×2 (12:00→16:53)
[2018-11-04] MEDS: CEFAZOLIN SOD 1 GM/NS 50ML 50 ML IV SCH (12:02)
--- NOTE | 2018-11-04 18:23 | NUR ---
Notified [facility] that patient will need dialysis tomorrow. Per Dr. Robledo
--- NOTE | 2018-11-04 19:24 | NUR ---
Bedside report and walking rounds complete. Pt resting in bed and in no apparent distress. All safety measures ensured and pt call silva near. Pt encouraged to use call silva for assistance.
[2018-11-04] MEDS: SERTRALINE HCL 50 MG TAB PO SCH (21:48)
--- NOTE | 2018-11-04 21:55 | NUR ---
Medicated shampoo and lotion applied to pt; Pt tolerated well.
[2018-11-05] VITALS: BP 122/58
[2018-11-05 04:00] VITALS: BP 107/47
[2018-11-05 05:47] LABS: BASOPHILS % 0.5 % (0.0-1.0); EOSINOPHILS # (AUTO) 0.6 (0.0-0.4); EOSINOPHILS % 6.8 % (0.0-6.0); HEMATOCRIT 27.2 % (38.2-49.6); HEMOGLOBIN 8.8 g/dL (14.0-18.0); LYMPHOCYTES # (AUTO) 1.5 (1.0-3.2); LYMPHOCYTES % 17.9 % (18.0-39.1); MEAN CORPUSCULAR HEMOGLOBIN 29.7 pg (28-32); MEAN CORPUSCULAR HGB CONC 32.4 g/dL (31-35); MEAN CORPUSCULAR VOLUME 91.9 fL (81-99); MONOCYTES # (AUTO) 0.8 (0.2-0.8); MONOCYTES % 9.1 % (4.4-11.3); NEUTROPHILS # (AUTO) 5.6 (2.1-6.9); NEUTROPHILS % 65.2 % (38.7-80.0); PLATELET COUNT 326 x10e3/uL (140-360); RED BLOOD COUNT 2.96 x10e6/uL (4.3-5.7); RED CELL DISTRIBUTION WIDTH 15.6 % (11.7-14.4)
--- NOTE | 2018-11-05 06:14 | NUR ---
called Valentin re: pt dialysis for today. Spoke with Yaima who stated she would pass info on to nurse to confirm dialysis for today.
[2018-11-05 06:28] LABS: ANION GAP 12.3 mmol/L (8-16); CALCIUM 8.3 mg/dL (8.4-10.2); CREATININE, SERUM 6.3 mg/dL (0.72-1.25); POTASSIUM 3.3 mmol/L (3.5-5.1)
[2018-11-05 07:44] VITALS: BP 112/52
[2018-11-05] MEDS: SEVELAMER CARBONATE 800 MG TAB PO SCH ×3 (07:54→16:30)
[2018-11-05] MEDS: FAMOTIDINE 20 MG TAB PO SCH ×2 (07:54→16:30)
[2018-11-05] MEDS: APIXAB 2.5 MG TABLET PO SCH ×2 (07:54→21:25)
[2018-11-05] MEDS: METOCLOPRAMIDE HCL 10 MG TAB PO SCH ×4 (07:54→21:25)
[2018-11-05] MEDS: GUAIFENESIN 600 MG TAB PO SCH ×2 (07:54→16:30)
[2018-11-05 07:56] VITALS: BP 112/52
[2018-11-05] MEDS: CLONIDINE HCL 0.1 MG TAB PO SCH (09:00)
[2018-11-05] MEDS: CARVEDILOL 12.5 MG TAB PO SCH ×2 (09:00→21:00)
[2018-11-05] MEDS: AMMONIUM LACTATE 12% LOTION 225GM BTL TOP SCH ×2 (09:00→21:00)
[2018-11-05] MEDS ORDERED: MANNITOL 25% 12.5GM/50 ML VIAL IV PRN (09:15)
[2018-11-05] MEDS ORDERED: HEPARIN SOD (PORCINE) 1000 UNIT/ML SDV IV PRN (09:15)
[2018-11-05] MEDS ORDERED: ALBUMIN 25% 12.5GM 0.25 GM/ML BTL IV PRN (09:15)
[2018-11-05] MEDS ORDERED: SODIUM CHLORIDE 0.9% 250ML 500 ML IV PRN (09:15)
[2018-11-05] MEDS ORDERED: SODIUM CHLORIDE 0.9% 1000ML 2,000 ML IV PRN (09:15)
[2018-11-05 11:33] VITALS: BP 94/52
[2018-11-05] MEDS: KETOCONAZOLE 2% SHAMPOO 4OZ BTL TOP SCH ×2 (12:06→21:00)
[2018-11-05] MEDS: CEFAZOLIN SOD 1 GM/NS 50ML 50 ML IV SCH (13:55)
[2018-11-05 16:26] VITALS: BP 126/58
--- NOTE | 2018-11-05 17:02 | Progress Note ---
DATE: 11/05/2018 SUBJECTIVE: Mr. Cruz is doing better. There is no complaint. No shortness of breath. REVIEW OF SYSTEMS: GENERAL: At present time, overall he is doing better. HEENT: Negative. PULMONARY: Negative. CARDIAC: Negative. PHYSICAL EXAMINATION: GENERAL: He is currently alert, oriented, does not seem to be in acute distress. VITAL SIGNS: Stable, currently afebrile. HEENT: He is not icteric. NECK: Supple. CHEST: Clear. HEART: S1, S2. No S3, S4, but he does have a murmur, a 2/6 systolic ejection murmur. IMPRESSION: 1. Endocarditis aortic valve, seems clinically stable. We will get blood cultures. Continue cefazolin. He had MSSA. The plan is to finish eight weeks of IV cefazolin. 2. MSSA bacteremia, resolved. We will check blood culture. 3. Shortness of breath on presentation and heart failure, clinically seems to be stable. Discussed with Dr. Caldera and discussed with Dr. Moreno. We will assess in the morning. May need to hold off on the plan for valve replacement for now, maybe could be done later, maybe could be discharged home and close followup. 4. Anemia, multifactorial, chronic kidney disease, endocarditis. 5. End-stage renal disease. 6. 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 7. Congestive heart failure. Dr. Caldera is going to see the patient in the morning. I have called him personally and he will let me know if we can discharge the patient or if we should proceed with the plan for a valve replacement. MD VERÓNICA Latif/RY /[id number]
--- NOTE | 2018-11-05 19:08 | NUR ---
received patient aaox2, resting in bed with at bedside. no needs voiced at this time, will continue to monitor patient. bed locked and in lowest position, call light within reach.
[2018-11-05] MEDS: SERTRALINE HCL 50 MG TAB PO SCH (21:25)
[2018-11-06] VITALS (9 sets, daily range): BP systolic 94–137; BP diastolic 43–68
[2018-11-06 03:25] LABS: BASOPHILS % 0.3 % (0.0-1.0); EOSINOPHILS # (AUTO) 0.6 (0.0-0.4); EOSINOPHILS % 5.8 % (0.0-6.0); HEMATOCRIT 28.2 % (38.2-49.6); HEMOGLOBIN 9.2 g/dL (14.0-18.0); LYMPHOCYTES # (AUTO) 1.6 (1.0-3.2); LYMPHOCYTES % 16.6 % (18.0-39.1); MEAN CORPUSCULAR HEMOGLOBIN 29.5 pg (28-32); MEAN CORPUSCULAR HGB CONC 32.6 g/dL (31-35); MEAN CORPUSCULAR VOLUME 90.4 fL (81-99); MONOCYTES % 9.8 % (4.4-11.3); NEUTROPHILS # (AUTO) 6.5 (2.1-6.9); NEUTROPHILS % 66.9 % (38.7-80.0); PLATELET COUNT 320 x10e3/uL (140-360); RED BLOOD COUNT 3.12 x10e6/uL (4.3-5.7); RED CELL DISTRIBUTION WIDTH 15.6 % (11.7-14.4)
[2018-11-06 03:44] LABS: ANION GAP 11.8 mmol/L (8-16); CALCIUM 8.1 mg/dL (8.4-10.2); CREATININE, SERUM 3.86 mg/dL (0.72-1.25); POTASSIUM 3.8 mmol/L (3.5-5.1)
--- NOTE | 2018-11-06 07:00 | NUR ---
BEDSIDE SHIFT REPORT RECEIVED FROM MACHINIST SUPERVISOR RN. CALL LIGHT WITH IN REACH. BED IS LOCKED AND AT THE LOWEST POSITION. PT DENIES NEEDS AT THIS TIME.
--- NOTE | 2018-11-06 07:01 | NUR ---
ONE OF THE PICC LINE LUMEN IS NOT WORKING ON IV LINE ASSESSMENT.
--- NOTE | 2018-11-06 07:15 | NUR ---
CALLED DR BEDOYA OFFICE AND LEFT MESSAGE REGARDING PT PLAN OF CARE. Addendum: 11/06/18 at 1946 by Yanna Yarbrough RN CALLED AT 1915
[2018-11-06] MEDS: FAMOTIDINE 20 MG TAB PO SCH ×2 (08:27→17:24)
[2018-11-06] MEDS: SEVELAMER CARBONATE 800 MG TAB PO SCH ×3 (08:28→17:24)
[2018-11-06] MEDS: METOCLOPRAMIDE HCL 10 MG TAB PO SCH ×4 (08:28→22:00)
[2018-11-06] MEDS: APIXAB 2.5 MG TABLET PO SCH ×2 (08:30→22:00)
[2018-11-06] MEDS: GUAIFENESIN 600 MG TAB PO SCH ×2 (08:30→17:24)
[2018-11-06] MEDS: AMMONIUM LACTATE 12% LOTION 225GM BTL TOP SCH ×2 (08:38→22:00)
[2018-11-06] MEDS: KETOCONAZOLE 2% SHAMPOO 4OZ BTL TOP SCH ×2 (08:39→22:00)
[2018-11-06] MEDS: CARVEDILOL 12.5 MG TAB PO SCH ×2 (09:00→22:00)
[2018-11-06] MEDS ORDERED: Apixab PO (10:42)
[2018-11-06] MEDS: CEFAZOLIN SOD 1 GM/NS 50ML 50 ML IV SCH (12:10)
--- NOTE | 2018-11-06 18:45 | NUR ---
PT FAMILY COMPLAINING OF RASHES ON UE & LE BILATERALLY. INFORMED KALIA PRODUCT OWNER AND RECEIVED NEW ORDER.
--- NOTE | 2018-11-06 19:00 | NUR ---
BEDSIDE SHIFT REPORT GIVEN TO THE LODGING MANAGER RN. PT DENIED FURTHER NEEDS.
[2018-11-06] MEDS: DIPHENHYDRAMINE HCL INJ 50 MG/ML VIAL IV PRN (19:47)
--- NOTE | 2018-11-06 19:52 | NUR ---
spoke with dr. edward regarding plan of care, stated patient is okay for discharge from his standpoint. patient is to follow up in his office, and then to be re-evaluated.
[2018-11-06] MEDS: SERTRALINE HCL 50 MG TAB PO SCH (22:00)
[2018-11-07 06:01] VITALS: BP 112/56
--- NOTE | 2018-11-07 07:00 | NUR ---
BEDSIDE SHIFT RECEIVED FROM DEBARKER OPERATOR RN. PT DENIES NEEDS AT THIS TIME.
[2018-11-07] MEDS: SEVELAMER CARBONATE 800 MG TAB PO SCH ×3 (08:00→17:00)
[2018-11-07] MEDS: APIXAB 2.5 MG TABLET PO SCH (08:15)
[2018-11-07] MEDS: METOCLOPRAMIDE HCL 10 MG TAB PO SCH ×3 (08:15→16:58)
[2018-11-07] MEDS: FAMOTIDINE 20 MG TAB PO SCH ×2 (08:15→16:58)
--- NOTE | 2018-11-07 08:15 | NUR ---
TRANSITION LEAD AT BEDSIDE.
[2018-11-07] MEDS: CARVEDILOL 12.5 MG TAB PO SCH (08:34)
[2018-11-07] MEDS: KETOCONAZOLE 2% SHAMPOO 4OZ BTL TOP SCH (08:35)
[2018-11-07] MEDS: GUAIFENESIN 600 MG TAB PO SCH ×2 (08:35→16:58)
[2018-11-07] MEDS: AMMONIUM LACTATE 12% LOTION 225GM BTL TOP SCH (08:35)
[2018-11-07 08:58] VITALS: BP 94/51
[2018-11-07] MEDS ORDERED: ALTEPLASE RECOMBINANT 2 MG/2 ML VIAL IV NR (09:15)
[2018-11-07 09:17] VITALS: BP 94/51
[2018-11-07 11:37] VITALS: BP 113/46
[2018-11-07] MEDS: CEFAZOLIN SOD 1 GM/NS 50ML 50 ML IV SCH (14:13)
[2018-11-07] MEDS ORDERED: VANCOMYCIN 1GM/NS 250 ML 250 ML IV ONE (16:00)
[2018-11-07] MEDS: DIPHENHYDRAMINE HCL INJ 50 MG/ML VIAL IV PRN (16:58)
--- NOTE | 2018-11-07 17:00 | NUR ---
PT DISCHARGED SAFELY HOME WITH FAMILY. PT DENIED FURTHER NEEDS.
[2018-11-07 17:33] VITALS: BP 124/57
--- NOTE | 2018-11-07 18:58 | Progress Note ---
DATE: 11/07/2018 Cardiology Progress Note SUBJECTIVE: I am quite familiar with Mr. Anthony Landon through his admission at [facility] about two months ago. At that time, the patient was confused and with encephalopathy probably secondary to sepsis and also he is a renal patient with IgA nephropathy. At that time, patient's hemodialysis was started. Prior to that [place] admission, the patient was in [facility] and before that he was at [facility]. He had some surgery done on the left arm and endocarditis was diagnosed in [facility] because of non-pedunculated sessile vegetation noted, noncoronary cusp of aortic valve. Since that time, Dr. Peterson is involved in this case. Started on IV antibiotic. The patient improved remarkably clinically. At this time, echocardiogram shows moderate aortic regurgitation. Still the old well-calcified vegetation is noted. It is not pedunculated. There is no prolapse of the aortic valve. There is no evidence of any closure of the mitral valve. Aortic regurgitation is moderate and the patient does not have any LV enlargement. Left ventricular ejection fraction is 40%. At this time, we will continue IV antibiotic and the patient will follow up with Dr. Peterson in his office. I will also follow from cardiac point of view at appropriate time. If necessary, we will do heart catheterization and therefore do a valve surgery. At this time, the patient is able to function. Clinically, there is no evidence of any acute heart failure and the patient is very much improved since I saw him two months ago. I had also discussion with the , who is more familiar with the and also sometimes gets confused, though he has improved remarkably since last two months, still sometimes confused. I discussed this case with Dr. Peterson, so medical treatment will follow. I will also follow him. IMPRESSION: 1. IgA nephropathy is on hemodialysis. 2. Vegetation, noncoronary cusp with sessile vegetation that is also healing within last six weeks to eight weeks, needing antibiotics. 3. Renal failure on hemodialysis and my point of view, the patient still has confusion, maybe the chronic encephalopathy is still present and is mainly metabolic encephalopathy. At this time my point of view, the patient may discharge, follow up with primary care physician. Advised to call my office anyhow. With any major cardiac issue like breathing problem or chest pain, call my office too. Thank you again for this consultation. MD GERRY Joe/RY /[id number]
--- NOTE | 2018-11-08 06:07 | Discharge Summary ---
ADMISSION DIAGNOSES: Chest pain, right lower lobe pneumonia present on admission, anxiety, end-stage renal disease, history of left upper extremity deep vein thrombosis, hypertension with end-stage renal disease. DISCHARGE DIAGNOSES: Chest pain, right lower lobe pneumonia present on admission, anxiety, end-stage renal disease, history of left upper extremity deep vein thrombosis, hypertension with end-stage renal disease, rule out myocardial infarction plus MSSA endocarditis, and aortic valve vegetation. HISTORY: The patient has a history of bronchitis, anxiety, left arm DVT, end-stage renal disease with dialysis on Friday, , Friday, and hypertension. SURGICAL HISTORY: Left arm thrombectomy, right chest HD catheter. FAMILY HISTORY: Noncontributory. SOCIAL HISTORY: The patient admits to a history of alcohol, but quit in July 2018. He also quit smoking in September 2018. Before that, he was smoking 2-3 packs a day. HOSPITAL COURSE: A 48-year-old male complains of sharp intermittent central and left chest pain that began on the day of admission while sleeping. Symptoms worsened with activity and improved with nothing. He denies nausea, vomiting, diarrhea, fever, or dizziness. He has associated shortness of breath with chest pain. He is currently being treated outpatient for MSSA bacteremia due to endocarditis. His troponins were elevated, but Cardiology was consulted, does not believe it is NH. Chest x-ray was positive for pneumonia. EKG showed sinus tach of 101. Echo showed an EF of 40-45% with [id number] aortic regurg, noted immobile echotexture on the noncoronary leaflet, highly concerning for vegetation. Chest x-ray on admission showed right lower lobe lung field opacification due to the vegetation and new onset of symptoms after already being treated outpatient with IV antibiotics. CV Surgery was consulted. Per the patient's report, he did not want surgery unless it was absolutely necessary, but he would really prefer to do no additional surgeries. CV Surgery and Cardiology spoke and decided that this patient did not need immediate surgery, so the patient was discharged home to continue an additional five weeks of IV antibiotics setup by Dr. Peterson. The patient will follow up with Cardiology and primary care within 1-[address] Peterson on Friday. The patient understands discharge instructions and agrees to plan. Vital signs stable. The patient afebrile. Dictated by Татьяна M Hamburg, [employer] MACHINE MD MAGGI Patterson/RY /[id number]
== END 2018-11-07 17:05 | disposition home or self-care (01) | DRG 871 ==
LOC: FSED 04:46 → ERHOLD 06:57 → MED/SURG2 08:21
PROVIDERS: ADMIT Internal Medicine; ATTEND Internal Medicine
PROC: 5A1D70Z Performance of Urinary Filtration, Intermittent, Less than 6 Hours Per Day (ICD-10-PCS; principal; 2018-11-03)
PROC: 30243N1 Transfusion of Nonautologous Red Blood Cells into Central Vein, Percutaneous Approach (ICD-10-PCS; 2018-11-03)
PROC: 5A1D70Z Performance of Urinary Filtration, Intermittent, Less than 6 Hours Per Day (ICD-10-PCS; 2018-11-05)
DX: A41.9 Sepsis, unspecified organism (principal); J18.9 Pneumonia, unspecified organism; N18.6 End stage renal disease; I33.0 Acute and subacute infective endocarditis; I50.33 Acute on chronic diastolic (congestive) heart failure; G93.41 Metabolic encephalopathy; M32.11 Endocarditis in systemic lupus erythematosus; I13.2 Hypertensive heart and chronic kidney disease with heart failure and with stage 5 chronic kidney disease, or end stage renal disease; N02.8 Recurrent and persistent hematuria with other morphologic changes; Z99.2 Dependence on renal dialysis; Z86.718 Personal history of other venous thrombosis and embolism; Z79.01 Long term (current) use of anticoagulants; F41.9 Anxiety disorder, unspecified; B95.61 Methicillin susceptible Staphylococcus aureus infection as the cause of diseases classified elsewhere; I35.1 Nonrheumatic aortic (valve) insufficiency; F10.11 Alcohol abuse, in remission; E87.6 Hypokalemia; K70.30 Alcoholic cirrhosis of liver without ascites; R65.20 Severe sepsis without septic shock
CPT/HCPCS: 36415; 71046; 80048; 80053; 82550; 82553; 83735; 83880; 84100; 84439; 84443; 84484; 85025; 86704; 86706; 86707; 86850; 86900; 86920; 87040; 87340; 87350; 90962; 93306; 94640; 99284; J0690; J1200; J1644; J2405; J2765; J2997; J3370; J7030; J7050; P9016

== ENCOUNTER 2018-11-17 18:23 | Inpatient (IN) | payer BC ==
[~2018-11-17] VITALS: Ht 193 cm; Wt 77.1 kg
[~2018-11-17 18:23] MED LIST changes: +ALBUTEROL0.63 MG/3 INH; +Apixab PO; +HYDROXYZINE HCL25 MG PO; +PEPCID20 MG PO; +QUESTRAN PACKET4 GM PO; +RENAGEL800 MG PO; +SERTRALINE HCL50 MG PO; +ZOLOFT50 MG PO
--- OUTSIDE RECORDS SUMMARY | 2018-11-17 18:26 | XMS REPORT | Clinical Summary ---
Author Author JEB [facility] Address Unknown Phone Unavailable Care Team Providers [employer] Name Role Phone Jair Martino Unavailable Allergies [...] cardiovascular exam; Alcohol abuse; Tobacco abuse 05/06/2018 [facility] General Internal Medicine - Encounter 05/15/2018 after 11/16/2017 Immunizations Name Dates Previously Given Next Due [...] Taken Vital Sign Reading 05/15/2018 3:59 AM SHEET METAL APPRENTICE Blood Pressure 123/72 05/15/2018 3:59 AM SHEET METAL APPRENTICE Pulse 76 05/15/2018 3:59 AM SHEET METAL APPRENTICE Temperature 36 C (96.8 F) 05/15/2018 3:59 AM SHEET METAL APPRENTICE Respiratory Rate 18 05/15/2018 3:59 AM SHEET METAL APPRENTICE Oxygen Saturation 96% 05/07/2018 5:47 PM SHEET METAL APPRENTICE Inhaled Oxygen 50% Concentration 05/15/2018 6:00 AM SHEET METAL APPRENTICE Weight 89.4 kg (197 lb 1.6 oz) 05/06/2018 5:00 AM SHEET METAL APPRENTICE Height 187 cm (6' 1.62") 05/15/2018 6:00 AM SHEET METAL APPRENTICE Body Mass Index 25.57 Plan of Treatment Not on file Implants Device Identifier Shelf Expiration Date Model / Serial / Lot Implanted Type Area Manufactur er 07/24/2019 [id number] / / [id number] Floseal Vhsd Full Strlprep 5ml Cement/John Left: Arm 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 [id number] - [id number] ler/[employer]hes[employer] SCI Implanted: Qty: 2 on 05/07/2018 by Clara Ortez MD Procedures Comments Procedure Name Priority Date/Time Associated Diagnosis RHYTHM STRIP - SCAN 08/27/2018 11:11 AM CDT REPORT OF PROCEDURE - 08/27/2018 ENDOSCOPY SCAN 9:51 AM CDT VASCULAR DIAGRAM -SCAN 06/02/2018 2:40 PM SHEET METAL APPRENTICE RHYTHM STRIP - SCAN 06/02/2018 2:40 PM SHEET METAL APPRENTICE CARDIAC CATH REPORT - 06/02/2018 SCAN 2:40 PM SHEET METAL APPRENTICE VASCULAR DIAGRAM -SCAN 05/29/2018 5:41 [address] [employer] [address] CT CHEST WITHOUT IV Routine 05/15/2018 CONTRAST 8:41 AM SHEET METAL APPRENTICE CBC W/PLT COUNT & AUTO Routine 05/15/2018 DIFFERENTIAL 4:46 AM SHEET METAL APPRENTICE CBC W/PLT COUNT & AUTO Routine 05/15/2018 DIFFERENTIAL 4:46 AM SHEET METAL APPRENTICE BASIC METABOLIC PANEL (7) Routine 05/15/2018 4:46 AM SHEET METAL APPRENTICE MAGNESIUM Routine 05/15/2018 4:46 AM SHEET METAL APPRENTICE THROMBOELASTOGRAPH (TEG) Routine 05/15/2018 4:46 AM SHEET METAL APPRENTICE ANTITHROMBIN III Routine 05/15/2018 4:46 AM SHEET METAL APPRENTICE POCT-ACT Routine 05/14/2018 4:30 PM SHEET METAL APPRENTICE L HEART CATH ONLY - NO 05/14/2018 Chest pain, unspecified ANGIOS 2:50 PM SHEET METAL APPRENTICE type APTT Routine 05/14/2018 1:29 PM SHEET METAL APPRENTICE CBC W/PLT COUNT & AUTO Routine 05/14/2018 DIFFERENTIAL 4:21 AM SHEET METAL APPRENTICE APTT Routine 05/14/2018 4:21 AM SHEET METAL APPRENTICE BASIC METABOLIC PANEL (7) Routine 05/14/2018 4:21 AM SHEET METAL APPRENTICE CBC W/PLT COUNT & AUTO Routine 05/14/2018 DIFFERENTIAL 4:21 AM SHEET METAL APPRENTICE APTT Routine 05/13/2018 7:40 PM SHEET METAL APPRENTICE BLOOD CULTURE Routine 05/13/2018 5:00 PM SHEET METAL APPRENTICE BASIC METABOLIC PANEL (7) Routine 05/13/2018 4:50 PM SHEET METAL APPRENTICE MAGNESIUM Routine 05/13/2018 4:50 PM SHEET METAL APPRENTICE BLOOD CULTURE Routine 05/13/2018 4:49 PM SHEET METAL APPRENTICE ECHOCARDIOGRAM REPORT - 05/13/2018 SCAN 2:50 PM SHEET METAL APPRENTICE ECG 12-LEAD Routine 05/13/2018 12:58 PM SHEET METAL APPRENTICE APTT Routine 05/13/2018 12:26 PM SHEET METAL APPRENTICE TRANSESOPHAGEAL ECHO Routine 05/13/2018 9:38 AM SHEET METAL APPRENTICE CBC W/PLT COUNT & AUTO Routine 05/13/2018 DIFFERENTIAL 4:38 AM SHEET METAL APPRENTICE APTT Routine 05/13/2018 4:38 AM SHEET METAL APPRENTICE BASIC METABOLIC PANEL (7) Routine 05/13/2018 4:38 AM SHEET METAL APPRENTICE CBC W/PLT COUNT & AUTO Routine 05/13/2018 DIFFERENTIAL 4:38 AM SHEET METAL APPRENTICE APTT Routine 05/12/2018 9:23 PM SHEET METAL APPRENTICE BASIC METABOLIC PANEL (7) Routine 05/12/2018 9:23 PM SHEET METAL APPRENTICE MAGNESIUM Routine 05/12/2018 9:23 PM SHEET METAL APPRENTICE ECHOCARDIOGRAM REPORT - 05/12/2018 SCAN 6:20 PM SHEET METAL APPRENTICE CONT WAVE PULSED DOPPLER Routine 05/12/2018 5:52 PM SHEET METAL APPRENTICE COLOR-FLOW MAPPING Routine 05/12/2018 5:52 PM SHEET METAL APPRENTICE ECHO W CONTRAST & DOPPLER Routine 05/12/2018 1:54 PM SHEET METAL APPRENTICE CBC W/PLT COUNT & AUTO Routine 05/12/2018 DIFFERENTIAL 5:37 AM SHEET METAL APPRENTICE MAGNESIUM Routine 05/12/2018 5:37 AM SHEET METAL APPRENTICE BASIC METABOLIC PANEL (7) Routine 05/12/2018 5:37 AM SHEET METAL APPRENTICE CBC W/PLT COUNT & AUTO Routine 05/12/2018 DIFFERENTIAL 5:37 AM SHEET METAL APPRENTICE TISSUE EXAM AP Routine 05/11/2018 5:14 PM SHEET METAL APPRENTICE BASIC METABOLIC PANEL (7) Routine 05/11/2018 5:14 PM SHEET METAL APPRENTICE MAGNESIUM Routine 05/11/2018 5:14 PM SHEET METAL APPRENTICE HEMOGLOBIN AND HEMATOCRIT Routine 05/11/2018 5:14 PM SHEET METAL APPRENTICE US RENAL BIOPSY Routine 05/11/2018 10:00 AM SHEET METAL APPRENTICE TISSUE EXAM AP Routine 05/11/2018 9:08 AM SHEET METAL APPRENTICE CBC W/PLT COUNT & AUTO Routine 05/11/2018 DIFFERENTIAL 6:18 AM SHEET METAL APPRENTICE CBC W/PLT COUNT & AUTO Routine 05/11/2018 DIFFERENTIAL 6:18 AM SHEET METAL APPRENTICE APTT Routine 05/11/2018 6:04 AM SHEET METAL APPRENTICE PROTHROMBIN TIME/INR Routine 05/11/2018 6:04 AM SHEET METAL APPRENTICE PT/APTT STAT 05/11/2018 6:04 AM SHEET METAL APPRENTICE MAGNESIUM Routine 05/11/2018 6:04 AM SHEET METAL APPRENTICE BASIC METABOLIC PANEL (7) Routine 05/11/2018 6:04 AM SHEET METAL APPRENTICE APTT Routine 05/10/2018 7:56 PM SHEET METAL APPRENTICE BASIC METABOLIC PANEL (7) Routine 05/10/2018 7:56 PM SHEET METAL APPRENTICE MAGNESIUM Routine 05/10/2018 7:56 PM SHEET METAL APPRENTICE APTT Routine 05/10/2018 1:03 PM SHEET METAL APPRENTICE OCCULT BLOOD, STOOL Routine 05/10/2018 5:44 AM SHEET METAL APPRENTICE CBC W/PLT COUNT & AUTO Routine 05/10/2018 DIFFERENTIAL 5:35 AM SHEET METAL APPRENTICE APTT Routine 05/10/2018 5:35 AM SHEET METAL APPRENTICE MAGNESIUM Routine 05/10/2018 5:35 AM SHEET METAL APPRENTICE BASIC METABOLIC PANEL (7) Routine 05/10/2018 5:35 AM SHEET METAL APPRENTICE CBC W/PLT COUNT & AUTO Routine 05/10/2018 DIFFERENTIAL 5:35 AM SHEET METAL APPRENTICE BASIC METABOLIC PANEL (7) Routine 05/09/2018 5:44 PM SHEET METAL APPRENTICE MAGNESIUM Routine 05/09/2018 9:18 AM SHEET METAL APPRENTICE APTT Routine 05/09/2018 9:18 AM SHEET METAL APPRENTICE CBC W/PLT COUNT & AUTO Routine 05/09/2018 DIFFERENTIAL 3:07 AM SHEET METAL APPRENTICE APTT Routine 05/09/2018 3:07 AM SHEET METAL APPRENTICE BASIC METABOLIC PANEL (7) Routine 05/09/2018 3:07 AM SHEET METAL APPRENTICE CBC W/PLT COUNT & AUTO Routine 05/09/2018 DIFFERENTIAL 3:07 AM SHEET METAL APPRENTICE US RENAL COMPLETE Routine 05/09/2018 2:35 AM SHEET METAL APPRENTICE ECHOCARDIOGRAM REPORT - 05/08/2018 SCAN 7:50 PM SHEET METAL APPRENTICE APTT Routine 05/08/2018 5:45 PM SHEET METAL APPRENTICE CREATININE, RANDOM URINE Routine 05/08/2018 12:06 PM SHEET METAL APPRENTICE OSMOLALITY, URINE Routine 05/08/2018 12:06 PM SHEET METAL APPRENTICE UREA NITROGEN, RANDOM Routine 05/08/2018 URINE 12:06 PM SHEET METAL APPRENTICE SODIUM, RANDOM URINE Routine 05/08/2018 12:06 PM SHEET METAL APPRENTICE APTT Routine 05/08/2018 12:05 PM SHEET METAL APPRENTICE 2D ECHO W/ DOPPLER Routine 05/08/2018 (CW/PW/COLOR) 10:46 AM SHEET METAL APPRENTICE OSMOLALITY, SERUM Routine 05/08/2018 8:18 AM SHEET METAL APPRENTICE CBC W/PLT COUNT & AUTO Routine 05/08/2018 DIFFERENTIAL 2:55 AM SHEET METAL APPRENTICE MAGNESIUM Routine 05/08/2018 2:55 AM SHEET METAL APPRENTICE APTT Routine 05/08/2018 2:55 AM SHEET METAL APPRENTICE PROTHROMBIN TIME/INR Routine 05/08/2018 2:55 AM SHEET METAL APPRENTICE BASIC METABOLIC PANEL (7) Routine 05/08/2018 2:55 AM SHEET METAL APPRENTICE CBC W/PLT COUNT & AUTO Routine 05/08/2018 DIFFERENTIAL 2:55 AM SHEET METAL APPRENTICE CBC W/PLT COUNT & AUTO Routine 05/07/2018 DIFFERENTIAL 10:06 PM SHEET METAL APPRENTICE LACTIC ACID, VENOUS Routine 05/07/2018 10:06 PM SHEET METAL APPRENTICE APTT Routine 05/07/2018 10:06 PM SHEET METAL APPRENTICE PROTHROMBIN TIME/INR Routine 05/07/2018 10:06 PM SHEET METAL APPRENTICE CBC W/PLT COUNT & AUTO Routine 05/07/2018 DIFFERENTIAL 10:06 PM SHEET METAL APPRENTICE CALCIUM, IONIZED Routine 05/07/2018 10:06 PM SHEET METAL APPRENTICE PHOSPHORUS Routine 05/07/2018 10:06 PM SHEET METAL APPRENTICE MAGNESIUM Routine 05/07/2018 10:06 PM SHEET METAL APPRENTICE BASIC METABOLIC PANEL (7) Routine 05/07/2018 10:06 PM SHEET METAL APPRENTICE APTT Routine 05/07/2018 9:52 PM SHEET METAL APPRENTICE APTT Routine 05/07/2018 7:02 PM SHEET METAL APPRENTICE TRANSFUSION SERVICE 05/07/2018 REPORT - SCAN 6:00 PM SHEET METAL APPRENTICE EMBOLECTOMY 05/07/2018 Thrombus 4:05 PM SHEET METAL APPRENTICE TISSUE EXAM AP Routine 05/07/2018 4:02 PM SHEET METAL APPRENTICE POCT-ACT Routine 05/07/2018 3:53 PM SHEET METAL APPRENTICE RHEUMATOID FACTOR AB, Routine 05/07/2018 REFLEX TO TITER 9:15 AM SHEET METAL APPRENTICE APTT Routine 05/07/2018 9:15 AM SHEET METAL APPRENTICE CBC W/PLT COUNT & AUTO Routine 05/07/2018 DIFFERENTIAL 3:02 AM SHEET METAL APPRENTICE LIPID PANEL Routine 05/07/2018 3:02 AM SHEET METAL APPRENTICE BASIC METABOLIC PANEL (7) Routine 05/07/2018 3:02 AM SHEET METAL APPRENTICE CBC W/PLT COUNT & AUTO Routine 05/07/2018 DIFFERENTIAL 3:02 AM SHEET METAL APPRENTICE APTT Routine 05/07/2018 3:02 AM SHEET METAL APPRENTICE URINE PROTEIN AP Routine 05/06/2018 ELECTROPHORESIS, RANDOM 8:32 PM SHEET METAL APPRENTICE PROTEIN, RANDOM URINE Routine 05/06/2018 8:32 PM SHEET METAL APPRENTICE URINALYSIS W/ MICROSCOPIC Routine 05/06/2018 8:32 PM SHEET METAL APPRENTICE UREA NITROGEN, RANDOM Routine 05/06/2018 URINE 8:32 PM SHEET METAL APPRENTICE CREATININE, RANDOM URINE Routine 05/06/2018 8:32 PM SHEET METAL APPRENTICE VITAMIN B12 Routine 05/06/2018 8:15 PM SHEET METAL APPRENTICE FOLATE, SERUM Routine 05/06/2018 8:15 PM SHEET METAL APPRENTICE BETA-2 GLYCOPROTEIN Routine 05/06/2018 ANTIBODIES 8:15 PM SHEET METAL APPRENTICE CARDIOLIPIN ANTIBODIES, Routine 05/06/2018 IGG AND IGM 8:15 PM SHEET METAL APPRENTICE COMPLEMENT COMPONENT C4 Routine 05/06/2018 8:15 PM SHEET METAL APPRENTICE COMPLEMENT COMPONENT C3 Routine 05/06/2018 8:15 PM SHEET METAL APPRENTICE DOUBLE-STRANDED DNA Routine 05/06/2018 (DSDNA) ANTIBODY 8:15 PM SHEET METAL APPRENTICE ANTI-NUCLEAR ANTIBODY Routine 05/06/2018 (YO) 8:15 PM SHEET METAL APPRENTICE HEPATITIS PANEL, ACUTE Routine 05/06/2018 8:15 PM SHEET METAL APPRENTICE KAPPA / LAMBDA LIGHT Routine 05/06/2018 CHAINS, SERUM 8:14 PM SHEET METAL APPRENTICE PROTEIN ELECTROPHORESIS, AP Routine 05/06/2018 SERUM 8:14 PM SHEET METAL APPRENTICE CRYOGLOBULIN AP Routine 05/06/2018 8:12 PM SHEET METAL APPRENTICE LUPUS ANTICOAGULANT AP Routine 05/06/2018 SCREEN WITH REFLEX TO 6:38 PM SHEET METAL APPRENTICE CONFIRMATORY APTT Routine 05/06/2018 6:38 PM SHEET METAL APPRENTICE APTT Routine 05/06/2018 10:47 AM SHEET METAL APPRENTICE T4, FREE Routine 05/06/2018 10:42 AM SHEET METAL APPRENTICE RPR Routine 05/06/2018 10:42 AM SHEET METAL APPRENTICE TSH/FREE T4 IF INDICATED Routine 05/06/2018 10:42 AM SHEET METAL APPRENTICE SODIUM, RANDOM URINE NIECY 05/06/2018 10:42 AM SHEET METAL APPRENTICE POTASSIUM, RANDOM URINE NIECY 05/06/2018 10:42 AM SHEET METAL APPRENTICE CHLORIDE, RANDOM URINE NIECY 05/06/2018 10:42 AM SHEET METAL APPRENTICE OSMOLALITY, SERUM NIEYC 05/06/2018 10:42 AM SHEET METAL APPRENTICE PROTEIN, RANDOM URINE Routine 05/06/2018 10:42 AM SHEET METAL APPRENTICE OSMOLALITY, URINE NIECY 05/06/2018 10:42 AM SHEET METAL APPRENTICE HEPATITIS B SURFACE STAT 05/06/2018 ANTIGEN 10:42 AM SHEET METAL APPRENTICE HEPATITIS B SURFACE STAT 05/06/2018 ANTIBODY 10:42 AM SHEET METAL APPRENTICE HERPES VIRUS ANTIBODY, STAT 05/06/2018 IGM 10:42 AM SHEET METAL APPRENTICE HIV-1 ANTIGEN WITH STAT 05/06/2018 HIV-1/2 ANTIBODY 10:42 AM SHEET METAL APPRENTICE POCT-GLUCOSE METER Routine 05/06/2018 10:33 AM SHEET METAL APPRENTICE XR CHEST 1 VIEW Routine 05/06/2018 PORTABLE/BEDSIDE 9:30 AM SHEET METAL APPRENTICE VENOUS DOPPLER LEGS Routine 05/06/2018 BILATERAL 6:01 AM SHEET METAL APPRENTICE HEMOGLOBIN A1C Routine 05/06/2018 5:29 AM SHEET METAL APPRENTICE CBC W/PLT COUNT & AUTO Routine 05/06/2018 DIFFERENTIAL 5:11 AM SHEET METAL APPRENTICE TYPE AND SCREEN, STAT 05/06/2018 AUTOMATED 5:11 AM SHEET METAL APPRENTICE HEPATIC FUNCTION PANEL Routine 05/06/2018 5:11 AM SHEET METAL APPRENTICE LACTATE DEHYDROGENASE Routine 05/06/2018 (LDH) 5:11 AM SHEET METAL APPRENTICE LACTIC ACID, VENOUS Routine 05/06/2018 5:11 AM SHEET METAL APPRENTICE APTT Routine 05/06/2018 5:11 AM SHEET METAL APPRENTICE PHOSPHORUS Routine 05/06/2018 5:11 AM SHEET METAL APPRENTICE BASIC METABOLIC PANEL (7) Routine 05/06/2018 5:11 AM SHEET METAL APPRENTICE PT/APTT Routine 05/06/2018 5:11 AM SHEET METAL APPRENTICE MAGNESIUM Routine 05/06/2018 5:11 AM SHEET METAL APPRENTICE CBC W/PLT COUNT & AUTO Routine 05/06/2018 DIFFERENTIAL 5:11 AM SHEET METAL APPRENTICE after 11/16/2017 Results * RHYTHM STRIP - SCAN (08/27/2018 11:11 AM CDT) Only the most recent of 2 results within the time period is included. Narrative Performed At * EKG-SCANNED (08/27/2018 9:51 AM CDT) Narrative Performed At * VASCULAR DIAGRAM -SCAN (06/02/2018 2:40 PM SHEET METAL APPRENTICE) Only the most recent of 2 results within the time period is included. Narrative Performed At * CARDIAC CATH REPORT - SCAN (06/02/2018 2:40 PM SHEET METAL APPRENTICE) Narrative Performed At * CT chest without IV contrast (05/15/2018 8:41 AM SHEET METAL APPRENTICE) Specimen Narrative Performed At FINAL REPORT Anteryon TECHNIQUE: CT scan of the chest WITHOUT [...] MD Report Verified Date/Time:05/15/2018 16:43:31 Reading Location: [address] Body Reading Room Procedure Note Interface, External Ris In - 05/15/2018 4:45 PM SHEET METAL APPRENTICE FINAL REPORT TECHNIQUE: CT scan of the [...] Report Verified Date/Time: 05/15/2018 16:43:31 Reading Location: [facility] [id number] CT Body Reading Room Performing Organization Address City/State/Zipcode Phone Number GE RIS * CBC with platelet count + automated diff (05/15/2018 4:46 AM SHEET METAL APPRENTICE) Only the most recent of 11 results within the time period is included. WBC 15.6 (H) 3.5 - 10.5 K/L [facility] RBC 3.61 (L) 4.63 - 6.08 M/L [facility] Hemoglobin 12.5 (L) 13.7 - 17.5 GM/DL [facility] Hematocrit 36.2 (L) 40.1 - 51.0 % [facility] MCV 100.3 (H) 79.0 - 92.[address] [facility] MCH 34.6 (H) 25.7 - 32.[address] [facility] MCHC 34.5 32.3 - 36.5 GM/DL [facility] RDW 12.9 11.6 - 14.4 % [facility] Platelets 461 (H) 150 - 450 K/CU MM [facility] MPV 9.7 9.4 - 12.[address] [facility] nRBC 0 0 - 0 /[address] [facility] % Neutros 93 % [facility] % Lymphs 3 % [facility] % Monos 3 % [facility] % Eos 0 % [facility] % Baso 0 % [facility] # Neutros 14.47 (H) 1.78 - 5.38 K/L [facility] # Lymphs 0.50 (L) 1.32 - 3.57 K/L [facility] # Monos 0.43 0.30 - 0.82 K/L [facility] # Eos 0.00 (L) 0.04 - 0.54 K/L [facility] # Baso 0.01 0.01 - 0.08 K/L [facility] Immature 1 0 - 1 % [facility] Granulocytes-Relative [facility] Specimen Blood Performing Organization Address City/State/Zipcode Phone Number [facility] [address] [place] [address] MEDICAL CENTER * Thromboelastograph (TEG) (05/15/2018 4:46 AM SHEET METAL APPRENTICE) TEG Activated Clotting 2.6 (L) 4.0 - 7.0 minutes [facility] TEG Fibrinogen Activity 79.7 (H) 61.0 - 73.[address] [facility] TEG Platelet Aggregation 65.3 (H) 55.0 - 65.[address] [facility] TEG Fibrinolysis 1.9 0.0 - 5.0 % [facility] TEG-H Activated Clotting 2.8 (L) 4.0 - 7.0 minutes [facility] Time [facility] TEG-H Fibrinogen Activity 76.9 (H) 61.0 - 73.[address] [facility] TEG-H Platelet 62.8 55.0 - 65.0 MM [facility] Aggregation [facility] TEG-H Fibrinolysis 1.6 0.0 - 5.0 % [facility] Specimen Blood Performing Organization Address City/[facility] Phone Number [place] [phone] * Antithrombin III (05/15/2018 4:46 AM SHEET METAL APPRENTICE) Antithrombin III 110.0 80.0 - 120.0 % [facility] Specimen Blood Performing Organization Address City/[facility] Phone Number [address] * Magnesium (05/15/2018 4:46 AM SHEET METAL APPRENTICE) Only the most recent of 12 results within the time period is included. Magnesium 1.9 1.6 - 2.6 mg/dL [facility] Specimen Blood Performing Organization Address City/[facility] Phone Number [address] [address] [phone] * Basic Metabolic Panel (05/15/2018 4:46 AM SHEET METAL APPRENTICE) Only the most recent of 16 results within the time period is included. Sodium 135 (L) 136 - 145 meq/L [facility] Potassium 3.0 (L) 3.5 - 5.1 meq/L [facility] Chloride 99 98 - 107 meq/L [facility] CO2 28 22 - 29 meq/L [facility] BUN 30 (H) 7 - 21 mg/dL [facility] Creatinine 0.84 0.57 - 1.25 mg/dL [facility] Glucose 121 (H) 70 - 105 mg/dL [facility] Calcium 8.3 (L) 8.4 - 10.2 mg/dL [facility] EGFR 98Comment: ESTIMATED GFR IS mL/min/1.73 sq m [facility] NOT ACCURATE CREATININE [facility] CLEARANCE IN PREDICTING GLOMERULAR FILTRATION RATE. ESTIMATED GFR IS NOT APPLICABLE FOR DIALYSIS PATIENTS. Specimen Blood Performing Organization Address City/[facility]/Zipcode Phone Number [place] [phone] * POC ACTIVATED CLOTTING TIME (05/14/2018 4:30 PM SHEET METAL APPRENTICE) Only the most recent of 2 results within the time period is included. Activated Clotting Time 120Comment: TESTED AT [facility] sec [address] Specimen Blood Performing Organization Address City/[facility] Phone Number [address] * aPTT (05/14/2018 1:29 PM SHEET METAL APPRENTICE) Only the most recent of 23 results within the time period is included. PTT 67.9 (H) 22.5 - 36.[address] [facility] Specimen Blood Performing Organization Address City/[facility]/Zipcode Phone Number [phone] [place] [address] * Blood culture (05/13/2018 5:00 PM SHEET METAL APPRENTICE) Only the most recent of 2 results within the time period is included. Result No growth in [address] [facility] Specimen Blood Performing Organization Address City/[facility]/Zipcode Phone Number [place] [address] [place] [address] [facility] * ECHOCARDIOGRAM REPORT - SCAN (05/13/2018 2:50 PM SHEET METAL APPRENTICE) Narrative Performed At * ECG 12 lead (05/13/2018 12:58 PM SHEET METAL APPRENTICE) Specimen Narrative Performed At Ventricular Rate 96 BPM GE MUSE Atrial Rate 96 BPM P-R Interval 156 ms QRS Duration 110 ms Q-T Interval 352 ms QTC Calculation(Bazett) 444 ms P [place] 82 degrees R [place] 55 degrees T [place] 67 degrees Normal sinus rhythm Normal ECG No previous ECGs available Confirmed by Evita VARGHESE BASANT ([id number]) on 05/13/2018 6:22:57 PM Procedure Note Interface, External Ris In - 05/13/2018 6:23 PM SHEET METAL APPRENTICE Ventricular Rate 96 BPM Atrial Rate 96 BPM P-R Interval 156 ms QRS Duration 110 ms Q-T Interval 352 ms QTC Calculation(Bazett) 444 ms P [place] 82 degrees R [place] 55 degrees T [place] 67 degrees Normal sinus rhythm Normal ECG No previous ECGs available Confirmed by Evita VARGHESE BASANT ([id number]) on 05/13/2018 6:22:57 PM Performing Organization Address City/State/Zipcode Phone Number [employer] * Transesophageal echo (05/13/2018 9:38 AM SHEET METAL APPRENTICE) Ejection Fraction [facility] Specimen Narrative Performed At Transesophageal Echocardiography Report (ARNULFO) [facility] Demographics [facility] Patient NameNANCIE MAHARAJ Date of Study 05/13/2018 Visit [id number] Room Number 2156 Number Date of 1970Referring Physician Luz Stephenson MD Age 47 year(s)Junior Art Director Juancarlos Aceves MD Physician Procedure Type of Study ARNULFO procedure:TRANSESOPHAGEAL ECHO (Routine) Indications:Mass, cardiac. Clinical History HTN,EMBOLECTOMY 05-07-18 Height: 74 inches Weight: 99.34 kg (219 lbs) BSA: 2.26 m^2 BMI: 28.12 kg/m^2 HR: 82 bpm BP: 140/85 mmHg O2 Saturation: 99 % ARNULFO Performed By: the attending and the camera tuning engineer Procedure Informed Consent ARNULFO procedure notes Moderate [...] External Ris In - 05/21/2018 9:49 AM SHEET METAL APPRENTICE Transesophageal Echocardiography Report (ARNULFO) Demographics Patient Name NANCIE MAHARAJ Date of Study 05/13/2018 Gender Male Visit Number [id number] Race Room Number 2156 Number Date of 1970 Referring Physician Luz Stephenson MD Age 47 year(s) Junior Art Director Juancarlos Aceves MD Physician Procedure Type of Study ARNULFO procedure:TRANSESOPHAGEAL ECHO (Routine) Indications:Mass, cardiac. Clinical History HTN,EMBOLECTOMY 05-07-18 Height: 74 inches Weight: 99.34 kg (219 lbs) BSA: 2.26 m^2 BMI: 28.12 kg/m^2 HR: 82 bpm BP: 140/85 mmHg O2 Saturation: 99 % ARNULFO Performed By: the attending and the camera tuning engineer Procedure Informed Consent ARNULFO procedure notes Moderate [...] l/min/m^2 Performing Organization Address City/State/Zipcode Phone Number [facility] * ECHOCARDIOGRAM REPORT - SCAN (05/12/2018 6:20 PM SHEET METAL APPRENTICE) Narrative Performed At * ECHO W CONTRAST & DOPPLER (05/12/2018 1:54 PM SHEET METAL APPRENTICE) Ejection Fraction [facility] Specimen Narrative Performed At Transthoracic Echocardiography Report (TTE) [facility] View Medical [employer] Demographics [facility] Patient NameGUELKER,Date of Study05/12/2018 NANCIE Male Visit [id number] Room [id number] Number Date of 1970ReferringAllascencion Stephenson MD Physician Age 47 year(s)SonographerMarie Pittman, SHELBI, RDCS,RVT,RDMS Supervisor [employer] Marlon Carrillo Interpreting Amrit Veliz MD Physician [...] External Ris In - 05/12/2018 5:43 PM SHEET METAL APPRENTICE Transthoracic Echocardiography Report (TTE) Demographics Patient Name NICKO, Date of Study 05/12/2018 NANCIE Gender Male Visit Number [id number] Race Room Number 2156 Number Date of 1970 Referring Luz tSephenson MD Physician Age 47 year(s) Junior Art Director SHELBI Dunn, RDCS,RVT,RDMS Supervisor [employer] Marlon Carrillo Interpreting Amrit Veliz MD Physician [...] 0.09 m/s E/E': 5.15 Performing Organization Address City/[facility] Phone Number [facility] MKCKESS[facility] * Hemoglobin and hematocrit (05/11/2018 5:14 PM SHEET METAL APPRENTICE) Hemoglobin 12.9 (L) 13.7 - 17.5 GM/DL [facility] Hematocrit 38.1 (L) 40.1 - 51.0 % [facility] Specimen Blood Performing Organization Address City/[facility]/Zipcode Phone Number [facility] [address] [place] [address] [facility] * Tissue Exam (05/11/2018 5:14 PM SHEET METAL APPRENTICE) Only the most recent of 3 results within the time period is included. Case Report Surgical Pathology Formerly [facility] Case: [id number] Authorizing Provider:uLz Stephenson MD Collected: 05/11/2018 018 Ordering Location: [address] Received: 05/11/2018 746 Service Pathologist: Lita Alegria MD Specimen:Skin DIAGNOSIS SKIN, RIGHT UPPER ARM, PUNCH [facility] BIOPSY: [facility] - SPONGIOTIC DERMATITIS WITH EOSINOPHILS, COMPATIBLE WITH ECZEMA Signing Pathologist Direct Phone Line: [phone] CPT Code(s) 23120 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 GROSS DESCRIPTION The specimen is received in a [facility] formalin-filled container and [facility] labeled with the patient's information and labeled "punch biopsy right upper arm" and consists of a 0.4 cm nonpigmented skin punch biopsy with a depth of 0.3 cm. Resection margin is inked blue. The specimen is bisected and submitted entirely A1. CG/pl MICROSCOPIC DESCRIPTION Sections show skin with marked [facility] spongiosis and superficial [facility] perivascular infiltrates, including lymphocytes, histiocytes and numerous eosinophils. Specimen Tissue Performing Organization Address City/[facility]/Zipcode Phone Number [facility] [address] [place] [address] [facility] * US renal biopsy (05/11/2018 10:00 AM SHEET METAL APPRENTICE) Specimen Narrative Performed At FINAL REPORT [facility] Ultrasound guidance was provided to the referring top dyeing machine tender by the settlement technician for a kidney biopsy. 12 images were obtained. Signed: Francisco Javier Joaquin MD Report Verified Date/Time:05/15/2018 14:22:54 Reading Location: [address] Ortho Consult Reading Room Procedure Note Interface, External Ris In - 05/15/2018 2:25 PM SHEET METAL APPRENTICE FINAL REPORT Ultrasound guidance was provided to the referring top dyeing machine tender by the settlement technician for a kidney biopsy. 12 images were obtained. Signed: Francisco Javier Joaquin MD Report Verified Date/Time: 05/15/2018 14:22:54 Reading Location: [facility] C013X Ortho Consult Reading Room Performing Organization Address City/State/Zipcode Phone Number [facility] * PT/aPTT (05/11/2018 6:04 AM SHEET METAL APPRENTICE) Only the most recent of 2 results within the time period is included. Protime 12.7 11.7 - 14.[address] [facility] INR 1.[address] [facility] PTT 28.4 22.5 - 36.[address] [facility] Specimen Blood Narrative Performed At RECOMMENDED COUMADIN/WARFARIN INR THERAPY RANGES [facility] STANDARD DOSE: 2.0 - 3.0 Includes: PROPHYLAXIS for venous thrombosis, [facility] systemic embolization; TREATMENT for venous thrombosis and/or pulmonary embolus. HIGH RISK: Target INR is 2.5-3.5 for patients with mechanical heart valves. Performing Organization Address [facility] Phone Number [address] [address] [facility] * Prothrombin time/INR (05/11/2018 6:04 AM SHEET METAL APPRENTICE) Only the most recent of 3 results within the time period is included. Protime 12.7 11.7 - 14.[address] [facility] INR 1.[address] [facility] Specimen Blood Narrative Performed At RECOMMENDED COUMADIN/WARFARIN INR THERAPY RANGES [facility] STANDARD DOSE: 2.0 - 3.0 Includes: PROPHYLAXIS for venous thrombosis, [facility] systemic embolization; TREATMENT for venous thrombosis and/or pulmonary embolus. HIGH RISK: Target INR is 2.5-3.5 for patients with mechanical heart valves. Performing Organization Address City/[facility]/Zipcode Phone Number [facility] [address] [place] [address] [facility] * Occult blood, stool (05/10/2018 5:44 AM SHEET METAL APPRENTICE) Occult blood Negative Negative [facility] Specimen Stool Performing Organization Address [facility]/Zipcode Phone Number [place] [phone] [place] [address] [facility] * US renal complete (05/09/2018 2:35 AM SHEET METAL APPRENTICE) Specimen Narrative Performed At FINAL REPORT [facility] Ultrasound of the Kidneys Clinical History:BEBA on [...] MD Report Verified Date/Time:05/09/2018 05:30:16 Reading Location: [facility] C013Y CT Body Reading Room Procedure Note Interface, External Ris In - 05/09/2018 5:32 AM SHEET METAL APPRENTICE FINAL REPORT Ultrasound of the Kidneys Clinical [...] Report Verified Date/Time: 05/09/2018 05:30:16 Reading Location: [facility] B1 C013Y CT Body Reading Room Performing Organization Address City/State/Zipcode Phone Number GE RIS * ECHOCARDIOGRAM REPORT - SCAN (05/08/2018 7:50 PM SHEET METAL APPRENTICE) Narrative Performed At * Urea Nitrogen, random urine (05/08/2018 12:06 PM SHEET METAL APPRENTICE) Only the most recent of 2 results within the time period is included. Urea Nitrogen, Ur 132 mg/dL [facility] Specimen Urine Narrative Performed At Reference Range: No Normals [facility] Performing Organization Address [facility] Phone Number [address] * Sodium, random urine (05/08/2018 12:06 PM SHEET METAL APPRENTICE) Only the most recent of 2 results within the time period is included. Sodium Urine 88 meq/L [facility] Specimen Urine Narrative Performed At Reference Range: No Normals [facility] Performing Organization Address [facility] Phone Number [address] * Osmolality, urine (05/08/2018 12:06 PM SHEET METAL APPRENTICE) Only the most recent of 2 results within the time period is included. Osmolality, Ur 296 40-1,400 mOsm/kg [facility] Specimen Urine Performing Organization Address City/[facility] Phone Number [address] * Creatinine, random urine (05/08/2018 12:06 PM SHEET METAL APPRENTICE) Only the most recent of 2 results within the time period is included. Creatinine, Ur 42.2 mg/dL [facility] Specimen Urine Narrative Performed At Reference Range: No Normals [facility] Performing Organization Address City/[facility] Unit[facility] Phone Number [address] [address] [facility] * 2D Echo W/Doppler(CW/PW/Color) (05/08/2018 10:46 AM SHEET METAL APPRENTICE) Ejection Fraction [facility] ECHO [facility]ART[facility] Specimen Narrative Performed At Transthoracic Echocardiography Report (TTE) [facility] ECHO [facility]ART[facility] Demographics [facility] Patient Name Edil MAHARAJ of Study 05/08/2018 [id number] GenderMale Visit Number [id number] RaceWil [id number] Number [id number] Number Date of Birth1970 Referring Physician Jose Treviño Age47 year(s) Junior Art Director Fernando Núñez [facility] AnalystMailyn InterpretingMD Maria Farley Physician Procedure Type [...] External Ris In - 05/08/2018 7:16 PM SHEET METAL APPRENTICE Transthoracic Echocardiography Report (TTE) Demographics Patient Name NANCIE MAHARAJ Date of Study 05/08/2018 Gender Male Visit Number [id number] Race Room Number 2156 Number Date of 1970 Referring Physician Jose Treviño Age 47 year(s) Junior Art Director Fernando Núñez [employer] Ambar Interpreting MD [facility] Phys[facility] Procedure Type of Study TTE [...] LVOT CI: 2.65 l/min/m^2 Performing Organization Address City/[facility] Phone Number [facility] ECHO HEARTLAB [facility] * Osmolality, serum (05/08/2018 8:18 AM SHEET METAL APPRENTICE) Only the most recent of 2 results within the time period is included. Osmolality Serum 273 (L) 275 - 295 mOsm/kg [facility] Specimen Blood Performing Organization Address [facility] [place] [address] [phone] [place] [address] * Calcium, Ionized (05/07/2018 10:06 PM SHEET METAL APPRENTICE) Calcium, Ion 1.09 (L) 1.12 - 1.27 mmol/L [facility] pH, Blood 7.43 [facility] Specimen Blood Performing Organization Address [facility] [place] [address] [facility] * Lactic acid, venous, whole blood (05/07/2018 10:06 PM SHEET METAL APPRENTICE) Only the most recent of 2 results within the time period is included. Lactate, Venous 0.8Comment: Specimen slightly 0.5 - 2.2 mmol/L [facility] hemolyzed [facility] Specimen Blood Performing Organization Address [facility] Phone Number [address] [address] [facility] * Phosphorus (05/07/2018 10:06 PM SHEET METAL APPRENTICE) Only the most recent of 2 results within the time period is included. Phosphorus 4.5 2.3 - 4.7 mg/dL [facility] Specimen Blood Performing Organization Address City/[facility] Phone Number [address] [address] [phone] [place] [address] * TRANSFUSION SERVICE REPORT - SCAN (05/07/2018 6:00 PM SHEET METAL APPRENTICE) Narrative Performed At * Rheumatoid factor Ab, reflex to titer (05/07/2018 9:15 AM SHEET METAL APPRENTICE) Rheumatoid Factor Negative [facility] Specimen Blood Performing Organization Address [facility] Phone Number [address] [address] [facility] * Lipid panel (05/07/2018 3:02 AM SHEET METAL APPRENTICE) Triglycerides 97 mg/dL [facility] Cholesterol 261 mg/dL [facility] HDL 60 mg/dL [facility] LDL Calculated 182 mg/dL [facility] Specimen Blood Narrative Performed At Triglyceride Reference Range: [facility] Low Risk <150 [facility] [id number] High Risk 200-499 Very High Risk>=500 Cholesterol Reference Range: Low Risk <200 [id number] High Risk>240 HDL Cholesterol Reference Range: Low Risk >=60 High Risk <40 LDL Cholesterol Reference Range: Optimal<100 Near [id number] Zbwfhoraep274-750 Bzof153-029 Very High >=190 Performing Organization Address [facility] Phone Number [address] [address] [facility] * Protein, random urine (05/06/2018 8:32 PM SHEET METAL APPRENTICE) Only the most recent of 2 results within the time period is included. Protein, Urine 1,612 (H) 0 - 14 mg/dL [facility] Specimen Urine Performing Organization Address [facility] Phone Number [place] [phone] [place] [address] [facility] * Urine Protein Electrophoresis, random (05/06/2018 8:32 PM SHEET METAL APPRENTICE) Protein, Urine 1,612 (H) 0 - 14 mg/dL [facility] Albumin %, Urine 63.3 % [facility] Globulin %, Urine 36.7 % [facility] UPEP,ID Urine protein study consistent [facility] with glomerular dysfunction. [facility] No monoclonal bands detected. Pathologist: Lesvia Matson MD (electronic [facility] signature) [facility] Specimen Urine Performing Organization Address City/State/Zipcode Phone Number [facility] [address] [place] [address] [facility] * Urinalysis w/Microscopic (05/06/2018 8:32 PM SHEET METAL APPRENTICE) Color, UA Yellow [facility] Clarity, UA Hazy [facility] Specific [place], UA 1.034 1.001 - 1.035 [facility] pH, UA 6.0 5.0 - 8.0 [facility] Protein, UA 600 mg/dL (A) Negative [facility] Glucose, UA Negative Negative [facility] Ketones, UA Negative Negative [facility] Bilirubin, UA Negative Negative [facility] Blood, UA Large (A) Negative [facility] Nitrite, UA Negative Negative [facility] Leukocytes, UA Negative Negative [facility] Urobilinogen, UA 0.2 0.2 - 1.0 mg/dL [facility] RBC, UA 35 /HPF [facility] WBC, UA 10 /HPF [facility] Mucus Few [facility] Hyaline Casts, UA 29 /LPF [facility] Granular Casts, UA 4 /LPF [facility] Yeast Few [facility] Specimen Source Urine, Voided [facility] Specimen Urine Performing Organization Address City/State/Zipcode Phone Number [address] [address] [phone] [address] * Double-Stranded DNA (dsDNA) Antibody (05/06/2018 8:15 PM SHEET METAL APPRENTICE) ds DNA Ab Negative [facility] Specimen Blood Performing Organization Address City/[facility]/Zipcode Phone Number [address] * Hepatitis panel, acute (05/06/2018 8:15 PM SHEET METAL APPRENTICE) Hep A IgM Nonreactive Nonreactive [facility] Hep B C IgM Nonreactive Nonreactive [facility] Hepatitis C Ab Nonreactive Nonreactive [facility] hepatitis B Surface Ag Nonreactive Nonreactive [facility] Specimen Blood Performing Organization Address City/[facility] Phone Number [address] * Beta-2 glycoprotein antibodies (05/06/2018 8:15 PM SHEET METAL APPRENTICE) B2 Glcoprotein Ab Profile Refer to individual [facility] B2-Glycoprotein IgG, IgM and INCORPORATED IgA results. Specimen Blood Narrative Performed At Performing Organization Address City/State/Zipcode Phone Number [facility], [address] [place], [place] [facility] [address] [address] * Cardiolipin Antibodies, IgG and IgM (05/06/2018 8:15 PM SHEET METAL APPRENTICE) Anticardiolipin IgG <1.6 <[address] [facility] Anticardiolipin IgM 0.2 <20.[address] [facility] Specimen Blood Narrative Performed At Anticardiolipin IgG Result Interpretation: [facility] <20.0 GPL Normal [facility] >/=20.0 GPL Positive Anticardiolipin IgM Result Interpretation: <20.0 MPL Normal >/=20.0 MPL Positive Performing Organization Address [facility] Phone Number [address] * Complement Component C3 (05/06/2018 8:15 PM SHEET METAL APPRENTICE) C3 Complement 130 82 - 193 mg/dL [facility] Specimen Blood Performing Organization Address [facility] Phone Number [address] * Complement Component C4 (05/06/2018 8:15 PM SHEET METAL APPRENTICE) C4 Complement 26 15 - 57 mg/dL [facility] Specimen Blood Performing Organization Address [facility] Phone Number [address] * Anti-Nuclear Antibody (YO) (05/06/2018 8:15 PM SHEET METAL APPRENTICE) YO Negative Negative [facility] Specimen Blood Narrative Performed At Test performed by IFA method. [facility] Test performed by IFA method. [facility] Performing Organization Address [facility] Phone Number [address] * Folate, Serum (05/06/2018 8:15 PM SHEET METAL APPRENTICE) Folate 11.4 >=7.0 ng/mL [facility] Specimen Blood Performing Organization Address [facility] Phone Number [address] * Vitamin B12 (05/06/2018 8:15 PM SHEET METAL APPRENTICE) Vitamin B12 272 213 - 816 pg/mL [facility] Specimen Blood Performing Organization Address [facility]/Zipcode Phone Number [facility] [address] [place] [address] [facility] * [place] / lambda light chains, serum (05/06/2018 8:14 PM SHEET METAL APPRENTICE) [place] Lt Chain,Free 23.8 (H) 3.3 - 19.4 mg/L [facility] Lambda Lt Chain,Free 20.4 5.7 - 26.3 mg/L [facility] [place]/Lambda,Free 1.17 0.26 - 1.65 [facility] Comment: [...] Lab [facility] [place] [employer] [employer] [address] [place] [address] [place] [address] Raúl Mancuso MD, PhD, RASHID Performing Organization Address City/State/Zipcode Phone Number [facility] [place], [address] [place], [place] [facility] [address] * Protein electrophoresis, serum (05/06/2018 8:14 PM SHEET METAL APPRENTICE) Albumin Fraction 1.4 (L) 3.5 - 5.5 g/dL [facility] Alpha 1 Fraction 0.3 0.2 - 0.4 g/dL [facility] Alpha 2 Fraction 0.8 0.5 - 0.9 g/dL [facility] Beta Fraction 0.4 (L) 0.6 - 1.1 g/dL [facility] Gamma Globulin Fraction 0.8 0.7 - 1.7 g/dL [facility] Interpretation Alpha-1 and alpha-2 increased. [facility] Albumin, beta, and gamma [facility] decreased. This suggests a nephrotic pattern. Pathologist: Lesvia Matson MD (electronic [facility] signature) [facility] Protein, Total 3.7 (L) 6.0 - 8.3 gm/dL [facility] Specimen Blood Performing Organization Address City/[facility] Phone Number [address] [address] [phone] [place] [address] * Cryoglobulin (05/06/2018 8:12 PM SHEET METAL APPRENTICE) Cryoglobulin Negative [facility] Specimen Blood Performing Organization Address [facility] Phone Number [address] * Lupus Anticoagulant Screen with Reflex To Confirmatory (05/06/2018 6:38 PM SHEET METAL APPRENTICE) DRVV Screen Ratio 0.[address]20 [facility] Interpretations Normal DRVV Results [facility] Protime 12.6 11.7 - 14.[address] [facility] INR 0.9 <=5.9 [facility] PTT 29.6 22.5 - 36.[address] [facility] PTT-LA 35.5 32.0 - 41.8 [facility] Pathologist: Jovi Aguilar MD (electronic [facility] Specimen Blood Performing Organization Address [facility] Phone Number [address] [address] [phone] [place] [address] * TSH/Free T4 If Indicated (05/06/2018 10:42 AM SHEET METAL APPRENTICE) TSH 0.20 (L) 0.35 - 4.94 uIU/mL [facility] Specimen Blood Performing Organization Address [facility] Phone Number [address] [address] [phone] [place] [address] * HIV-1 Antigen with HIV-1/2 Antibody (05/06/2018 10:42 AM SHEET METAL APPRENTICE) HIV-1 Antigen with HIV Nonreactive Nonreactive [facility] 1&2 Antibody [facility] Specimen Blood Performing Organization Address [facility] Phone Number [address] * Herpes virus antibody, IgM (05/06/2018 10:42 AM SHEET METAL APPRENTICE) Herpes Virus IGM Negative [facility] Specimen Blood Narrative Performed At Performing Organization Address [facility] Phone Number [address] * Potassium, random urine (05/06/2018 10:42 AM SHEET METAL APPRENTICE) Potassium Urine 38.2 meq/L [facility] Specimen Urine Narrative Performed At Reference Range: No Normals [facility] Performing Organization Address [facility] Phone Number [address] * Chloride, random urine (05/06/2018 10:42 AM SHEET METAL APPRENTICE) ChlorideUr 56 meq/L [facility] Specimen Urine Narrative Performed At Reference Range: No Normals [facility] Performing Organization Address [facility] Phone Number [address] * RPR (05/06/2018 10:42 AM SHEET METAL APPRENTICE) RPR Nonreactive Nonreactive [facility] Specimen Blood Performing Organization Address [facility] Phone Number [address] * Hepatitis B surface antibody (05/06/2018 10:42 AM SHEET METAL APPRENTICE) Hep B S Ab <8.0 <8.0 mIU/mL [facility] Specimen Blood Performing Organization Address City/[facility]/Zipcode Phone Number [address] * Hepatitis B surface antigen (05/06/2018 10:42 AM SHEET METAL APPRENTICE) hepatitis B Surface Ag Nonreactive Nonreactive [facility] Specimen Blood Performing Organization Address City/[facility] Phone Number [address] * T4, free (05/06/2018 10:42 AM SHEET METAL APPRENTICE) Free T4 1.49 (H) 0.70 - 1.48 ng/dL [facility] Specimen Blood Performing Organization Address [facility] Phone Number [address] * POC-Glucose meter (05/06/2018 10:33 AM SHEET METAL APPRENTICE) POC-Glucose Meter 88Comment: TESTED AT [facility] 70 - 110 mg/dL [address] Specimen Blood Performing Organization Address City/[facility] Phone Number [address] * XR chest 1 view portable / bedside (05/06/2018 9:30 AM SHEET METAL APPRENTICE) Specimen Narrative Performed At FINAL REPORT GE RIS INDICATION: admission COMPARISON: None. TECHNIQUE: Chest radiograph, single view, portable technique. FINDINGS / IMPRESSION: No consolidation, pulmonary edema, pneumothorax, or pleural effusion is demonstrated. Cardiac and mediastinal contours are unremarkable for portable technique. Old healed right posterolateral rib fractures are noted. Signed: Jorden Loera MD Report Verified Date/Time:05/06/2018 10:14:04 Reading Location: [facility] Radiology Reading Room Procedure Note Interface, External Ris In - 05/06/2018 10:16 AM SHEET METAL APPRENTICE FINAL REPORT INDICATION: admission COMPARISON: None. TECHNIQUE: Chest radiograph, single view, portable technique. FINDINGS / IMPRESSION: No consolidation, pulmonary edema, pneumothorax, or pleural effusion is demonstrated. Cardiac and mediastinal contours are unremarkable for portable technique. Old healed right posterolateral rib fractures are noted. Signed: Jorden Loera MD Report Verified Date/Time: 05/06/2018 10:14:04 Reading Location: [facility] Radiology Reading Room Performing Organization Address City/State/Zipcode Phone Number GE RIS * Venous doppler legs bilateral (05/06/2018 6:01 AM SHEET METAL APPRENTICE) [facility]CHO [facility]ART[facility] MK[facility] CPACS Specimen Impressions Performed At Right Impression [facility] ECHO HEART[facility] 1. There is no deep venous obstruction in the common femoral, profunda MK[facility]ON [facility] femoral, femoral, popliteal, posterior tibial or peroneal [...] PV LAB - Lower Extremities DVT Study [facility]CHO HEART[facility] Demographics MKCK[facility]ON CPACS Patient NameNANCIE MAHARAJ Date of Study05/06/2018 Visit [id number] Male of Birth1970 [id number] Junior Art Director MD Dax BenavideserPhysician Procedure Type of Study: Veins: Lower Extremities [...] External Ris In - 05/06/2018 11:44 AM SHEET METAL APPRENTICE PV LAB - Lower Extremities DVT Study Demographics Patient Name NANCIE MAHARAJ Date of Study 05/06/2018 Age 47 Visit Number [id number] Gender Male Accession Number [id number] Date of 1970 Referring [facility] Room Number [id number] Physician Junior Art Director Jose Landis MD Rashad Schaeffer Physician Procedure Type of Study: Veins: Lower Extremities DVT Study, VENOUS DOPPLER LEG, BILATERAL. Indications for Study:Cellulitis and Edema. Patient Status:Routine. Study Location:Portable. Technical Quality:Adequate visualization. Risk Factors History of Disease + +----+ + !Diagnosis !Date!Comments ! + +----+ + !History/Risk ! !Bilateral LE Edema, Bilateral LE Cellulitis, Lt Arm! !Factors: ! ![facility] ! + +----+ + Impressions Right [...] are measured in cm Performing Organization Address City/[facility] Phone Number [facility] * Hemoglobin A1c (05/06/2018 5:29 AM SHEET METAL APPRENTICE) Hemoglobin A1C 5.1 4.3 - 6.1 % [facility] Specimen Blood Performing Organization Address City/[facility] Phone Number [address] * Type and screen, automated (05/06/2018 5:11 AM SHEET METAL APPRENTICE) ABO/RH AUTOMATED (BEAKER) B POSITIVE [facility] Ab Scrn NEGATIVE [facility] Specimen Blood Performing Organization Address [facility] Phone Number [address] * Lactate dehydrogenase (LDH) (05/06/2018 5:11 AM SHEET METAL APPRENTICE) LDH 219 125 - 220 U/L [facility] Specimen Blood Performing Organization Address [facility] Phone Number [address] * Hepatic function panel (05/06/2018 5:11 AM SHEET METAL APPRENTICE) Protein, Total 4.9 (L) 6.0 - 8.3 gm/dL [facility] Albumin 2.0 (L) 3.5 - 5.0 g/dL [facility] Total Bilirubin 0.2 0.2 - 1.2 mg/dL [facility] Bilirubin, Direct 0.1 0.1 - 0.5 mg/dL [facility] Alkaline Phosphatase 100 40 - 150 U/L [facility] AST 18 5 - 34 U/L [facility] ALT 11 6 - 55 U/L [facility] Specimen Blood Performing Organization Address City/State/Zipcode Phone Number [facility] [address] [place] [address] [facility] after 11/16/2017 Insurance Payer Benefit Subscriber ID Type Phone Address Plan / Group [employer] BCBS PPO xxxxxxxxxxxx PPO [phone] [address] [place] [address] CHOICE Advance Directives For more information, please contact: [facility] [address] [place] [address] Date Inactivated Comments Code Status Date Activated Full Code 05/07/2018 9:58 PM This code status was determined by: Patient
--- NOTE | 2018-11-17 19:32 | Diagnostic Imaging Report ---
EXAMINATION: CHEST SINGLE (PORTABLE) INDICATION: ^ERMD ORDER ^[id number] ^1915 ^Y COMPARISON: 10/03/2018. 11/02/2018 FINDINGS: TUBES and LINES: Stable right internal jugular dialysis catheter. Left upper chest central venous catheter. LUNGS: Right lower lung field opacification. This is slightly worse when compared with the prior exam PLEURA: No visible pneumothorax. HEART AND MEDIASTINUM: The cardiomediastinal silhouette is unremarkable. BONES AND SOFT TISSUES: No acute osseous lesion. Soft tissues are unremarkable. UPPER ABDOMEN: No free air under the diaphragm. IMPRESSION: Slightly worse right lower lung field opacification, representing combination of effusion and atelectasis. Underlying pneumonia or contusion cannot be excluded in the appropriate clinical context. Signed by: Dr. Yaya Figueroa M.D. on 11/17/2018 7:29 PM
--- NOTE | 2018-11-17 19:42 | Diagnostic Imaging Report ---
History:Weakness Comparison studies: None Technique: Axial images were obtained from the skull base to the vertex. Coronal and sagittal images reconstructed from the axial data. Dose modulation, iterative reconstruction, and/or weight based adjustment of the mA/kV was utilized to reduce the radiation dose to as low as reasonably achievable. Intravenous contrast: None Findings: Scalp/skull: No abnormalities. Extra-axial spaces: No masses. No fluid collections. Brain sulci: Mildly prominent. Ventricles: Mild compensatory dilatation. No hydrocephalus. Parenchyma: Cortical encephalomalacic changes (right postcentral and in the right superior and middle temporal gyri), associated with gliotic changes in the underlying white matter, are the result of a nonspecific distal right MCA vascular insult. No additional abnormal densities. No masses, hemorrhage, acute or additional chronic cortical vascular insults. Sellar/suprasellar region: No abnormalities. Craniocervical junction: Patent foramen magnum. No Chiari one malformation. Incidental findings: Atherosclerotic calcifications in the carotid siphons . Impression: No acute abnormalities. Chronic findings: 1. Mild generalized volume loss. 2. Distal right temporoparietal MCA vascular insult. Signed by: Dr. Michael Mehta M.D. on 11/17/2018 7:39 PM
--- NOTE | 2018-11-17 19:55 | NUR ---
SPOKE TO PT REGARDING NEED FOR URINE, PT STATES HE RARELY VOIDS, MAYBE EVERY 2 DAYS. ADVISED WHEN HE VOID WILL NEED TO GET SAMPLE. DR OSEI AWARE
[2018-11-17 20:05] LABS: BASOPHILS % 0.6 % (0.0-1.0); EOSINOPHILS # (AUTO) 0.4 (0.0-0.4); EOSINOPHILS % 6.1 % (0.0-6.0); HEMATOCRIT 24.5 % (38.2-49.6); HEMOGLOBIN 7.9 g/dL (14.0-18.0); LYMPHOCYTES # (AUTO) 1.6 (1.0-3.2); LYMPHOCYTES % 23.7 % (18.0-39.1); MEAN CORPUSCULAR HEMOGLOBIN 29.2 pg (28-32); MEAN CORPUSCULAR HGB CONC 32.2 g/dL (31-35); MEAN CORPUSCULAR VOLUME 90.4 fL (81-99); MONOCYTES # (AUTO) 0.6 (0.2-0.8); MONOCYTES % 9.1 % (4.4-11.3); NEUTROPHILS # (AUTO) 4.1 (2.1-6.9); NEUTROPHILS % 60.1 % (38.7-80.0); PLATELET COUNT 297 x10e3/uL (140-360); RED BLOOD COUNT 2.71 x10e6/uL (4.3-5.7); RED CELL DISTRIBUTION WIDTH 15.9 % (11.7-14.4)
[2018-11-17 20:13] LABS: INR 1.7; PROTHROMBIN TIME 20.6 seconds (11.9-14.5)
[2018-11-17 20:14] LABS: PARTIAL THROMBOPLASTIN TIME 40.6 seconds (23.8-35.5)
[2018-11-17 20:23] LABS: ALANINE AMINOTRANSFERASE < 6 IU/L (0-55); ALBUMIN 1.9 g/dL (3.5-5.0); ALBUMIN/GLOBULIN RATIO 0.3 (0.8-2.0); ALKALINE PHOSPHATASE 142 IU/L (40-150); ANION GAP 18.7 mmol/L (8-16); BLOOD UREA NITROGEN 10 mg/dL (7-26); BUN/CREATININE RATIO 2 (6-25); CALCIUM 8.2 mg/dL (8.4-10.2); CARBON DIOXIDE 26 mmol/L (22-29); CHLORIDE 92 mmol/L (98-107); CREATINE KINASE 113 IU/L (30-200); CREATININE, SERUM 6.17 mg/dL (0.72-1.25); EST GLOMERULAR FILTRATION RATE 10 ML/MIN (60-); GLUCOSE 93 mg/dL (74-118); MAGNESIUM 1.7 MG/DL (1.3-2.1); POTASSIUM 3.7 mmol/L (3.5-5.1); SODIUM 133 mmol/L (136-145)
[2018-11-17 20:33] LABS: B-TYPE NATRIURETIC PEPTIDE2 4244.7 pg/mL (0-100)
[2018-11-17 21:09] LABS: BLAST CELLS % MANUAL 2; EOSINOPHILS % (MANUAL) 4 % (0-7); HYPOCHROMASIA MODERATE; LYMPHOCYTES % (MANUAL) 16 % (19-48); MONOCYTES % (MANUAL) 6 % (3.4-9.0); NEUTROPHILS % (MANUAL) 72 % (40-74)
[2018-11-17 21:10] LABS: ANISOCYTOSIS SLIGHT; PLATELET ESTIMATE ADEQUATE; PLATELET MORPHOLOGY COMMENT NORMAL
--- NOTE | 2018-11-17 21:31 | Diagnostic Imaging Report ---
EXAMINATION: CT scan of the chest without contrast. TECHNIQUE: Helical CT images of the chest were performed from the lung apices to the level of the adrenal glands. No intravenous contrast was administered . Coronal and sagittal reformatted images were obtained. Dose modulation, iterative reconstruction, and/or weight based adjustment of the mA/kV was utilized to reduce the radiation dose to as low as reasonably achievable. COMPARISON: None. CLINICAL HISTORY:Shortness of breath, weakness DISCUSSION: ABSENCE OF INTRAVENOUS CONTRAST DECREASES SENSITIVITY FOR DETECTION OF FOCAL LESIONS AND VASCULAR PATHOLOGY. LINES/TUBES: Dialysis catheter. Left subclavian central venous catheter. Both tips in the SVC. LUNGS AND AIRWAYS: Advanced pulmonary emphysema most prominent in the upper lung distribution. Bilateral compressive atelectasis, greater in the right lower and middle lobe. PLEURA: Right greater than left pleural effusion with fluid extending into the fissures HEART AND MEDIASTINUM: The thyroid gland is normal. Coronary artery calcifications. Heart size within normal limits. LYMPH NODES: There is no mediastinal, hilar or axillary lymphadenopathy. ABDOMEN: Limited contrast-enhanced views of the upper abdomen show no abnormality within the visualized liver, spleen, pancreas, or kidneys. The adrenal glands are normal. BONES AND SOFT TISSUES: No acute bony abnormalities. IMPRESSION: Advanced centrilobular pulmonary edema. Right greater than left pleural effusions with compressive atelectasis. Signed by: Dr. Wilber Jordan M.D. on 11/17/2018 9:27 PM
[2018-11-17] MEDS ORDERED: SODIUM CHLORIDE FLUSH 10 ML SYR INJ PRN (21:45)
[2018-11-17] MEDS ORDERED: ONDANSETRON HCL INJ 2MG/ML 2ML 2 MG/ML VIAL IV PRN (21:45)
--- OUTSIDE RECORDS SUMMARY | 2018-11-17 21:55 | XMS REPORT | Clinical Summary ---
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 [employer] Name Role Phone Jair Martino Unavailable Allergies [...] cardiovascular exam; Alcohol abuse; Tobacco abuse 05/06/2018 [facility] General Internal Medicine - Encounter 05/15/2018 after [...] Taken Vital Sign Reading 05/15/2018 3:59 AM [facility] Blood Pressure 123/72 05/15/2018 3:59 AM [facility] Pulse 76 05/15/2018 3:59 AM [facility] Temperature 36 C (96.8 F) 05/15/2018 3:59 AM [facility] Respiratory Rate 18 05/15/2018 3:59 AM [facility] Oxygen Saturation 96% 05/07/2018 5:47 PM [facility] Inhaled Oxygen 50% Concentration 05/15/2018 6:00 AM [facility] Weight 89.4 kg (197 lb 1.6 oz) 05/06/2018 5:00 AM [facility] Height 187 cm (6' 1.62") 05/15/2018 6:00 AM [facility] Body Mass Index 25.57 Plan of Treatment Not on file Implants Device Identifier Shelf Expiration Date Model / Serial / Lot Implanted Type Area Manufactur er 07/24/2019 [id number] / / [id number] Floseal Vhsd Full Strlprep 5ml Cement/John Left: Arm 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 [id number] - [id number] ler/[employer] Implanted: Qty: 2 on 05/07/2018 by Clara Ortez MD Procedures Comments Procedure Name Priority Date/Time Associated Diagnosis RHYTHM STRIP - SCAN 08/27/2018 11:11 AM CDT REPORT OF PROCEDURE - 08/27/2018 ENDOSCOPY SCAN 9:51 AM CDT VASCULAR DIAGRAM -SCAN 06/02/2018 2:40 PM [facility] RHYTHM STRIP - SCAN 06/02/2018 2:40 PM [facility] CARDIAC CATH REPORT - 06/02/2018 SCAN 2:40 PM [facility] VASCULAR DIAGRAM -SCAN 05/29/2018 5:41 [address] [facility] CHEST WITHOUT IV Routine 05/15/2018 CONTRAST 8:41 AM [facility] CBC W/PLT COUNT & AUTO Routine 05/15/2018 DIFFERENTIAL 4:46 AM [facility] CBC W/PLT COUNT & AUTO Routine 05/15/2018 DIFFERENTIAL 4:46 AM [facility] BASIC METABOLIC PANEL (7) Routine 05/15/2018 4:46 AM [facility] MAGNESIUM Routine 05/15/2018 4:46 AM [facility] THROMBOELASTOGRAPH (TEG) Routine 05/15/2018 4:46 AM [facility] ANTITHROMBIN III Routine 05/15/2018 4:46 AM [facility] POCT-ACT Routine 05/14/2018 4:30 PM [facility] L HEART CATH ONLY - NO 05/14/2018 Chest pain, unspecified ANGIOS 2:50 PM [facility] type APTT Routine 05/14/2018 1:29 PM [facility] CBC W/PLT COUNT & AUTO Routine 05/14/2018 DIFFERENTIAL 4:21 AM [facility] APTT Routine 05/14/2018 4:21 AM [facility] BASIC METABOLIC PANEL (7) Routine 05/14/2018 4:21 AM [facility] CBC W/PLT COUNT & AUTO Routine 05/14/2018 DIFFERENTIAL 4:21 AM [facility] APTT Routine 05/13/2018 7:40 PM [facility] BLOOD CULTURE Routine 05/13/2018 5:00 PM [facility] BASIC METABOLIC PANEL (7) Routine 05/13/2018 4:50 PM [facility] MAGNESIUM Routine 05/13/2018 4:50 PM [facility] BLOOD CULTURE Routine 05/13/2018 4:49 PM [facility] ECHOCARDIOGRAM REPORT - 05/13/2018 SCAN 2:50 PM [facility] ECG 12-LEAD Routine 05/13/2018 12:58 PM [facility] APTT Routine 05/13/2018 12:26 PM [facility] TRANSESOPHAGEAL ECHO Routine 05/13/2018 9:38 AM [facility] CBC W/PLT COUNT & AUTO Routine 05/13/2018 DIFFERENTIAL 4:38 AM [facility] APTT Routine 05/13/2018 4:38 AM [facility] BASIC METABOLIC PANEL (7) Routine 05/13/2018 4:38 AM [facility] CBC W/PLT COUNT & AUTO Routine 05/13/2018 DIFFERENTIAL 4:38 AM [facility] APTT Routine 05/12/2018 9:23 PM [facility] BASIC METABOLIC PANEL (7) Routine 05/12/2018 9:23 PM [facility] MAGNESIUM Routine 05/12/2018 9:23 PM [facility] ECHOCARDIOGRAM REPORT - 05/12/2018 SCAN 6:20 PM [facility] CONT WAVE PULSED DOPPLER Routine 05/12/2018 5:52 PM [facility] COLOR-FLOW MAPPING Routine 05/12/2018 5:52 PM [facility] ECHO W CONTRAST & DOPPLER Routine 05/12/2018 1:54 PM [facility] CBC W/PLT COUNT & AUTO Routine 05/12/2018 DIFFERENTIAL 5:37 AM [facility] MAGNESIUM Routine 05/12/2018 5:37 AM [facility] BASIC METABOLIC PANEL (7) Routine 05/12/2018 5:37 AM [facility] CBC W/PLT COUNT & AUTO Routine 05/12/2018 DIFFERENTIAL 5:37 AM [facility] TISSUE EXAM AP Routine 05/11/2018 5:14 PM [facility] BASIC METABOLIC PANEL (7) Routine 05/11/2018 5:14 PM [facility] MAGNESIUM Routine 05/11/2018 5:14 PM [facility] HEMOGLOBIN AND HEMATOCRIT Routine 05/11/2018 5:14 PM [facility] US RENAL BIOPSY Routine 05/11/2018 10:00 AM [facility] TISSUE EXAM AP Routine 05/11/2018 9:08 AM [facility] CBC W/PLT COUNT & AUTO Routine 05/11/2018 DIFFERENTIAL 6:18 AM [facility] CBC W/PLT COUNT & AUTO Routine 05/11/2018 DIFFERENTIAL 6:18 AM [facility] APTT Routine 05/11/2018 6:04 AM [facility] PROTHROMBIN TIME/INR Routine 05/11/2018 6:04 AM [facility] PT/APTT STAT 05/11/2018 6:04 AM [facility] MAGNESIUM Routine 05/11/2018 6:04 AM [facility] BASIC METABOLIC PANEL (7) Routine 05/11/2018 6:04 AM [facility] APTT Routine 05/10/2018 7:56 PM [facility] BASIC METABOLIC PANEL (7) Routine 05/10/2018 7:56 PM [facility] MAGNESIUM Routine 05/10/2018 7:56 PM [facility] APTT Routine 05/10/2018 1:03 PM [facility] OCCULT BLOOD, STOOL Routine 05/10/2018 5:44 AM [facility] CBC W/PLT COUNT & AUTO Routine 05/10/2018 DIFFERENTIAL 5:35 AM [facility] APTT Routine 05/10/2018 5:35 AM [facility] MAGNESIUM Routine 05/10/2018 5:35 AM [facility] BASIC METABOLIC PANEL (7) Routine 05/10/2018 5:35 AM [facility] CBC W/PLT COUNT & AUTO Routine 05/10/2018 DIFFERENTIAL 5:35 AM [facility] BASIC METABOLIC PANEL (7) Routine 05/09/2018 5:44 PM [facility] MAGNESIUM Routine 05/09/2018 9:18 AM [facility] APTT Routine 05/09/2018 9:18 AM [facility] CBC W/PLT COUNT & AUTO Routine 05/09/2018 DIFFERENTIAL 3:07 AM [facility] APTT Routine 05/09/2018 3:07 AM [facility] BASIC METABOLIC PANEL (7) Routine 05/09/2018 3:07 AM [facility] CBC W/PLT COUNT & AUTO Routine 05/09/2018 DIFFERENTIAL 3:07 AM [facility] US RENAL COMPLETE Routine 05/09/2018 2:35 AM [facility] ECHOCARDIOGRAM REPORT - 05/08/2018 SCAN 7:50 PM [facility] APTT Routine 05/08/2018 5:45 PM [facility] CREATININE, RANDOM URINE Routine 05/08/2018 12:06 PM [facility] OSMOLALITY, URINE Routine 05/08/2018 12:06 PM [facility] UREA NITROGEN, RANDOM Routine 05/08/2018 URINE 12:06 PM [facility] SODIUM, RANDOM URINE Routine 05/08/2018 12:06 PM [facility] APTT Routine 05/08/2018 12:05 PM [facility] 2D ECHO W/ DOPPLER Routine 05/08/2018 (CW/PW/COLOR) 10:46 AM [facility] OSMOLALITY, SERUM Routine 05/08/2018 8:18 AM [facility] CBC W/PLT COUNT & AUTO Routine 05/08/2018 DIFFERENTIAL 2:55 AM [facility] MAGNESIUM Routine 05/08/2018 2:55 AM [facility] APTT Routine 05/08/2018 2:55 AM [facility] PROTHROMBIN TIME/INR Routine 05/08/2018 2:55 AM [facility] BASIC METABOLIC PANEL (7) Routine 05/08/2018 2:55 AM [facility] CBC W/PLT COUNT & AUTO Routine 05/08/2018 DIFFERENTIAL 2:55 AM [facility] CBC W/PLT COUNT & AUTO Routine 05/07/2018 DIFFERENTIAL 10:06 PM [facility] LACTIC ACID, VENOUS Routine 05/07/2018 10:06 PM [facility] APTT Routine 05/07/2018 10:06 PM [facility] PROTHROMBIN TIME/INR Routine 05/07/2018 10:06 PM [facility] CBC W/PLT COUNT & AUTO Routine 05/07/2018 DIFFERENTIAL 10:06 PM [facility] CALCIUM, IONIZED Routine 05/07/2018 10:06 PM [facility] PHOSPHORUS Routine 05/07/2018 10:06 PM [facility] MAGNESIUM Routine 05/07/2018 10:06 PM [facility] BASIC METABOLIC PANEL (7) Routine 05/07/2018 10:06 PM [facility] APTT Routine 05/07/2018 9:52 PM [facility] APTT Routine 05/07/2018 7:02 PM [facility] TRANSFUSION SERVICE 05/07/2018 REPORT - SCAN 6:00 PM [facility] EMBOLECTOMY 05/07/2018 Thrombus 4:05 PM [facility] TISSUE EXAM AP Routine 05/07/2018 4:02 PM [facility] POCT-ACT Routine 05/07/2018 3:53 PM [facility] RHEUMATOID FACTOR AB, Routine 05/07/2018 REFLEX TO TITER 9:15 AM [facility] APTT Routine 05/07/2018 9:15 AM [facility] CBC W/PLT COUNT & AUTO Routine 05/07/2018 DIFFERENTIAL 3:02 AM [facility] LIPID PANEL Routine 05/07/2018 3:02 AM [facility] BASIC METABOLIC PANEL (7) Routine 05/07/2018 3:02 AM [facility] CBC W/PLT COUNT & AUTO Routine 05/07/2018 DIFFERENTIAL 3:02 AM [facility] APTT Routine 05/07/2018 3:02 AM [facility] URINE PROTEIN AP Routine 05/06/2018 ELECTROPHORESIS, RANDOM 8:32 PM [facility] PROTEIN, RANDOM URINE Routine 05/06/2018 8:32 PM [facility] URINALYSIS W/ MICROSCOPIC Routine 05/06/2018 8:32 PM [facility] UREA NITROGEN, RANDOM Routine 05/06/2018 URINE 8:32 PM [facility] CREATININE, RANDOM URINE Routine 05/06/2018 8:32 PM [facility] VITAMIN B12 Routine 05/06/2018 8:15 PM [facility] FOLATE, SERUM Routine 05/06/2018 8:15 PM [facility] BETA-2 GLYCOPROTEIN Routine 05/06/2018 ANTIBODIES 8:15 PM [facility] CARDIOLIPIN ANTIBODIES, Routine 05/06/2018 IGG AND IGM 8:15 PM [facility] COMPLEMENT COMPONENT C4 Routine 05/06/2018 8:15 PM [facility] COMPLEMENT COMPONENT C3 Routine 05/06/2018 8:15 PM [facility] DOUBLE-STRANDED DNA Routine 05/06/2018 (DSDNA) ANTIBODY 8:15 PM [facility] ANTI-NUCLEAR ANTIBODY Routine 05/06/2018 (YO) 8:15 PM [facility] HEPATITIS PANEL, ACUTE Routine 05/06/2018 8:15 PM [facility] KAPPA / LAMBDA LIGHT Routine 05/06/2018 CHAINS, SERUM 8:14 PM [facility] PROTEIN ELECTROPHORESIS, AP Routine 05/06/2018 SERUM 8:14 PM [facility] CRYOGLOBULIN AP Routine 05/06/2018 8:12 PM [facility] LUPUS ANTICOAGULANT AP Routine 05/06/2018 SCREEN WITH REFLEX TO 6:38 PM [facility] CONFIRMATORY APTT Routine 05/06/2018 6:38 PM [facility] APTT Routine 05/06/2018 10:47 AM [facility] T4, FREE Routine 05/06/2018 10:42 AM [facility] RPR Routine 05/06/2018 10:42 AM [facility] TSH/FREE T4 IF INDICATED Routine 05/06/2018 10:42 AM [facility] SODIUM, RANDOM URINE NIECY 05/06/2018 10:42 AM [facility] POTASSIUM, RANDOM URINE NIECY 05/06/2018 10:42 AM [facility] CHLORIDE, RANDOM URINE NIECY 05/06/2018 10:42 AM [facility] OSMOLALITY, SERUM NIECY 05/06/2018 10:42 AM [facility] PROTEIN, RANDOM URINE Routine 05/06/2018 10:42 AM [facility] OSMOLALITY, URINE NIECY 05/06/2018 10:42 AM [facility] HEPATITIS B SURFACE STAT 05/06/2018 ANTIGEN 10:42 AM [facility] HEPATITIS B SURFACE STAT 05/06/2018 ANTIBODY 10:42 AM [facility] HERPES VIRUS ANTIBODY, STAT 05/06/2018 IGM 10:42 AM [facility] HIV-1 ANTIGEN WITH STAT 05/06/2018 HIV-1/2 ANTIBODY 10:42 AM [facility] POCT-GLUCOSE METER Routine 05/06/2018 10:33 AM [facility] XR CHEST 1 VIEW Routine 05/06/2018 PORTABLE/BEDSIDE 9:30 AM [facility] VENOUS DOPPLER LEGS Routine 05/06/2018 BILATERAL 6:01 AM [facility] HEMOGLOBIN A1C Routine 05/06/2018 5:29 AM [facility] CBC W/PLT COUNT & AUTO Routine 05/06/2018 DIFFERENTIAL 5:11 AM [facility] TYPE AND SCREEN, STAT 05/06/2018 AUTOMATED 5:11 AM [facility] HEPATIC FUNCTION PANEL Routine 05/06/2018 5:11 AM [facility] LACTATE DEHYDROGENASE Routine 05/06/2018 (LDH) 5:11 AM [facility] LACTIC ACID, VENOUS Routine 05/06/2018 5:11 AM [facility] APTT Routine 05/06/2018 5:11 AM [facility] PHOSPHORUS Routine 05/06/2018 5:11 AM [facility] BASIC METABOLIC PANEL (7) Routine 05/06/2018 5:11 AM [facility] PT/APTT Routine 05/06/2018 5:11 AM [facility] MAGNESIUM Routine 05/06/2018 5:11 AM [facility] CBC W/PLT COUNT & AUTO Routine 05/06/2018 DIFFERENTIAL 5:11 AM [facility] after 11/16/2017 Results * RHYTHM STRIP - SCAN (08/27/2018 11:11 AM CDT) Only the most recent of 2 results within the time period is included. Narrative Performed At * EKG-SCANNED (08/27/2018 9:51 AM CDT) Narrative Performed At * VASCULAR DIAGRAM -SCAN (06/02/2018 2:40 PM [facility]) Only the most recent of 2 results within the time period is included. Narrative Performed At * CARDIAC CATH REPORT - SCAN (06/02/2018 2:40 PM [facility]) Narrative Performed At * CT chest without IV contrast (05/15/2018 8:41 AM [facility]) Specimen Narrative Performed At FINAL REPORT [employer] TECHNIQUE: CT scan of the chest WITHOUT [...] MD Report Verified Date/Time:05/15/2018 16:43:31 Reading Location: [address] Body Reading Room Procedure Note Interface, External Ris In - 05/15/2018 4:45 PM [facility] FINAL REPORT TECHNIQUE: CT scan of the [...] Report Verified Date/Time: 05/15/2018 16:43:31 Reading Location: [facility] [id number] CT Body Reading Room Performing Organization Address City/State/Zipcode Phone Number GE [facility]IS * CBC with platelet count + automated diff (05/15/2018 4:46 AM [facility]) Only the most recent of 11 results within the time period is included. WBC 15.6 (H) 3.5 - 10.5 K/L [facility] RBC 3.61 (L) 4.63 - 6.08 M/L [facility] Hemoglobin 12.5 (L) 13.7 - 17.5 GM/DL [facility] Hematocrit 36.2 (L) 40.1 - 51.0 % [facility] MCV 100.3 (H) 79.0 - 92.2 fL [facility] MCH 34.6 (H) 25.7 - 32.2 pg [facility] MCHC 34.5 32.3 - 36.5 GM/DL [facility] RDW 12.9 11.6 - 14.4 % [facility] Platelets 461 (H) 150 - 450 K/CU MM [facility] MPV 9.7 9.4 - 12.4 fL [facility] nRBC 0 0 - 0 /100 WBC [facility] % Neutros 93 % [facility] % Lymphs 3 % [facility] % Monos 3 % [facility] % Eos 0 % [facility] % Baso 0 % [facility] # Neutros 14.47 (H) 1.78 - 5.38 K/L [facility] # Lymphs 0.50 (L) 1.32 - 3.57 K/L [facility] # Monos 0.43 0.30 - 0.82 K/L [facility] # Eos 0.00 (L) 0.04 - 0.54 K/L [facility] # Baso 0.01 0.01 - 0.08 K/L [facility] Immature 1 0 - 1 % [facility] Granulocytes-Relative [facility] Specimen Blood Performing Organization Address City/State/Zipcode Phone Number [facility] [address] [place] [address] MEDICAL CENTER * Thromboelastograph (TEG) (05/15/2018 4:46 AM [facility]) TEG Activated Clotting 2.6 (L) 4.0 - 7.0 minutes [facility] TEG Fibrinogen Activity 79.7 (H) 61.0 - 73.0 degrees [facility] TEG Platelet Aggregation 65.3 (H) 55.0 - 65.0 MM [facility] TEG Fibrinolysis 1.9 0.0 - 5.0 % [facility] TEG-H Activated Clotting 2.8 (L) 4.0 - 7.0 minutes [facility] Time [facility] TEG-H Fibrinogen Activity 76.9 (H) 61.0 - 73.0 degrees [facility] TEG-H Platelet 62.8 55.0 - 65.0 MM [facility] Aggregation [facility] TEG-H Fibrinolysis 1.6 0.0 - 5.0 % [facility] Specimen Blood Performing Organization Address City/[facility] Phone Number [place] [phone] * Antithrombin III (05/15/2018 4:46 AM [facility]) Antithrombin III 110.0 80.0 - 120.0 % [facility] Specimen Blood Performing Organization Address City/[facility] Phone Number [address] * Magnesium (05/15/2018 4:46 AM [facility]) Only the most recent of 12 results within the time period is included. Magnesium 1.9 1.6 - 2.6 mg/dL [facility] Specimen Blood Performing Organization Address City/[facility] Phone Number [address] [address] [phone] * Basic Metabolic Panel (05/15/2018 4:46 AM [facility]) Only the most recent of 16 results within the time period is included. Sodium 135 (L) 136 - 145 meq/L [facility] Potassium 3.0 (L) 3.5 - 5.1 meq/L [facility] Chloride 99 98 - 107 meq/L [facility] CO2 28 22 - 29 meq/L [facility] BUN 30 (H) 7 - 21 mg/dL [facility] Creatinine 0.84 0.57 - 1.25 mg/dL [facility] Glucose 121 (H) 70 - 105 mg/dL [facility] Calcium 8.3 (L) 8.4 - 10.2 mg/dL [facility] EGFR 98Comment: ESTIMATED GFR IS mL/min/1.73 sq m [facility] NOT ACCURATE CREATININE [facility] CLEARANCE IN PREDICTING GLOMERULAR FILTRATION RATE. ESTIMATED GFR IS NOT APPLICABLE FOR DIALYSIS PATIENTS. Specimen Blood Performing Organization Address City/[facility]/Zipcode Phone Number [place] [phone] * POC ACTIVATED CLOTTING TIME (05/14/2018 4:30 PM [facility]) Only the most recent of 2 results within the time period is included. Activated Clotting Time 120Comment: TESTED AT [facility] sec [address] Specimen Blood Performing Organization Address City/[facility] Phone Number [address] * aPTT (05/14/2018 1:29 PM [facility]) Only the most recent of 23 results within the time period is included. PTT 67.9 (H) 22.5 - 36.0 seconds [facility] Specimen Blood Performing Organization Address City/[facility]/Zipcode Phone Number [phone] [place] [address] * Blood culture (05/13/2018 5:00 PM [facility]) Only the most recent of 2 results within the time period is included. Result No growth in 5 days [facility] Specimen Blood Performing Organization Address City/[facility]/Zipcode Phone Number [place] [phone] [place] [address] [facility] * ECHOCARDIOGRAM REPORT - SCAN (05/13/2018 2:50 PM [facility]) Narrative Performed At * ECG 12 lead (05/13/2018 12:58 PM [facility]) Specimen Narrative Performed At Ventricular Rate 96 BPM GE MUSE Atrial Rate 96 BPM P-R Interval 156 ms QRS Duration 110 ms Q-T Interval 352 ms QTC Calculation(Bazett) 444 ms P [place] 82 degrees R [place] 55 degrees T [place] 67 degrees Normal sinus rhythm Normal ECG No previous ECGs available Confirmed by Evita VARGHESE BASANT ([id number]) on 05/13/2018 6:22:57 PM Procedure Note Interface, External Ris In - 05/13/2018 6:23 PM PRESIDENT ERGONOMIC CONSULTING Ventricular Rate 96 BPM Atrial Rate 96 BPM P-R Interval 156 ms QRS Duration 110 ms Q-T Interval 352 ms QTC Calculation(Bazett) 444 ms P [place] 82 degrees R [place] 55 degrees T [place] 67 degrees Normal sinus rhythm Normal ECG No previous ECGs available Confirmed by Evita VARGHESE BASANT ([id number]) on 05/13/2018 6:22:57 PM Performing Organization Address City/State/Zipcode Phone Number [employer] * Transesophageal echo (05/13/2018 9:38 AM PRESIDENT ERGONOMIC CONSULTING) Ejection Fraction [facility] Specimen Narrative Performed At Transesophageal Echocardiography Report (ARNULFO) [facility] Demographics [facility] Patient NameNANCIE MAHARAJ Date of Study 05/13/2018 Visit [id number] Room Number [id number] Number Date of 1970Referring Physician Luz Stephenson MD Age 47 year(s)Mastic Sprayer Juancarlos Aceves MD Physician Procedure Type of Study ARNULFO procedure:TRANSESOPHAGEAL ECHO (Routine) Indications:Mass, cardiac. Clinical History HTN,EMBOLECTOMY 05-07-18 Height: 74 inches Weight: 99.34 kg (219 lbs) BSA: 2.26 m^2 BMI: 28.12 kg/m^2 HR: 82 bpm BP: 140/85 mmHg O2 Saturation: 99 % ARNULFO Performed By: the attending and the manager engine Procedure Informed Consent ARNULFO procedure notes Moderate [...] External Ris In - 05/21/2018 9:49 AM PRESIDENT ERGONOMIC CONSULTING Transesophageal Echocardiography Report (ARNULFO) Demographics Patient Name NANCIE MAHARAJ Date of Study 05/13/2018 Gender Male Visit Number [id number] Race Room Number [id number] Number Date of 1970 Referring Physician Luz Stephenson MD Age 47 year(s) Mastic Sprayer Juancarlos Aceves MD Physician Procedure Type of Study ARNULFO procedure:TRANSESOPHAGEAL ECHO (Routine) Indications:Mass, cardiac. Clinical History HTN,EMBOLECTOMY 05-07-18 Height: 74 inches Weight: 99.34 kg (219 lbs) BSA: 2.26 m^2 BMI: 28.12 kg/m^2 HR: 82 bpm BP: 140/85 mmHg O2 Saturation: 99 % ARNULFO Performed By: the attending and the manager engine Procedure Informed Consent ARNULFO procedure notes Moderate [...] l/min/m^2 Performing Organization Address City/State/Zipcode Phone Number [facility] * ECHOCARDIOGRAM REPORT - SCAN (05/12/2018 6:20 PM PRESIDENT [facility]OMIC CONSULTING) Narrative Performed At * ECHO W CONTRAST & DOPPLER (05/12/2018 1:54 PM PRESIDENT ERGONOMIC CONSULTING) Ejection Fraction [facility] Specimen Narrative Performed At Transthoracic Echocardiography Report (TTE) [facility] Demographics [facility] Patient NameGUELKER,Date of Study05/12/2018 NANCIE Male Visit [id number] Room [id number] Number Date of 1970ReferringAllascencion Stephenson MD Physician Age 47 year(s)SonographerMarie Pittman, SHELBI, RDCS,RVT,RDMS Research Dietitian Marlon Carrillo Interpreting Amrit Veliz MD Physician [...] External Ris In - 05/12/2018 5:43 PM PRESIDENT ERGONOMIC CONSULTING Transthoracic Echocardiography Report (TTE) Demographics Patient Name NICKO, Date of Study 05/12/2018 NANCIE Gender Male Visit Number [id number] Race Room Number 2156 Number Date of 1970 Referring Luz Stephenson MD Physician Age 47 year(s) Mastic Sprayer SHELBI Dunn, RDCS,RVT,RDMS Research Dietitian Marlon Carrillo Interpreting Amrit Veliz MD Physician [...] 0.09 m/s E/E': 5.15 Performing Organization Address City/[facility] Phone Number [facility] MKCKESSON CPACS * Hemoglobin and hematocrit (05/11/2018 5:14 PM PRESIDENT ERGONOMIC CONSULTING) Hemoglobin 12.9 (L) 13.7 - 17.5 GM/DL [facility] Hematocrit 38.1 (L) 40.1 - 51.0 % [facility] Specimen Blood Performing Organization Address City/[facility]/Zipcode Phone Number [facility] [address] [place] [address] [facility] * Tissue Exam (05/11/2018 5:14 PM PRESIDENT ERGONOMIC CONSULTING) Only the most recent of 3 results within the time period is included. Case Report Surgical Pathology [facility] Case: [id number] Authorizing Provider:Luz Stephenson MD Collected: 05/11/2018 259 Ordering Location: [address] Received: 05/11/2018 741 Service Pathologist: Lita Alegria MD Specimen:Skin DIAGNOSIS SKIN, RIGHT UPPER ARM, PUNCH [facility] BIOPSY: [facility] - SPONGIOTIC DERMATITIS WITH EOSINOPHILS, COMPATIBLE WITH ECZEMA Signing Pathologist Direct Phone Line: [phone] CPT Code(s) 80061 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 GROSS DESCRIPTION The specimen is received in a [facility] formalin-filled container and [facility] labeled with the patient's information and labeled "punch biopsy right upper arm" and consists of a 0.4 cm nonpigmented skin punch biopsy with a depth of 0.3 cm. Resection margin is inked blue. The specimen is bisected and submitted entirely A1. CG/pl MICROSCOPIC DESCRIPTION Sections show skin with marked [facility] spongiosis and superficial [facility] perivascular infiltrates, including lymphocytes, histiocytes and numerous eosinophils. Specimen Tissue Performing Organization Address City/[facility]/Zipcode Phone Number [facility] [address] [place] [address] [facility] * US renal biopsy (05/11/2018 10:00 AM PRESIDENT ERGONOMIC CONSULTING) Specimen Narrative Performed At FINAL REPORT [facility] Ultrasound guidance was provided to the referring vice chancellor by the pulmonology technician for a kidney biopsy. 12 images were obtained. Signed: Francisco Javier Joaquin MD Report Verified Date/Time:05/15/2018 14:22:54 Reading Location: [address] Ortho Consult Reading Room Procedure Note Interface, External Ris In - 05/15/2018 2:25 PM PRESIDENT ERGONOMIC CONSULTING FINAL REPORT Ultrasound guidance was provided to the referring vice chancellor by the pulmonology technician for a kidney biopsy. 12 images were obtained. Signed: Francisco Javier Joaquin MD Report Verified Date/Time: 05/15/2018 14:22:54 Reading Location: [facility] C013X Ortho Consult Reading Room Performing Organization Address City/State/Zipcode Phone Number [facility] * PT/aPTT (05/11/2018 6:04 AM PRESIDENT ERGONOMIC CONSULTING) Only the most recent of 2 results within the time period is included. Protime 12.7 11.7 - 14.7 seconds [facility] INR 1.0 <=5.9 [facility] PTT 28.4 22.5 - 36.0 seconds [facility] Specimen Blood Narrative Performed At RECOMMENDED COUMADIN/WARFARIN INR THERAPY RANGES [facility] STANDARD DOSE: 2.0 - 3.0 Includes: PROPHYLAXIS for venous thrombosis, [facility] systemic embolization; TREATMENT for venous thrombosis and/or pulmonary embolus. HIGH RISK: Target INR is 2.5-3.5 for patients with mechanical heart valves. Performing Organization Address [facility] Hospital[facility] Phone Number [address] [address] [facility] * Prothrombin time/INR (05/11/2018 6:04 AM PRESIDENT ERGONOMIC CONSULTING) Only the most recent of 3 results within the time period is included. Protime 12.7 11.7 - 14.7 seconds [facility] INR 1.0 <=5.9 [facility] Specimen Blood Narrative Performed At RECOMMENDED COUMADIN/WARFARIN INR THERAPY RANGES [facility] STANDARD DOSE: 2.0 - 3.0 Includes: PROPHYLAXIS for venous thrombosis, [facility] systemic embolization; TREATMENT for venous thrombosis and/or pulmonary embolus. HIGH RISK: Target INR is 2.5-3.5 for patients with mechanical heart valves. Performing Organization Address City/[facility]/Zipcode Phone Number [facility] [address] [place] [address] [facility] * Occult blood, stool (05/10/2018 5:44 AM PRESIDENT ERGONOMIC CONSULTING) Occult blood Negative Negative [facility] Specimen Stool Performing Organization Address [facility]/Zipcode Phone Number [place] [phone] [place] [address] [facility] * US renal complete (05/09/2018 2:35 AM PRESIDENT ERGONOMIC CONSULTING) Specimen Narrative Performed At FINAL REPORT [facility] Ultrasound of the Kidneys Clinical History:BEBA on [...] MD Report Verified Date/Time:05/09/2018 05:30:16 Reading Location: [facility] C013Y CT Body Reading Room Procedure Note Interface, External Ris In - 05/09/2018 5:32 AM PRESIDENT ERGONOMIC CONSULTING FINAL REPORT Ultrasound of the Kidneys Clinical [...] ECHOCARDIOGRAM REPORT - SCAN (05/08/2018 7:50 PM PRESIDENT ERGONOMIC CONSULTING) Narrative Performed At * Urea Nitrogen, random urine (05/08/2018 12:06 PM PRESIDENT ERGONOMIC CONSULTING) Only the most recent of 2 results within the time period is included. Urea Nitrogen, Ur 132 mg/dL [facility] Specimen Urine Narrative Performed At Reference Range: No Normals [facility] Performing Organization Address [facility] Phone Number [address] * Sodium, random urine (05/08/2018 12:06 PM PRESIDENT ERGONOMIC CONSULTING) Only the most recent of 2 results within the time period is included. Sodium Urine 88 meq/L [facility] Specimen Urine Narrative Performed At Reference Range: No Normals [facility] Performing Organization Address [facility] Phone Number [address] * Osmolality, urine (05/08/2018 12:06 PM PRESIDENT ERGONOMIC CONSULTING) Only the most recent of 2 results within the time period is included. Osmolality, Ur 296 40-1,400 mOsm/kg [facility] Specimen Urine Performing Organization Address City/[facility] Phone Number [address] * Creatinine, random urine (05/08/2018 12:06 PM PRESIDENT ERGONOMIC CONSULTING) Only the most recent of 2 results within the time period is included. Creatinine, Ur 42.2 mg/dL [facility] Specimen Urine Narrative Performed At Reference Range: No Normals [facility] Performing Organization Address City/[facility] Phone Number [address] [address] [facility] * 2D Echo W/Doppler(CW/PW/Color) (05/08/2018 10:46 AM PRESIDENT ERGONOMIC CONSULTING) Ejection Fraction [facility] ECHO [facility] Specimen Narrative Performed At Transthoracic Echocardiography Report (TTE) [facility]CHO [facility] Demographics [facility] Patient Name Edil MAHARAJ of Study 05/08/2018 [id number] GenderMale Visit Number [id number] RaceWil [id number] Number 2156 Number Date of Birth1970 Referring Physician Jose Treviño Age47 year(s) Mastic Sprayer Fernando Núñez [facility] AnalystMailyn InterpretingMD Maria Farley Physician Procedure Type [...] External Ris In - 05/08/2018 7:16 PM PRESIDENT ERGONOMIC CONSULTING Transthoracic Echocardiography Report (TTE) Demographics Patient Name NANCIE MAHARAJ Date of Study 05/08/2018 Gender Male Visit Number [id number] Race Room Number 2156 Number Date of 1970 Referring Physician Jose Treviño Age 47 year(s) Mastic Sprayer Fernando Núñez CS Research Dietitian Ambar Interpreting MD [facility] Phys[facility] Procedure Type of Study TTE procedure:2DECHO [...] LVOT CI: 2.65 l/min/m^2 Performing Organization Address City/[facility] Phone Number [facility] ECHO [facility] * Osmolality, serum (05/08/2018 8:18 AM PRESIDENT ERGONOMIC CONSULTING) Only the most recent of 2 results within the time period is included. Osmolality Serum 273 (L) 275 - 295 mOsm/kg [facility] Specimen Blood Performing Organization Address [facility] [place] [address] [phone] [place] [address] * Calcium, Ionized (05/07/2018 10:06 PM PRESIDENT ERGONOMIC CONSULTING) Calcium, Ion 1.09 (L) 1.12 - 1.27 mmol/L [facility] pH, Blood 7.43 [facility] Specimen Blood Performing Organization Address [facility] [place] [address] [facility] * Lactic acid, venous, whole blood (05/07/2018 10:06 PM PRESIDENT ERGONOMIC CONSULTING) Only the most recent of 2 results within the time period is included. Lactate, Venous 0.8Comment: Specimen slightly 0.5 - 2.2 mmol/L [facility] hemolyzed [facility] Specimen Blood Performing Organization Address [facility] Phone Number [address] [address] [facility] * Phosphorus (05/07/2018 10:06 PM PRESIDENT ERGONOMIC CONSULTING) Only the most recent of 2 results within the time period is included. Phosphorus 4.5 2.3 - 4.7 mg/dL [facility] Specimen Blood Performing Organization Address City/[facility] Phone Number [address] [address] [phone] [place] [address] * TRANSFUSION SERVICE REPORT - SCAN (05/07/2018 6:00 PM PRESIDENT ERGONOMIC CONSULTING) Narrative Performed At * Rheumatoid factor Ab, reflex to titer (05/07/2018 9:15 AM PRESIDENT ERGONOMIC CONSULTING) Rheumatoid Factor Negative [facility] Specimen Blood Performing Organization Address [facility] Phone Number [address] [address] [facility] * Lipid panel (05/07/2018 3:02 AM PRESIDENT ERGONOMIC CONSULTING) Triglycerides 97 mg/dL [facility] Cholesterol 261 mg/dL [facility] HDL 60 mg/dL [facility] LDL Calculated 182 mg/dL [facility] Specimen Blood Narrative Performed At Triglyceride Reference Range: [facility] Low Risk <150 [facility] [id number] High Risk 200-499 Very High Risk>=500 Cholesterol Reference Range: Low Risk <200 Ijfeviidiw644-969 High Risk>240 HDL Cholesterol Reference Range: Low Risk >=60 High Risk <40 LDL Cholesterol Reference Range: Optimal<100 Near Hbeakga763-294 Sybedmfcyg973-922 Npnd821-697 Very High >=190 Performing Organization Address [facility] Phone Number [address] [address] [facility] * Protein, random urine (05/06/2018 8:32 PM PRESIDENT ERGONOMIC CONSULTING) Only the most recent of 2 results within the time period is included. Protein, Urine 1,612 (H) 0 - 14 mg/dL [facility] Specimen Urine Performing Organization Address [facility] Phone Number [place] [phone] [place] [address] [facility] * Urine Protein Electrophoresis, random (05/06/2018 8:32 PM PRESIDENT ERGONOMIC CONSULTING) Protein, Urine 1,612 (H) 0 - 14 mg/dL [facility] Albumin %, Urine 63.3 % [facility] Globulin %, Urine 36.7 % [facility] UPEP,ID Urine protein study consistent [facility] with glomerular dysfunction. [facility] No monoclonal bands detected. Pathologist: Lesvia Matson MD (electronic [facility] signature) [facility] Specimen Urine Performing Organization Address City/State/Zipcode Phone Number [facility] [address] [place] [address] [facility] * Urinalysis w/Microscopic (05/06/2018 8:32 PM PRESIDENT ERGONOMIC CONSULTING) Color, UA Yellow [facility] Clarity, UA Hazy [facility] Specific [place], UA 1.034 1.001 - 1.035 [facility] pH, UA 6.0 5.0 - 8.0 [facility] Protein, UA 600 mg/dL (A) Negative [facility] Glucose, UA Negative Negative [facility] Ketones, UA Negative Negative [facility] Bilirubin, UA Negative Negative [facility] Blood, UA Large (A) Negative [facility] Nitrite, UA Negative Negative [facility] Leukocytes, UA Negative Negative [facility] Urobilinogen, UA 0.2 0.2 - 1.0 mg/dL [facility] RBC, UA 35 /HPF [facility] WBC, UA 10 /HPF [facility] Mucus Few [facility] Hyaline Casts, UA 29 /LPF [facility] Granular Casts, UA 4 /LPF [facility] Yeast Few [facility] Specimen Source Urine, Voided [facility] Specimen Urine Performing Organization Address City/State/Zipcode Phone Number [address] [address] [phone] [address] * Double-Stranded DNA (dsDNA) Antibody (05/06/2018 8:15 PM PRESIDENT ERGONOMIC CONSULTING) ds DNA Ab Negative [facility] Specimen Blood Performing Organization Address City/[facility]/Zipcode Phone Number [address] * Hepatitis panel, acute (05/06/2018 8:15 PM PRESIDENT ERGONOMIC CONSULTING) Hep A IgM Nonreactive Nonreactive [facility] Hep B C IgM Nonreactive Nonreactive [facility] Hepatitis C Ab Nonreactive Nonreactive [facility] hepatitis B Surface Ag Nonreactive Nonreactive [facility] Specimen Blood Performing Organization Address City/[facility] Phone Number [address] * Beta-2 glycoprotein antibodies (05/06/2018 8:15 PM PRESIDENT ERGONOMIC CONSULTING) B2 Glcoprotein Ab Profile Refer to individual [facility] B2-Glycoprotein IgG, IgM and INCORPORATED IgA results. Specimen Blood Narrative Performed At Performing Organization Address City/State/Zipcode Phone Number [facility], [address] [place], [place] [facility] [address] * Cardiolipin Antibodies, IgG and IgM (05/06/2018 8:15 PM PRESIDENT ERGONOMIC CONSULTING) Anticardiolipin IgG <1.6 <20.0 GPL [facility] Anticardiolipin IgM 0.2 <20.0 MPL [facility] Specimen Blood Narrative Performed At Anticardiolipin IgG Result Interpretation: [facility] <20.0 GPL Normal [facility] >/=20.0 GPL Positive Anticardiolipin IgM Result Interpretation: <20.0 MPL Normal >/=20.0 MPL Positive Performing Organization Address [facility] Phone Number [address] * Complement Component C3 (05/06/2018 8:15 PM PRESIDENT ERGONOMIC CONSULTING) C3 Complement 130 82 - 193 mg/dL [facility] Specimen Blood Performing Organization Address [facility] Phone Number [address] * Complement Component C4 (05/06/2018 8:15 PM PRESIDENT ERGONOMIC CONSULTING) C4 Complement 26 15 - 57 mg/dL [facility] Specimen Blood Performing Organization Address [facility] Phone Number [address] * Anti-Nuclear Antibody (YO) (05/06/2018 8:15 PM PRESIDENT ERGONOMIC CONSULTING) YO Negative Negative [facility] Specimen Blood Narrative Performed At Test performed by IFA method. [facility] Test performed by IFA method. [facility] Performing Organization Address [facility] Phone Number [address] * Folate, Serum (05/06/2018 8:15 PM PRESIDENT ERGONOMIC CONSULTING) Folate 11.4 >=7.0 ng/mL [facility] Specimen Blood Performing Organization Address [facility] Phone Number [address] * Vitamin B12 (05/06/2018 8:15 PM PRESIDENT ERGONOMIC CONSULTING) Vitamin B12 272 213 - 816 pg/mL [facility] Specimen Blood Performing Organization Address [facility]/Zipcode Phone Number [facility] [address] [place] [address] [facility] * [place] / lambda light chains, serum (05/06/2018 8:14 PM PRESIDENT ERGONOMIC CONSULTING) [place] Lt Chain,Free 23.8 (H) 3.3 - 19.4 mg/L [facility] Lambda Lt Chain,Free 20.4 5.7 - 26.3 mg/L [facility] [place]/Lambda,Free 1.17 0.26 - 1.65 [facility] Comment: [...] Lab [facility] [address] [place] [address] [place] [address] Raúl Mancuso MD, PhD, RASHID Performing Organization Address City/State/Zipcode Phone Number [facility] [place], [address] [place] [facility] [address] * Protein electrophoresis, serum (05/06/2018 8:14 PM PRESIDENT ERGONOMIC CONSULTING) Albumin Fraction 1.4 (L) 3.5 - 5.5 g/dL [facility] Alpha 1 Fraction 0.3 0.2 - 0.4 g/dL [facility] Alpha 2 Fraction 0.8 0.5 - 0.9 g/dL [facility] Beta Fraction 0.4 (L) 0.6 - 1.1 g/dL [facility] Gamma Globulin Fraction 0.8 0.7 - 1.7 g/dL [facility] Interpretation Alpha-1 and alpha-2 increased. [facility] Albumin, beta, and gamma [facility] decreased. This suggests a nephrotic pattern. Pathologist: Lesvia Matson MD (electronic [facility] signature) [facility] Protein, Total 3.7 (L) 6.0 - 8.3 gm/dL [facility] Specimen Blood Performing Organization Address City/[facility] Phone Number [address] [address] [phone] [place] [address] * Cryoglobulin (05/06/2018 8:12 PM PRESIDENT ERGONOMIC CONSULTING) Cryoglobulin Negative [facility] Specimen Blood Performing Organization Address [facility] Phone Number [address] * Lupus Anticoagulant Screen with Reflex To Confirmatory (05/06/2018 6:38 PM PRESIDENT ERGONOMIC CONSULTING) DRVV Screen Ratio 0.75 <1.20 [facility] Interpretations Normal DRVV Results [facility] Protime 12.6 11.7 - 14.7 seconds [facility] INR 0.9 <=5.9 [facility] PTT 29.6 22.5 - 36.0 seconds [facility] PTT-LA 35.5 32.0 - 41.8 [facility] Pathologist: Jovi Aguilar MD (electronic [facility] signature[facility] Specimen Blood Performing Organization Address [facility] Phone Number [address] [address] [phone] [place] [address] * TSH/Free T4 If Indicated (05/06/2018 10:42 AM PRESIDENT ERGONOMIC CONSULTING) TSH 0.20 (L) 0.35 - 4.94 uIU/mL [facility] Specimen Blood Performing Organization Address [facility] Phone Number [address] [address] [phone] [place] [address] * HIV-1 Antigen with HIV-1/2 Antibody (05/06/2018 10:42 AM PRESIDENT ERGONOMIC CONSULTING) HIV-1 Antigen with HIV Nonreactive Nonreactive [facility] 1&2 Antibody [facility] Specimen Blood Performing Organization Address [facility] Phone Number [address] * Herpes virus antibody, IgM (05/06/2018 10:42 AM PRESIDENT ERGONOMIC CONSULTING) Herpes Virus IGM Negative [facility] Specimen Blood Narrative Performed At Performing Organization Address [facility] Phone Number [address] * Potassium, random urine (05/06/2018 10:42 AM PRESIDENT ERGONOMIC CONSULTING) Potassium Urine 38.2 meq/L [facility] Specimen Urine Narrative Performed At Reference Range: No Normals [facility] Performing Organization Address [facility] Phone Number [address] * Chloride, random urine (05/06/2018 10:42 AM PRESIDENT ERGONOMIC CONSULTING) ChlorideUr 56 meq/L [facility] Specimen Urine Narrative Performed At Reference Range: No Normals [facility] Performing Organization Address [facility] Phone Number [address] * RPR (05/06/2018 10:42 AM PRESIDENT ERGONOMIC CONSULTING) RPR Nonreactive Nonreactive [facility] Specimen Blood Performing Organization Address [facility] Phone Number [address] * Hepatitis B surface antibody (05/06/2018 10:42 AM PRESIDENT ERGONOMIC CONSULTING) Hep B S Ab <8.0 <8.0 mIU/mL [facility] Specimen Blood Performing Organization Address City/[facility]/Zipcode Phone Number [address] * Hepatitis B surface antigen (05/06/2018 10:42 AM PRESIDENT ERGONOMIC CONSULTING) hepatitis B Surface Ag Nonreactive Nonreactive [facility] Specimen Blood Performing Organization Address City/[facility] Phone Number [address] * T4, free (05/06/2018 10:42 AM PRESIDENT ERGONOMIC CONSULTING) Free T4 1.49 (H) 0.70 - 1.48 ng/dL [facility] Specimen Blood Performing Organization Address [facility] Phone Number [address] * POC-Glucose meter (05/06/2018 10:33 AM PRESIDENT ERGONOMIC CONSULTING) POC-Glucose Meter 88Comment: TESTED AT [facility] 70 - 110 mg/dL [address] Specimen Blood Performing Organization Address City/[facility] Phone Number [address] * XR chest 1 view portable / bedside (05/06/2018 9:30 AM PRESIDENT ERGONOMIC CONSULTING) Specimen Narrative Performed At FINAL REPORT GE RIS INDICATION: admission COMPARISON: None. TECHNIQUE: Chest radiograph, single view, portable technique. FINDINGS / IMPRESSION: No consolidation, pulmonary edema, pneumothorax, or pleural effusion is demonstrated. Cardiac and mediastinal contours are unremarkable for portable technique. Old healed right posterolateral rib fractures are noted. Signed: Jorden Loera MD Report Verified Date/Time:05/06/2018 10:14:04 Reading Location: [facility] Radiology Reading Room Procedure Note Interface, External Ris In - 05/06/2018 10:16 AM PRESIDENT ERGONOMIC CONSULTING FINAL REPORT INDICATION: admission COMPARISON: None. TECHNIQUE: Chest radiograph, single view, portable technique. FINDINGS / IMPRESSION: No consolidation, pulmonary edema, pneumothorax, or pleural effusion is demonstrated. Cardiac and mediastinal contours are unremarkable for portable technique. Old healed right posterolateral rib fractures are noted. Signed: Jorden Loera MD Report Verified Date/Time: 05/06/2018 10:14:04 Reading Location: [facility] Radiology Reading Room Performing Organization Address City/State/Zipcode Phone Number GE RIS * Venous doppler legs bilateral (05/06/2018 6:01 AM PRESIDENT ERGONOMIC CONSULTING) [facility] Specimen Impressions Performed At Right Impression [facility] 1. There is no deep venous obstruction in the common femoral, profunda [facility]CKESSON [facility] femoral, femoral, popliteal, posterior tibial or [...] PV LAB - Lower Extremities DVT Study [facility] Demographics [facility] Patient NameNANCIE MAHARAJ Date of Study05/06/2018 Visit [id number] Male of Birth1970 [id number] Phys[facility] Mastic Sprayer MD Dax BenavideserPhysician Procedure Type of Study: [...] External Ris In - 05/06/2018 11:44 AM PRESIDENT ERGONOMIC CONSULTING PV LAB - Lower Extremities DVT Study Demographics Patient Name NANCIE MAHARAJ Date of Study 05/06/2018 Age 47 Visit Number [id number] Gender Male Accession Number [id number] Date of 1970 Referring [facility] Room Number 2C24 Physician Mastic Sprayer Jose Landis MD Rashad Schaeffer Physician Procedure Type of Study: Veins: Lower Extremities DVT Study, VENOUS DOPPLER LEG, BILATERAL. Indications for Study:Cellulitis and Edema. Patient Status:Routine. Study Location:Portable. Technical Quality:Adequate visualization. Risk Factors History of Disease + +----+ + !Diagnosis !Date!Comments ! + +----+ + !History/Risk ! !Bilateral LE Edema, Bilateral LE Cellulitis, Lt Arm! !Factors: ! !Brachial Clot ([facility]) ! + +----+ + Impressions Right Impression [...] are measured in cm Performing Organization Address City/[facility] Phone Number [facility] * Hemoglobin A1c (05/06/2018 5:29 AM PRESIDENT ERGONOMIC CONSULTING) Hemoglobin A1C 5.1 4.3 - 6.1 % [facility] Specimen Blood Performing Organization Address City/[facility] Phone Number [address] * Type and screen, automated (05/06/2018 5:11 AM PRESIDENT ERGONOMIC CONSULTING) ABO/RH AUTOMATED (BEAKER) B POSITIVE [facility] Ab Scrn NEGATIVE [facility] Specimen Blood Performing Organization Address [facility] Phone Number [address] * Lactate dehydrogenase (LDH) (05/06/2018 5:11 AM PRESIDENT ERGONOMIC CONSULTING) LDH 219 125 - 220 U/L [facility] Specimen Blood Performing Organization Address [facility] Phone Number [address] * Hepatic function panel (05/06/2018 5:11 AM PRESIDENT ERGONOMIC CONSULTING) Protein, Total 4.9 (L) 6.0 - 8.3 gm/dL [facility] Albumin 2.0 (L) 3.5 - 5.0 g/dL [facility] Total Bilirubin 0.2 0.2 - 1.2 mg/dL [facility] Bilirubin, Direct 0.1 0.1 - 0.5 mg/dL [facility] Alkaline Phosphatase 100 40 - 150 U/L [facility] AST 18 5 - 34 U/L [facility] ALT 11 6 - 55 U/L [facility] Specimen Blood Performing Organization Address City/State/Zipcode Phone Number [facility] [address] [place] [address] [facility] after 11/16/2017 Insurance Payer Benefit Subscriber ID Type Phone Address Plan / Group [employer]UE [employer] BCBS PPO xxxxxxxxxxxx PPO [phone] [address] [place] [address] CHOICE Advance Directives For more information, please contact: [facility] [address] [place] [address] Date Inactivated Comments Code Status Date Activated Full Code 05/07/2018 9:58 PM This code status was determined by: Patient
--- NOTE | 2018-11-17 22:48 | NUR ---
LEFT TO GET HOME MEDICATIONS
[2018-11-17] MEDS ORDERED: CEFAZOLIN SODI500 MG IV (23:09)
[2018-11-17] MEDS ORDERED: ELIQUIS PO (23:09)
[2018-11-17 23:37] VITALS: BP 117/58
[2018-11-17 23:40] VITALS: BP 117/58
[2018-11-18 03:41] VITALS: BP 109/55
[2018-11-18 05:43] LABS: BASOPHILS % 0.4 % (0.0-1.0); EOSINOPHILS # (AUTO) 0.4 (0.0-0.4); EOSINOPHILS % 4.6 % (0.0-6.0); HEMATOCRIT 23.9 % (38.2-49.6); HEMOGLOBIN 7.7 g/dL (14.0-18.0); LYMPHOCYTES # (AUTO) 1.3 (1.0-3.2); LYMPHOCYTES % 16.7 % (18.0-39.1); MEAN CORPUSCULAR HEMOGLOBIN 29.6 pg (28-32); MEAN CORPUSCULAR HGB CONC 32.2 g/dL (31-35); MEAN CORPUSCULAR VOLUME 91.9 fL (81-99); MONOCYTES # (AUTO) 0.5 (0.2-0.8); MONOCYTES % 7.1 % (4.4-11.3); NEUTROPHILS # (AUTO) 5.4 (2.1-6.9); NEUTROPHILS % 70.8 % (38.7-80.0); PLATELET COUNT 288 x10e3/uL (140-360); RED CELL DISTRIBUTION WIDTH 15.8 % (11.7-14.4)
[2018-11-18 05:53] LABS: ALBUMIN 1.9 g/dL (3.5-5.0); ALBUMIN/GLOBULIN RATIO 0.4 (0.8-2.0); ALKALINE PHOSPHATASE 144 IU/L (40-150); ANION GAP 17.1 mmol/L (8-16); BLOOD UREA NITROGEN 12 mg/dL (7-26); BUN/CREATININE RATIO 2 (6-25); CARBON DIOXIDE 26 mmol/L (22-29); CHLORIDE 93 mmol/L (98-107); CREATININE, SERUM 6.55 mg/dL (0.72-1.25); EST GLOMERULAR FILTRATION RATE 9 ML/MIN (60-); GLUCOSE 88 mg/dL (74-118); POTASSIUM 3.1 mmol/L (3.5-5.1); SODIUM 133 mmol/L (136-145)
[2018-11-18 05:54] LABS: ALANINE AMINOTRANSFERASE < 6 IU/L (0-55)
[2018-11-18] MEDS: CARVEDILOL 12.5 MG TAB PO SCH ×2 (06:14→17:40)
[2018-11-18] MEDS ORDERED: ACETAMINOPHEN 325 MG TAB PO PRN (06:15)
[2018-11-18] MEDS ORDERED: HYDRALAZINE HCL 20 MG/ML VIAL IV PRN (06:15)
[2018-11-18] MEDS ORDERED: DIATRIZOATE MEGL/DIATRIZOA SOD 30 ML BTL PO ONE (06:27)
[2018-11-18] MEDS: METOCLOPRAMIDE HCL 10 MG/2ML VIAL IV SCH ×4 (06:34→21:38)
[2018-11-18 07:45] VITALS: BP 91/56
[2018-11-18 08:15] VITALS: BP 91/56
[2018-11-18] MEDS: SEVELAMER CARBONATE 800 MG TAB PO SCH ×3 (09:00→16:50)
[2018-11-18] MEDS: APIXAB 2.5 MG TABLET PO SCH ×2 (09:00→17:00)
[2018-11-18] MEDS: FAMOTIDINE 20 MG TAB PO SCH ×2 (09:00→16:40)
[2018-11-18] MEDS ORDERED: CLONIDINE HCL 0.1 MG TAB PO SCH (09:00)
--- NOTE | 2018-11-18 09:12 | Diagnostic Imaging Report ---
EXAMINATION: CT of the abdomen and pelvis without contrast. TECHNIQUE: Spiral CT images of the abdomen and pelvis were performed from the lung bases to the lesser trochanters. No intravenous contrast was given per renal stone protocol. Coronal and sagittal reformatted images were obtained. COMPARISON: CT chest without contrast 11/17/2018 CLINICAL HISTORY:Nausea, vomiting DISCUSSION: ABSENCE OF INTRAVENOUS CONTRAST DECREASES SENSITIVITY FOR DETECTION OF FOCAL LESIONS AND VASCULAR PATHOLOGY. ABDOMEN/PELVIS: LOWER THORAX: Bilateral pleural effusions, right larger than left seen to better advantage on comparison CT chest 11/17/2018. HEPATOBILIARY:No focal hepatic lesions. No biliary ductal dilation. The gallbladder is normal. SPLEEN: No splenomegaly. PANCREAS: No focal masses or ductal dilatation. ADRENALS: No adrenal nodules. KIDNEYS/URETERS: No hydronephrosis, stones, or solid mass lesions. PELVIC ORGANS/BLADDER: Urinary bladder is collapsed and poorly evaluated. Prostate and seminal vesicles appear normal. PERITONEUM/RETROPERITONEUM: No free air or fluid. LYMPH NODES: No pelvic sidewall, retroperitoneal, or mesenteric lymphadenopathy VESSELS: Atherosclerotic calcification of the abdominal aorta and iliac arterial systems without aneurysmal dilatation. Otherwise limited evaluation in the absence of intravenous contrast. GI TRACT: The large bowel shows no distention or wall thickening. The descending colon is collapsed and poorly evaluated. The appendix is normal. The stomach is collapsed with prominent rugal folds. No small bowel dilatation to suggest obstruction. BONES AND SOFT TISSUES: No osseous destructive lesions. Multilevel degenerative disc changes and facet arthropathy of the lumbar spine. No focal soft tissue abnormalities. IMPRESSION: Examination is limited in the absence of intravenous contrast. No acute intra-abdominal or pelvic CT abnormalities. Atherosclerotic vascular disease. Bilateral pleural effusions, right larger than left, seen to better advantage on comparison CT chest 11/17/2018. Signed by: Dr. Jonathan Huerta M.D. on 11/18/2018 9:08 AM
--- NOTE | 2018-11-18 09:25 | NUR ---
Patient on Dialysis, not in distress
--- NOTE | 2018-11-18 10:15 | NUR ---
Notified Татьяна WONG regarding Hgb 7.6 and Lactic acid, she stated Notify Dr Chavarria for orders, paged DR chavarria
[2018-11-18] MEDS ORDERED: POTASSIUM CHLORIDE 10MEQ EA PO ONE (11:30)
[2018-11-18] MEDS ORDERED: SODIUM CHLORIDE 0.9% 250ML 500 ML IV PRN (12:15)
[2018-11-18] MEDS ORDERED: ALBUMIN 25% 12.5GM 0.25 GM/ML BTL IV PRN (12:15)
[2018-11-18] MEDS ORDERED: SODIUM CHLORIDE 0.9% 1000ML 2,000 ML IV PRN (12:15)
[2018-11-18] MEDS ORDERED: HEPARIN SOD (PORCINE) 1000 UNIT/ML SDV IV PRN (12:15)
[2018-11-18] MEDS ORDERED: RADICAVA IV ONE (13:00)
--- NOTE | 2018-11-18 13:29 | NUR ---
Dr Robledo here for rounds,new order given to give 2 units of blood (PRBC) along with dialysis tomorrow, and STAT consult for Dr Harvey Preciado for black stools
[2018-11-18] MEDS ORDERED: PHYTONADIONE 10 MG/ML AMP SQ ONE (13:30)
[2018-11-18] MEDS ORDERED: SODIUM CHLORIDE 0.9% 250ML 250 ML IV ONE (13:30)
[2018-11-18 15:31] VITALS: BP 100/50
--- NOTE | 2018-11-18 16:45 | NUR ---
UP on rounding patient's PICC line dressing off and PICC line off from the way its fixed. Татьяна WONG notified and new order recvd portable CXR STAT to check placement
--- NOTE | 2018-11-18 16:56 | NUR ---
Nutrition Screen Note RD Recommendation for Physician: -Continue current diet as ordered -Pt refused diet education or oral nutrition supplements. Plan of Care: RD following, monitoring for tolerance and adequacy Nutrition reason for involvement: Diagnosis Primary Diagnose(s): ESRD needing dialysis, volume overload, confusion PMH: bronchitis, anxiety, left arm DVT, end-stage renal disease with dialysis on Friday, , Friday, and hypertension. Ht: 76in Wt: 170lb BMI: 20.7kg/m2 IBW: 202lb RD Assessment: (11/18) Chart reviewed. Labs and meds reviewed. 48yo M, who was admitted for volume overload and confusion. Visited pt in the room. Pt is receiving HD during my visit. Pt reports poor appetite for several days and not liking foods in the hospital. Pt states I am not going to eat if I have to be on this renal diet. Discussed purpose and restrictions of renal diet. MD may change the diet if deemed necessary. LBM black stool today. No complains of nausea or vomiting. Pt denies any chewing or swallowing difficulty. Pt doesnt take any protein supplements at home. Pt is also not compliant with renal diet. Pt refuses any nutrition intervention at this time. Will continue to monitor and follow. Current Diet: renal diet Malnutrition Evaluation (11/18/18) Unable to evaluate. Poor historian. Pt refused physical assessment. Diet Education Needs Assessment: Diet education indicated, pt is not interested. Nutrition Care Level: low Signed: Tammy Fuentes, MS, RD, LD
--- NOTE | 2018-11-18 17:03 | Consultation ---
DATE OF CONSULTATION: 11/18/2018 Cardiology Consultation Thank you for the consultation. I am quite familiar with Mr. Anthony Landon. A 48-year-old gentleman came in along with his for increasing confusion and some dizziness. He is a known patient with the following diagnoses, 1. Renal failure, on hemodialysis. 2. IgA nephropathy. 3. History of DVT in the past. 4. Aortic regurgitation, moderate with LV dysfunction, ejection fraction 40% to 50%. 5. History of type 2 diabetes mellitus. The patient is chronically ill for last 6 months. The patient also had a history of endocarditis. The patient has a nonpedunculated vegetation in the aortic noncoronary cusp. It is there for the last 2-1/2 months, but the patient has a moderate aortic regurgitation, clinically is not increased. At this time, the patient is undergoing hemodialysis, he says he is very comfortable. His potassium was low and I am replacing with 10 mEq p.o. once a day. Renal income tax consultant, Dr. Beavers is also on the case. From my point of view, we will continue present medication. The patient also getting outpatient IV antibiotic by Infectious Disease specialist. My point of view, I ordered one more echo, I have not reviewed the echo, see whether there is increasing aortic regurgitation and possibly we had to keep in the hospital for a couple of days to improve his condition. His increased BNP of 4000 pg is mainly because of renal failure and also heart failure. The patient to continue present medications. I will continue to follow the patient. I have not reviewed the echo, it is not done yet. MD GERRY Joe/MODL /[id number]
--- NOTE | 2018-11-18 17:08 | Diagnostic Imaging Report ---
Exam: Brain MRI without IV contrast History: Confusion, ESRD Comparison studies: Head CT 11/17/2018. Technique: 3-D T1 with axial, coronal and sagittal reformats, axial T2 FLAIR, axial T2, axial T2*GRE and sagittal and axial T2. Intravenous contrast: None Findings: Several pulse sequences are limited by artifacts related to patient motion. Scalp: Normal in signal. No masses. Bone marrow: Normal in signal intensity. Brain sulci: Mildly prominent. Ventricles: Mild compensatory dilatation. No hydrocephalus. Extra axial spaces: No mass, no fluid collection. Parenchyma: No mass, hemorrhage or acute ischemia. Unchanged chronic insult centered along the right postcentral gyrus and right superior middle temporal gyri with encephalomalacia and gliosis in the right MCA territory. Suprasellar region: No abnormalities. Craniocervical junction: Patent foramen magnum. No Chiari malformation. Vessels: Normal flow-voids in the arteries and sinuses. Incidental findings: Nonspecific inflammatory mucosal thickening in the left maxillary sinus. IMPRESSION: Exams limited by artifacts related to patient motion. In spite of limitations: 1. No acute intracranial abnormalities. 2. Right temporoparietal insult in the right MCA territory. 3. Mild generalized parenchymal volume loss. Signed by: Dr. Jonathan Alejandro M.D. on 11/18/2018 5:05 PM
--- NOTE | 2018-11-18 17:27 | Diagnostic Imaging Report ---
A single frontal view of the chest. HISTORY: CHECK PICC LINE PLACEMENT, confusion, end-stage renal disease COMPARISON: CT of the chest are 2018. DISCUSSION: Portable technique, limits sensitivity of the exam. Multiple overlying artifacts. Evaluation of the lines is limited secondary to the low lung volumes, right pleural effusion, and portable technique. Tubes/Lines: A right approach dual lumen dialysis catheter, the tip appears to project in the region of the proximal great atrium. A left approach subclavian catheter, the tip projects superimposed to the dialysis catheter in the region of proximal superior vena cava, not definitively seen more distally. Lungs and pleura: Low lung volumes result in bibasilar vascular crowding, accentuation of the pulmonary interstitial markings, central pulmonary vasculature, and the cardiac silhouette. Allowing for these limitations, the findings are as follows: Diffusely increased interstitial markings. Prominent right atelectasis, which could obscure underlying pathology. Right greater than left pleural effusions. Heart and mediastinum: The right cardiac silhouette is obscured. The central pulmonary vasculature appears prominent. Bones and soft tissues: Appear unremarkable, given this limited exam. IMPRESSION: 1. Right approach dual lumen dialysis catheter and left approach subclavian catheter, as detailed above. 2. Large right and small left pleural effusions with adjacent atelectasis. 3. Limited evaluation, as above. Signed by: Dr. Erik Hernandez D.O., M.M.M. on 11/18/2018 5:24 PM
[2018-11-18] MEDS: CEFAZOLIN SOD 1 GM/NS 50ML 50 ML IV SCH (18:08)
--- NOTE | 2018-11-18 19:00 | NUR ---
received report from day nurse. patient is resting comfortably in bed. bed is in lowest position and call silva is within reach. will continue to monitor patient.
[2018-11-18 20:00] VITALS: BP 92/50
--- NOTE | 2018-11-18 20:29 | Consultation ---
DATE OF CONSULTATION: 11/18/2018 HISTORY OF PRESENT ILLNESS: Mr. Cruz is known to me, 48-year-old gentleman with underlying history of end-stage renal disease, alcoholism, liver disease, and prior GI bleed, who presented with bloody stools. He has missed his dialysis yesterday, scheduled for dialysis today. He is awake, alert, sitting up, looks pale. Denies any abdominal pain, nausea, vomiting, or hematemesis. The rectal bleeding started two days ago. He is currently lying supine, in no apparent distress. ALLERGIES: THE PATIENT HAS NO DRUG ALLERGIES. MEDICATIONS: His medications have been reviewed. PHYSICAL EXAMINATION: VITAL SIGNS: Blood pressure of 91/56, pulse rate 88, afebrile, and oxygen saturation 94% on room air. GENERAL: Awake, alert, sitting up, in no apparent distress, looks pale. HEENT AND NECK: Oral mucosa dry. Neck veins flat. No icterus noted. LUNGS: Occasional bibasilar rales. Decreased air entry in lower zones. HEART: S1, S2 audible. ABDOMEN: Soft, nontender. No apparent visceromegaly. EXTREMITIES: Lower extremity about 1+ ankle and pedal edema. LABORATORY DATA: Shows sodium 133, potassium 3.1, and creatinine 6.5. His platelets are 288 and hemoglobin is 7.7, INR is 1.7. IMPRESSION: Gastrointestinal bleed, history of alcoholism, hypertension, end-stage renal disease, evidence of fluid overload, anemia, and hypokalemia. PLAN: Arranging for hemodialysis. We will need STAT GI consultation to do endoscopies, to rule out variceal bleed versus lower GI bleed. I have asked the nurse to type and crossmatch 2 units of packed RBCs and transfuse next dialysis, which will be tomorrow morning. Dialysis nurse present at bedside. We will initiate dialysis. I will give him 10 mg vitamin K. Hypokalemia will be addressed during dialysis today. We will place him on a renal diet unless GI wants the patient n.p.o. Please see orders. MD SHAWANDA Jones/YR /[id number]
[2018-11-18] MEDS: SERTRALINE HCL 50 MG TAB PO SCH (21:38)
[2018-11-18] MEDS ORDERED: PANTOPRAZOLE SOD 40 MG TABEC PO STA (23:02)
--- NOTE | 2018-11-18 23:05 | Consultation ---
DATE OF CONSULTATION: 11/18/2018 HISTORY OF PRESENT ILLNESS: Mr. Cruz is well known to me, has history of endocarditis with methicillin-sensitive aureus, he was getting cefazolin. The patient has been having problem with shortness of breath and he has been seen by Cardiology, Dr. Caldera, who felt that he just needed medically management. The patient is getting cefazolin as an outpatient. He is coming in with altered mental status and shortness of breath. He pulled his PICC line accidentally, but currently, he is alert and oriented as well as compliant. He follows commands. PHYSICAL EXAMINATION: GENERAL: He is currently alert and oriented, does not seem to be in acute distress. VITAL SIGNS: Stable. Currently afebrile. HEENT: He is not icteric. NECK: Supple. CHEST: Clear bilateral. HEART: S1 and S2. No S3, S4, or murmur. ABDOMEN: Soft. Bowel sounds present. No tenderness. EXTREMITIES: No edema. LABORATORY DATA: Blood cultures are still pending. His white count is 7.6, hemoglobin 7.7. His sodium 133, potassium 3.1. His lactic acid was 29.3 yesterday. His BNP was 4244. IMPRESSION: 1. Altered mental status, resolved. 2. History of endocarditis. Continue cefazolin. 3. He lost his PICC line, which we replaced. 4. Congestive heart failure, but we will consult Cardiology. 5. Other medical problems as above. We will follow with you. MD VERÓNICA Latif/RY /[id number]
[2018-11-19] VITALS: BP 89/44
[2018-11-19 04:00] VITALS: BP 91/52
[2018-11-19 05:11] LABS: BASOPHILS # (AUTO) 0.1 (0.0-0.1); BASOPHILS % 0.7 % (0.0-1.0); EOSINOPHILS # (AUTO) 0.2 (0.0-0.4); EOSINOPHILS % 3.1 % (0.0-6.0); HEMATOCRIT 24.8 % (38.2-49.6); LYMPHOCYTES # (AUTO) 1.7 (1.0-3.2); LYMPHOCYTES % 24.7 % (18.0-39.1); MEAN CORPUSCULAR HEMOGLOBIN 29.3 pg (28-32); MEAN CORPUSCULAR HGB CONC 32.3 g/dL (31-35); MEAN CORPUSCULAR VOLUME 90.8 fL (81-99); MONOCYTES # (AUTO) 0.5 (0.2-0.8); MONOCYTES % 7.7 % (4.4-11.3); NEUTROPHILS # (AUTO) 4.4 (2.1-6.9); NEUTROPHILS % 63.1 % (38.7-80.0); PLATELET COUNT 279 x10e3/uL (140-360); RED BLOOD COUNT 2.73 x10e6/uL (4.3-5.7); RED CELL DISTRIBUTION WIDTH 15.9 % (11.7-14.4)
[2018-11-19] MEDS: CARVEDILOL 12.5 MG TAB PO SCH ×2 (05:35→17:30)
[2018-11-19 05:38] LABS: ALBUMIN 1.8 g/dL (3.5-5.0); ALBUMIN/GLOBULIN RATIO 0.4 (0.8-2.0); ALKALINE PHOSPHATASE 146 IU/L (40-150); ANION GAP 16.4 mmol/L (8-16); BLOOD UREA NITROGEN 9 mg/dL (7-26); BUN/CREATININE RATIO 2 (6-25); CARBON DIOXIDE 24 mmol/L (22-29); CHLORIDE 95 mmol/L (98-107); CREATININE, SERUM 4.84 mg/dL (0.72-1.25); EST GLOMERULAR FILTRATION RATE 13 ML/MIN (60-); GLUCOSE 79 mg/dL (74-118); POTASSIUM 3.4 mmol/L (3.5-5.1); SODIUM 132 mmol/L (136-145)
[2018-11-19 05:43] LABS: ALANINE AMINOTRANSFERASE < 6 IU/L (0-55)
[2018-11-19 05:55] LABS: INR 1.57; PROTHROMBIN TIME 19.4 seconds (11.9-14.5)
--- NOTE | 2018-11-19 05:59 | NUR ---
Per CLINICAL SALES CONSULTANT it is okay to use the patient's central line.
--- NOTE | 2018-11-19 06:59 | NUR ---
report given to day nurse. patient is resting comfortably in bed. bed is in lowest position and call silva is within reach.
[2018-11-19 07:20] LABS: IRON 92 ug/dL (65-175)
[2018-11-19] MEDS: METOCLOPRAMIDE HCL 10 MG/2ML VIAL IV SCH ×4 (07:30→21:00)
[2018-11-19] MEDS ORDERED: PANTOPRAZOLE SOD 40 MG TABEC PO SCH ×2 (07:30→09:00)
[2018-11-19 07:32] VITALS: BP 93/49
[2018-11-19 07:45] VITALS: BP 93/49
[2018-11-19] MEDS: SEVELAMER CARBONATE 800 MG TAB PO SCH ×3 (08:00→17:00)
[2018-11-19 08:05] LABS: TRANSFERRIN < 70 mg/dL (174-364)
[2018-11-19 08:28] LABS: FERRITIN 5375.63 ng/mL (21.81-274.66)
[2018-11-19] MEDS: APIXAB 2.5 MG TABLET PO SCH ×2 (09:00→17:28)
--- NOTE | 2018-11-19 09:01 | NUR ---
PATIENT ON DIALYSIS, RECEIVING BLOOD NOW, NOT IN ANY DISTRESS
[2018-11-19] MEDS ORDERED: LORAZEPAM INJ 2 MG/ML VIAL IV NR (12:15)
--- NOTE | 2018-11-19 12:35 | NUR ---
Patient looks confused, hallucinating, pulled off telebox, getting out of bed, trying to walk next room. Notified FRENCH PASTRY COOK of Dr Garcia, cade order recvd to give ativan 1mg IV once and Psych consult for hallucination.
--- NOTE | 2018-11-19 12:41 | NUR ---
Dose of ativan 1mg IV given, patient resting in bed and alarm ON now, notified his
[2018-11-19 15:15] VITALS: BP 126/71
[2018-11-19] MEDS: PANTOPRAZOLE SOD 40 MG TABEC PO SCH ×2 (16:30→17:53)
[2018-11-19] MEDS: CEFAZOLIN SOD 1 GM/NS 50ML 50 ML IV SCH (16:38)
--- NOTE | 2018-11-19 16:45 | NUR ---
Received patient from 176 to 212 via wheelchair. AAOX2 to person, place, confused. Respirations even and unlabored. O2 2L NC. Tele #[id number] ST [id number]. Oriented patient to room and to time. SIde rails upx2, call light within reach, bed alarm on.
--- NOTE | 2018-11-19 18:19 | NUR ---
c/o cough and sob at times. SPO2 100% on 2L NC. Татьяна Christine VOLCANOLOGIST notified of patient's status. See orders.
[2018-11-19] MEDS ORDERED: BENZONATATE 100 MG CAP PO PRN (18:30)
--- NOTE | 2018-11-19 19:15 | NUR ---
Report given to oncoming nurse of patient's status. Resting in bed. No s/s of acute distress noted. Side rails upx2, call light within reach, at bedside, bed alarm on. aware of orders to collect urine.
--- NOTE | 2018-11-19 19:38 | NUR ---
Received change of shift report from AM nurse. Rounds completed.
[2018-11-19] MEDS ORDERED: GLUCAGON FOR INJ 1 MG VIAL ONE (19:39)
[2018-11-19] MEDS ORDERED: LIDOCAINE HCL 2% LOCAL INJ 5 ML SDV VIAL INJ ONE (19:39)
[2018-11-19] MEDS ORDERED: PROPOFOL IV EMULSION 10 MG/ML 50 ML VIAL ONE (19:39)
[2018-11-19 20:00] VITALS: BP 88/52
[2018-11-19] MEDS: SERTRALINE HCL 50 MG TAB PO SCH (21:00)
--- NOTE | 2018-11-19 22:03 | NUR ---
Patient BP running 88-90s. Patient asymptomatic with c/o of itching. Will call MD for order. Continue monitor.
--- NOTE | 2018-11-19 22:10 | NUR ---
Patient confused and attemp to get out of bed. Patient informed not to get out of bed. Bed alarm on and SR upx2. Right dialysis port intact. Left SC and left hand 20G all intact. Tele SR/ST
[2018-11-19] MEDS ORDERED: DIPHENHYDRAMINE HCL INJ 50 MG/ML VIAL IV PRN (22:15)
--- NOTE | 2018-11-19 22:17 | NUR ---
Benadryl ordered for itching. Given
[2018-11-20] VITALS (7 sets, daily range): BP systolic 95–177; BP diastolic 51–74
[2018-11-20 03:56] LABS: BASOPHILS % 0.4 % (0.0-1.0); EOSINOPHILS # (AUTO) 0.1 (0.0-0.4); EOSINOPHILS % 1.6 % (0.0-6.0); HEMATOCRIT 29.3 % (38.2-49.6); HEMOGLOBIN 9.7 g/dL (14.0-18.0); LYMPHOCYTES # (AUTO) 1.6 (1.0-3.2); LYMPHOCYTES % 23.5 % (18.0-39.1); MEAN CORPUSCULAR HEMOGLOBIN 29.2 pg (28-32); MEAN CORPUSCULAR HGB CONC 33.1 g/dL (31-35); MEAN CORPUSCULAR VOLUME 88.3 fL (81-99); MONOCYTES # (AUTO) 0.5 (0.2-0.8); MONOCYTES % 7.1 % (4.4-11.3); NEUTROPHILS # (AUTO) 4.6 (2.1-6.9); NEUTROPHILS % 66.7 % (38.7-80.0); PLATELET COUNT 190 x10e3/uL (140-360); RED BLOOD COUNT 3.32 x10e6/uL (4.3-5.7); RED CELL DISTRIBUTION WIDTH 16.9 % (11.7-14.4)
[2018-11-20 04:11] LABS: ANION GAP 17.8 mmol/L (8-16); CALCIUM 8.4 mg/dL (8.4-10.2); CREATININE, SERUM 4.44 mg/dL (0.72-1.25); POTASSIUM 3.8 mmol/L (3.5-5.1)
--- NOTE | 2018-11-20 06:00 | NUR ---
Patient out of bed and laid on the floor to get cool. Patient states I was hot. No noted fever. Vitals signs within normal limits. In bed with bed alarm on. No new injury. called and informed. also gave OK for consent. Informed dry house worker.
--- NOTE | 2018-11-20 07:00 | NUR ---
Vitals 120/62, 124/65, 118/60, 110/5
--- NOTE | 2018-11-20 07:52 | NUR ---
Called MD and informed of patient laying on the floor. Also s/w Pina pt and informed. MD and family aware.
[2018-11-20] MEDS: SEVELAMER CARBONATE 800 MG TAB PO SCH ×3 (08:00→17:26)
[2018-11-20] MEDS: METOCLOPRAMIDE HCL 10 MG/2ML VIAL IV SCH ×4 (09:18→20:57)
[2018-11-20] MEDS ORDERED: RISPERIDONE 0.5 MG TAB PO PRN (11:45)
[2018-11-20] MEDS ORDERED: HALOPERIDOL LACTATE 5 MG/ML VIAL IM PRN (12:00)
--- NOTE | 2018-11-20 12:54 | Progress Note ---
DATE: 11/20/2018 Cardiology Progress Note SUBJECTIVE: The patient is seen in the room. The patient is lying down. At this time, the patient is drowsy. He has a significant cardiac issues, but the patient is anemic, he has already received 3 units of blood transfusion. The patient's Eliquis was held because of the patient is going to endoscopy. The patient is known patient with subacute endocarditis, still he has vegetation about to a point 3-4 m,m_vegetation in aortic valve, he has moderate aortic regurgitation, moderate tricuspid regurgitation, left ventricular ejection fraction 55-60%, left ventricle is slightly enlarged. He has also a pleural effusion. DIAGNOSES: 1. The patient has renal failure, IgA nephropathy. 2. History of pulmonary emboli and deep venous thrombosis in the past. The patient is also getting Eliquis. 3. Subacute endocarditis, being treated by Dr. Peterson for the last 6-8 weeks. 4. The patient is currently goes into mild metabolic encephalopathy. 5. At this time, the patient is cardiac-germain stable, but he has multiple issues as described above. The patient's sinus rhythm was 90 per minute, blood pressure 100/60. 6. Continue to follow the patient from cardiac point of view. MD GERRY Joe/RY /[id number] MTDRyland
--- NOTE | 2018-11-20 16:30 | NUR ---
patient returned from procedure and noted with no PIV in place. patient had PIV to left hand prior to procedure. when asked about what happened to PIV patient states he "had an episode." when asked what he meant by episode he states "just one of my episodes." patient unable to give details. no bleeding from site noted. central line to left chest in place with 1 port patent.
[2018-11-20] MEDS: GUAIFENESIN 600 MG TAB PO SCH (17:26)
[2018-11-20] MEDS: PANTOPRAZOLE SOD 40 MG TABEC PO SCH (17:26)
[2018-11-20] MEDS: CEFAZOLIN SOD 1 GM/NS 50ML 50 ML IV SCH (17:26)
[2018-11-20] MEDS: SUCRALFATE 1 GM TAB PO SCH ×2 (17:26→20:57)
--- NOTE | 2018-11-20 17:29 | Consultation ---
DATE OF CONSULTATION: 11/20/2018 Psychiatric Consultation REASON FOR CONSULTATION: To evaluate the patient's hallucination and psychosis. HISTORY OF PRESENT ILLNESS: The patient is a 48-year-old male, admitted to the hospital for confusion, end-stage renal disease needing dialysis and volume overload. Psychiatric consultation is called to evaluate the patient's psychosis. As per the record, the patient has history of end-stage renal disease, alcoholism, liver disease, prior GI bleed. Upon evaluation today, the patient is found to be in the room. He is alert, awake, and oriented to self, place, but he does not know the reason why he is hospitalized. He denies any depression, but he reports intermittent anxiety. He reports intermittent hallucination, but denies any at this time. He claims that today he was having visual hallucinations and seeing animals in the room. He denies feeling hopeless or helpless. He denies any suicidal or homicidal ideation. He reports poor sleep and poor appetite. As per nursing note, the patient has been confused, hallucinating, getting out of bed trying to get into another patient's room. Ammonia level was 50. PAST PSYCHIATRIC HISTORY: The patient denies any past psychiatric history. He denies past suicide attempts. He denies alcohol and drug use. FAMILY HISTORY: Denies. MENTAL STATUS EXAM: The patient is a middle-aged male. He is alert, awake, and oriented to situation. He appears to be able to answer questions appropriately, but somewhat confused as he does not know where he is. His mood is anxious at times. He denies any suicidal or homicidal ideation. Affect is congruent with mood. Psychomotor state is passive. Insight and judgment are fair. Memory appears to be grossly intact. Thought process is concrete. No delusion or paranoia elicited at this time. CURRENT MEDICATIONS: 1. Reglan. 2. Benadryl. 3. Zoloft 25 mg p.o. at bedtime. 4. Benzonatate. 5. Protonix. 6. Cefazolin. 7. Zofran. 8. Sevelamer. 9. Heparin. 10. Albumin. 11. Sodium chloride. 12. Hydralazine. 13. Acetaminophen. CURRENT LABS: Sodium 136, potassium 3.8, chloride 97, CO2 of 25, BUN 8, creatinine 0.44. AST 25, ALT less than 6. Ammonia level was 61. WBC is 6.88, RBC 3.2, hemoglobin 9.7, hematocrit 29.3. ASSESSMENT: 1. Unspecified psychosis. 2. Adjustment disorder with mixed mood. 3. Alcohol abuse history. PLAN: 1. Plan is to discontinue Zoloft. 2. Add Risperdal 0.5 mg p.o. q.8 hour as needed and hold for when systolic blood pressure is less than 90. Add Haldol 1 mg IM q.6 hours as needed, also hold for systolic blood pressure when is less than 90. 3. We will monitor both mood and psychosis, blood pressure (low) and GI bleed. 4. Supportive therapy. 5. Discussed with nursing staff. Thank you for this consultation. Dictated by Sis Toney PA-C Maye Muñiz MD QTV/MODL /[id number]
[2018-11-20] MEDS ORDERED: KETAMINE HCL INJ 50 MG/ML 10 ML VIAL ONE (18:51)
--- NOTE | 2018-11-20 20:51 | Operative Report ---
DATE OF PROCEDURE: 11/20/2018 SURGEON: Lul Preciado MD PROCEDURES: Esophagogastroduodenoscopy with biopsies. INDICATIONS FOR EGD: Anemia, history of dark stools. MEDICATIONS: The patient was done under MAC, please see anesthesiologist's note. PROCEDURE IN DETAIL: With the patient in left lateral decubitus position, flexible fiberoptic Olympus gastroscope was introduced into the esophagus under direct visualization without any difficulty. There was some patchy erythema noted in distal esophagus. The scope was then advanced with ease into the stomach, traversing a small sliding hiatal hernia. Mucosa overlying the antrum and the body revealed some patchy erythema, [id number] edema and biopsies were obtained and sent to stain for H pylori. Some patchy nodularity was noted in the upper body and biopsies were obtained. Pylorus was of normal contour and shape, was intubated with ease and the scope was advanced all the way to the second portion of the duodenum. Biopsies were obtained from the second portion and duodenal bulb to rule out sprue. The scope was then withdrawn back into the stomach and retroflexed and the mucosa overlying the fundus as well as that of the cardia grossly appeared to be within normal limits. The scope was then straightened out, it was subsequently withdrawn. The patient tolerated the procedure well. IMPRESSION: 1. Distal esophagitis, mild. 2. Small sliding hiatal hernia. 3. Gastritis, biopsied, biopsies sent to stain for Helicobacter pylori. 4. Patchy nodularity, upper body, biopsied. 5. Rule out sprue. PLAN: Follow up histology. Continue Protonix 40 mg one p.o. a.c. b.i.d. Add Carafate 1 g p.o. a.c. t.i.d. and at bedtime. Lul Preciado MD [facility] [place]/MODL /[id number] cc: MD Lul Patterson MD
[2018-11-20] MEDS: SERTRALINE HCL 50 MG TAB PO SCH (20:57)
[2018-11-21] VITALS (8 sets, daily range): BP systolic 93–127; BP diastolic 43–59
[2018-11-21 03:53] LABS: BASOPHILS % 0.3 % (0.0-1.0); EOSINOPHILS # (AUTO) 0.1 (0.0-0.4); EOSINOPHILS % 0.7 % (0.0-6.0); HEMATOCRIT 29.9 % (38.2-49.6); HEMOGLOBIN 9.5 g/dL (14.0-18.0); LYMPHOCYTES # (AUTO) 2.1 (1.0-3.2); LYMPHOCYTES % 17.7 % (18.0-39.1); MEAN CORPUSCULAR HEMOGLOBIN 29.5 pg (28-32); MEAN CORPUSCULAR HGB CONC 31.8 g/dL (31-35); MONOCYTES # (AUTO) 0.7 (0.2-0.8); MONOCYTES % 5.8 % (4.4-11.3); NEUTROPHILS # (AUTO) 8.9 (2.1-6.9); NEUTROPHILS % 74.9 % (38.7-80.0); RED BLOOD COUNT 3.22 x10e6/uL (4.3-5.7); RED CELL DISTRIBUTION WIDTH 16.9 % (11.7-14.4)
[2018-11-21 04:09] LABS: ANION GAP 22.8 mmol/L (8-16); CALCIUM 8.7 mg/dL (8.4-10.2); CREATININE, SERUM 5.63 mg/dL (0.72-1.25)
[2018-11-21 04:18] LABS: POTASSIUM 4.8 mmol/L (3.5-5.1)
[2018-11-21 04:22] LABS: MEAN CORPUSCULAR VOLUME 92.9 fL (81-99)
[2018-11-21 04:23] LABS: PLATELET COUNT 186 x10e3/uL (140-360)
[2018-11-21] MEDS: GUAIFENESIN 600 MG TAB PO SCH ×4 (05:26→18:00)
[2018-11-21] MEDS: METOCLOPRAMIDE HCL 10 MG/2ML VIAL IV SCH ×3 (09:08→16:30)
[2018-11-21] MEDS: SEVELAMER CARBONATE 800 MG TAB PO SCH ×3 (09:08→17:00)
[2018-11-21] MEDS: SUCRALFATE 1 GM TAB PO SCH ×3 (09:08→16:30)
[2018-11-21] MEDS: PANTOPRAZOLE SOD 40 MG TABEC PO SCH ×2 (09:08→16:30)
[2018-11-21] MEDS: ALBUTEROL/IPRATROPIUM 3 ML NEB NEB PRN ×2 (10:20→15:30)
--- NOTE | 2018-11-21 16:06 | NUR ---
Nutrition Follow-Up Note RD Recommendation(s) for Physician: 1.Continue current Renal diet, with Nepro TID 2.Will need to monitor oral intake, weight Plan of Care: RD following, monitoring for tolerance and adequacy Nutrition reason for involvement: MD Consult Primary Diagnose(s): ESRD needing dialysis, volume overload, confusion PMH: bronchitis, anxiety, left arm DVT, end-stage renal disease with dialysis on Friday, , Friday, and hypertension. History of alcoholism and liver disease per pt chart. GI: Soft , non-tender, present, LBM 11/21 Skin: Petechiae, tight, warm dry, left subclavian PICC line, right subclavian dialysis catheter Labs: (11/21) Potassium 4.8, CO2 21, Creat 5.63, GFR 11 Meds: (11/21) Protonix, Renvela, Reglan, Carafate Ht: 76in Wt: 170lb BMI: 20.7kg/m2 IBW: 202lb RD Assessment: (11/21) 48yo M, nutrition f/u . Patient in the room at time of visit Reports pt continues to have poor appetite and oral intake. Noted poor intake during admission and having a hard time getting patient to eat at home. Pts also noted ongoing N/V/D. Last episode day before yesterday (11/19) . Pt reports pt is non-compliant with renal diet, will take some sips of Nepro supplement. Pt denies any chewing or swallowing difficulty. Per pt , UBW of 210 lbs ~ 6 month ago, noted some present edema in hands and lower extremities. Patient showed signs of malnutrition during time of visit was cooperative and accepted to participate in nutrition focused physical exam. (11/18) Chart reviewed. Labs and meds reviewed. 48yo M, who was admitted for volume overload and confusion. Visited pt in the room. Pt is receiving HD during my visit. Pt reports poor appetite for several days and not liking foods in the hospital. Pt states I am not going to eat if I have to be on this renal diet. Discussed purpose and restrictions of renal diet. MD may change the diet if deemed necessary. LBM black stool today. No complains of nausea or vomiting. Pt denies any chewing or swallowing difficulty. Pt doesnt take any protein supplements at home. Pt is also not compliant with renal diet. Pt refuses any nutrition intervention at this time. Will continue to monitor and follow. Malnutrition Evaluation (11/21/2018) The patient meets criteria for unspecified SEVERE protein-calorie malnutrition. Energy intake: <50% of estimated energy requirements for >1 month Weight loss: >10% in 6 months (Chronic) Fat loss: Moderate, hollow depressed dark circles Muscle loss: Severe, hollow temporal, protrusion of shoulder Supporting Evidence: Fluid accumulation: Moderate, localized mild edema in lower extremities and hands Functional Status: { unable to evaluate; per patient and nurse patient is confused} Malnutrition Evaluation (11/18/18) Unable to evaluate. Poor historian. Pt refused physical assessment. Nutrition Prescription (Diet Order): Renal Diet Estimated Nutritional Needs: 2318 2704 calories/day (30- 35 kcal/kg CBW) ~93g protein/day ( 1.2g pro/kg CBW) Diet Adequacy: Not meeting calorie needs, Not meeting protein needs Diet Education Needs Assessment: Diet education indicated, but patient not appropriate for education at this time, pt not interested. Nutrition Care Level: High Nutrition Diagnosis: Severe malnutrition related to inadequate oral intake as evidenced by <50% of estimated energy requirements for >1 month, >10% weight loss in 6 months (Chronic) and severe muscle / fat loss. Goal: Patient will meet 75-100% of estimated needs by follow up Progress: Progressing Interventions: -Renal -modified diet, Commercial beverage Monitoring/Evaluation: -Total energy intake, Total protein intake, Modified diet, Liquid supplement, Weight change Signed: Gabrielle Gomez MS, RDN, LD
[2018-11-21] MEDS ORDERED: DAPTOMYCIN 500mg 10ML 500 MG in SODIUM CHLORIDE 0.9% 100 ML IV SCH ×2 (16:15→20:00)
[2018-11-21] MEDS ORDERED: DAPTOMYCIN 500mg 10ML 450 MG in SODIUM CHLORIDE 0.9% 100 ML IV SCH ×2 (17:00→20:00)
[2018-11-21] MEDS ORDERED: METHYLPREDNISOLONE SOD SUCC 125 MG/2ML VIAL IV SCH (18:00)
--- NOTE | 2018-11-21 18:16 | NUR ---
patient currently on hemodialysis. confused and requires constant redirection. patient noted attempting to grab dialysis catheter line and reminded to avoid touching it to prevent accidental dislodgement. patient refused gown and is in bed bare chested, towel draped over right chest and HD cath to prevent patient from attempting to grab HD cath. call light within reach. dialysis nurse remains in room with patient and notified to call for assistance if needed.
[2018-11-21] MEDS ORDERED: SODIUM CHLORIDE 0.9% 250ML 250 ML ONE (20:34)
--- NOTE | 2018-11-21 20:40 | NUR ---
In room with patient to administer medication. Patient alert x1, confused, talking, and asking for water. Patient went unconscious. [place] rub performed. Patient on telemetry, steady heart rate decreased to 50s, 40s. Krystal hanson called at 2042. Code team in room with ER physician. in hallway.
[2018-11-21] MEDS ORDERED: DEXTROSE 50% SYRINGE 50 ML IV ONE ×3 (20:48→21:03)
--- NOTE | 2018-11-21 21:03 | NUR ---
Time of 2102.
[2018-11-21] MEDS ORDERED: SODIUM BICARBONATE 8.4% SYRING 50 ML ONE (21:05)
--- NOTE | 2018-11-21 21:34 | NUR ---
[facility]. . Spoke to Eliza Urena. Patient not a candidate for organ donation or corneal donation.
--- NOTE | 2018-11-22 00:24 | NUR ---
Family picked home. Call placed to [facility]. ETA 1-1.5 hrs. Son Milton Cruz signed release of body.
--- NOTE | 2018-11-22 01:49 | NUR ---
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
--- NOTE | 2018-11-22 17:33 | Consultation ---
DATE OF CONSULTATION: 11/21/2018 HISTORY OF PRESENT ILLNESS: Mr. Cruz is a 48-year-old white male who has been referred to me for evaluation of vasculitis. Most of the history has been obtained by my personal communication with the patient's as well as review of all the records dictated by physicians including Dr. Garcia, Dr. Robledo, and Dr. Caldera. History of being almost obtunded for about 24 hours as per the . The patient has been "sleeping" for the last 24 hours. HISTORY OF PAST ILLNESS: History of chronic renal failure, history of high IgA nephropathy. Previous history of deep vein thrombosis. History of aortic regurgitation. SOCIAL HISTORY: Could not be obtained properly as he is not alert enough. In fact, he is obtunded, sleeping, unresponsive. FAMILY HISTORY: Cannot be obtained. ALLERGIES: REPORTED AMLODIPINE. MEDICATIONS: At this time, 1. Albuterol. 2. Sodium chloride. 3. Ondansetron. 4. Coreg. 5. Sevelamer. 6. Eliquis. 7. Reglan. 8. Tylenol. 9. Hydralazine. 10. Albumin. 11. Heparin. 12. Protonix. 13. Benzonatate. 14. Diphenhydramine. 15. Haldol. 16. Risperidone. 17. Guaifenesin. 18. Carafate. REVIEW OF SYSTEMS: HEENT: Normal. CARDIAC: History of hypertension. History of aortic regurgitation. GI: History of GI bleeds in the past. : Chronic renal failure. IgA nephropathy, on dialysis. MUSCULOSKELETAL: History of deep vein thrombosis in the past. NEUROENDOCRINE: Essentially normal. PHYSICAL EXAMINATION: GENERAL: A rather thin built male, obtunded, sleeping, has severe vasculitic lesions involving the entire body, upper extremities, chest, lower extremities, the back, no adenopathy. HEART: Harsh murmur. LUNGS: Bilateral dullness. ABDOMEN: Could not be examined properly. RECTAL: Could not be done. CENTRAL NERVOUS SYSTEM: Could not be done. LABORATORY DATA: Shows sodium of 136, potassium 4.8, chloride 97, CO2 21, BUN 13, creatinine 5.6, [place] [address], hemoglobin of 9.5, hematocrit 29.9, platelets of 186,000. INR reported high at 1.57. Bilirubin 0.3, SGOT 25, SGPT 6, alkaline phosphatase 146. IMPRESSION: 1. 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 2. Bilateral pleural effusions. 3. Chronic renal failure. 4. History of IgA nephropathy. 5. History of DVT. 6. History of aortic regurgitation on Eliquis. 7. Anemia of chronic disease. 8. Coagulopathy with slightly high INR of 1.57. PLAN: Common sense suggestions suggest high dose of steroids. Ideally, the patient should have a skin biopsy. However, clinically this is vasculitis. 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 Usually, a lumbar puncture is done. However, the lumbar puncture could not be done in this patient as he is on Eliquis. I will discuss at length with her the response with steroids. The questions she had were would it go way. The response was it usually does respond, however, relapses are very common, relapse can be re-treated again with steroids and our systemic chemotherapy usually with Cytoxan. I came to see the patient on the following day. However, I was told the patient code and . Thank you very much for allowing me to participate in the management of this patient. MD SHIRA Carmona/MODL /[id number] cc: MD Lul Jones MD Palur V Balakrishnan, MD Ronald W Killam, MD
--- NOTE | 2018-11-22 18:53 | Discharge Summary ---
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 HISTORY: The patient has a history of anxiety, left arm DVT, end-stage renal disease with dialysis Friday, , Friday; hypertension, MSSA endocarditis with aortic valve vegetation, being treated currently outpatient with IV antibiotics; depression. SURGICAL HISTORY: Left arm thrombectomy, right chest dialysis catheter. FAMILY HISTORY: Noncontributory. SOCIAL HISTORY: The patient admits to quitting alcohol use in July of 2018 and tobacco use in September of 2018. HOSPITAL COURSE: A 48-year-old male brought to the ER by due to increased weakness and confusion. He did not want to go to dialysis yesterday, so the became concerned. He complains of nausea, vomiting, and diarrhea that began about a week and a half before admission. He says his diarrhea is like water. He denies fever, dysuria, and abdominal pain. On admission, the patient had a chest x-ray, which showed slightly worse right lower lung field opacification, representing combination of effusion and atelectasis. CT of the brain showed no acute abnormalities. CT of the chest showed advanced centrilobular pulmonary edema, right greater than left pleural effusions with compressive atelectasis. An MRI of the brain also showed no acute abnormalities. CT of the abdomen showed bilateral pleural effusions, right larger than left; atherosclerotic vascular disease. Blood cultures sent, which were negative. C diff sent was negative. Stool for blood was negative. The patient started dialysis and was resumed on his cefazolin as he was getting outpatient per ID recommendation. Due to hallucinations, Psych was consulted, who started the patient on risperidone and stopped the patient's Zoloft, and Hematology was consulted to rule out vasculitis. On 11/21/2018, the patient had just finished dialysis. About 30 minutes later, he was talking to the nurse, the nurse said he stopped responding and his pulse slowed. She called the code and he was not resuscitated. Time of is 2102 on 11/21/2018. Dictated by Татьяна Christine, HEALTH INSPECTOR FOOD MD MAGGI Patterson/MODBelkys /[id number]
[2018-11-25 15:25] LABS: FOLATE 6.1 ng/mL (7.0-15.4)
== END 2018-11-22 01:58 | disposition expired | DRG 871 ==
LOC: ER 18:23 → ERHOLD 21:50 → IMCU 22:44 → OBSVTOIN 11-19 08:46 → MED/SURG2 11-19 17:08
PROVIDERS: ADMIT Internal Medicine; ATTEND Internal Medicine
PROC: 5A1D70Z Performance of Urinary Filtration, Intermittent, Less than 6 Hours Per Day (ICD-10-PCS; 2018-11-18)
PROC: 5A1D70Z Performance of Urinary Filtration, Intermittent, Less than 6 Hours Per Day (ICD-10-PCS; 2018-11-19)
PROC: 30233N1 Transfusion of Nonautologous Red Blood Cells into Peripheral Vein, Percutaneous Approach (ICD-10-PCS; 2018-11-19)
PROC: 0DB78ZX Excision of Stomach, Pylorus, Via Natural or Artificial Opening Endoscopic, Diagnostic (ICD-10-PCS; principal; 2018-11-20 15:01)
PROC: 5A1D70Z Performance of Urinary Filtration, Intermittent, Less than 6 Hours Per Day (ICD-10-PCS; 2018-11-21)
PROC: 5A1221Z Performance of Cardiac Output, Continuous (ICD-10-PCS; 2018-11-22)
DX: A41.01 Sepsis due to Methicillin susceptible Staphylococcus aureus (principal); I33.0 Acute and subacute infective endocarditis; N18.6 End stage renal disease; G93.41 Metabolic encephalopathy; I13.2 Hypertensive heart and chronic kidney disease with heart failure and with stage 5 chronic kidney disease, or end stage renal disease; J90 Pleural effusion, not elsewhere classified; I67.7 Cerebral arteritis, not elsewhere classified; N02.8 Recurrent and persistent hematuria with other morphologic changes; I50.22 Chronic systolic (congestive) heart failure; R65.20 Severe sepsis without septic shock; Z99.2 Dependence on renal dialysis; D63.1 Anemia in chronic kidney disease; B95.61 Methicillin susceptible Staphylococcus aureus infection as the cause of diseases classified elsewhere; J44.9 Chronic obstructive pulmonary disease, unspecified; Z86.73 Personal history of transient ischemic attack (TIA), and cerebral infarction without residual deficits; I48.91 Unspecified atrial fibrillation; F41.9 Anxiety disorder, unspecified; Z86.718 Personal history of other venous thrombosis and embolism; Z79.01 Long term (current) use of anticoagulants; E78.5 Hyperlipidemia, unspecified; Z88.8 Allergy status to other drugs, medicaments and biological substances; Z82.49 Family history of ischemic heart disease and other diseases of the circulatory system; Z87.891 Personal history of nicotine dependence; F10.21 Alcohol dependence, in remission; K76.9 Liver disease, unspecified; E87.6 Hypokalemia; F29 Unspecified psychosis not due to a substance or known physiological condition; F43.23 Adjustment disorder with mixed anxiety and depressed mood; L95.9 Vasculitis limited to the skin, unspecified; Z86.711 Personal history of pulmonary embolism; K20.9 Esophagitis, unspecified; K44.9 Diaphragmatic hernia without obstruction or gangrene; K29.70 Gastritis, unspecified, without bleeding; K31.89 Other diseases of stomach and duodenum; K52.9 Noninfective gastroenteritis and colitis, unspecified; K21.9 Gastro-esophageal reflux disease without esophagitis; D63.8 Anemia in other chronic diseases classified elsewhere; R63.4 Abnormal weight loss; Z68.20 Body mass index [BMI] 20.0-20.9, adult; I35.8 Other nonrheumatic aortic valve disorders
CPT/HCPCS: 31500; 36415; 43239; 70450; 70551; 71045; 71250; 74176; 80048; 80053; 82140; 82270; 82550; 82553; 82607; 82728; 82746; 83540; 83605; 83630; 83690; 83735; 83880; 84145; 84466; 84484; 85025; 85045; 85610; 85651; 85730; 86140; 86705; 86706; 86850; 86900; 86920; 87040; 87340; 87493; 88305; 88312; 90962; 92950; 93005; 93306; 99284; G0378; J0690; J1200; J1610; J1630; J1644; J2001; J2060; J2405; J2765; J2930; J3430; J7030; J7050; J7799; P9016